=== PATIENT | male | born 1960 | race Caucasian/White ===

== ENCOUNTER 2022-10-17 07:10 | Outpatient (RCR) | payer OTHER, SELFPAY ==
--- NOTE | 2022-10-11 08:13 | CR1_ITS ---
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
--- NOTE | 2022-11-08 13:05 | CR1_ITS ---
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 Order Number: [id number] Reading MD: TAYLER FOSTER Interpretive Statements Session Date: Electronically Signed On 11-10-2022 10:17:25 EDT by TAYLER FOSTER
== END 2022-11-08 13:18 | disposition home or self-care (01) ==
LOC: CR 07:10
PROVIDERS: PCP Internal Medicine Interventional Cardiology; Visit Provider Internal Medicine Interventional Cardiology
DX: Z95.5 Presence of coronary angioplasty implant and graft (principal)

== ENCOUNTER 2022-12-19 10:58 | Outpatient (OUT) | payer MEDICARE, SELFPAY ==
[2022-12-19 11:21] LABS: Hematocrit 49.4 % (42.0-54.0); Hemoglobin 17.6 g/dL (14.0-18.0); Mean Corpuscular HGB Conc 35.6 g/dL (29.9-35.2); Mean Corpuscular Hemoglobin 31.8 pg (25.9-34.0); Mean Corpuscular Volume 89.2 fL (80.0-94.0); Mean Platelet Volume 9.7 fL (9.5-13.5); Platelet Count 414 10^3/uL (150-450); Red Blood Count 5.54 10^6/uL (4.70-6.10); Red Cell Distribution Width 12.9 % (11.0-15.0); White Blood Count 11.1 10^3/uL (4.0-11.0)
[2022-12-19 12:05] LABS: Segmented Neut Absolute Manual 4.55 10^3/uL (1.4-6.5)
[2022-12-19 12:06] LABS: Basophils Abs Manual 0.11 10^3/uL (0.00-0.10); Eosinophils Absolute Manual 0.33 10^3/uL (0.00-0.70); Lymphocytes Absolute Manual 4.99 10^3/uL (1.20-3.80); Monocytes Absolute Manual 1.11 10^3/uL (0.30-0.80)
[2022-12-19 12:42] LABS: Estimated Average Glucose 120 mg/dL; Glycohemoglobin A1C 5.8 % (4.5-6.2)
[2022-12-19 12:56] LABS: Prostate Specific Antigen Scrn 0.88 ng/mL (<=4.00)
[2022-12-19 13:04] LABS: Alanine Aminotransferase 37 U/L (16-63); Albumin Globulin Ratio 0.9; Albumin Level 3.7 g/dL (3.4-5.0); Alkaline Phosphatase 65 U/L (46-116); Anion Gap 14.1; Aspartate Amino Transferase 18 U/L (15-37); BUN Creatinine Ratio 16.7; Bilirubin Total 0.6 mg/dL (0.2-1.0); Calcium 9.1 mg/dL (8.5-10.1); Carbon Dioxide 27.5 mmol/L (21.0-32.0); Chloride 103 mmol/L (98-107); Cholesterol 131 mg/dL (<=200); Estimated GFR (African America >60 (>=60); Estimated GFR (Non-African Ame >60 (>=60); Free T3 3.02 pg/mL (2.18-3.98); Globulin 3.9 g/dL; Glucose 120 mg/dL (74-106); HDL Cholesterol 33 mg/dL (40-60); Potassium 3.6 mmol/L (3.5-5.1); Sodium 141 mmol/L (136-145); Total Protein 7.6 g/dL (6.4-8.2); Triglycerides 254 mg/dL (<=150); VLDL CHOLESTEROL 50.8 mg/dL
== END 2022-12-19 10:59 | disposition home or self-care (01) ==
LOC: LAB 12-26 10:58
PROVIDERS: PCP Internal Medicine Interventional Cardiology; Visit Provider Family Medicine
DX: G47.30 Sleep apnea, unspecified (principal); E11.9 Type 2 diabetes mellitus without complications; I10 Essential (primary) hypertension; Z12.5 Encounter for screening for malignant neoplasm of prostate
CPT/HCPCS: 36415; 80053; 80061; 83036; 84436; 84443; 84481; 85027; G0103

== ENCOUNTER 2023-07-12 14:21 | Outpatient (OUT) | payer MEDICARE, SELFPAY ==
--- NOTE | 2023-07-12 14:30 | CA_ITS ---
Patient Name: CECIL HAMMOND MR#: [id number] : 1960 Exam Date: 07/12/2023 Ordering Doctor: DR SHONNA MELTON M.D. ECHOCARDIOGRAM REPORT PROCEDURE: CA ECHO DOPPLER COMPLETE INDICATIONS: Abnormal ECG, cardiac stent, hypertension, h/o pulmonary emboli, former smoker COMPARISON: None. DESCRIPTION: COMPLETE ECHOCARDIOGRAM Real-time transthoracic echocardiography with 2D, M-mode, spectral and color flow Doppler performed. QUALITY: Technical quality was good. 69 , 285#, BSA 2.40 m2, BP 148/70 LEFT VENTRICLE: Mild dilatation. Normal left ventricular wall thickness. Normal systolic function. LV EF: Normal left ventricular ejection fraction, (>55%). DIASTOLIC: ATRIAL SEPTUM: LEFT ATRIUM: Normal chamber size. RIGHT ATRIUM: Normal chamber size. RIGHT VENTRICLE: Normal chamber size. Normal right ventricular systolic function. TRICUSPID VALVE: Normal mobility and thickness. No stenosis with mild regurgitation. Doppler studies reveal mildly (35-45) elevated right sided pressures. RVSP 38 mmHg MITRAL VALVE: Normal mobility and thickness. No evidence of mitral valve stenosis. There is no mitral annular calcification. Trivial mitral regurgitation. AORTIC VALVE: Normal trileaflet appearance. No visible sclerosis. Normal leaflet mobility. No evidence of aortic valve stenosis. AORTIC ROOT: Normal diameter and appearance. PULMONIC VALVE: Normal thickness and mobility. No stenosis. Trivial regurgitation. PERICARDIUM: No evidence of pericardial effusion. IVC: Collapses with inspirations. IVC is normal in size. PLEURA: CONCLUSION: 1. The left ventricle is mildly dilated and exhibits normal systolic function. LVEF is 55 to 60%. 2. Normal right ventricular size and systolic function. 3. Mild tricuspid regurgitation. 4. Mildly elevated right-sided pressures. Adult Echocardiography Procedure Report Left Ventricle LVEDD (3.7 - 5.6 cm): 6.22 cm LVESD (2.2 - 4.0 cm): 4.55 cm LVIVS thickness (0.6 - 1.2 cm): 0.90 cm LVPW thickness (0.5 - 1.0 cm): 0.83 cm LVOT Max Gradient: 3.85 mm[Hg] LVOT Area (cm2): 0.98 m/s Peak Velocity (LVOT): 0.98 m/s Mean Velocity (LVOT): 0.62 m/s LVOT Diameter 2.51 cm Left Atrium LA Volume Index (2D A2C): 30.83 ml/m2 Left Atrium Systolic Dimension: 4.40 cm Mitral Valve MV E to A Ratio: 0.89 Mitral Valve A-Wave Peak Velocity: 0.78 m/s Mitral Valve E-Wave Peak Velocity: 0.69 m/s Right Ventricle Aorta AO Root Diam: 3.69 cm Ascending Ao Diam: 3.42 cm Aortic Valve AoV Area (Peak Remigio): 3.00 cm2, 3.00 cm2 AoV Area (VTI): 2.80 cm2, 2.80 cm2 Peak Velocity(Antegrade Flow): 1.62 m/s Peak Gradient(Antegrade Flow): 10.46 mm[Hg] Mean Velocity(Antegrade Flow): 1.11 m/s Mean Gradient(Antegrade Flow): 5.57 mm[Hg] Velocity Time Integral: 36.45 cm Tricuspid Valve Peak Velocity (Regurgitant Flow): 2.94 m/s Pulmonic Valve Peak Velocity: 0.96 m/s Peak Gradient: 3.53 mm[Hg], 3.92 mm[Hg] Right Atrium Dictated by: Shonna Melton M.D. on 07/12/2023 at 18:18 Approved by: Shonna Melton M.D. on 07/12/2023 at 18:23
== END 2023-07-12 14:22 | disposition home or self-care (01) ==
LOC: CARD 14:22
PROVIDERS: PCP Family Medicine; Visit Provider Internal Medicine Interventional Cardiology
DX: R94.31 Abnormal electrocardiogram [ECG] [EKG] (principal)
CPT/HCPCS: 93306

== ENCOUNTER 2023-08-01 09:11 | Outpatient (OUT) | payer MEDICARE, SELFPAY ==
[2023-08-01 09:42] LABS: Basophils Absolute Auto 0.1 10^3/uL (0.0-0.1); Basophils Percent Auto 0.7 % (0.2-2.0); Eosinophils Absolute Auto 0.2 10^3/uL (0.0-0.7); Eosinophils Percent Auto 1.3 % (0.9-7.0); Hematocrit 50.2 % (42.0-54.0); Hemoglobin 17.7 g/dL (14.0-18.0); Immature Granulocytes Abs Auto 0.06 10^3/uL (0.00-0.03); Immature Granulocytes Pct Auto 0.5 % (0.0-0.5); Lymphocytes Absolute Auto 4.3 10^3/uL (1.2-3.8); Lymphocytes Percent Auto 38.7 % (20.5-60.0); Mean Corpuscular HGB Conc 35.3 g/dL (29.9-35.2); Mean Corpuscular Hemoglobin 32.2 pg (25.9-34.0); Mean Corpuscular Volume 91.3 fL (80.0-94.0); Mean Platelet Volume 9.6 fL (9.5-13.5); Monocytes Percent Auto 8.6 % (1.7-12.0); Neutrophils Absolute Auto 5.6 10^3/uL (1.4-6.5); Neutrophils Percent Auto 50.2 % (43.0-75.0); Platelet Count 392 10^3/uL (150-450); Red Cell Distribution Width 12.2 % (11.0-15.0); White Blood Count 11.2 10^3/uL (4.0-11.0)
[2023-08-01 10:29] LABS: Estimated Average Glucose 111 mg/dL; Glycohemoglobin A1C 5.5 % (4.5-6.2)
[2023-08-01 11:48] LABS: Prostate Specific Antigen Scrn 1.01 ng/mL (<=4.00)
[2023-08-01 11:53] LABS: Alanine Aminotransferase 33 U/L (16-63); Albumin Globulin Ratio 0.9; Albumin Level 3.6 g/dL (3.4-5.0); Alkaline Phosphatase 74 U/L (46-116); Aspartate Amino Transferase 28 U/L (15-37); BUN Creatinine Ratio 18.2; Bilirubin Total 0.7 mg/dL (0.2-1.0); Calcium 9.3 mg/dL (8.5-10.1); Carbon Dioxide 24.9 mmol/L (21.0-32.0); Chloride 106 mmol/L (98-107); Chol HDL Ratio 2.8; Cholesterol 131 mg/dL (<=200); Estimated GFR (African America >60 (>=60); Estimated GFR (Non-African Ame >60 (>=60); Globulin 3.8 g/dL; Glucose 127 mg/dL (74-106); HDL Cholesterol 47 mg/dL (40-60); LDL Cholesterol Calculated 57.8 mg/dL; Potassium 3.9 mmol/L (3.5-5.1); Sodium 142 mmol/L (136-145); Thyroid Stimulating Hormone 0.817 uIU/mL (0.358-3.740); Total Protein 7.4 g/dL (6.4-8.2); Triglycerides 131 mg/dL (<=150); VLDL CHOLESTEROL 26.2 mg/dL
== END 2023-08-01 09:12 | disposition home or self-care (01) ==
LOC: LAB 09:13
PROVIDERS: PCP Family Medicine; Visit Provider Family Medicine
DX: E78.5 Hyperlipidemia, unspecified (principal); R53.83 Other fatigue; R73.09 Other abnormal glucose; Z12.5 Encounter for screening for malignant neoplasm of prostate; Z12.12 Encounter for screening for malignant neoplasm of rectum
CPT/HCPCS: 36415; 80053; 80061; 83036; 84436; 84443; 84481; 85025; G0103

== ENCOUNTER 2023-09-04 11:46 | Outpatient (REF) | payer MEDICARE, SELFPAY ==
[2023-09-04 15:47] LABS: Occult Blood Negative
== END 2023-09-04 11:47 | disposition home or self-care (01) ==
LOC: LAB 11:46
PROVIDERS: PCP Family Medicine; Visit Provider Family Medicine
DX: E78.5 Hyperlipidemia, unspecified (principal); R53.83 Other fatigue; R73.09 Other abnormal glucose; Z12.5 Encounter for screening for malignant neoplasm of prostate; Z12.12 Encounter for screening for malignant neoplasm of rectum
CPT/HCPCS: G0328

== ENCOUNTER 2024-05-29 13:46 | Outpatient (OUT) | payer MEDICARE, SELFPAY ==
--- NOTE | 2024-05-29 13:51 | US_ITS ---
The [address] [address] Patient Name: CECIL HAMMOND MRN: [id number] date: 1960 Sex: M Assigned Patient Location: US Current Patient Location: US Accession/Order Number: [id number] Exam Date: 05/29/2024 13:59 Report Date: 05/29/2024 14:34 At the request of: LINDEN KING Procedure: US extremity nonvascular LT EXAMINATION: US extremity nonvascular LT HISTORY: Calf Pain Left COMPARISON: No relevant comparison available. FINDINGS: Ultrasound in the region of patient's pain, left calf demonstrates normal skin, subcutaneous fat and muscle. No focal ultrasound abnormality. The small saphenous vein is normal in caliber, echotexture and compressibility US/US extremity nonvascular LT IMPRESSION: No ultrasound abnormality observed. Electronically authenticated by: ALE JUNIOR Date: 05/29/2024 14:34
--- OUTSIDE RECORDS SUMMARY | 2024-05-29 14:09 | XMS_ITS | CCD ---
Author Organization [facility] Care Team Providers Care Youth Care Worker Name Role Phone Blade Wright Unavailable MD Linden Nair Primary Care Provider [phone] MD Blade Wright Attending Provider Blade Wright Attending Unavaila ble Blade Wright Admitting Unavaila ble Linden Nair Primary Care Unavailable HOY ., DR CHEATHAM Consulting Unavailable HOY ., DR CHEATHAM Primary Care Unavailable HOY ., DR CHEATHAM Attending Unavailable HOY ., DR CHEATHAM Admitting Unavailable HOY ., DR CHEATHAM Consulting Unavailable HOY ., DR CHEATHAM Primary Care Unavailable HOY ., DR CHEATHAM Attending Unavailable HOY ., DR CHEATHAM Admitting Unavailable HOY ., DR CHEATHAM Consulting Unavailable HOY ., DR CHEATHAM Primary Care Unavailable HOY ., DR CHEATHAM Attending Unavailable HOY ., DR CHEATHAM Admitting Unavailable HOY ., DR CHEATHAM Consulting Unavailable HOY ., DR CHEATHAM Primary Care Unavailable HOY ., DR CHEATHAM Attending Unavailable HOY ., DR CHEATHAM Admitting Unavailable HOY ., DR CHEATHAM Primary Care Unavailable HOY ., DR CHEATHAM Attending Unavailable HOY ., DR CHEATHAM Admitting Unavailable MISC, DR GUERRERO Consulting Unavailable HOY ., DR CHEATHAM Primary Care Unavailable MISC, DR GUERRERO Attending Unavailable MISC, DR GUERRERO Admitting Unavailable MOUKARBEL, DR KILPATRICK Consulting Unavailable HOY ., DR CHEATHAM Primary Care Unavailable MOUKARBEL, DR KILPATRICK Attending Unavailable MOUKARBEL, DR KILPATRICK Admitting Unavailable MISC, DR GUERRERO Consulting Unavailable HOY ., DR CHEATHAM Primary Care Unavailable MISC, DR GUERRERO Attending Unavailable MISC, DR GUERRERO Admitting Unavailable MOUKARBEL, DR KILPATRICK Consulting Unavailable DR LINDEN TEMPLETON Primary Care Unavailable TALISHA, DR KILPATRICK Attending Unavailable TALISHA, DR KILPATRICK Admitting Unavailable TALISHA, DR KILPATRICK Consulting Unavailable DR LINDEN TEMPLETON Primary Care Unavailable TALISHA, DR KILPATRICK Attending Unavailable TALISHA, DR KILPATRICK Admitting Unavailable RAMILA, DR FELICITY Simms Consulting Unavailable IRAIS Mack, KEYANNA Attending Unavailable KEYANNA ALLEN Admitting Unavailable DR LINDEN TEMPLETON Primary Care Unavailable ANSELMO JAY Consulting Unavailable IRAIS Mack, KEYANNA Consulting Unavailable BETTY HOLT Consulting Unavailable SHONNA WOODALL Attending Unavailable SHONNA WOODALL Attending Unavailable Allergies Allergy Classification Reported Allergen(s) Allergy Type Date of Onset Reaction(s) Facility (3 sources) Codeine; Translations: [CODEINE] Drug Allergy 08-17-2021 [facility] (2 sources) Codeine Drug Allergy [facility] Medications Current Medications Medication Drug Class(es) Dates Sig (Normalized) Sig (Original) apixaban 5 mg oral tablet (2 sources) Factor Xa Inhibitor take 1 tablet by mouth every twelve hours Eliquis 5 MG 1 tablet Orally Twice a day Active Ascorbic Acid (2 sources) Vitamin C Vitamin C Active clopidogrel 75 mg oral tablet (1 source) P2Y12 Platelet Inhibitor take 1 tablet by mouth every twenty-four hours Clopidogrel Bisulfate 75 MG 1 tablet Orally Once a day Active CPAP Machine (1 source) CPAP Machine Act matthew dapagliflozin 10 mg oral tablet (1 source) Sodium-Glucose Cotransporter 2 Inhibitor take 1 tablet by mouth in the morning Farxiga 10 MG TAKE 1 TABLET BY MOUTH IN THE MORNING Oral for 30 Days Active 1 ml evolocumab 140 mg/ml auto-injector (1 source) PCSK9 Inhibitor Repatha SureClic k 140 MG/ML INJECT 140 MG UNDER THE SKIN EVERY 14 DAYS Subcutaneous for 28 Days Active Fiber (2 sources) Fiber Active furosemide 40 mg oral tablet (1 source) Loop Diuretic take 1 tablet by mouth every twenty-four hours Furosemide 40 MG 1 tablet Orally Once a day Active gabapentin 600 mg oral tablet (2 sources) Anti-epileptic Agent Gabapentin 600 MG 1 tablet Orally 3 x a day Active levothyroxine sodium 0.2 mg oral tablet (2 sources) l-Thyroxine take 1 tablet by mouth once daily in the morning Levothyroxine Sodium 200 MCG 1 tablet in the morning on an empty stomach Orally Once a day Active lisinopril 40 mg oral tablet (2 sources) Angiotensin Converting Enzyme Inhibitor take 1 tablet by mouth every twenty-four hours Lisinopril 40 MG 1 tablet Orally Once a day Active Melatonin (2 sources) Melatonin Active metaxalone 800 mg oral tablet (2 sources) take 1 tablet by mouth every eight hours Metaxalone 800 MG 1 tablet Orally Three times a day Active metoprolol tartrate 50 mg oral tablet (1 source) beta-Adrenergic Katrin take 1 tablet by mouth every twelve hours Metoprolol Tartrate 50 MG 1 tablet with food Orally Twice a day Active mirtazapine 45 mg oral tablet (2 sources) take 2 tablets by mouth every twenty-four hours Mirtazapine 45 MG 2 tablet at bedtime Orally Once a day Active take 1 tablet by barak th every twenty-four hours Mirtazapine 45 MG 1 tablet at bedtime Orally Once a day Active omeprazole 40 mg delayed release oral capsule (2 sources) Proton Pump Inhibitor take 1 capsule by mouth once daily Omeprazole 40 MG 1 capsule 30 minutes before morning meal Orally Once a day Active potassium chloride 10 meq extended release oral tablet (1 source) take 1 tablet by mouth once daily in the morning Potassium Chloride ER 10 MEQ TAKE 1 TABLET BY MOUTH EVERY MORNING Oral for 90 Days Active Vitamin D3 (2 sources) Vitamin D3 Activ e Zinc (2 sources) Zinc Active Problems Active Problems Problem Classification Problem Date Documented Date Episodic/Chronic Cardiac dysrhythmias (4 sources) Ventricular tachycardia; Translations: [Unspecified atrial fibrillation] Onset: 12-20-2021 Chronic Coagulation and hemorrhagic disorders (2 sources) Activated protein C resistance; Translations: [Activated protein C resistance] Onset: 02-26-2022 Chronic Congestive heart failure; nonhypertensive (12 sources) Chronic diastolic (congestive) heart failure; Translations: [Unspecified diastolic (congestive) heart failure] Onset: 12-20-2021 Chronic Coronary atherosclerosis and other heart disease (2 sources) Atherosclerotic heart disease of [place] coronary artery without angina pectoris; Translations: [Atherosclerotic heart disease of [place] coronary artery without angina pectoris] Onset: 02-26-2022 Chronic Coronary atherosclerosis and other heart disease (4 sources) Coronary angioplasty status; Translations: [CORONARY ANGIOPLASTY STATUS] Onset: 04-25-2022 Episodic Diabetes mellitus without complication (4 sources) Type 2 diabetes mellitus without complications; Translations: [TYPE 2 DM WITHOUT COMPLICATIONS] Onset: 09-13-2021 Chronic Disorders of lipid metabolism (8 sources) Mixed hyperlipidemia; Translations: [Hyperlipidemia, unspecified] Onset: 12-19-2021 Chronic Essential hypertension (2 sources) Essential (primary) hypertension; Translations: [Essential (primary) hypertension] Onset: 02-26-2022 Chronic Hypertension with complications and secondary hypertension (1 source) Hypertensive heart disease with heart failure; Translations: [HTN HEART DISEASE W/HEART FAIL] Onset: 12-20-2021 Chronic Other and ill-defined heart disease (1 source) Heart disease, unspecified; Translations: [HEART DISEASE UNSPECIFIED] Onset: 08-21-2021 Chronic Other connective tissue disease (4 sources) Pain in right leg; Translations: [PAIN IN RIGHT LEG] Onset: 04-20-2022 Episodic Other connective tissue disease (1 source) Pain in left leg; Translations: [PAIN IN LEFT LEG] Onset: 04-26-2022 Episodic Other nutritional; endocrine; and metabolic disorders (1 source) Obesity, unspecified; Translations: [OBESITY UNSPECIFIED] Onset: 08-21-2021 Chronic Other nutritional; endocrine; and metabolic disorders (1 source) Body mass index (BMI) 40.0-44.9, adult; Translations: [BODY MASS INDEX BMI 40.0-44.9 ADULT] Onset: 08-21-2021 Chronic Residual codes; unclassified (2 sources) Obstructive sleep apnea syndrome; Translations: [Obstructive sleep apnea (adult) (pediatric)] Chronic Residual codes; unclassified (4 sources) Obstructive sleep apnea (adult) (pediatric); Translations: [Obstructive sleep apnea (adult) (pediatric)] Onset: 01-08-2022 Resolved: 01-08-2022 Chronic Residual codes; unclassified (1 source) Obstructive sleep apnea (adult)(pediatric); Translations: [Obstructive sleep apnea (adult) (pediatric)] Onset: 06-18-2022 Chronic Residual codes; unclassified (1 source) Periodic limb movement disorder; Translations: [Periodic limb movement disorder] Chronic Thyroid disorders (1 source) Hypothyroidism, unspecified; Translations: [HYPOTHYROIDISM UNSPECIFIED] Onset: 12-20-2021 Chronic Unclassified (4 sources) CONTACT W/AND (SUSP) EXPOS COVID-19; Translations: [CONTACT W/AND (SUSP) EXPOS COVID-19] Onset: 08-21-2021 Past or Other Problems Problem Classification Problem Date Documented Da te Episodic/Chronic Diabetes mellitus without complication (1 source) Other abnormal glucose; Translations: [OTHER ABNORMAL GLUCOSE] Onset: 12-20-2021 Episodic Other aftercare (1 source) Other fpc (current) drug therapy; Translations: [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] Onset: 08-21-2021 Episodic Other screening for suspected conditions (not mental disorders or infectious disease) (3 sources) Encounter for screening for malignant neoplasm of prostate; Translations: [Abnormal results of thyroid function studies] Onset: 08-21-2021 Episodic Pulmonary heart disease (6 sources) Other pulmonary embolism without acute cor pulmonale; Translations: [Personal history of pulmonary embolism] Onset: 08-21-2021 Resolved: 01-08-2022 Episodic Screening and history of mental health and substance abuse codes (1 source) Personal history of nicotine dependence; Translations: [PERSONAL HISTORY OF NICOTINE DEPEND] Onset: 08-21-2021 Episodic Syncope (4 sources) Syncope and collapse; Translations: [SYNCOPE AND COLLAPSE] Onset: 10-24-2021 Episodic Unclassified (1 source) CONTACT W/AND (SUSP) EXPOS COVID-19; Translations: [CONTACT W/AND (SUSP) EXPOS COVID-19] Onset: 01-12-2022 Results Test Name Value Interpretation Reference Range Facility Office Visiton 04-06-2024 Follow-up visit [id number] Giovanni Mcrae 1960 M Date Provider Department Center 04/06/2024 SHONNA BAUTISTA Family History Problem Relation Age of Onset Pulmonary embolism Father Deep vein thrombosis Father Deep vein thrombosis Sister Deep vein thrombosis Brother Heart failure Brother Family Status - Relation Status Age at Father Sister Brother Level of Service:74565 [place] OFFICE/OUTPATIENT ESTABLISHED LOW MDM 20 MIN Normal [facility] Office Visiton 07-26-2023 Follow-up visit [id number] Giovanni Mcrae 1960 M Date Provider Department Center 07/26/2023 SHONNA BAUTISTA Family History Problem Relation Age of Onset Pulmonary embolism Father Deep vein thrombosis Father Deep vein thrombosis Sister Deep vein thrombosis Brother Heart failure Brother Family Status - Relation Status Age at Father Sister Brother Level of Service:20252 [place] OFFICE/OUTPATIENT ESTABLISHED MOD MDM 30 MIN Reason for Visit and Comments: Follow-up [818407] - Yearly follow up Normal [facility] CBC AUTO DIFFon 04-20-2022 BASO # 0.1 103/ul Normal 0.0-0.1 [facility] Comment on above: Performed By: #### C MP, LIPID #### [facility] [address] [place] [address] Dr. Calixto West Basophils/100 WBC (Bld) 0.7 % Normal 0.2-2.0 [facility] Comment on above: Performed By: #### C MP, LIPID #### [facility] [address] [place] [address] Dr. Calixto West EO # 0.2 103/ul Normal 0.0-0.7 [facility] Comment on above: Performed By: #### C MP, LIPID #### [facility] [address] [place] [address] Dr. Calixto West Eosinophils/100 WBC (Bld) 2.2 % Normal 0.9-7.0 [facility] Comment on above: Performed By: #### C MP, LIPID #### [facility] [address] [place] [address] Dr. Calixto West Erythrocyte distribution width (RBC) [Ratio] 12.7 % Normal 11.0-15.0 [facility] Comment on above: Performed By: #### C MP, LIPID #### [facility] [address] [place] [address] Dr. Calixto West Hematocrit (Bld) [Volume fraction] 46.8 % Normal 42.0-54.0 [facility] Comment on above: Performed By: #### C MP, LIPID #### [facility] [address] [place] [address] Dr. Calixto West Hemoglobin (Bld) [Mass/Vol] 16.9 g/dL Normal 14.0-18.0 [facility] Comment on above: Performed By: #### C MP, LIPID #### [facility] [address] [address] [address] Calixto West IG # 0.04 10e3/ul Critically high 0.00-0.03 [facility] Comment on above: Performed By: #### C MP, LIPID #### [facility] [address] [address] [address] Calixto West IG % 0.4 % Normal 0.0-0.5 [facility] Comment on above: Performed By: #### C MP, LIPID #### [facility] [address] [address] [address] Calixto West LYMPH # 4.1 103/ul Critically high 1.2-3.8 [facility] Comment on above: Performed By: #### C MP, LIPID #### [facility] [address] [place] [address] Dr. Calixto West Lymphocytes/100 WBC (Bld) 41.8 % Normal 20.5-60.0 [facility] Comment on above: Performed By: #### C MP, LIPID #### [facility] [address] [address] [address] Calixto West MANUAL DIFF REQ NO Normal [facility] Comment on above: Performed By: #### C MP, LIPID #### [facility] [address] [address] [address] Calixto West MCH (RBC) [Entitic mass] 31.6 pg Normal 25.9-34.0 [facility] Comment on above: Performed By: #### C MP, LIPID #### [facility] [address] [address] [address] Calixto West MCHC (RBC) [Mass/Vol] 36.1 g/dL Critically high 29.9-35.2 [facility] Comment on above: Performed By: #### C MP, LIPID #### [facility] [address] [place] [address] Dr. Calixto West MCV (RBC) [Entitic vol] 87.6 fL Normal 80.0-94.0 [facility] Comment on above: Performed By: #### C MP, LIPID #### [facility] [address] [place] [address] Dr. Calixto West MONO # 0.8 103/ul Normal 0.3-0.8 [facility] Comment on above: Performed By: #### C MP, LIPID #### [facility] [address] [place] [address] Dr. Calixto West Monocytes/100 WBC (Bld) 8.4 % Normal 1.7-12.0 [facility] Comment on above: Performed By: #### C MP, LIPID #### [facility] [address] [place] [address] Dr. Calixto West NEUT # 4.5 103/ul Normal 1.4-6.5 [facility] Comment on above: Performed By: #### C MP, LIPID #### [facility] [address] [place] [address] Dr. Calixto West Neutrophils/100 WBC (Bld) 46.5 % Normal 43.0-75.0 [facility] Comment on above: Performed By: #### C MP, LIPID #### [facility] [address] [place] [address] Dr. Calixto West Platelet mean volume (Bld) [Entitic vol] 9.1 fL Critically low 9.5-13.5 [facility] Comment on above: Performed By: #### C MP, LIPID #### [facility] [address] [place] [address] Dr. Calixto West PLT 383 103/ul Normal 150-450 [facility] Comment on above: Performed By: #### C MP, LIPID #### [facility] [address] [place] [address] Dr. Calixto West RBC 5.34 106/ul Normal 4.70-6.10 [facility] Comment on above: Performed By: #### C MP, LIPID #### [facility] [address] [place] [address] Dr. Calixto West WBC 9.7 103/ul Normal 4.0-11.0 [facility] Comment on above: Performed By: #### C MP, LIPID #### [facility] [address] [place] [address] Dr. Calixto West D-DIMERon 04-20-2022 D-DIMER 0.35 mg/L FEU Normal <=0.59 [facility] Comment on above: Performed By: #### T SH, BNP, CMP, CMADM #### [facility] [address] [place] [address] Dr. Calixto West D-DIMER COMMENTS SEE BELOW Normal [facility] Comment on above: Result Comment: Incr eases in D-Dimer concentration observed with thromboembolic events can be variable due to localization, size, and age of the thrombus. Therefore, a thromboembolic event cannot be diagnosed with certainty on the basis of the reference range. D-Dimers may also be elevated for a variety of disorders including: advanced age, , coronary disease, cancer, liver disease, infection, inflammation, hematoma, DIC, trauma, post-surgery, diabetes, thrombolytic or anticoagulant therapy, stress, and generalized hospitalization. Performed By: #### T SH, BNP, CMP, CMADM #### [facility] [address] [place] [address] Dr. Calixto West PROF 14(COMP METB)on 022 Albumin [Mass/Vol] 3.8 g/dL Normal 3.4-5.0 [facility] Comment on above: Performed By: #### T SH, BNP, CMP, CMADM #### [facility] [address] [place] [address] Dr. Calixto West Albumin/Globulin [Mass ratio] 0.9 {ratio} Normal [facility] Comment on above: Performed By: #### T SH, BNP, CMP, CMADM #### [facility] [address] [place] [address] Dr. Calixto West ALP [Catalytic activity/Vol] 64 U/L Normal 46-116 [facility] Comment on above: Performed By: #### T SH, BNP, CMP, CMADM #### [facility] [address] [place] [address] Dr. Calixto West ALT [Catalytic activity/Vol] 33 U/L Normal 16-63 [facility] Comment on above: Performed By: #### T SH, BNP, CMP, CMADM #### [facility] [address] [address] [address] Calixto West Anion gap [Moles/Vol] 12.4 mmol/L Normal Th [facility] Comment on above: Performed By: #### T SH, BNP, CMP, CMADM #### [facility] [address] [place] [address] Dr. Calixto West AST [Catalytic activity/Vol] 26 U/L Normal 15-37 [facility] Comment on above: Performed By: #### T SH, BNP, CMP, CMADM #### [facility] [address] [address] [address] Calixto West Bilirubin [Mass/Vol] 0.4 mg/dL Normal 0.2-1.0 [facility] Comment on above: Performed By: #### T SH, BNP, CMP, CMADM #### [facility] [address] [place] [address] Dr. Calixto West Calcium [Mass/Vol] 8.9 mg/dL Normal 8.5-10.1 [facility] Comment on above: Performed By: #### T SH, BNP, CMP, CMADM #### [facility] [address] [place] [address] Dr. Calixto West Chloride [Moles/Vol] 100 mmol/L Normal 98-107 [facility] Comment on above: Performed By: #### T SH, BNP, CMP, CMADM #### [facility] [address] [address] [address] Calixto West CO2 [Moles/Vol] 28.8 mmol/L Normal 21.0-32.0 [facility] Comment on above: Performed By: #### T SH, BNP, CMP, CMADM #### [facility] [address] [place] [address] Dr. Calixto West Creatinine [Mass/Vol] 1.21 mg/dL Normal 0.70-1.30 [facility] Comment on above: Performed By: #### T SH, BNP, CMP, CMADM #### [facility] [address] [address] [address] Calixto West EGFR-AF BRUNEIAN >60 Normal >=60 [facility] Comment on above: Performed By: #### T SH, BNP, CMP, CMADM #### [facility] [address] [address] [address] Calixto West EGFR-NON AF BRUNEIAN >60 Normal >=60 [facility] Comment on above: Performed By: #### T SH, BNP, CMP, CMADM #### [facility] [address] [address] [address] Calixto West Globulin (S) [Mass/Vol] 4.0 g/dL Normal [facility] Comment on above: Performed By: #### T SH, BNP, CMP, CMADM #### [facility] [address] [address] [address] Calixto West Glucose [Mass/Vol] 118 mg/dL Critically high 74-106 [facility] Comment on above: Performed By: #### T SH, BNP, CMP, CMADM #### [facility] [address] [address] [address] Calixto West Potassium [Moles/Vol] 4.2 mmol/L Normal 3.5-5.1 [facility] Comment on above: Performed By: #### T SH, BNP, CMP, CMADM #### [facility] [address] [address] [address] Calixto West Protein [Mass/Vol] 7.8 g/dL Normal 6.4-8.2 [facility] Comment on above: Performed By: #### T SH, BNP, CMP, CMADM #### [facility] [address] [address] [address] Calixto West Sodium [Moles/Vol] 137 mmol/L Normal 136-145 [facility] Comment on above: Performed By: #### T SH, BNP, CMP, CMADM #### [facility] [address] [address] [address] Calixto West Urea nitrogen [Mass/Vol] 18.0 mg/dL Normal 7.0-18.0 [facility] Comment on above: Performed By: #### T SH, BNP, CMP, CMADM #### [facility] [address] [address] [address] Calixto West Urea nitrogen/Creatinine [Mass ratio] 14.9 mg/mg Normal [facility] Comment on above: Performed By: #### T SH, BNP, CMP, CMADM #### [facility] [address] [address] [address] Calixto West LIPID PROFILEon 03-30-2022 CHOL-HDL RATIO NORM SEE BELOW Normal [facility] Comment on above: Result Comment: 3.3 - 4.4 LOW RISK 4.4 - 7.1 AVERAGE RISK 7.1 - 11.0 MODERATE RISK >11.0 HIGH RISK Performed By: #### C MP, LIPID #### [facility] [address] [place] [address] Dr. Calixto West Cholesterol [Mass/Vol] 166 mg/dL Normal <=200 Th [facility] Comment on above: Performed By: #### C MP, LIPID #### [facility] [address] [place] [address] Dr. Calixto West Cholesterol in HDL [Mass/Vol] 40 mg/dL Normal 40-60 [facility] Comment on above: Performed By: #### C MP, LIPID #### [facility] [address] [address] [address] Calixto West Cholesterol in LDL [Mass/Vol] 65.8 mg/dL Normal [facility] Comment on above: Performed By: #### C MP, LIPID #### [facility] [address] [place] [address] Dr. Calixto West Cholesterol.total/Chol esterol in HDL [Mass ratio] 4.2 {ratio} Normal [facility] Comment on above: Performed By: #### C MP, LIPID #### [facility] [address] [place] [address] Dr. Calixto West HDL NORMAL > or = 60 mg/dl - LO W CARDIOVASCULAR RISK <40 mg/dl - HIGH CARDIOVASCULAR RISK Normal [facility] Comment on above: Performed By: #### C MP, LIPID #### [facility] [address] [place] [address] Dr. Calixto West LDL CALC NORMAL SEE BELOW Normal [facility] Comment on above: Result Comment: <100 mg/dl OPTIMAL 100 - 129 mg/dl NEAR OR ABOVE OPTIMAL 130 - 159 mg/dl BORDERLINE HIGH 160 - 189 mg/dl HIGH >190 mg/dl VERY HIGH Performed By: #### C MP, LIPID #### [facility] [address] [place] [address] Dr. Calixto West Triglyceride [Mass/Vol] 301 mg/dL Critically high <=150 [facility] Comment on above: Performed By: #### C MP, LIPID #### [facility] [address] [place] [address] Dr. Calixto West VLDL CALC 60.2 mg/dL Normal [facility] Comment on above: Performed By: #### C MP, LIPID #### [facility] [address] [place] [address] Dr. Calixto West PROF 14(COMP METB)on 022 Albumin [Mass/Vol] 3.6 g/dL Normal 3.4-5.0 [facility] Comment on above: Performed By: #### C MP, LIPID #### [facility] [address] [place] [address] Dr. Calixto West Albumin/Globulin [Mass ratio] 0.9 {ratio} Normal [facility] Comment on above: Performed By: #### C MP, LIPID #### [facility] [address] [place] [address] Dr. Calixto West ALP [Catalytic activity/Vol] 70 U/L Normal 46-116 [facility] Comment on above: Performed By: #### C MP, LIPID #### [facility] [address] [place] [address] Dr. Calixto West ALT [Catalytic activity/Vol] 28 U/L Normal 16-63 [facility] Comment on above: Performed By: #### C MP, LIPID #### [facility] [address] [place] [address] Dr. Calixto West Anion gap [Moles/Vol] 11.8 mmol/L Normal Th [facility] Comment on above: Performed By: #### C MP, LIPID #### [facility] [address] [place] [address] Dr. Calixto West AST [Catalytic activity/Vol] 26 U/L Normal 15-37 [facility] Comment on above: Performed By: #### C MP, LIPID #### [facility] [address] [place] [address] Dr. Calixto West Bilirubin [Mass/Vol] 0.3 mg/dL Normal 0.2-1.0 [facility] Comment on above: Performed By: #### C MP, LIPID #### [facility] [address] [place] [address] Dr. Calixto West Calcium [Mass/Vol] 9.4 mg/dL Normal 8.5-10.1 [facility] Comment on above: Performed By: #### C MP, LIPID #### [facility] [address] [place] [address] Dr. Calixto West Chloride [Moles/Vol] 101 mmol/L Normal 98-107 [facility] Comment on above: Performed By: #### C MP, LIPID #### [facility] [address] [place] [address] Dr. Calixto West CO2 [Moles/Vol] 27.8 mmol/L Normal 21.0-32.0 [facility] Comment on above: Performed By: #### C MP, LIPID #### [facility] [address] [place] [address] Dr. Calixto West Creatinine [Mass/Vol] 1.28 mg/dL Normal 0.70-1.30 [facility] Comment on above: Performed By: #### C MP, LIPID #### [facility] [address] [place] [address] Dr. Calixto West EGFR-AF BRUNEIAN >60 Normal >=60 [facility] Comment on above: Performed By: #### C MP, LIPID #### [facility] [address] [place] [address] Dr. Calixto West EGFR-NON AF BRUNEIAN 57 mL/min/1.73m2 Critically low >=60 [facility] Comment on above: Performed By: #### C MP, LIPID #### [facility] [address] [place] [address] Dr. Calixto West Globulin (S) [Mass/Vol] 4.1 g/dL Normal [facility] Comment on above: Performed By: #### C MP, LIPID #### [facility] [address] [place] [address] Dr. Calixto West Glucose [Mass/Vol] 133 mg/dL Critically high 74-106 [facility] Comment on above: Performed By: #### C MP, LIPID #### [facility] [address] [place] [address] Dr. Calixto West Potassium [Moles/Vol] 4.6 mmol/L Normal 3.5-5.1 [facility] Comment on above: Performed By: #### C MP, LIPID #### [facility] [address] [place] [address] Dr. Calixto West Protein [Mass/Vol] 7.7 g/dL Normal 6.4-8.2 [facility] Comment on above: Performed By: #### C MP, LIPID #### [facility] [address] [place] [address] Dr. Calixto West Sodium [Moles/Vol] 136 mmol/L Normal 136-145 [facility] Comment on above: Performed By: #### C MP, LIPID #### [facility] [address] [place] [address] Dr. Calixto West Urea nitrogen [Mass/Vol] 25.0 mg/dL Critically high 7.0-18.0 [facility] Comment on above: Performed By: #### C MP, LIPID #### [facility] [address] [place] [address] Dr. Calixto West Urea nitrogen/Creatinine [Mass ratio] 19.5 mg/mg Normal [facility] Comment on above: Performed By: #### C MP, LIPID #### [facility] [address] [place] [address] Dr. Calixto West PROF CHEM 8 (BAS METB)on Anion gap [Moles/Vol] 11.3 mmol/L Normal Th [facility] Comment on above: Performed By: #### C MP, LIPID #### [facility] [address] [place] [address] Dr. Calixto West Calcium [Mass/Vol] 9.1 mg/dL Normal 8.5-10.1 [facility] Comment on above: Performed By: #### C MP, LIPID #### [facility] [address] [place] [address] Dr. Calixto West Chloride [Moles/Vol] 101 mmol/L Normal 98-107 [facility] Comment on above: Performed By: #### C MP, LIPID #### [facility] [address] [place] [address] Dr. Calixto West CO2 [Moles/Vol] 32.2 mmol/L Critically high 21.0-32.0 [facility] Comment on above: Performed By: #### C MP, LIPID #### [facility] [address] [place] [address] Dr. Calixto West Creatinine [Mass/Vol] 1.33 mg/dL Critically high 0.70-1.30 [facility] Comment on above: Performed By: #### C MP, LIPID #### [facility] [address] [place] [address] Dr. Calixto West EGFR-AF BRUNEIAN >60 Normal >=60 [facility] Comment on above: Performed By: #### C MP, LIPID #### [facility] [address] [place] [address] Dr. Calixto West EGFR-NON AF BRUNEIAN 54 mL/min/1.73m2 Critically low >=60 [facility] Comment on above: Performed By: #### C MP, LIPID #### [facility] [address] [place] [address] Dr. Calixto West Glucose [Mass/Vol] 149 mg/dL Critically high 74-106 [facility] Comment on above: Performed By: #### C MP, LIPID #### [facility] [address] [address] [address] Calixto West Potassium [Moles/Vol] 4.5 mmol/L Normal 3.5-5.1 [facility] Comment on above: Performed By: #### C MP, LIPID #### [facility] [address] [place] [address] Dr. Calixto West Sodium [Moles/Vol] 140 mmol/L Normal 136-145 [facility] Comment on above: Performed By: #### C MP, LIPID #### [facility] [address] [place] [address] Dr. Calixto West Urea nitrogen [Mass/Vol] 21.0 mg/dL Critically high 7.0-18.0 [facility] Comment on above: Performed By: #### C MP, LIPID #### [facility] [address] [place] [address] Dr. Calixto West Urea nitrogen/Creatinine [Mass ratio] 15.8 mg/mg Normal [facility] Comment on above: Performed By: #### C MP, LIPID #### [facility] [address] [place] [address] Dr. Calixto West [facility] 12[facility]22 SARS-CoV-2 (COVID-19) RNA PATSY+probe Ql (Unsp spec) Not detected Normal NOT DETECTED [facility] Comment on above: Result Comment: This test is not yet approved or cleared by the [place] FDA. When there are no FDA-approved or cleared tests available, and other criteria are met, FDA can make tests available under an emergency access mechanism called an Emergency Use Authorization (EUA). The EUA for this test is supported by the [place] [employer] of Health and Human Service's (HHS's) declaration that circumstances exist to justify the emergency use of in vitro diagnostics for the detection and/or diagnosis of the virus that causes COVID-19. This EUA will remain in effect (meaning this test can be used) for the duration of the COVID-19 declaration justifying emergency of IVDs, unless it is terminated or revoked by FDA (after which the test may no longer be used). When diagnostic testing is negative, the possibility of a false negative should be considered in the context of a patient's recent exposures and the presence of clinical signs and symptoms consistent with SARS-CoV-2. Performed By: #### T SH, BNP, CMP, CMADM #### [facility] [address] [place] [address] Dr. Calixto West INSULINon 12-20-2021 Insulin 28.6 uIU/mL Critically high 2.6-24.9 [facility] Comment on above: Performed By: #### T SH, BNP, CMP, CMADM #### [facility] [address] [place] [address] Dr. Calixto West BNPon 12-19-2021 Natriuretic peptide B (Bld) [Mass/Vol] 89.0 pg/mL Normal <=900.0 [facility] Comment on above: Performed By: #### T SH, BNP, CMP, CMADM #### [facility] [address] [place] [address] Dr. Calixto West CBC AUTO DIFFon 12-19-2021 BASO # 0.1 103/ul Normal 0.0-0.1 [facility] Comment on above: Performed By: #### C MP, LIPID #### [facility] [address] [place] [address] Dr. Calixto West Basophils/100 WBC (Bld) 0.9 % Normal 0.2-2.0 [facility] Comment on above: Performed By: #### C MP, LIPID #### [facility] [address] [place] [address] Dr. Calixto West EO # 0.2 103/ul Normal 0.0-0.7 [facility] Comment on above: Performed By: #### C MP, LIPID #### [facility] [address] [place] [address] Dr. Calixto West Eosinophils/100 WBC (Bld) 1.7 % Normal 0.9-7.0 [facility] Comment on above: Performed By: #### C MP, LIPID #### [facility] [address] [place] [address] Dr. Calixto West Erythrocyte distribution width (RBC) [Ratio] 12.9 % Normal 11.0-15.0 [facility] Comment on above: Performed By: #### C MP, LIPID #### [facility] [address] [place] [address] Dr. Calixto West Hematocrit (Bld) [Volume fraction] 45.5 % Normal 42.0-54.0 [facility] Comment on above: Performed By: #### C MP, LIPID #### [facility] [address] [place] [address] Dr. Calixto West Hemoglobin (Bld) [Mass/Vol] 16.5 g/dL Normal 14.0-18.0 [facility] Comment on above: Performed By: #### C MP, LIPID #### [facility] [address] [place] [address] Dr. Calixto West IG # 0.05 10e3/ul Critically high 0.00-0.03 [facility] Comment on above: Performed By: #### C MP, LIPID #### [facility] [address] [place] [address] Dr. Calixto West IG % 0.5 % Normal 0.0-0.5 [facility] Comment on above: Performed By: #### C MP, LIPID #### [facility] [address] [place] [address] Dr. Calixto West LYMPH # 5.2 103/ul Critically high 1.2-3.8 [facility] Comment on above: Performed By: #### C MP, LIPID #### [facility] [address] [place] [address] Dr. Calixto West Lymphocytes/100 WBC (Bld) 49.6 % Normal 20.5-60.0 [facility] Comment on above: Performed By: #### C MP, LIPID #### [facility] [address] [place] [address] Dr. Calixto West MANUAL DIFF REQ NO Normal [facility] Comment on above: Performed By: #### C MP, LIPID #### [facility] [address] [place] [address] Dr. Calixto West MCH (RBC) [Entitic mass] 31.2 pg Normal 25.9-34.0 [facility] Comment on above: Performed By: #### C MP, LIPID #### [facility] [address] [place] [address] Dr. Calixto West MCHC (RBC) [Mass/Vol] 36.3 g/dL Critically high 29.9-35.2 [facility] Comment on above: Performed By: #### C MP, LIPID #### [facility] [address] [place] [address] Dr. Calixto West MCV (RBC) [Entitic vol] 86.0 fL Normal 80.0-94.0 [facility] Comment on above: Performed By: #### C MP, LIPID #### [facility] [address] [place] [address] Dr. Calixto West MONO # 0.8 103/ul Normal 0.3-0.8 [facility] Comment on above: Performed By: #### C MP, LIPID #### [facility] [address] [place] [address] Dr. Calixto West Monocytes/100 WBC (Bld) 7.8 % Normal 1.7-12.0 [facility] Comment on above: Performed By: #### C MP, LIPID #### [facility] [address] [place] [address] Dr. Calixto West NEUT # 4.1 103/ul Normal 1.4-6.5 [facility] Comment on above: Performed By: #### C MP, LIPID #### [facility] [address] [place] [address] Dr. Calixto West Neutrophils/100 WBC (Bld) 39.5 % Critically low 43.0-75.0 [facility] Comment on above: Performed By: #### C MP, LIPID #### [facility] [address] [place] [address] Dr. Calixto West Platelet mean volume (Bld) [Entitic vol] 9.3 fL Critically low 9.5-13.5 [facility] Comment on above: Performed By: #### C MP, LIPID #### [facility] [address] [address] [address] Calixto West PLT 449 103/ul Normal 150-450 [facility] Comment on above: Performed By: #### C MP, LIPID #### [facility] [address] [address] [address] Calixto West RBC 5.29 106/ul Normal 4.70-6.10 [facility] Comment on above: Performed By: #### C MP, LIPID #### [facility] [address] [address] [address] Calixto West WBC 10.4 103/ul Normal 4.0-11.0 [facility] Comment on above: Performed By: #### C MP, LIPID #### [facility] [address] [place] [address] Dr. Calixto West GLYCOHEMOGLOBIN A1Con 2021 ADA RECOMMENDATION SEE BELOW Normal [facility] Comment on above: Result Comment: ADA RECOMMENDED LIMIT 4.0 - 6.0 ADA THERAPEUTIC TARGET < 7.0 ACTION SUGGESTED > 7.0 Performed By: #### A 1C #### [facility] [address] [place] [address] Dr. Calixto West Glucose [Mass/Vol] 134 mg/dL Normal [facility] Comment on above: Performed By: #### A 1C #### [facility] [address] [place] [address] Dr. Calixto West HbA1c (Bld) [Mass fraction] 6.3 % Critically high 4.5-6.2 [facility] Comment on above: Performed By: #### A 1C #### [facility] [address] [place] [address] Dr. Calixto West LIPID PROFILEon 12-19-2021 CHOL-HDL RATIO NORM SEE BELOW Normal [facility] Comment on above: Result Comment: 3.3 - 4.4 LOW RISK 4.4 - 7.1 AVERAGE RISK 7.1 - 11.0 MODERATE RISK >11.0 HIGH RISK Performed By: #### T SH, BNP, CMP, CMADM #### [facility] [address] [place] [address] Dr. Calixto West Cholesterol [Mass/Vol] 302 mg/dL Critically high <=200 [facility] Comment on above: Performed By: #### T SH, BNP, CMP, CMADM #### [facility] [address] [address] [address] Calixto West Cholesterol in HDL [Mass/Vol] 36 mg/dL Critically low 40-60 [facility] Comment on above: Performed By: #### T SH, BNP, CMP, CMADM #### [facility] [address] [address] [address] Calixto West Cholesterol in LDL [Mass/Vol] 189.6 mg/dL Normal [facility] Comment on above: Performed By: #### T SH, BNP, CMP, CMADM #### [facility] [address] [address] [address] Calixto West Cholesterol.total/Chol esterol in HDL [Mass ratio] 8.4 {ratio} Normal [facility] Comment on above: Performed By: #### T SH, BNP, CMP, CMADM #### [facility] [address] [address] [address] Calixto West HDL NORMAL > or = 60 mg/dl - LO W CARDIOVASCULAR RISK <40 mg/dl - HIGH CARDIOVASCULAR RISK Normal [facility] Comment on above: Performed By: #### T SH, BNP, CMP, CMADM #### [facility] [address] [address] [address] Calixto West LDL CALC NORMAL SEE BELOW Normal [facility] Comment on above: Result Comment: <100 mg/dl OPTIMAL 100 - 129 mg/dl NEAR OR ABOVE OPTIMAL 130 - 159 mg/dl BORDERLINE HIGH 160 - 189 mg/dl HIGH >190 mg/dl VERY HIGH Performed By: #### T SH, BNP, CMP, CMADM #### [facility] [address] [address] [address] Calixto West Triglyceride [Mass/Vol] 382 mg/dL Critically high <=150 [facility] Comment on above: Performed By: #### T SH, BNP, CMP, CMADM #### [facility] [address] [address] [address] Calixto West VLDL CALC 76.4 mg/dL Normal [facility] Comment on above: Performed By: #### T SH, BNP, CMP, CMADM #### [facility] [address] [place] [address] Dr. Calixto West PROF 14(COMP METB)on 022 Albumin [Mass/Vol] 3.7 g/dL Normal 3.4-5.0 [facility] Comment on above: Performed By: #### T SH, BNP, CMP, CMADM #### [facility] [address] [place] [address] Dr. Calixto West Albumin/Globulin [Mass ratio] 0.9 {ratio} Normal [facility] Comment on above: Performed By: #### T SH, BNP, CMP, CMADM #### [facility] [address] [place] [address] Dr. Calixto West ALP [Catalytic activity/Vol] 72 U/L Normal 46-116 [facility] Comment on above: Performed By: #### T SH, BNP, CMP, CMADM #### [facility] [address] [place] [address] Dr. Calixto West ALT [Catalytic activity/Vol] 35 U/L Normal 16-63 [facility] Comment on above: Performed By: #### T SH, BNP, CMP, CMADM #### [facility] [address] [place] [address] Dr. Calixto West Anion gap [Moles/Vol] 13.3 mmol/L Normal [facility] Comment on above: Performed By: #### T SH, BNP, CMP, CMADM #### [facility] [address] [place] [address] Dr. Calixto West AST [Catalytic activity/Vol] 20 U/L Normal 15-37 [facility] Comment on above: Performed By: #### T SH, BNP, CMP, CMADM #### [facility] [address] [place] [address] Dr. Calixto West Bilirubin [Mass/Vol] 0.6 mg/dL Normal 0.2-1.0 [facility] Comment on above: Performed By: #### T SH, BNP, CMP, CMADM #### [facility] [address] [address] [address] Calixto West Calcium [Mass/Vol] 8.8 mg/dL Normal 8.5-10.1 [facility] Comment on above: Performed By: #### T SH, BNP, CMP, CMADM #### [facility] [address] [address] [address] Calixto West Chloride [Moles/Vol] 102 mmol/L Normal 98-107 [facility] Comment on above: Performed By: #### T SH, BNP, CMP, CMADM #### [facility] [address] [place] [address] Dr. Calixto West CO2 [Moles/Vol] 26.9 mmol/L Normal 21.0-32.0 [facility] Comment on above: Performed By: #### T SH, BNP, CMP, CMADM #### [facility] [address] [place] [address] Dr. Calixto West Creatinine [Mass/Vol] 1.22 mg/dL Normal 0.70-1.30 [facility] Comment on above: Performed By: #### T SH, BNP, CMP, CMADM #### [facility] [address] [place] [address] Dr. Calixto West EGFR-AF BRUNEIAN >60 Normal >=60 [facility] Comment on above: Performed By: #### T SH, BNP, CMP, CMADM #### [facility] [address] [place] [address] Dr. Calixto West EGFR-NON AF BRUNEIAN =60 Normal >=60 [facility] Comment on above: Performed By: #### T SH, BNP, CMP, CMADM #### [facility] [address] [place] [address] Dr. Calixto West Globulin (S) [Mass/Vol] 3.9 g/dL Normal [facility] Comment on above: Performed By: #### T SH, BNP, CMP, CMADM #### [facility] [address] [place] [address] Dr. Calixto West Glucose [Mass/Vol] 147 mg/dL Critically high 74-106 [facility] Comment on above: Performed By: #### T SH, BNP, CMP, CMADM #### [facility] [address] [address] [address] Calixto West Potassium [Moles/Vol] 4.2 mmol/L Normal 3.5-5.1 [facility] Comment on above: Performed By: #### T SH, BNP, CMP, CMADM #### [facility] [address] [place] [address] Dr. Calixto West Protein [Mass/Vol] 7.6 g/dL Normal 6.4-8.2 [facility] Comment on above: Performed By: #### T SH, BNP, CMP, CMADM #### [facility] [address] [place] [address] Dr. Calixto West Sodium [Moles/Vol] 138 mmol/L Normal 136-145 [facility] Comment on above: Performed By: #### T SH, BNP, CMP, CMADM #### [facility] [address] [address] [address] Calixto West Urea nitrogen [Mass/Vol] 16.0 mg/dL Normal 7.0-18.0 [facility] Comment on above: Performed By: #### T SH, BNP, CMP, CMADM #### [facility] [address] [place] [address] Dr. Calixto West Urea nitrogen/Creatinine [Mass ratio] 13.1 mg/mg Normal [facility] Comment on above: Performed By: #### T SH, BNP, CMP, CMADM #### [facility] [address] [address] [address] Calixto West URIC ACID SERUMon 12-19-2021 Urate [Mass/Vol] 7.2 mg/dL Normal 3.5-7.2 [facility] Comment on above: Performed By: #### T SH, BNP, CMP, CMADM #### [facility] [address] [place] [address] Dr. Calixto West Physician Referralon 022 Physician Referral [id number] Normal [facility] ECHOCARDIO M/2D COMPLETEon 0 10-24-2021 ECHOCARDIO M/2D COMPLETE Patient: CECIL MCRAE Exam Date: 10/24/2021 : 1960 Gender:M Ordering : DR LINDEN NAIR . Admission #: [id number] Family : Order #: [id number] CLICK HERE TO VIEW EXAM ECHOCARDIOGRAM REPORT PROCEDURE: CARDIO PULMONARY ECHOCARDIO M/2D COMP INDICATIONS: Near syncope COMPARISON: None. DESCRIPTION: COMPLETE ECHOCARDIOGRAM Real-time transthoracic echocardiography with 2D, M-mode, spectral and color flow Doppler performed. QUALITY: Technical quality was adequate. LEFT VENTRICLE: Normal chamber size. Mild concentric left ventricular hypertrophy. Global left ventricular systolic function is normal. LV EF: Visual estimation of left ventricular ejection fraction is 55% DIASTOLIC: Normal diastolic function. ATRIAL SEPTUM: LEFT ATRIUM: Normal chamber size. RIGHT ATRIUM: Mild dilatation. RIGHT VENTRICLE: Normal chamber size. Normal right ventricular systolic function. TRICUSPID VALVE: Normal mobility and thickness. No stenosis with trivial regurgitation. No evidence of pulmonary hypertension. RVSP 30mmHg MITRAL VALVE: Normal mobility and thickness. No mitral valve prolapse. No evidence of mitral valve stenosis. There is no mitral annular calcification. AORTIC VALVE: Normal trileaflet appearance. No visible sclerosis. Normal leaflet mobility. No evidence of aortic valve stenosis. No aortic regurgitation. AORTIC ROOT: Normal diameter and appearance. PULMONIC VALVE: Normal thickness and mobility. No stenosis. Trivial regurgitation. PERICARDIUM: No evidence of pericardial effusion. IVC: Not well visualized. PLEURA: CONCLUSION: 1. Mild concentric left ventricular hypertrophy. 2. Normal ventricular systolic function. LVEF is 55%. 3. Normal diastolic function. 4. No significant valvular dysfunction. 5. Normal right-sided pressures. 6. No pericardial effusion. Dictated by: Shonna Woodall M.D. on 10/25/2021 at 10:15 Approved by: Shonna Woodall M.D. on 10/25/2021 at 10:17 Normal [facility] T4 LABCORPon 09-15-2021 T4 [Mass/Vol] 7.7 ug/dL Normal 4.5-12.0 [facility] Comment on above: Performed By: #### T SH, BNP, CMP, CMADM #### [facility] [address] [place] [address] Dr. Calixto West BNPon 09-13-2021 Natriuretic peptide B (Bld) [Mass/Vol] 41.0 pg/mL Normal <=900.0 [facility] Comment on above: Performed By: #### T SH, BNP, CMP, CMADM #### [facility] [address] [place] [address] Dr. Calixto West CBC AUTO DIFFon 09-13-2021 BASO # 0.1 103/ul Normal 0.0-0.1 [facility] Comment on above: Performed By: #### C MP, LIPID #### [facility] [address] [place] [address] Dr. Calixto West Basophils/100 WBC (Bld) 0.8 % Normal 0.2-2.0 [facility] Comment on above: Performed By: #### C MP, LIPID #### [facility] [address] [place] [address] Dr. Calixto West EO # 0.3 103/ul Normal 0.0-0.7 [facility] Comment on above: Performed By: #### C MP, LIPID #### [facility] [address] [place] [address] Dr. Calixto West Eosinophils/100 WBC (Bld) 2.8 % Normal 0.9-7.0 [facility] Comment on above: Performed By: #### C MP, LIPID #### [facility] [address] [place] [address] Dr. Calixto West Erythrocyte distribution width (RBC) [Ratio] 13.0 % Normal 11.0-15.0 [facility] Comment on above: Performed By: #### C MP, LIPID #### [facility] [address] [place] [address] Dr. Calixto West Hematocrit (Bld) [Volume fraction] 44.6 % Normal 42.0-54.0 [facility] Comment on above: Performed By: #### C MP, LIPID #### [facility] [address] [place] [address] Dr. Calixto West Hemoglobin (Bld) [Mass/Vol] 15.5 g/dL Normal 14.0-18.0 [facility] Comment on above: Performed By: #### C MP, LIPID #### [facility] [address] [place] [address] Dr. Calixto West IG # 0.06 10e3/ul Critically high 0.00-0.03 [facility] Comment on above: Performed By: #### C MP, LIPID #### [facility] [address] [place] [address] Dr. Calixto West IG % 0.6 % Critically high 0.0-0.5 [facility] Comment on above: Performed By: #### C MP, LIPID #### [facility] [address] [place] [address] Dr. Calixto West LYMPH # 4.1 103/ul Critically high 1.2-3.8 [facility] Comment on above: Performed By: #### C MP, LIPID #### [facility] [address] [place] [address] Dr. Calixto West Lymphocytes/100 WBC (Bld) 40.5 % Normal 20.5-60.0 [facility] Comment on above: Performed By: #### C MP, LIPID #### [facility] [address] [place] [address] Dr. Calixto West MANUAL DIFF REQ NO Normal [facility] Comment on above: Performed By: #### C MP, LIPID #### [facility] [address] [place] [address] Dr. Calixto West MCH (RBC) [Entitic mass] 31.0 pg Normal 25.9-34.0 [facility] Comment on above: Performed By: #### C MP, LIPID #### [facility] [address] [place] [address] Dr. Calixto West MCHC (RBC) [Mass/Vol] 34.8 g/dL Normal 29.9-35.2 [facility] Comment on above: Performed By: #### C MP, LIPID #### [facility] [address] [address] [address] Calixto West MCV (RBC) [Entitic vol] 89.2 fL Normal 80.0-94.0 [facility] Comment on above: Performed By: #### C MP, LIPID #### [facility] [address] [place] [address] Dr. Calixto West MONO # 0.8 103/ul Normal 0.3-0.8 [facility] Comment on above: Performed By: #### C MP, LIPID #### [facility] [address] [place] [address] Dr. Calixto West Monocytes/100 WBC (Bld) 8.1 % Normal 1.7-12.0 [facility] Comment on above: Performed By: #### C MP, LIPID #### [facility] [address] [place] [address] Dr. Calixto West NEUT # 4.8 103/ul Normal 1.4-6.5 [facility] Comment on above: Performed By: #### C MP, LIPID #### [facility] [address] [place] [address] Dr. Calixto West Neutrophils/100 WBC (Bld) 47.2 % Normal 43.0-75.0 [facility] Comment on above: Performed By: #### C MP, LIPID #### [facility] [address] [place] [address] Dr. Calixto West Platelet mean volume (Bld) [Entitic vol] 9.3 fL Critically low 9.5-13.5 [facility] Comment on above: Performed By: #### C MP, LIPID #### [facility] [address] [place] [address] Dr. Calixto West PLT 398 103/ul Normal 150-450 [facility] Comment on above: Performed By: #### C MP, LIPID #### [facility] [address] [place] [address] Dr. Calixto West RBC 5.00 106/ul Normal 4.70-6.10 [facility] Comment on above: Performed By: #### C MP, LIPID #### [facility] [address] [address] [address] Calixto West WBC 10.1 103/ul Normal 4.0-11.0 [facility] Comment on above: Performed By: #### C MP, LIPID #### [facility] [address] [place] [address] Dr. Calixto West FREE T3on 09-13-2021 FREE T3 3.04 pg/mlL Normal 2.18-3.98 [facility] Comment on above: Performed By: #### C MP, LIPID #### [facility] [address] [place] [address] Dr. Calixto West FREE THYROXINE INDEX T7on FTI 2.62 Normal 1.30-4.50 [facility] Comment on above: Performed By: #### T SH, BNP, CMP, CMADM #### [facility] [address] [place] [address] Dr. Calixto West T3U 34.0 % Normal 33.0-40.0 [facility] Comment on above: Performed By: #### T SH, BNP, CMP, CMADM #### [facility] [address] [place] [address] Dr. Calixto West T4 [Mass/Vol] 7.70 ug/dL Normal 4.50-12.10 [facility] Comment on above: Performed By: #### T SH, BNP, CMP, CMADM #### [facility] [address] [address] [address] Calixto West PROF 14(COMP METB)on 022 Albumin [Mass/Vol] 3.5 g/dL Normal 3.4-5.0 [facility] Comment on above: Performed By: #### T SH, BNP, CMP, CMADM #### [facility] [address] [place] [address] Dr. Calixto West Albumin/Globulin [Mass ratio] 0.9 {ratio} Normal [facility] Comment on above: Performed By: #### T SH, BNP, CMP, CMADM #### [facility] [address] [address] [address] Calixto West ALP [Catalytic activity/Vol] 67 U/L Normal 46-116 [facility] Comment on above: Performed By: #### T SH, BNP, CMP, CMADM #### [facility] [address] [address] [address] Calixto West ALT [Catalytic activity/Vol] 49 U/L Normal 16-63 [facility] Comment on above: Performed By: #### T SH, BNP, CMP, CMADM #### [facility] [address] [address] [address] Calixto West Anion gap [Moles/Vol] 14.0 mmol/L Normal [facility] Comment on above: Performed By: #### T SH, BNP, CMP, CMADM #### [facility] [address] [place] [address] Dr. Calixto West AST [Catalytic activity/Vol] 24 U/L Normal 15-37 [facility] Comment on above: Performed By: #### T SH, BNP, CMP, CMADM #### [facility] [address] [address] [address] Calixto West Bilirubin [Mass/Vol] 0.4 mg/dL Normal 0.2-1.0 [facility] Comment on above: Performed By: #### T SH, BNP, CMP, CMADM #### [facility] [address] [address] [address] Calixto West Calcium [Mass/Vol] 9.0 mg/dL Normal 8.5-10.1 [facility] Comment on above: Performed By: #### T SH, BNP, CMP, CMADM #### [facility] [address] [address] [address] Calixto West Chloride [Moles/Vol] 102 mmol/L Normal 98-107 [facility] Comment on above: Performed By: #### T SH, BNP, CMP, CMADM #### [facility] [address] [address] [address] Calixto West CO2 [Moles/Vol] 27.1 mmol/L Normal 21.0-32.0 [facility] Comment on above: Performed By: #### T SH, BNP, CMP, CMADM #### [facility] [address] [place] [address] Dr. Calixto West Creatinine [Mass/Vol] 1.01 mg/dL Normal 0.70-1.30 [facility] Comment on above: Performed By: #### T SH, BNP, CMP, CMADM #### [facility] [address] [address] [address] Calixto West EGFR-AF BRUNEIAN >60 Normal >=60 [facility] Comment on above: Performed By: #### T SH, BNP, CMP, CMADM #### [facility] [address] [place] [address] Dr. Calixto West EGFR-NON AF BRUNEIAN >60 Normal >=60 [facility] Comment on above: Performed By: #### T SH, BNP, CMP, CMADM #### [facility] [address] [place] [address] Dr. Calixto West Globulin (S) [Mass/Vol] 4.1 g/dL Normal [facility] Comment on above: Performed By: #### T SH, BNP, CMP, CMADM #### [facility] [address] [place] [address] Dr. Calixto West Glucose [Mass/Vol] 156 mg/dL Critically high 74-106 [facility] Comment on above: Performed By: #### T SH, BNP, CMP, CMADM #### [facility] [address] [place] [address] Dr. Calixto West Potassium [Moles/Vol] 4.1 mmol/L Normal 3.5-5.1 [facility] Comment on above: Performed By: #### T SH, BNP, CMP, CMADM #### [facility] [address] [place] [address] Dr. Calixto West Protein [Mass/Vol] 7.6 g/dL Normal 6.4-8.2 [facility] Comment on above: Performed By: #### T SH, BNP, CMP, CMADM #### [facility] [address] [address] [address] Calixto West Sodium [Moles/Vol] 139 mmol/L Normal 136-145 [facility] Comment on above: Performed By: #### T SH, BNP, CMP, CMADM #### [facility] [address] [address] [address] Calixto West Urea nitrogen [Mass/Vol] 19.0 mg/dL Critically high 7.0-18.0 [facility] Comment on above: Performed By: #### T SH, BNP, CMP, CMADM #### [facility] [address] [address] [address] Calixto West Urea nitrogen/Creatinine [Mass ratio] 18.8 mg/mg Normal [facility] Comment on above: Performed By: #### T SH, BNP, CMP, CMADM #### [facility] [address] [place] [address] Dr. Calixto West TSHon 09-13-2021 TSH 5.060 uIU/mL Critically high 0.358-3.740 [facility] Comment on above: Performed By: #### T SH, BNP, CMP, CMADM #### [facility] [address] [place] [address] Dr. Calixto West TSH RANGE SEE BELOW Normal [facility] Comment on above: Result Comment: <0.3 4 UIU/ml HYPERTHYROID 0.34-5.60 UIU/ml EUTHYROID >5.60 UIU/ml HYPOTHYROID Performed By: #### T SH, BNP, CMP, CMADM #### [facility] [address] [place] [address] Dr. Calixto West BLOOD CULTURE ID/SENSon [id number] Aerobe ID + Suscept Final report Abnormal [facility] Comment on above: Performed By: #### C MP, LIPID #### [facility] [address] [place] [address] Dr. Calixto West Antimicrobial Susceptibility Comment Normal [facility] Comment on above: Result Comment: S = Susceptible; I = Intermediate; R = Resistant P = Positive; N = Negative MICS are expressed in micrograms per mL Antibiotic RSLT#1 RSLT#2 RSLT#3 RSLT#4 Ciprofloxacin S Clindamycin S Erythromycin S Gentamicin S Levofloxacin S Moxifloxacin S Oxacillin S Penicillin R Rifampin S Tetracycline S Trimethoprim/Sulfa S Vancomycin S Performed By: #### C MP, LIPID #### [facility] [address] [place] [address] Dr. Calixto West Result 1 Comment Abnormal [facility] Comment on above: Result Comment: Stap hylococcus hominis Based on susceptibility to oxacillin this isolate would be susceptible to: *Penicillinase-stable penicillins, such as: Cloxacillin, Dicloxacillin, Nafcillin *Beta-lactam combination agents, such as: Amoxicillin-clavulanic acid, Ampicillin-sulbactam, Piperacillin-tazobactam *Oral cephems, such as: Cefaclor, Cefdinir, Cefpodoxime, Cefprozil, Cefuroxime, Cephalexin, Loracarbef *Parenteral cephems, such as: Cefazolin, Cefepime, Cefotaxime, Cefotetan, Ceftaroline, Ceftizoxime, Ceftriaxone, Cefuroxime *Carbapenems, such as: Doripenem, Ertapenem, Imipenem, Meropenem Received aerobic bottle only. Performed By: #### C MP, LIPID #### [facility] [address] [place] [address] Dr. Calixto West BLOOD CULTURE ID PANELon A. baumannii Not detected Normal [facility] Comment on above: Performed By: #### T SH, BNP, CMP, CMADM #### [facility] [address] [place] [address] Dr. Calixto West BCID CONTROLS PASSED Normal [facility] Comment on above: Performed By: #### T SH, BNP, CMP, CMADM #### [facility] [address] [place] [address] Dr. Calixto West BCIDBTHD BLOOD CULTURE BOTTLE INFORMATION Normal [facility] Comment on above: Performed By: #### T SH, BNP, CMP, CMADM #### [facility] [address] [place] [address] Dr. Calixto West BCIDHD1 ANTIMICROBIAL RESISTANCE GENES [facility] Comment on above: Performed By: #### T SH, BNP, CMP, CMADM #### [facility] [address] [place] [address] Dr. Calixto West BCIDHD2 SEE BELOW [facility] Comment on above: Result Comment: KPC- carbapenem resistance gene, mecA- methecillin resistance gene, van A/B- vancomycin resistance gene Note: Antimicrobial resitance can occur via multiple mechanisms. A Not Detected result for the [employer] antomicrobial resistance gene assays does not indicate antimicrobial susceptibility. Subculturing is required for specis identificationand susceptibility testing of isolates. Performed By: #### T SH, BNP, CMP, CMADM #### [facility] [address] [place] [address] Dr. Calixto West BCIDHD3 Positive [facility] Comment on above: Performed By: #### T SH, BNP, CMP, CMADM #### [facility] [address] [place] [address] Dr. Calixto West BCIDHD4 Negative [facility] Comment on above: Performed By: #### T SH, BNP, CMP, CMADM #### [facility] [address] [place] [address] Dr. Calixto West BCIDHD5 YEAST [facility] Comment on above: Performed By: #### T SH, BNP, CMP, CMADM #### [facility] [address] [place] [address] Dr. Calixto West BCIDHD6 SEE BELOW [facility] Comment on above: Result Comment: Note : All genus and species BCID [employer] results will be verified post subculturing via Maldi-Tof MS testing methodology. Performed By: #### T SH, BNP, CMP, CMADM #### [facility] [address] [place] [address] Dr. Calixto West Bottle Set: Set 1 [facility] Comment on above: Performed By: #### T SH, BNP, CMP, CMADM #### [facility] [address] [place] [address] Dr. Calixto West Bottle: Anaerobic Normal [facility] Comment on above: Performed By: #### T SH, BNP, CMP, CMADM #### [facility] [address] [address] [address] Calixto West Asai albicans Not detected Normal [facility] Comment on above: Performed By: #### T SH, BNP, CMP, CMADM #### [facility] [address] [address] [address] Calixto West Asia glabrata Not detected Normal [facility] Comment on above: Performed By: #### T SH, BNP, CMP, CMADM #### [facility] [address] [address] [address] Calixto West Asia Krusei Not detected Normal [facility] Comment on above: Performed By: #### T SH, BNP, CMP, CMADM #### [facility] [address] [address] [address] Calixto West Asia Parapsilosis Not detected Normal [facility] Comment on above: Performed By: #### T SH, BNP, CMP, CMADM #### [facility] [address] [address] [address] Calixto West Asia Tropicalis Not detected Normal [facility] Comment on above: Performed By: #### T SH, BNP, CMP, CMADM #### [facility] [address] [place] [address] Dr. Calixto West E. Cloacae complex Not detected Normal [facility] Comment on above: Performed By: #### T SH, BNP, CMP, CMADM #### [facility] [address] [address] [address] Calixto West Enterobacteriaceae Not detected Normal [facility] Comment on above: Performed By: #### T SH, BNP, CMP, CMADM #### [facility] [address] [place] [address] Dr. Calixto West Enterococcus Not detected Normal [facility] Comment on above: Performed By: #### T SH, BNP, CMP, CMADM #### [facility] [address] [place] [address] Dr. Calixto West Escheria coli Not detected Normal [facility] Comment on above: Performed By: #### T SH, BNP, CMP, CMADM #### [facility] [address] [place] [address] Dr. Calixto West K. oxytoca Not detected Normal [facility] Comment on above: Performed By: #### T SH, BNP, CMP, CMADM #### [facility] [address] [place] [address] Dr. Calixto West K. pneumoniae Not detected Normal [facility] Comment on above: Performed By: #### T SH, BNP, CMP, CMADM #### [facility] [address] [place] [address] Dr. Calixto West KPC Resistant Gene Not Applicable Normal [facility] Comment on above: Performed By: #### T SH, BNP, CMP, CMADM #### [facility] [address] [place] [address] Dr. Calixto West List. monocytogenes Not detected Normal [facility] Comment on above: Performed By: #### T SH, BNP, CMP, CMADM #### [facility] [address] [place] [address] Dr. Calixto West mecA Resistant Gene Not detected Normal [facility] Comment on above: Performed By: #### T SH, BNP, CMP, CMADM #### [facility] [address] [place] [address] Dr. Calixto West Proteus Not detected Normal [facility] Comment on above: Performed By: #### T SH, BNP, CMP, CMADM #### [facility] [address] [place] [address] Dr. Calixto West Pseud. aeruginosa Not detected Normal [facility] Comment on above: Performed By: #### T SH, BNP, CMP, CMADM #### [facility] [address] [place] [address] Dr. Calixto West Seratia marcescens Not detected Normal [facility] Comment on above: Performed By: #### T SH, BNP, CMP, CMADM #### [facility] [address] [address] [address] Calixto West Site: ac Normal [facility] Comment on above: Performed By: #### T SH, BNP, CMP, CMADM #### [facility] [address] [address] [address] Calixto West Staph. aureus Detected Critically abnormal [facility] Comment on above: Performed By: #### T SH, BNP, CMP, CMADM #### [facility] [address] [address] [address] Calixto West Staphylococcus Not detected Normal [facility] Comment on above: Performed By: #### T SH, BNP, CMP, CMADM #### [facility] [address] [address] [address] Calixto West Strep. agalactiae Not detected Normal [facility] Comment on above: Performed By: #### T SH, BNP, CMP, CMADM #### [facility] [address] [address] [address] Calixto West Strep. pneumoniae Not detected Normal [facility] Comment on above: Performed By: #### T SH, BNP, CMP, CMADM #### [facility] [address] [address] [address] Calixto West Strep. pyogenes Not detected Normal [facility] Comment on above: Performed By: #### T SH, BNP, CMP, CMADM #### [facility] [address] [address] [address] Calixto West Streptococcus Not detected Normal [facility] Comment on above: Performed By: #### T SH, BNP, CMP, CMADM #### [facility] [address] [address] [address] Calixto West Dixie/B Resist. Gene Not Applicable Normal [facility] Comment on above: Performed By: #### T SH, BNP, CMP, CMADM #### [facility] [address] [address] [address] Calixto West [facility] MODE NASAL CANNULA Normal [facility] Comment on above: Performed By: #### T SH, BNP, CMP, CMADM #### [facility] [address] [address] [address] Calixto VALENTINE TEST Positive [facility] Comment on above: Performed By: #### T SH, BNP, CMP, CMADM #### [facility] [address] [address] [address] Calixto West Base excess Calc (Bld) [Moles/Vol] 2.2 mmol/L Critically high -2.0-2.0 [facility] Comment on above: Performed By: #### T SH, BNP, CMP, CMADM #### [facility] [address] [address] [address] Calixto West BIPAP PRESSURE [facility] Comment on above: Performed By: #### T SH, BNP, CMP, CMADM #### [facility] [address] [address] [address] Calixto West CO2 [Moles/Vol] 52.2 mmol/L Critically high 23.0-28.0 [facility] Comment on above: Performed By: #### T SH, BNP, CMP, CMADM #### [facility] [address] [address] [address] Calixto West CPAP [facility] Comment on above: Performed By: #### T SH, BNP, CMP, CMADM #### [facility] [address] [address] [address] Calixto West FIO2 [facility] Comment on above: Performed By: #### T SH, BNP, CMP, CMADM #### [facility] [address] [address] [address] Calixto West HCO3 (Bld) [Moles/Vol] 25.9 mmol/L Normal 22.0-26.0 [facility] Comment on above: Performed By: #### T SH, BNP, CMP, CMADM #### [facility] [address] [address] [address] Calixto West LPM 3 [facility] Comment on above: Performed By: #### T SH, BNP, CMP, CMADM #### [facility] [address] [address] [address] Calixto West MINUTE VOLUME Normal [facility] Comment on above: Performed By: #### T SH, BNP, CMP, CMADM #### [facility] [address] [address] [address] Calixto West Oxygen (Bld) [Partial pressure] 57.9 mm[Hg] Critically low 80.0-100.0 [facility] Comment on above: Performed By: #### T SH, BNP, CMP, CMADM #### [facility] [address] [address] [address] Calixto West Oxygen saturation in Blood 91.4 % Critically low 95.0-100.0 [facility] Comment on above: Performed By: #### T SH, BNP, CMP, CMADM #### [facility] [address] [address] [address] Calixto West PCO2 41.2 mmHg Normal 35.0-45.0 [facility] Comment on above: Performed By: #### T SH, BNP, CMP, CMADM #### [facility] [address] [address] [address] Calixto West [facility] Comment on above: Performed By: #### T SH, BNP, CMP, CMADM #### [facility] [address] [address] [address] Calixto West pH (Bld) 7.420 [pH] Normal 7.350-7.450 [facility] Comment on above: Performed By: #### T SH, BNP, CMP, CMADM #### [facility] [address] [address] [address] Calixto West [facility] Comment on above: Performed By: #### T SH, BNP, CMP, CMADM #### [facility] [address] [address] [address] Calixto West [facility] Comment on above: Performed By: #### T SH, BNP, CMP, CMADM #### [facility] [address] [address] [address] Calixto West PUNCTURE SITE LR Normal [facility] Comment on above: Performed By: #### T SH, BNP, CMP, CMADM #### [facility] [address] [place] [address] Dr. Calixto West [facility] Comment on above: Performed By: #### T SH, BNP, CMP, CMADM #### [facility] [address] [address] [address] Calixto West VENT MODE [facility] Comment on above: Performed By: #### T SH, BNP, CMP, CMADM #### [facility] [address] [place] [address] Dr. Calixto West [facility] Comment on above: Performed By: #### T SH, BNP, CMP, CMADM #### [facility] [address] [place] [address] Dr. Calixto West BNPon 08-17-2021 Natriuretic peptide B (Bld) [Mass/Vol] 1786.0 pg/mL Critically high <=900.0 [facility] Comment on above: Performed By: #### T SH, BNP, CMP, CMADM #### [facility] [address] [place] [address] Dr. Calixto West CARDIAC GARCÍA ADMITon 022 CK [Catalytic activity/Vol] 113 U/L Normal 39-308 [facility] Comment on above: Performed By: #### T SH, BNP, CMP, CMADM #### [facility] [address] [place] [address] Dr. Calixto West CK.MB [Mass/Vol] 1.62 ng/mL Normal <=3.60 [facility] Comment on above: Performed By: #### T SH, BNP, CMP, CMADM #### [facility] [address] [place] [address] Dr. Calixto West HSTROP 67.5 pg/mL Normal 4.0-76.1 [facility] Comment on above: Result Comment: CUT- OFF POINTS HAVE BEEN ESTABLISHED BASED ON THE FOURTH UNIVERSAL DEFINITIONS OF MYOCARDIAL INFARCTION. THE UPPER REFERENCE LIMIT (URL) OF TROPONIN, DEFINED THE 99TH PERCENTILE OF cTnI DISTRIBUTION IN A REFERENCE POPULATION, HAS BEEN CONFIRMED THE DECISION THRESHOLD FOR DC DIAGNOSIS. Performed By: #### T SH, BNP, CMP, CMADM #### [facility] [address] [place] [address] Dr. Calixto West PATRICIA 52 ng/mL Normal 16-96 [facility] Comment on above: Performed By: #### T SH, BNP, CMP, CMADM #### [facility] [address] [place] [address] Dr. Calixto West CBC AUTO DIFFon 08-17-2021 BASO # 0.0 103/ul Normal 0.0-0.1 [facility] Comment on above: Performed By: #### C MP, LIPID #### [facility] [address] [place] [address] Dr. Calixto West Basophils/100 WBC (Bld) 0.3 % Normal 0.2-2.0 [facility] Comment on above: Performed By: #### C MP, LIPID #### [facility] [address] [place] [address] Dr. Calixto West EO # 0.1 103/ul Normal 0.0-0.7 [facility] Comment on above: Performed By: #### C MP, LIPID #### [facility] [address] [place] [address] Dr. Calixto West Eosinophils/100 WBC (Bld) 0.8 % Critically low 0.9-7.0 [facility] Comment on above: Performed By: #### C MP, LIPID #### [facility] [address] [place] [address] Dr. Calixto West Erythrocyte distribution width (RBC) [Ratio] 13.3 % Normal 11.0-15.0 [facility] Comment on above: Performed By: #### C MP, LIPID #### [facility] [address] [place] [address] Dr. Calixto West Hematocrit (Bld) [Volume fraction] 43.7 % Normal 42.0-54.0 [facility] Comment on above: Performed By: #### C MP, LIPID #### [facility] [address] [address] [address] Calixto West Hemoglobin (Bld) [Mass/Vol] 15.0 g/dL Normal 14.0-18.0 [facility] Comment on above: Performed By: #### C MP, LIPID #### [facility] [address] [address] [address] Calixto West IG # 0.05 10e3/ul Critically high 0.00-0.03 [facility] Comment on above: Performed By: #### C MP, LIPID #### [facility] [address] [place] [address] Dr. Calixto West IG % 0.4 % Normal 0.0-0.5 [facility] Comment on above: Performed By: #### C MP, LIPID #### [facility] [address] [place] [address] Dr. Calixto West LYMPH # 2.8 103/ul Normal 1.2-3.8 [facility] Comment on above: Performed By: #### C MP, LIPID #### [facility] [address] [place] [address] Dr. Calixto West Lymphocytes/100 WBC (Bld) 23.4 % Normal 20.5-60.0 [facility] Comment on above: Performed By: #### C MP, LIPID #### [facility] [address] [place] [address] Dr. Calixto West MANUAL DIFF REQ NO Normal [facility] Comment on above: Performed By: #### C MP, LIPID #### [facility] [address] [place] [address] Dr. Calixto West MCH (RBC) [Entitic mass] 31.3 pg Normal 25.9-34.0 [facility] Comment on above: Performed By: #### C MP, LIPID #### [facility] [address] [place] [address] Dr. Calixto West MCHC (RBC) [Mass/Vol] 34.3 g/dL Normal 29.9-35.2 [facility] Comment on above: Performed By: #### C MP, LIPID #### [facility] [address] [address] [address] Calixto West MCV (RBC) [Entitic vol] 91.2 fL Normal 80.0-94.0 [facility] Comment on above: Performed By: #### C MP, LIPID #### [facility] [address] [place] [address] Dr. Calixto West MONO # 0.5 103/ul Normal 0.3-0.8 [facility] Comment on above: Performed By: #### C MP, LIPID #### [facility] [address] [place] [address] Dr. Calixto West Monocytes/100 WBC (Bld) 4.5 % Normal 1.7-12.0 [facility] Comment on above: Performed By: #### C MP, LIPID #### [facility] [address] [place] [address] Dr. Calixto West NEUT # 8.4 103/ul Critically high 1.4-6.5 [facility] Comment on above: Performed By: #### C MP, LIPID #### [facility] [address] [place] [address] Dr. Calixto West Neutrophils/100 WBC (Bld) 70.6 % Normal 43.0-75.0 [facility] Comment on above: Performed By: #### C MP, LIPID #### [facility] [address] [place] [address] Dr. Calixto West Platelet mean volume (Bld) [Entitic vol] 9.2 fL Critically low 9.5-13.5 [facility] Comment on above: Performed By: #### C MP, LIPID #### [facility] [address] [place] [address] Dr. Calixto West PLT 351 103/ul Normal 150-450 [facility] Comment on above: Performed By: #### C MP, LIPID #### [facility] [address] [place] [address] Dr. Calixto West RBC 4.79 106/ul Normal 4.70-6.10 [facility] Comment on above: Performed By: #### C MP, LIPID #### [facility] [address] [place], [place] [address] Dr. Calixto West WBC 11.9 103/ul Critically high 4.0-11.0 [facility] Comment on above: Performed By: #### C MP, LIPID #### [facility] [address] [place], [place] [address] HEAD WO CONon 08-17-2021 CT HEAD WO CON EXAMINATION: CT HEAD WO CON HISTORY: Syncope COMPARISON: None. TECHNIQUE: CT examination of the head without IV contrast. Dose reduction techniques were achieved by using automated exposure control and/or adjustment of mA and/or kV according to patient size and/or use of iterative reconstruction technique. FINDINGS: The ventricles, sulci, and remaining CSF containing spaces maintain age-appropriate volume and symmetry. No herniation or hydrocephalus. The cardenas matter/white matter differentiation is maintained throughout. No CT evidence of contemporary infarction. No acute intracranial hemorrhage or parenchymal mass. The calvarium and skull base are intact. The pneumatized portions of the skull are clear. IMPRESSION: 1. No acute intracranial abnormality. Electronically authenticated by: KIERSTEN WASHINGTON Date: 2021-08-17 12:29 Normal [facility] CTA CHEST WO W CONon 2 022 CTA CHEST WO W CON EXAMINATION: CTA CHEST WO W CON HISTORY: Syncope , elevated d-dimer COMPARISON: No relevant comparison available. TECHNIQUE: Multi-planar CT images were created with IV contrast. Axial, Coronal, and Sagittal images. Dose reduction techniques were achieved by using automated exposure control and/or adjustment of mA and/or kV according to patient size and/or use of iterative reconstruction technique. 3-D reconstruction was performed on a separate workstation. FINDINGS: VASCULATURE: Extensive thrombus within the pulmonary arteries involving the upper, lower, middle, and lingular lobes bilaterally. Near complete occlusion of the right lower lobe artery and multifocal areas of occluded segmental arteries. LUNGS: Trace amount of atelectasis or possibly infiltrates in the left perihilar region. PLEURA: No mass, effusion, or pneumothorax. MIRTHA: No mass or adenopathy. MEDIASTINUM: No mass or adenopathy. CARDIAC: Leftward shift of the interventricular septum with significant decrease in size of left ventricle compared to right. AORTA: No aneurysm or dissection. CHEST WALL: No mass or axillary adenopathy. BONES: No bone lesion or fracture. LIMITED ABDOMEN: No suspicious findings. Limited images of the upper abdomen. OTHER: Negative. IMPRESSION: 1. Marked pulmonary embolism burden, right greater than left. 2. Moderate-severe heart strain. Findings discussed with Dr. Busby via telephone prior to dictation. Electronically authenticated by: FELICITY MCGRATH Date: 2021-08-17 13:26 Normal [facility] CULTURE BLOODon 08-17-2021 Microscopic examination of blood, culture Culture Observations: NO GROWTH AT 5 DAYS. Normal [facility] Comment on above: Performed By: #### C MP, LIPID #### [facility] [address] [place] [address] Dr. Calixto West Microscopic examination of blood, culture Culture Observations: NO GROWTH AT 5 DAYS IN ANAEROBIC BOTTLE. Culture Observations: POS AEROBIC BOTTLE SENT TO [facility]. Normal [facility] Comment on above: Performed By: #### C MP, LIPID #### [facility] [address] [place] [address] Dr. Calixto West Covid-19 PCR (CVDTB)on 07-22 SARS-CoV-2 (COVID-19) RNA PATSY+probe Ql (Unsp spec) Not detected Normal NOT DETECTED [facility] Comment on above: Result Comment: When diagnostic testing is negative, the possibility of a false negative should be considered in the context of a patient's recent exposures and the presence of clinical signs and symptoms consistent with SARS-CoV-2. This test is not yet approved or cleared by the [place] Food and Drug Administration (FDA). This test was developed by [employer], [place], [place]. The performance characteristics of this test were validated by [facility]. The results are not intended to be used as the sole means for clinical diagnosis or patient management decisions. [facility] is authorized under Clinical Laboratory Improvement Amendments (CLIA) to perform high- complexity testing. This test is not yet approved or cleared by the [place] FDA. When there are no FDA-approved or cleared tests available, and other criteria are met, FDA can make tests available under an emergency access mechanism called an Emergency Use Authorization (EUA). The EUA for this test is supported by the [place] of Health and Human Service's declaration that circumstances exist to justify the emergency use of in vitro diagnostics for the detection and/or diagnosis of the virus that causes COVID-19. This EUA will remain in effect for the duration of the COVID-19 declaration justifying emergency of IVDs, unless it is terminated or revoked by the FDA (after which the test may no longer be used). Performed By: #### T SH, BNP, CMP, CMADM #### [facility] [address] [place] [address] Dr. Calixto West D-DIMERon 08-17-2021 D-DIMER 2.62 mg/L FEU Critically high 0.19-0.50 [facility] Comment on above: Performed By: #### P TT, PT, DDIM #### [facility] [address] [place] [address] Dr. Calixto West D-DIMER COMMENTS SEE BELOW Normal [facility] Comment on above: Result Comment: Incr eases in D-Dimer concentration observed with thromboembolic events can be variable due to localization, size, and age of the thrombus. Therefore, a thromboembolic event cannot be diagnosed with certainty on the basis of the reference range. D-Dimers may also be elevated for a variety of disorders including: advanced age, , coronary disease, cancer, liver disease, infection, inflammation, hematoma, DIC, trauma, post-surgery, diabetes, thrombolytic or anticoagulant therapy, stress, and generalized hospitalization. Performed By: #### P TT, PT, DDIM #### [facility] [address] [place] [address] Dr. Calixto West LACTATE/LACTIC ACIDon 2021 Lactate [Moles/Vol] 2.7 mmol/L Critically high 0.4-2.0 [facility] Comment on above: Performed By: #### T SH, BNP, CMP, CMADM #### [facility] [address] [place] [address] Dr. Calixto West PROF 14(COMP METB)on Albumin [Mass/Vol] 3.4 g/dL Normal 3.4-5.[address] [facility] Comment on above: Performed By: #### T SH, BNP, CMP, CMADM #### [facility] [address] [address] [address] Calixto West Albumin/Globulin [Mass ratio] 0.9 {ratio} Normal [facility] Comment on above: Performed By: #### T SH, BNP, CMP, CMADM #### [facility] [address] [place] [address] Dr. Calixto West ALP [Catalytic activity/Vol] 72 U/L Normal 46-116 [facility] Comment on above: Performed By: #### T SH, BNP, CMP, CMADM #### [facility] [address] [place] [address] Dr. Calixto West ALT [Catalytic activity/Vol] 74 U/L Critically high 16-63 [facility] Comment on above: Performed By: #### T SH, BNP, CMP, CMADM #### [facility] [address] [place] [address] Dr. Calixto West Anion gap [Moles/Vol] 13.8 mmol/L Normal [facility] Comment on above: Performed By: #### T SH, BNP, CMP, CMADM #### [facility] [address] [place] [address] Dr. Calixto West AST [Catalytic activity/Vol] 53 U/L Critically high 15-37 [facility] Comment on above: Performed By: #### T SH, BNP, CMP, CMADM #### [facility] [address] [address] [address] Calixto West Bilirubin [Mass/Vol] 0.4 mg/dL Normal 0.2-1.0 [facility] Comment on above: Performed By: #### T SH, BNP, CMP, CMADM #### [facility] [address] [place] [address] Dr. Calixto West Calcium [Mass/Vol] 8.2 mg/dL Critically low 8.5-10.1 [facility] Comment on above: Performed By: #### T SH, BNP, CMP, CMADM #### [facility] [address] [address] [address] Calixto West Chloride [Moles/Vol] 101 mmol/L Normal 98-107 [facility] Comment on above: Performed By: #### T SH, BNP, CMP, CMADM #### [facility] [address] [address] [address] Calixto West CO2 [Moles/Vol] 25.6 mmol/L Normal 21.0-32.0 [facility] Comment on above: Performed By: #### T SH, BNP, CMP, CMADM #### [facility] [address] [address] [address] Calixto West Creatinine [Mass/Vol] 1.13 mg/dL Normal 0.70-1.30 [facility] Comment on above: Performed By: #### T SH, BNP, CMP, CMADM #### [facility] [address] [address] [address] Calixto West EGFR-AF BRUNEIAN >60 Normal >=60 [facility] Comment on above: Performed By: #### T SH, BNP, CMP, CMADM #### [facility] [address] [address] [address] Calixto West EGFR-NON AF BRUNEIAN >60 Normal >=60 [facility] Comment on above: Performed By: #### T SH, BNP, CMP, CMADM #### [facility] [address] [address] [address] Calixto West Globulin (S) [Mass/Vol] 3.8 g/dL Normal [facility] Comment on above: Performed By: #### T SH, BNP, CMP, CMADM #### [facility] [address] [address] [address] Calixto West Glucose [Mass/Vol] 198 mg/dL Critically high 74-106 [facility] Comment on above: Performed By: #### T SH, BNP, CMP, CMADM #### [facility] [address] [address] [address] Calixto West Potassium [Moles/Vol] 4.4 mmol/L Normal 3.5-5.1 [facility] Comment on above: Performed By: #### T SH, BNP, CMP, CMADM #### [facility] [address] [place] [address] Dr. Calixto West Protein [Mass/Vol] 7.2 g/dL Normal 6.1-8.2 [facility] Comment on above: Performed By: #### T SH, BNP, CMP, CMADM #### [facility] [address] [place] [address] Dr. Calixto West Sodium [Moles/Vol] 136 mmol/L Normal 136-145 [facility] Comment on above: Performed By: #### T SH, BNP, CMP, CMADM #### [facility] [address] [place] [address] Dr. Calixto West Urea nitrogen [Mass/Vol] 14.0 mg/dL Normal 7.0-18.0 [facility] Comment on above: Performed By: #### T SH, BNP, CMP, CMADM #### [facility] [address] [place] [address] Dr. Calixto West Urea nitrogen/Creatinine [Mass ratio] 12.4 mg/mg Normal [facility] Comment on above: Performed By: #### T SH, BNP, CMP, CMADM #### [facility] [address] [place] [address] Dr. Calixto West PROTIMEon 08-17-2021 INR Coag (PPP) [Relative time] 0.98 {INR} Normal [facility] Comment on above: Performed By: #### P TT, PT, DDIM #### [facility] [address] [place] [address] Dr. Calixto West INR GUIDELINES SEE BELOW Normal [facility] Comment on above: Result Comment: ANTELMO RED INR: 2.0 - 3.0 CONDITIONS NOT LISTED BELOW 2.5 - 3.5 FOR PROSTHETIC HEART VALVE REPLACEMENT 2.5 - 3.5 RECURRENT THROMBOSIS Performed By: #### P TT, PT, DDIM #### [facility] [address] [place] [address] Dr. Calixto West PT Coag (PPP) [Time] 10.6 s Normal 9.0-11.6 [facility] Comment on above: Performed By: #### P TT, PT, DDIM #### [facility] [address] [place] [address] Dr. Calixto West PTTon 08-17-2021 aPTT Coag (Bld) [Time] 24.9 s Normal 22.3-36.2 Th [facility] Comment on above: Performed By: #### P TT, PT, DDIM #### [facility] [address] [place] [address] Dr. Calixto West TSHon 08-17-2021 TSH 5.288 uIU/mL Critically high 0.470-4.680 [facility] Comment on above: Performed By: #### T SH, BNP, CMP, CMADM #### [facility] [address] [place] [address] Dr. Calixto West TSH RANGE SEE BELOW Normal [facility] Comment on above: Result Comment: <0.3 4 UIU/ml HYPERTHYROID 0.34-5.60 UIU/ml EUTHYROID >5.60 UIU/ml HYPOTHYROID Performed By: #### T SH, BNP, CMP, CMADM #### [facility] [address] [place] [address] Dr. Calixto West XR CHEST 1 Von 08-17-2021 XR CHEST 1 V EXAM: XR CHEST 1 V EXAM: XR CHEST 1 V INDICATION: 60 years old Male Syncope COMPARISON: None. FINDINGS: The cardiac silhouette is normal. There is no pulmonary edema. The lungs are clear. There is no pneumonia. There is no pneumothorax. There is no abnormal foreign body. IMPRESSION: There is no acute abnormality. Electronically authenticated by: BETTY HOLT Date: 2021-08-17 12:18 Normal [facility] Vital Signs Date Time Vital Sign Value Performing Clinician Delma nichols 08-07-2022 17:00-0400 Body height 175.26 cm Blade Wright Other [facility] Other 08-07-2022 17:00-0400 Body mass index (BMI) [Ratio] 43.41 kg/m2 Christwilberer Adriana Other [facility] Other 08-07-2022 17:00-0400 Body temperature 97.8 [degF] Christopher Adriana Other [facility] Other 08-07-2022 17:00-0400 Body weight 133.36 kg Christopher Adriana Other [facility] Other 08-07-2022 17:00-0400 Diastolic blood pressure 64 mm[Hg] Christwilberer Adriana Other [facility] Other 08-07-2022 17:00-0400 Respiratory rate 20 /min Dinesher Adriana Other [facility] Other 08-07-2022 17:00-0400 SaO2% (BldA) [Mass fraction] 96 % Christwilberer Adriana Other [facility] Other 08-07-2022 17:00-0400 Systolic blood pressure 138 mm[Hg] Dinesher Adriana Other [facility] Other 01-08-2022 11:30-0400 Body height 175.26 cm Christwilberer Adriana Other [facility] Other 01-08-2022 11:30-0400 Body mass index (BMI) [Ratio] 46.51 kg/m2 Christopher Adriana Other [facility] Other 01-08-2022 11:30-0400 Body temperature 98.2 [degF] Dinesher Adriana Other [facility] Other 01-08-2022 11:30-0400 Body weight 142.88 kg Blade Shortno Other [facility] Other 01-08-2022 11:30-0400 Diastolic blood pressure 86 mm[Hg] Blade Hewittdano Other [facility] Other 01-08-2022 11:30-0400 Respiratory rate 20 /min Blade Hewittdano Other [facility] Other 01-08-2022 11:30-0400 SaO2% (BldA) [Mass fraction] 94 % Blade Hewittdano Other [facility] Other 01-08-2022 11:30-0400 Systolic blood pressure 148 mm[Hg] Blade Hewittdano Other [facility] Other Encounters Encounter Date Encounter Type Care Provider Facility Start: 04-06-2024 End: 04-07-[address] [facility] Start: 07-26-2023 End: 07-26-[address] [facility] Start: 08-07-2022 End: 08-07-2022 ambulatory Blade Wright Other [facility] Other Start: 08-07-2022 Office outpatient visit 15 minutes Blade Wright [facility] Start: 06-18-2022 End: 06-18-2022 ambulatory Blade Wright Facility:[facility] Start: 06-18-2022 End: 06-18-2022 ambulatory MD Linden Nair Work Phone: [facility] Work Phone: Start: 06-18-2022 End: 06-18-2022 Patient encounter procedure MD Linden Nair Work Phone: [facility] Work Phone: Start: 04-25-[address] SHONNA WOODALL Fac ility:[facility] Start: 04-20-2022 End: 04-21-[address] DOCTOR SELLERS Facility:[facility] Start: 03-30-2022 End: 03-31-[address] SHONNA WOODALL Facility:[facility] Start: 01-23-2022 End: 01-24-[address] DOCTOR SELLERS Facility:[facility] Start: 01-12-2022 End: 01-13-[address] SHONNA WOODALL Facility:[facility] Start: 01-08-2022 End: 01-08-2022 ambulatory Blade Wright Other [facility] Other Start: 01-08-2022 Office outpatient ne w 45 minutes Blade Wright [facility] Start: 12-20-[address] LINDEN NAIR . Facili ty:[facility] Start: 12-19-2021 End: 12-20-[address] LINDEN NAIR . Facility:[facility] Start: 10-24-2021 End: 10-25-[address] LINDEN NAIR . Facility:[facility] Start: 10-16-2021 End: 10-17-[address] LINDEN NAIR . Facility:[facility] Start: 09-13-2021 End: 09-14-[address] LINDEN NAIR . Facility:[facility] Start: 08-17-2021 End: 08-17-[address] FELICITY MCGRATH Facility:[facility] Procedures Date Procedure Procedure Detail Performing Clinician Start: 12-19-[address] ABRAM NAIR . Comment on above: Performed By: #### T SH, BNP, CMP, CMADM #### [facility] [address] [place] [address] Dr. Calixto West Payers Date Payer Category Payer Medicare [id number] 2022 Self-pay 1960 Unknown [id number] [id number]. 593 1959 Unknown [id number] 2.16.840.1.614161.3.579.2. 593 1959 Unknown [id number] 2.16.840.1.770009.3.579.2. 593 1959 Unknown [id number] 2.16.840.1.685516.3.579.2. 593 1959 Unknown [id number] 2.16.840.1.789984.3.579.2. 593 1959 Unknown [id number] 2.16.840.1.584303.3.579.2. 593 1959 Unknown [id number] 2.16.840.1.087959.3.579.2. 593 1959 Unknown [id number] 2.16.840.1.049367.3.579.2. 593 1959 Unknown [id number] 2.16.840.1.862712.3.579.2. 593 1959 Unknown [id number] 2.16.840.1.954394.3.579.2. 593 1959 Unknown [id number] 2.16.840.1.073795.3.579.2. 593 1960 Medicare [id number] [id number] 1960 Private Health Insurance [id number] Medicare MMO MCR Adv PFFS [id number] Medicare [id number] Private Health Insurance [facility] MCR PFFS [id number] Unknown MMO [employer] [id number] Unknown Regular Insurance [id number] Unknown [id number] 2.16.840.1.498867.3.579.2. 531 Social History Date Type Detail Facility Sex Assigned At [facility] Other Start: 1960 Sex Assigned At Male F [facility] Progress note 04-06-2024 Note Date & Type Note Facility 04-06-2024 Note [place] [facility] Subjective Cecil Mcrae is a 63 y.o. year old male patient being seen for CAD, chronic diastolic heart failure, hypertension, and hyperlipidemia. Denies chest pain, SOB, lightheadedness/syncope, and bleeding on Eliquis. Patient Active Problem List Diagnosis History of pulmonary embolism Factor 5 Leiden mutation, heterozygous (CMS/HCC) Chronic diastolic congestive heart failure (CMS/HCC) Coronary artery disease involving wilton coronary artery of wilton heart without angina pectoris Primary hypertension Abnormal EKG Chest pain on breathing Elevated troponin I measurement Family history of pulmonary embolism Hereditary spherocytosis (CMS/HCC) Hyperlipidemia Primary osteoarthritis of right shoulder Pulmonary embolism (CMS/HCC) PVC (premature ventricular contraction) Syncope and collapse Family History Problem Relation Name Age of Onset Pulmonary embolism Father Deep vein thrombosis Father Deep vein thrombosis Sister Deep vein thrombosis Brother Heart failure Brother Social History Tobacco Use Smoking status: Former Current packs/day: 0.00 Types: Cigarettes Quit date: 1986 Years since quittin.9 Smokeless tobacco: Never Substance Use Topics Alcohol use: Not Currently Drug use: Never HPI Visit of 12/22/2021: Cecil is seen as a new patient due to abnormal Holter monitor and pulmonary embolism. In July 2021 he was having worsening dyspnea with mild exertion. He was admitted to [facility] with pulmonary embolism and then transferred to [facility] and underwent catheter directed lysis of pulmonary embolism. He has personal and family history of factor V Leiden. He has morbid obesity with BMI 45. He has hyperlipidemia. He has tried simvastatin, pravastatin, rosuvastatin, pitavastatin. He reports that he has no chest pain. He has shortness of breath on exertion NYHA class II-III. He has no lower extremity edema. He does feel palpitations that seem to be frequent. Visit of 02/26/2022: He is seen in follow-up. After last visit I proceeded with cardiac catheterization given his symptoms of shortness of breath as well as nonsustained ventricular tachycardia on Holter monitor. Cardiac authorization showed evidence of 95% stenosis in the diagonal branch to which she underwent a drug-eluting Synergy stent. 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 He was given dual antiplatelet therapy with aspirin and Plavix and to resume Eliquis for history of pulmonary embolism. 1 month after the procedure aspirin was stopped. He is currently on Plavix and Eliquis. Due to his intolerance to statin he was started on Repatha. He was also started on Lasix 40 mg daily. Today he reports that he has been doing reasonably well. No angina. No significant palpitations. He still has shortness of breath on exertion, NYHA class II. No significant lower extremity swelling. Visit of 07/26/2023: He is seen in follow-up. He reports that he mostly has been doing reasonably well. He denies chest pain or shortness of breath. He does feel palpitations on and off. His blood pressure has been well-controlled. He is tolerating Repatha very well. His recent blood testing in November 2022 showed adequate LDL level. He had PVCs in the past and his Holter monitor July 2022 showed a large burden of PVCs at 41%. He recently had an echocardiogram that showed normal ventricular function. Visit of 04/06/2024: He is seen in follow-up. At last visit I changed metoprolol to tartrate from 50 mg daily to 25 mg twice daily. I checked a follow-up Holter monitor to follow-up on his PVC burden. This showed a PVC burden of less than 1% on the current beta-katrin dosage. Since then he reports that he has been doing very well. He has had no chest pain, no shortness of breath, he has good exercise tolerance. If he concentrates he can feel occasional palpitations. He has no leg swelling. No dizziness or lightheadedness and no syncope. Review of Systems Cardiovascular: Positive for palpitations. All other systems reviewed and are negative. Objective Visit Vitals BP 126/66 (BP Location: Left arm, Patient Position: Sitting) Pulse 69 Ht 1.753 m (5' 9 ) Wt 136 kg (299 lb) SpO2 99% BMI 44.15 kg/m??? Smoking Status Former BSA 2.57 m??? Physical Exam Constitutional: Appearance: He is well-developed. He is obese. He is not ill-appearing. HENT: Head: Normocephalic and atraumatic. Nose: Nose normal. Eyes: General: No scleral icterus. Pupils: Pupils are equal, round, and reactive to light. Neck: Thyroid: No thyromegaly. Vascular: No JVD. Cardiovascular: Rate and Rhythm: Normal rate. Rhythm regularly irregular. Heart sounds: Normal heart sounds. No murmur h (more content not included)... [facility] Progress note 07-26-2023 Note Date & Type Note Facility 07-26-2023 Note [place] [facility] Subjective Cecil Mcrae is a 62 y.o. year old male patient being seen for Follow-up (Yearly follow up) Patient Active Problem List Diagnosis History of pulmonary embolism Factor 5 Leiden mutation, heterozygous (CMS/HCC) Chronic diastolic congestive heart failure (CMS/HCC) Coronary artery disease involving wilton coronary artery of wilton heart without angina pectoris Primary hypertension Abnormal EKG Chest pain on breathing Elevated troponin I measurement Family history of pulmonary embolism Hereditary spherocytosis (CMS/HCC) Hyperlipidemia Primary osteoarthritis of right shoulder Pulmonary embolism (CMS/HCC) PVC (premature ventricular contraction) Syncope and collapse Family History Problem Relation Name Age of Onset Pulmonary embolism Father Deep vein thrombosis Father Deep vein thrombosis Sister Deep vein thrombosis Brother Heart failure Brother Social History Tobacco Use Smoking status: Former Types: Cigarettes Quit date: 1986 Years since quittin.2 Smokeless tobacco: Never Substance Use Topics Alcohol use: Not Currently Drug use: Never HPI Visit of 12/22/2021: Cecil is seen as a new patient due to abnormal Holter monitor and pulmonary embolism. In July 2021 he was having worsening dyspnea with mild exertion. He was admitted to [facility] with pulmonary embolism and then transferred to [facility] and underwent catheter directed lysis of pulmonary embolism. He has personal and family history of factor V Leiden. He has morbid obesity with BMI 45. He has hyperlipidemia. He has tried simvastatin, pravastatin, rosuvastatin, pitavastatin. He reports that he has no chest pain. He has shortness of breath on exertion NYHA class II-III. He has no lower extremity edema. He does feel palpitations that seem to be frequent. Visit of 02/26/2022: He is seen in follow-up. After last visit I proceeded with cardiac catheterization given his symptoms of shortness of breath as well as nonsustained ventricular tachycardia on Holter monitor. Cardiac authorization showed evidence of 95% stenosis in the diagonal branch to which she underwent a drug-eluting Synergy stent. 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 He was given dual antiplatelet therapy with aspirin and Plavix and to resume Eliquis for history of pulmonary embolism. 1 month after the procedure aspirin was stopped. He is currently on Plavix and Eliquis. Due to his intolerance to statin he was started on Repatha. He was also started on Lasix 40 mg daily. Today he reports that he has been doing reasonably well. No angina. No significant palpitations. He still has shortness of breath on exertion, NYHA class II. No significant lower extremity swelling. Visit of 07/26/2023: He is seen in follow-up. He reports that he mostly has been doing reasonably well. He denies chest pain or shortness of breath. He does feel palpitations on and off. His blood pressure has been well-controlled. He is tolerating Repatha very well. His recent blood testing in November 2022 showed adequate LDL level. He had PVCs in the past and his Holter monitor July 2022 showed a large burden of PVCs at 41%. He recently had an echocardiogram that showed normal ventricular function. Review of Systems Cardiovascular: Positive for palpitations. All other systems reviewed and are negative. Objective Visit Vitals BP 130/64 (BP Location: Left arm, Patient Position: Sitting, BP Cuff Size: Adult) Pulse 65 Resp 13 Ht 1.753 m (5' 9 ) Wt 135 kg (298 lb 4.8 oz) SpO2 95% BMI 44.05 kg/m??? Smoking Status Former BSA 2.56 m??? Physical Exam Constitutional: Appearance: He is well-developed. He is obese. He is not ill-appearing. HENT: Head: Normocephalic and atraumatic. Nose: Nose normal. Eyes: General: No scleral icterus. Pupils: Pupils are equal, round, and reactive to light. Neck: Thyroid: No thyromegaly. Vascular: No JVD. Cardiovascular: Rate and Rhythm: Normal rate. Rhythm regularly irregular. Heart sounds: Normal heart sounds. No murmur heard. No friction rub. No gallop. Pulmonary: Effort: Pulmonary effort is normal. No respiratory distress. Breath sounds: Normal breath sounds. No wheezing or rales. Chest: Chest wall: No tenderness. Abdominal: General: Bowel sounds are normal. There is no distension. Palpations: Abdomen is soft. Tenderness: There is no abdominal tenderness. Musculoskeletal: General: No swelling. Cervical back: Neck supple. Skin: General: Skin is warm and dry. Neurological: General: No focal deficit present. Mental Status: He is alert and oriented to person, place, and time. Psychiatric: Mood and Affect: Mood normal. Behavior: Behavior (more content not included)... [facility] Evaluation note 08-07-2022 Note Date & Type Note Facility 08-07-2022 Evaluation note Encounter Date Diagnosis Assessment Notes Jul, Obstructive sleep apnea (ICD-10 - G47.33) Jul, Pulmonary embolism (ICD-10 - I26.99) [facility] Other Evaluation note 01-08-2022 Note Date & Type Note Facility 01-08-2022 Evaluation note Encounter Date Diagnosis Assessment Notes Dec, Obstructive sleep apnea (ICD-10 - G47.33) Dec, Pulmonary embolism (ICD-10 - I26.99) [facility] Other Evaluation note Note Date & Type Note Facility Evaluation note No assessment information availa [facility] Work Phone: History general Narrative - Reported Note Date & Type Note Facility History general Narrative - Reported Type Medical History sleep apnea Medical History Atrial fibrillation Medical History hypertension Surgical History splenectomy 1962 Surgical History spinal fusion Hospitalization History pulmonary embolism [facility] Other History general Narrative - Reported Note Date & Type Note Facility History general Narrative - Reported Type Medical History sleep apnea Medical History Atrial fibrillation Medical History hypertension Medical History [facility] Surgical History splenectomy 1962 Surgical History spinal fusion Surgical History Heart catherization with stent put in 01/2022 Hospitalization History pulmonary embolism [facility] Other Summary Purpose Family History No Family History Records FoundNo Family History Records FoundNo Family History Records FoundNo Family History Records Found Advance Directives No Advanced Directives Records Found Advance Directive Response Recorded Date/ Time Advance Directives No May 10:45am Chief Complaint and Reason for Visit Chief Complaint g47.33 Additional Source Comments (unrecognized sect ion and content) No Status Records FoundNo Status Records FoundNo Status Records FoundNo Status Records Found INFORMATION SOURCE (unrecogn ized section and content) DATE CREATED AUTHOR 12/18/2021 [facility] DATE CREATED AUTHOR AUTHOR'S ORGANIZ ATION 06/22/2022 [facility] DATE CREATED AUTHOR AUTHOR'S ORGANIZ ATION 07/24/2022 [facility] DATE CREATED AUTHOR AUTHOR'S ORGANIZ ATION 04/08/2024 [facility] REASON FOR VISIT (unrecogniz ed section and content) Ref by Dr. Nair for Pulmonary Embolism2 mo f/u [facility] Care Teams (unrecognized sec tion and content) Team Status: Inactive Member Role Status Dates Linden Nair MD Primary Care Provider Active Blade Wright MD Attending Provider Active Team Status: Active Member Role Status Dates Linden Nair MD Primary Care Provider Active Goals (unrecognized section and content) Goals may be documented in a n alternate section FOR RECORDS PERTAINING TO PATIENTS WHO ARE OR HAVE BEEN ENROLLED IN A CHEMICAL DEPENDENCY/SUBSTANCEABUSE PROGRAM, SOME INFORMATION MAY BE OMITTED. This clinical summary was aggregated from multiple sources. Caution should be exercised in using it in the provision of clinical care. This summary normalizes information from multiple sources, and as a consequence, information in this document may materially change the coding, format and clinical context of patient data. In addition, data may be omitted in some cases. CLINICAL DECISIONS SHOULD BE BASED ON THE PRIMARY CLINICAL RECORDS. [facility]. provides no warranty or guarantee of the accuracy or completeness of information in this document.
== END 2024-05-29 13:47 | disposition home or self-care (01) ==
LOC: US 13:46
PROVIDERS: PCP Family Medicine; Visit Provider Family Medicine
DX: M79.662 Pain in left lower leg (principal)
CPT/HCPCS: 76882

== ENCOUNTER 2024-06-03 12:34 | Outpatient (OUT) | payer MEDICARE, SELFPAY ==
--- NOTE | 2024-06-03 12:37 | XR_ITS ---
The [address] [address] Patient Name: CECIL HAMMOND MRN: [id number] date: 1960 Sex: M Assigned Patient Location: [facility] Current Patient Location: Accession/Order Number: [id number] Exam Date: 06/03/2024 12:41 Report Date: 06/04/2024 09:56 At the request of: GAL LIU Procedure: XR foot LT min 3V PROCEDURE: XR foot LT min 3V HISTORY: Left Foot Pain COMPARISON: None. FINDINGS: BONES:Degenerative changes the first metatarsophalangeal joint with prominent dorsal projecting osteophytes. No acute fracture or dislocation. Small separate corticated ossification at anterior margin of the tibiotalar joint; likely sequela of remote injury. SOFT TISSUES:No visible soft tissue swelling. EFFUSION:None visible. OTHER: Negative. XR/XR foot LT min 3V IMPRESSION: 1. No acute bone abnormality. 2. Moderate degenerative changes the first metatarsophalangeal joint. Electronically authenticated by: FELICITY MCGRATH Date: 06/04/2024 09:56
--- OUTSIDE RECORDS SUMMARY | 2024-06-03 12:48 | XMS_ITS | CCD ---
Author Organization [facility] Care Team Providers Care Pattern Carrier Name Role Phone Blade Wright Unavailable [phone] MD Linden Nair Primary Care Provider [phone] MD Blade Wright Attending Provider Blade Wright [...] DR CHEATHAM Attending Unavailable HOY ., DR CHETAHAM Admitting Unavailable MISC, DR GUERRERO Consulting Unavailable [...] Codeine; Translations: [CODEINE] Drug Allergy 08-17-2021 Unknown [facility] Repository (2 sources) Codeine Drug Allergy [facility] Rep[facility] Medications Current Medications Medication Drug [...] disease (2 sources) Atherosclerotic heart disease of [place] coronary artery without angina pectoris; Translations: [Atherosclerotic heart disease of [place] coronary artery without angina pectoris] Onset: 02-26-2022 [...] 12-20-2021 Episodic Other aftercare (1 source) Other longterm (current) drug therapy; Translations: [[employer] CURRENT DRUG THERAPY] Onset: 08-21-2021 Episodic Other [...] [facility] Facility Office Visiton 04-06-2024 Follow-up visit [id number] Giovanni Mcrae 1960 M Date Provider Department Center 04/06/2024 SHONNA BAUTISTA Family History Problem Relation Age of Onset Pulmonary embolism Father Deep vein thrombosis Father Deep vein thrombosis Sister Deep vein thrombosis Brother Heart failure Brother Family Status - Relation Status Age at Father Sister Brother Level of Service:99660 ID OFFICE/OUTPATIENT ESTABLISHED LOW MDM 20 MIN Normal [facility] Office Visiton 07-26-2023 Follow-up visit [id number] Giovanni Mcrae 1960 M Date Provider Department Center 07/26/2023 SHONNA BAUTISTA Family History Problem Relation Age of Onset Pulmonary embolism Father Deep vein thrombosis Father Deep vein thrombosis Sister Deep vein thrombosis Brother Heart failure Brother Family Status - Relation Status Age at Father Sister Brother Level of Service:01104 ID OFFICE/OUTPATIENT ESTABLISHED MOD MDM 30 MIN Reason for Visit and Comments: Follow-up [[id number]] - Yearly follow up Normal [facility] CBC AUTO DIFFon 04-20-2022 BASO # 0.1 103/ul Normal 0.0-0.1 [facility] Comment on above: Performed By: #### C MP, LIPID #### [facility] [address] [place] [address] Dr. Calixto West Basophils/100 WBC (Bld) 0.7 % Normal 0.2-2.0 [facility] Comment on above: Performed By: #### C MP, LIPID #### [facility] [address] [place] [address] Dr. Calixto West EO # 0.2 103/ul Normal 0.0-0.7 [facility] Comment on above: Performed By: #### C MP, LIPID #### [facility] [address] [place] [address] Dr. Calixto West Eosinophils/100 WBC (Bld) 2.2 % Normal 0.9-7.0 [facility] Comment on above: Performed By: #### C MP, LIPID #### [facility] [address] [place] [address] Dr. Calixto West Erythrocyte distribution width (RBC) [Ratio] 12.7 % Normal 11.0-15.0 [facility] Comment on above: Performed By: #### C MP, LIPID #### [facility] [address] [place] [address] Dr. Calixto West Hematocrit (Bld) [Volume fraction] 46.8 % Normal 42.0-54.0 [facility] Comment on above: Performed By: #### C MP, LIPID #### [facility] [address] [place] [address] Dr. Calixto West Hemoglobin (Bld) [Mass/Vol] 16.9 g/dL Normal 14.0-18.0 [facility] Comment on above: Performed By: #### C MP, LIPID #### [facility] [address] [address] [address] Calixto West IG # 0.04 10e3/ul Critically high 0.00-0.03 [facility] Comment on above: Performed By: #### C MP, LIPID #### [facility] [address] [address] [address] Calixto West IG % 0.4 % Normal 0.0-0.5 [facility] Comment on above: Performed By: #### C MP, LIPID #### [facility] [address] [address] [address] Calixto West LYMPH # 4.1 103/ul Critically high 1.2-3.8 [facility] Comment on above: Performed By: #### C MP, LIPID #### [facility] [address] [place] [address] Dr. Calixto West Lymphocytes/100 WBC (Bld) 41.8 % Normal 20.5-60.0 [facility] Comment on above: Performed By: #### C MP, LIPID #### [facility] [address] [address] [address] Calixto West MANUAL DIFF REQ NO Normal [facility] Comment on above: Performed By: #### C MP, LIPID #### [facility] [address] [address] [address] Calixto West MCH (RBC) [Entitic mass] 31.6 pg Normal 25.9-34.0 [facility] Comment on above: Performed By: #### C MP, LIPID #### [facility] [address] [address] [address] Calixto West MCHC (RBC) [Mass/Vol] 36.1 g/dL Critically high 29.9-35.2 [facility] Comment on above: Performed By: #### C MP, LIPID #### [facility] [address] [place] [address] Dr. Calixto West MCV (RBC) [Entitic vol] 87.6 fL Normal 80.0-94.0 [facility] Comment on above: Performed By: #### C MP, LIPID #### [facility] [address] [place] [address] Dr. Calixto West MONO # 0.8 103/ul Normal 0.3-0.8 [facility] Comment on above: Performed By: #### C MP, LIPID #### [facility] [address] [place] [address] Dr. Calixto West Monocytes/100 WBC (Bld) 8.4 % Normal 1.7-12.0 [facility] Comment on above: Performed By: #### C MP, LIPID #### [facility] [address] [place] [address] Dr. Calixto West NEUT # 4.5 103/ul Normal 1.4-6.5 [facility] Comment on above: Performed By: #### C MP, LIPID #### [facility] [address] [place] [address] Dr. Calixto West Neutrophils/100 WBC (Bld) 46.5 % Normal 43.0-75.0 [facility] Comment on above: Performed By: #### C MP, LIPID #### [facility] [address] [place] [address] Dr. Calixto West Platelet mean volume (Bld) [Entitic vol] 9.1 fL Critically low 9.5-13.5 [facility] Comment on above: Performed By: #### C MP, LIPID #### [facility] [address] [place] [address] Dr. Calixto West PLT 383 103/ul Normal 150-450 [facility] Comment on above: Performed By: #### C MP, LIPID #### [facility] [address] [place] [address] Dr. Calixto West RBC 5.34 106/ul Normal 4.70-6.10 [facility] Comment on above: Performed By: #### C MP, LIPID #### [facility] [address] [place] [address] Dr. Calixto West WBC 9.7 103/ul Normal 4.0-11.0 [facility] Comment on above: Performed By: #### C MP, LIPID #### [facility] [address] [place] [address] Dr. Calixto West D-DIMERon 04-20-2022 D-DIMER 0.35 mg/L FEU Normal <=0.59 [facility] Comment on above: Performed By: #### T SH, BNP, CMP, CMADM #### [facility] [address] [place] [address] Dr. Calixto West D-DIMER COMMENTS SEE BELOW Normal [facility] Comment on above: Result Comment: Incr [...] SH, BNP, CMP, CMADM #### [facility] [address] [place] [address] Dr. Calixto West PROF 14(COMP METB)on 022 Albumin [Mass/Vol] 3.8 g/dL Normal 3.4-5.0 [facility] Comment on above: Performed By: #### T SH, BNP, CMP, CMADM #### [facility] [address] [place] [address] Dr. Calixto West Albumin/Globulin [Mass ratio] 0.9 {ratio} Normal [facility] Comment on above: Performed By: #### T SH, BNP, CMP, CMADM #### [facility] [address] [place] [address] Dr. Calixto West ALP [Catalytic activity/Vol] 64 U/L Normal 46-116 [facility] Comment on above: Performed By: #### T SH, BNP, CMP, CMADM #### [facility] [address] [place] [address] Dr. Calixto West ALT [Catalytic activity/Vol] 33 U/L Normal 16-63 [facility] Comment on above: Performed By: #### T SH, BNP, CMP, CMADM #### [facility] [address] [address] [address] Calixto West Anion gap [Moles/Vol] 12.4 mmol/L Normal [facility] Comment on above: Performed By: #### T SH, BNP, CMP, CMADM #### [facility] [address] [place] [address] Dr. Calixto West AST [Catalytic activity/Vol] 26 U/L Normal 15-37 [facility] Comment on above: Performed By: #### T SH, BNP, CMP, CMADM #### [facility] [address] [address] [address] Calixto West Bilirubin [Mass/Vol] 0.4 mg/dL Normal 0.2-1.0 [facility] Comment on above: Performed By: #### T SH, BNP, CMP, CMADM #### [facility] [address] [place] [address] Dr. Calixto West Calcium [Mass/Vol] 8.9 mg/dL Normal 8.5-10.1 [facility] Comment on above: Performed By: #### T SH, BNP, CMP, CMADM #### [facility] [address] [place] [address] Dr. Calixto West Chloride [Moles/Vol] 100 mmol/L Normal 98-107 [facility] Comment on above: Performed By: #### T SH, BNP, CMP, CMADM #### [facility] [address] [address] [address] aClixto West CO2 [Moles/Vol] 28.8 mmol/L Normal 21.0-32.0 [facility] Comment on above: Performed By: #### T SH, BNP, CMP, CMADM #### [facility] [address] [place] [address] Dr. Calixto West Creatinine [Mass/Vol] 1.21 mg/dL Normal 0.70-1.30 [facility] Comment on above: Performed By: #### T SH, BNP, CMP, CMADM #### [facility] [address] [address] [address] Calixto West EGFR-AF [facility] LUCIAN >60 Normal >=60 [facility] Comment on above: Performed By: #### T SH, BNP, CMP, CMADM #### [facility] [address] [address] [address] Calixto West EGFR-NON AF [facility] LUCIAN >60 Normal >=60 [facility] Comment on above: Performed By: #### T SH, BNP, CMP, CMADM #### [facility] [address] [address] [address] Calixto West Globulin (S) [Mass/Vol] 4.0 g/dL Normal [facility] Comment on above: Performed By: #### T SH, BNP, CMP, CMADM #### [facility] [address] [address] [address] Calixto West Glucose [Mass/Vol] 118 mg/dL Critically high 74-106 [facility] Comment on above: Performed By: #### T SH, BNP, CMP, CMADM #### [facility] [address] [address] [address] Calixto West Potassium [Moles/Vol] 4.2 mmol/L Normal 3.5-5.1 [facility] Comment on above: Performed By: #### T SH, BNP, CMP, CMADM #### [facility] [address] [address] [address] Calixto West Protein [Mass/Vol] 7.8 g/dL Normal 6.4-8.2 [facility] Comment on above: Performed By: #### T SH, BNP, CMP, CMADM #### [facility] [address] [address] [address] Calixto West Sodium [Moles/Vol] 137 mmol/L Normal 136-145 [facility] Comment on above: Performed By: #### T SH, BNP, CMP, CMADM #### [facility] [address] [address] [address] Calixto West Urea nitrogen [Mass/Vol] 18.0 mg/dL Normal 7.0-18.0 [facility] Comment on above: Performed By: #### T SH, BNP, CMP, CMADM #### [facility] [address] [address] [address] Calixto West Urea nitrogen/Creatinine [Mass ratio] 14.9 mg/mg Normal [facility] Comment on above: Performed By: #### T SH, BNP, CMP, CMADM #### [facility] [address] [address] [address] Calixto West LIPID PROFILEon 03-30-2022 CHOL-HDL RATIO NORM SEE BELOW Normal [facility] Comment on above: Result Comment: 3.3 - 4.4 LOW RISK 4.4 - 7.1 AVERAGE RISK 7.1 - 11.0 MODERATE RISK >11.0 HIGH RISK Performed By: #### C MP, LIPID #### [facility] [address] [place] [address] Dr. Calixto West Cholesterol [Mass/Vol] 166 mg/dL Normal <=200 [facility] Comment on above: Performed By: #### C MP, LIPID #### [facility] [address] [place] [address] Dr. Calixto West Cholesterol in HDL [Mass/Vol] 40 mg/dL Normal 40-60 [facility] Comment on above: Performed By: #### C MP, LIPID #### [facility] [address] [address] [address] Calixto West Cholesterol in LDL [Mass/Vol] 65.8 mg/dL Normal [facility] Comment on above: Performed By: #### C MP, LIPID #### [facility] [address] [place] [address] Dr. Calixto West Cholesterol.total/Chol esterol in HDL [Mass ratio] 4.2 {ratio} Normal [facility] Comment on above: Performed By: #### C MP, LIPID #### [facility] [address] [place] [address] Dr. Calixto West HDL NORMAL > or = 60 mg/dl - LO W CARDIOVASCULAR RISK <40 mg/dl - HIGH CARDIOVASCULAR RISK Normal [facility] Comment on above: Performed By: #### C MP, LIPID #### [facility] [address] [place] [address] Dr. Calixto West LDL CALC NORMAL SEE BELOW Normal [facility] Comment on above: Result Comment: <100 mg/dl OPTIMAL 100 - 129 mg/dl NEAR OR ABOVE OPTIMAL 130 - 159 mg/dl BORDERLINE HIGH 160 - 189 mg/dl HIGH >190 mg/dl VERY HIGH Performed By: #### C MP, LIPID #### [facility] [address] [place] [address] Dr. Calixto West Triglyceride [Mass/Vol] 301 mg/dL Critically high <=150 [facility] Comment on above: Performed By: #### C MP, LIPID #### [facility] [address] [place] [address] Dr. Calixto West VLDL CALC 60.2 mg/dL Normal [facility] Comment on above: Performed By: #### C MP, LIPID #### [facility] [address] [place] [address] Dr. Calixto West PROF 14(COMP METB)on 022 Albumin [Mass/Vol] 3.6 g/dL Normal 3.4-5.0 [facility] Comment on above: Performed By: #### C MP, LIPID #### [facility] [address] [place] [address] Dr. Calixto West Albumin/Globulin [Mass ratio] 0.9 {ratio} Normal [facility] Comment on above: Performed By: #### C MP, LIPID #### [facility] [address] [place] [address] Dr. Calixto West ALP [Catalytic activity/Vol] 70 U/L Normal 46-116 [facility] Comment on above: Performed By: #### C MP, LIPID #### [facility] [address] [place] [address] Dr. Calixto West ALT [Catalytic activity/Vol] 28 U/L Normal 16-63 [facility] Comment on above: Performed By: #### C MP, LIPID #### [facility] [address] [place] [address] Dr. Calixto West Anion gap [Moles/Vol] 11.8 mmol/L Normal [facility] Comment on above: Performed By: #### C MP, LIPID #### [facility] [address] [place] [address] Dr. Calixto West AST [Catalytic activity/Vol] 26 U/L Normal 15-37 [facility] Comment on above: Performed By: #### C MP, LIPID #### [facility] [address] [place] [address] Dr. Calixto West Bilirubin [Mass/Vol] 0.3 mg/dL Normal 0.2-1.0 [facility] Comment on above: Performed By: #### C MP, LIPID #### [facility] [address] [place] [address] Dr. Calixto West Calcium [Mass/Vol] 9.4 mg/dL Normal 8.5-10.1 [facility] Comment on above: Performed By: #### C MP, LIPID #### [facility] [address] [place] [address] Dr. Calixto West Chloride [Moles/Vol] 101 mmol/L Normal 98-107 [facility] Comment on above: Performed By: #### C MP, LIPID #### [facility] [address] [place] [address] Dr. Calixto West CO2 [Moles/Vol] 27.8 mmol/L Normal 21.0-32.0 [facility] Comment on above: Performed By: #### C MP, LIPID #### [facility] [address] [place] [address] Dr. Calixto West Creatinine [Mass/Vol] 1.28 mg/dL Normal 0.70-1.30 [facility] Comment on above: Performed By: #### C MP, LIPID #### [facility] [address] [place] [address] Dr. Calixto West EGFR-AF [facility]CI[facility] >60 Normal >=60 [facility] Comment on above: Performed By: #### C MP, LIPID #### [facility] [address] [place] [address] Dr. Calixto West EGFR-NON AF [facility] 57 mL/min/1.73m2 Critically low >=60 [facility] Comment on above: Performed By: #### C MP, LIPID #### [facility] [address] [place] [address] Dr. Calixto West Globulin (S) [Mass/Vol] 4.1 g/dL Normal [facility] Comment on above: Performed By: #### C MP, LIPID #### [facility] [address] [place] [address] Dr. Calixto West Glucose [Mass/Vol] 133 mg/dL Critically high 74-106 [facility] Comment on above: Performed By: #### C MP, LIPID #### [facility] [address] [place] [address] Dr. Calixto West Potassium [Moles/Vol] 4.6 mmol/L Normal 3.5-5.1 [facility] Comment on above: Performed By: #### C MP, LIPID #### [facility] [address] [place] [address] Dr. Calixto West Protein [Mass/Vol] 7.7 g/dL Normal 6.4-8.2 [facility] Comment on above: Performed By: #### C MP, LIPID #### [facility] [address] [place] [address] Dr. Calixto West Sodium [Moles/Vol] 136 mmol/L Normal 136-145 [facility] Comment on above: Performed By: #### C MP, LIPID #### [facility] [address] [place] [address] Dr. Calixto West Urea nitrogen [Mass/Vol] 25.0 mg/dL Critically high 7.0-18.0 [facility] Comment on above: Performed By: #### C MP, LIPID #### [facility] [address] [place] [address] Dr. Calixto West Urea nitrogen/Creatinine [Mass ratio] 19.5 mg/mg Normal [facility] Comment on above: Performed By: #### C MP, LIPID #### [facility] [address] [place] [address] Dr. Calixto West PROF CHEM 8 (BAS METB)on Anion gap [Moles/Vol] 11.3 mmol/L Normal [facility] Comment on above: Performed By: #### C MP, LIPID #### [facility] [address] [place] [address] Dr. Calixto West Calcium [Mass/Vol] 9.1 mg/dL Normal 8.5-10.1 [facility] Comment on above: Performed By: #### C MP, LIPID #### [facility] [address] [place] [address] Dr. Calixto West Chloride [Moles/Vol] 101 mmol/L Normal 98-107 [facility] Comment on above: Performed By: #### C MP, LIPID #### [facility] [address] [place] [address] Dr. Calixto West CO2 [Moles/Vol] 32.2 mmol/L Critically high 21.0-32.0 [facility] Comment on above: Performed By: #### C MP, LIPID #### [facility] [address] [place] [address] Dr. Calixto West Creatinine [Mass/Vol] 1.33 mg/dL Critically high 0.70-1.30 [facility] Comment on above: Performed By: #### C MP, LIPID #### [facility] [address] [place] [address] Dr. Calixto West EGFR-AF [facility] >60 Normal >=60 [facility] Comment on above: Performed By: #### C MP, LIPID #### [facility] [address] [place] [address] Dr. Calixto West EGFR-NON AF [facility] 54 mL/min/1.73m2 Critically low >=60 [facility] Comment on above: Performed By: #### C MP, LIPID #### [facility] [address] [place] [address] Dr. Calixto West Glucose [Mass/Vol] 149 mg/dL Critically high 74-106 [facility] Comment on above: Performed By: #### C MP, LIPID #### [facility] [address] [address] [address] Calixto West Potassium [Moles/Vol] 4.5 mmol/L Normal 3.5-5.1 [facility] Comment on above: Performed By: #### C MP, LIPID #### [facility] [address] [place] [address] Dr. Calixto West Sodium [Moles/Vol] 140 mmol/L Normal 136-145 [facility] Comment on above: Performed By: #### C MP, LIPID #### [facility] [address] [place] [address] Dr. Calixto West Urea nitrogen [Mass/Vol] 21.0 mg/dL Critically high 7.0-18.0 [facility] Comment on above: Performed By: #### C MP, LIPID #### [facility] [address] [place] [address] Dr. Calixto West Urea nitrogen/Creatinine [Mass ratio] 15.8 mg/mg Normal [facility] Comment on above: Performed By: #### C MP, LIPID #### [facility] [address] [place] [address] Dr. Calixto West [facility]22 SARS-CoV-2 (COVID-19) RNA PATSY+probe Ql (Unsp spec) Not detected Normal NOT DETECTED [facility] Comment on above: Result Comment: This test is not yet approved or cleared by the [place] FDA. When there are no FDA-approved or cleared tests available, and other criteria are met, FDA can make tests available under an emergency access mechanism called an Emergency Use Authorization (EUA). The EUA for this test is supported by the Software Controls Engineer of Health and Human Service's (HHS's) declaration [...] SH, BNP, CMP, CMADM #### [facility] [address] [place] [address] Dr. Calixto West INSULINon 12-20-2021 Insulin 28.6 uIU/mL Critically high 2.6-24.9 [facility] Comment on above: Performed By: #### T SH, BNP, CMP, CMADM #### [facility] [address] [place] [address] Dr. Calixto West BNPon 12-19-2021 Natriuretic peptide B (Bld) [Mass/Vol] 89.0 pg/mL Normal <=900.0 [facility] Comment on above: Performed By: #### T SH, BNP, CMP, CMADM #### [facility] [address] [place] [address] Dr. Calixto West CBC AUTO DIFFon 12-19-2021 BASO # 0.1 103/ul Normal 0.0-0.1 [facility] Comment on above: Performed By: #### C MP, LIPID #### [facility] [address] [place] [address] Dr. Calixto West Basophils/100 WBC (Bld) 0.9 % Normal 0.2-2.0 [facility] Comment on above: Performed By: #### C MP, LIPID #### [facility] [address] [place] [address] Dr. Calixto West EO # 0.2 103/ul Normal 0.0-0.7 [facility] Comment on above: Performed By: #### C MP, LIPID #### [facility] [address] [place] [address] Dr. Calixto West Eosinophils/100 WBC (Bld) 1.7 % Normal 0.9-7.0 [facility] Comment on above: Performed By: #### C MP, LIPID #### [facility] [address] [place] [address] Dr. Calixto West Erythrocyte distribution width (RBC) [Ratio] 12.9 % Normal 11.0-15.0 [facility] Comment on above: Performed By: #### C MP, LIPID #### [facility] [address] [place] [address] Dr. Calixto West Hematocrit (Bld) [Volume fraction] 45.5 % Normal 42.0-54.0 [facility] Comment on above: Performed By: #### C MP, LIPID #### [facility] [address] [place] [address] Dr. Calixto West Hemoglobin (Bld) [Mass/Vol] 16.5 g/dL Normal 14.0-18.0 [facility] Comment on above: Performed By: #### C MP, LIPID #### [facility] [address] [place] [address] Dr. Calixto eWst IG # 0.05 10e3/ul Critically high 0.00-0.03 [facility] Comment on above: Performed By: #### C MP, LIPID #### [facility] [address] [place] [address] Dr. Calixto West IG % 0.5 % Normal 0.0-0.5 [facility] Comment on above: Performed By: #### C MP, LIPID #### [facility] [address] [place] [address] Dr. Calixto West LYMPH # 5.2 103/ul Critically high 1.2-3.8 [facility] Comment on above: Performed By: #### C MP, LIPID #### [facility] [address] [place] [address] Dr. Calixto West Lymphocytes/100 WBC (Bld) 49.6 % Normal 20.5-60.0 [facility] Comment on above: Performed By: #### C MP, LIPID #### [facility] [address] [place] [address] Dr. Calixto West MANUAL DIFF REQ NO Normal [facility] Comment on above: Performed By: #### C MP, LIPID #### [facility] [address] [place] [address] Dr. Calixto West MCH (RBC) [Entitic mass] 31.2 pg Normal 25.9-34.0 [facility] Comment on above: Performed By: #### C MP, LIPID #### [facility] [address] [place] [address] Dr. Calixto West MCHC (RBC) [Mass/Vol] 36.3 g/dL Critically high 29.9-35.2 [facility] Comment on above: Performed By: #### C MP, LIPID #### [facility] [address] [place] [address] Dr. Calixto West MCV (RBC) [Entitic vol] 86.0 fL Normal 80.0-94.0 [facility] Comment on above: Performed By: #### C MP, LIPID #### [facility] [address] [place] [address] Dr. Calixto West MONO # 0.8 103/ul Normal 0.3-0.8 [facility] Comment on above: Performed By: #### C MP, LIPID #### [facility] [address] [place] [address] Dr. Calixto West Monocytes/100 WBC (Bld) 7.8 % Normal 1.7-12.0 [facility] Comment on above: Performed By: #### C MP, LIPID #### [facility] [address] [place] [address] Dr. Calixto West NEUT # 4.1 103/ul Normal 1.4-6.5 [facility] Comment on above: Performed By: #### C MP, LIPID #### [facility] [address] [place] [address] Dr. Calixto West Neutrophils/100 WBC (Bld) 39.5 % Critically low 43.0-75.0 [facility] Comment on above: Performed By: #### C MP, LIPID #### [facility] [address] [place] [address] Dr. Calixto West Platelet mean volume (Bld) [Entitic vol] 9.3 fL Critically low 9.5-13.5 [facility] Comment on above: Performed By: #### C MP, LIPID #### [facility] [address] [address] [address] Calixto West PLT 449 103/ul Normal 150-450 [facility] Comment on above: Performed By: #### C MP, LIPID #### [facility] [address] [address] [address] Calixto West RBC 5.29 106/ul Normal 4.70-6.10 [facility] Comment on above: Performed By: #### C MP, LIPID #### [facility] [address] [address] [address] Calixto West WBC 10.4 103/ul Normal 4.0-11.0 [facility] Comment on above: Performed By: #### C MP, LIPID #### [facility] [address] [place] [address] Dr. Calixto West GLYCOHEMOGLOBIN A1Con 2021 ADA RECOMMENDATION SEE BELOW Normal [facility] Comment on above: Result Comment: ADA RECOMMENDED LIMIT 4.0 - 6.0 ADA THERAPEUTIC TARGET < 7.0 ACTION SUGGESTED > 7.0 Performed By: #### A 1C #### [facility] [address] [place] [address] Dr. Calixto West Glucose [Mass/Vol] 134 mg/dL Normal [facility] Comment on above: Performed By: #### A 1C #### [facility] [address] [place] [address] Dr. Calixto West HbA1c (Bld) [Mass fraction] 6.3 % Critically high 4.5-6.2 [facility] Comment on above: Performed By: #### A 1C #### [facility] [address] [place] [address] Dr. Calixto West LIPID PROFILEon 12-19-2021 CHOL-HDL RATIO NORM SEE BELOW Normal [facility] Comment on above: Result Comment: 3.3 - 4.4 LOW RISK 4.4 - 7.1 AVERAGE RISK 7.1 - 11.0 MODERATE RISK >11.0 HIGH RISK Performed By: #### T SH, BNP, CMP, CMADM #### [facility] [address] [place] [address] Dr. Calixto West Cholesterol [Mass/Vol] 302 mg/dL Critically high <=200 [facility] Comment on above: Performed By: #### T SH, BNP, CMP, CMADM #### [facility] [address] [address] [address] Calixto West Cholesterol in HDL [Mass/Vol] 36 mg/dL Critically low 40-60 [facility] Comment on above: Performed By: #### T SH, BNP, CMP, CMADM #### [facility] [address] [address] [address] Calixto West Cholesterol in LDL [Mass/Vol] 189.6 mg/dL Normal [facility] Comment on above: Performed By: #### T SH, BNP, CMP, CMADM #### [facility] [address] [address] [address] Calixto West Cholesterol.total/Chol esterol in HDL [Mass ratio] 8.4 {ratio} Normal [facility] Comment on above: Performed By: #### T SH, BNP, CMP, CMADM #### [facility] [address] [address] [address] Calixto West HDL NORMAL > or = 60 mg/dl - LO W CARDIOVASCULAR RISK <40 mg/dl - HIGH CARDIOVASCULAR RISK Normal [facility] Comment on above: Performed By: #### T SH, BNP, CMP, CMADM #### [facility] [address] [address] [address] Calixto West LDL CALC NORMAL SEE BELOW Normal [facility] Comment on above: Result Comment: <100 mg/dl OPTIMAL 100 - 129 mg/dl NEAR OR ABOVE OPTIMAL 130 - 159 mg/dl BORDERLINE HIGH 160 - 189 mg/dl HIGH >190 mg/dl VERY HIGH Performed By: #### T SH, BNP, CMP, CMADM #### [facility] [address] [address] [address] Calixto West Triglyceride [Mass/Vol] 382 mg/dL Critically high <=150 [facility] Comment on above: Performed By: #### T SH, BNP, CMP, CMADM #### [facility] [address] [address] [address] Calixto West VLDL CALC 76.4 mg/dL Normal [facility] Comment on above: Performed By: #### T SH, BNP, CMP, CMADM #### [facility] [address] [place] [address] Dr. Calixto West PROF 14(COMP METB)on 022 Albumin [Mass/Vol] 3.7 g/dL Normal 3.4-5.0 [facility] Comment on above: Performed By: #### T SH, BNP, CMP, CMADM #### [facility] [address] [place] [address] Dr. Calixto West Albumin/Globulin [Mass ratio] 0.9 {ratio} Normal [facility] Comment on above: Performed By: #### T SH, BNP, CMP, CMADM #### [facility] [address] [place] [address] Dr. Calixto West ALP [Catalytic activity/Vol] 72 U/L Normal 46-116 [facility] Comment on above: Performed By: #### T SH, BNP, CMP, CMADM #### [facility] [address] [place] [address] Dr. Calixto West ALT [Catalytic activity/Vol] 35 U/L Normal 16-63 [facility] Comment on above: Performed By: #### T SH, BNP, CMP, CMADM #### [facility] [address] [place] [address] Dr. Calixto West Anion gap [Moles/Vol] 13.3 mmol/L Normal [facility] Comment on above: Performed By: #### T SH, BNP, CMP, CMADM #### [facility] [address] [place] [address] Dr. Calixto West AST [Catalytic activity/Vol] 20 U/L Normal 15-37 [facility] Comment on above: Performed By: #### T SH, BNP, CMP, CMADM #### [facility] [address] [place] [address] Dr. Calixto West Bilirubin [Mass/Vol] 0.6 mg/dL Normal 0.2-1.0 [facility] Comment on above: Performed By: #### T SH, BNP, CMP, CMADM #### [facility] [address] [address] [address] Calixto West Calcium [Mass/Vol] 8.8 mg/dL Normal 8.5-10.1 [facility] Comment on above: Performed By: #### T SH, BNP, CMP, CMADM #### [facility] [address] [address] [address] Calixto West Chloride [Moles/Vol] 102 mmol/L Normal 98-107 [facility] Comment on above: Performed By: #### T SH, BNP, CMP, CMADM #### [facility] [address] [place] [address] Dr. Calixto West CO2 [Moles/Vol] 26.9 mmol/L Normal 21.0-32.0 [facility] Comment on above: Performed By: #### T SH, BNP, CMP, CMADM #### [facility] [address] [place] [address] Dr. Calixto West Creatinine [Mass/Vol] 1.22 mg/dL Normal 0.70-1.30 [facility] Comment on above: Performed By: #### T SH, BNP, CMP, CMADM #### [facility] [address] [place] [address] Dr. Calixto West EGFR-AF [facility] LUCIAN >60 Normal >=60 [facility] Comment on above: Performed By: #### T SH, BNP, CMP, CMADM #### [facility] [address] [place] [address] Dr. Calixto West EGFR-NON AF [facility] LUCIAN =60 Normal >=60 [facility] Comment on above: Performed By: #### T SH, BNP, CMP, CMADM #### [facility] [address] [place] [address] Dr. Calixto West Globulin (S) [Mass/Vol] 3.9 g/dL Normal [facility] Comment on above: Performed By: #### T SH, BNP, CMP, CMADM #### [facility] [address] [place] [address] Dr. Calixto West Glucose [Mass/Vol] 147 mg/dL Critically high 74-106 [facility] Comment on above: Performed By: #### T SH, BNP, CMP, CMADM #### [facility] [address] [address] [address] Calixto West Potassium [Moles/Vol] 4.2 mmol/L Normal 3.5-5.1 [facility] Comment on above: Performed By: #### T SH, BNP, CMP, CMADM #### [facility] [address] [place] [address] Dr. Calixto West Protein [Mass/Vol] 7.6 g/dL Normal 6.4-8.2 [facility] Comment on above: Performed By: #### T SH, BNP, CMP, CMADM #### [facility] [address] [place] [address] Dr. Calixto West Sodium [Moles/Vol] 138 mmol/L Normal 136-145 [facility] Comment on above: Performed By: #### T SH, BNP, CMP, CMADM #### [facility] [address] [address] [address] Calixto West Urea nitrogen [Mass/Vol] 16.0 mg/dL Normal 7.0-18.0 [facility] Comment on above: Performed By: #### T SH, BNP, CMP, CMADM #### [facility] [address] [place] [address] Dr. Calixto West Urea nitrogen/Creatinine [Mass ratio] 13.1 mg/mg Normal [facility] Comment on above: Performed By: #### T SH, BNP, CMP, CMADM #### [facility] [address] [address] [address] Calixto West URIC ACID SERUMon 12-19-2021 Urate [Mass/Vol] 7.2 mg/dL Normal 3.5-7.2 [facility] Comment on above: Performed By: #### T SH, BNP, CMP, CMADM #### [facility] [address] [place] [address] Dr. Calixto West Physician Referralon 022 Physician Referral [id number] Normal [facility] ECHOCARDIO M/2D COMPLETEon 0 10-24-2021 ECHOCARDIO M/2D COMPLETE Patient: CECIL MCRAE Exam Date: 10/24/2021 : 1960 Gender:M Ordering : DR LINDEN NAIR . Admission #: [id number] Family : Order #: [id number] CLICK HERE TO VIEW EXAM ECHOCARDIOGRAM REPORT [...] Woodall M.D. on 10/25/2021 at 10:17 Normal [facility] T4 LABCORPon 09-15-2021 T4 [Mass/Vol] 7.7 ug/dL Normal 4.5-12.0 [facility] Comment on above: Performed By: #### T SH, BNP, CMP, CMADM #### [facility] [address] [place] [address] Dr. Calixto eWst BNPon 09-13-2021 Natriuretic peptide B (Bld) [Mass/Vol] 41.0 pg/mL Normal <=900.0 [facility] Comment on above: Performed By: #### T SH, BNP, CMP, CMADM #### [facility] [address] [place] [address] Dr. Calixto West CBC AUTO DIFFon 09-13-2021 BASO # 0.1 103/ul Normal 0.0-0.1 [facility] Comment on above: Performed By: #### C MP, LIPID #### [facility] [address] [place] [address] Dr. Calixto West Basophils/100 WBC (Bld) 0.8 % Normal 0.2-2.0 [facility] Comment on above: Performed By: #### C MP, LIPID #### [facility] [address] [place] [address] Dr. Calixto West EO # 0.3 103/ul Normal 0.0-0.7 [facility] Comment on above: Performed By: #### C MP, LIPID #### [facility] [address] [place] [address] Dr. Calixto West Eosinophils/100 WBC (Bld) 2.8 % Normal 0.9-7.0 [facility] Comment on above: Performed By: #### C MP, LIPID #### [facility] [address] [place] [address] Dr. Calixto West Erythrocyte distribution width (RBC) [Ratio] 13.0 % Normal 11.0-15.0 [facility] Comment on above: Performed By: #### C MP, LIPID #### [facility] [address] [place] [address] Dr. Calixto West Hematocrit (Bld) [Volume fraction] 44.6 % Normal 42.0-54.0 [facility] Comment on above: Performed By: #### C MP, LIPID #### [facility] [address] [place] [address] Dr. Calixto West Hemoglobin (Bld) [Mass/Vol] 15.5 g/dL Normal 14.0-18.0 [facility] Comment on above: Performed By: #### C MP, LIPID #### [facility] [address] [place] [address] Dr. Calixto West IG # 0.06 10e3/ul Critically high 0.00-0.03 [facility] Comment on above: Performed By: #### C MP, LIPID #### [facility] [address] [place] [address] Dr. Calixto West IG % 0.6 % Critically high 0.0-0.5 [facility] Comment on above: Performed By: #### C MP, LIPID #### [facility] [address] [place] [address] Dr. Calixto West LYMPH # 4.1 103/ul Critically high 1.2-3.8 [facility] Comment on above: Performed By: #### C MP, LIPID #### [facility] [address] [place] [address] Dr. Calixto West Lymphocytes/100 WBC (Bld) 40.5 % Normal 20.5-60.0 [facility] Comment on above: Performed By: #### C MP, LIPID #### [facility] [address] [place] [address] Dr. Calixto West MANUAL DIFF REQ NO Normal [facility] Comment on above: Performed By: #### C MP, LIPID #### [facility] [address] [place] [address] Dr. Calixto West MCH (RBC) [Entitic mass] 31.0 pg Normal 25.9-34.0 [facility] Comment on above: Performed By: #### C MP, LIPID #### [facility] [address] [place] [address] Dr. Calixto West MCHC (RBC) [Mass/Vol] 34.8 g/dL Normal 29.9-35.2 [facility] Comment on above: Performed By: #### C MP, LIPID #### [facility] [address] [address] [address] Calixto West MCV (RBC) [Entitic vol] 89.2 fL Normal 80.0-94.0 [facility] Comment on above: Performed By: #### C MP, LIPID #### [facility] [address] [place] [address] Dr. Calixto West MONO # 0.8 103/ul Normal 0.3-0.8 [facility] Comment on above: Performed By: #### C MP, LIPID #### [facility] [address] [place] [address] Dr. Calixto West Monocytes/100 WBC (Bld) 8.1 % Normal 1.7-12.0 [facility] Comment on above: Performed By: #### C MP, LIPID #### [facility] [address] [place] [address] Dr. Calixto West NEUT # 4.8 103/ul Normal 1.4-6.5 [facility] Comment on above: Performed By: #### C MP, LIPID #### [facility] [address] [place] [address] Dr. Calixto West Neutrophils/100 WBC (Bld) 47.2 % Normal 43.0-75.0 [facility] Comment on above: Performed By: #### C MP, LIPID #### [facility] [address] [place] [address] Dr. Calixto West Platelet mean volume (Bld) [Entitic vol] 9.3 fL Critically low 9.5-13.5 [facility] Comment on above: Performed By: #### C MP, LIPID #### [facility] [address] [place] [address] Dr. Calixto West PLT 398 103/ul Normal 150-450 [facility] Comment on above: Performed By: #### C MP, LIPID #### [facility] [address] [place] [address] Dr. Calixto West RBC 5.00 106/ul Normal 4.70-6.10 [facility] Comment on above: Performed By: #### C MP, LIPID #### [facility] [address] [address] [address] Calixto West WBC 10.1 103/ul Normal 4.0-11.0 [facility] Comment on above: Performed By: #### C MP, LIPID #### [facility] [address] [place] [address] Dr. Calixto West FREE T3on 09-13-2021 FREE T3 3.04 pg/mlL Normal 2.18-3.98 [facility] Comment on above: Performed By: #### C MP, LIPID #### [facility] [address] [place] [address] Dr. Calixto West FREE THYROXINE INDEX T7on FTI 2.62 Normal 1.30-4.50 [facility] Comment on above: Performed By: #### T SH, BNP, CMP, CMADM #### [facility] [address] [place] [address] Dr. Calixto West T3U 34.0 % Normal 33.0-40.0 [facility] Comment on above: Performed By: #### T SH, BNP, CMP, CMADM #### [facility] [address] [place] [address] Dr. Calixto West T4 [Mass/Vol] 7.70 ug/dL Normal 4.50-12.10 [facility] Comment on above: Performed By: #### T SH, BNP, CMP, CMADM #### [facility] [address] [address] [address] Calixto West PROF 14(COMP METB)on 022 Albumin [Mass/Vol] 3.5 g/dL Normal 3.4-5.0 [facility] Comment on above: Performed By: #### T SH, BNP, CMP, CMADM #### [facility] [address] [place] [address] Dr. Calixto West Albumin/Globulin [Mass ratio] 0.9 {ratio} Normal [facility] Comment on above: Performed By: #### T SH, BNP, CMP, CMADM #### [facility] [address] [address] [address] Calixto West ALP [Catalytic activity/Vol] 67 U/L Normal 46-116 [facility] Comment on above: Performed By: #### T SH, BNP, CMP, CMADM #### [facility] [address] [address] [address] Calixto West ALT [Catalytic activity/Vol] 49 U/L Normal 16-63 [facility] Comment on above: Performed By: #### T SH, BNP, CMP, CMADM #### [facility] [address] [address] [address] Calixto West Anion gap [Moles/Vol] 14.0 mmol/L Normal [facility] Comment on above: Performed By: #### T SH, BNP, CMP, CMADM #### [facility] [address] [place] [address] Dr. Calixto West AST [Catalytic activity/Vol] 24 U/L Normal 15-37 [facility] Comment on above: Performed By: #### T SH, BNP, CMP, CMADM #### [facility] [address] [address] [address] Calixto West Bilirubin [Mass/Vol] 0.4 mg/dL Normal 0.2-1.0 [facility] Comment on above: Performed By: #### T SH, BNP, CMP, CMADM #### [facility] [address] [address] [address] Calixto West Calcium [Mass/Vol] 9.0 mg/dL Normal 8.5-10.1 [facility] Comment on above: Performed By: #### T SH, BNP, CMP, CMADM #### [facility] [address] [address] [address] Calixto West Chloride [Moles/Vol] 102 mmol/L Normal 98-107 [facility] Comment on above: Performed By: #### T SH, BNP, CMP, CMADM #### [facility] [address] [address] [address] Calixto West CO2 [Moles/Vol] 27.1 mmol/L Normal 21.0-32.0 [facility] Comment on above: Performed By: #### T SH, BNP, CMP, CMADM #### [facility] [address] [place] [address] Dr. Calixto West Creatinine [Mass/Vol] 1.01 mg/dL Normal 0.70-1.30 [facility] Comment on above: Performed By: #### T SH, BNP, CMP, CMADM #### [facility] [address] [address] [address] Calixto West EGFR-AF [facility] LUCIAN >60 Normal >=60 [facility] Comment on above: Performed By: #### T SH, BNP, CMP, CMADM #### [facility] [address] [place] [address] Dr. Calixto West EGFR-NON AF [facility] >60 Normal >=60 [facility] Comment on above: Performed By: #### T SH, BNP, CMP, CMADM #### [facility] [address] [place] [address] Dr. Calixto West Globulin (S) [Mass/Vol] 4.1 g/dL Normal [facility] Comment on above: Performed By: #### T SH, BNP, CMP, CMADM #### [facility] [address] [place] [address] Dr. Calixto West Glucose [Mass/Vol] 156 mg/dL Critically high 74-106 [facility] Comment on above: Performed By: #### T SH, BNP, CMP, CMADM #### [facility] [address] [place] [address] Dr. Calixto West Potassium [Moles/Vol] 4.1 mmol/L Normal 3.5-5.1 [facility] Comment on above: Performed By: #### T SH, BNP, CMP, CMADM #### [facility] [address] [place] [address] Dr. Calixto West Protein [Mass/Vol] 7.6 g/dL Normal 6.4-8.2 [facility] Comment on above: Performed By: #### T SH, BNP, CMP, CMADM #### [facility] [address] [address] [address] Calixto West Sodium [Moles/Vol] 139 mmol/L Normal 136-145 [facility] Comment on above: Performed By: #### T SH, BNP, CMP, CMADM #### [facility] [address] [address] [address] Calixto West Urea nitrogen [Mass/Vol] 19.0 mg/dL Critically high 7.0-18.0 [facility] Comment on above: Performed By: #### T SH, BNP, CMP, CMADM #### [facility] [address] [address] [address] Calixto West Urea nitrogen/Creatinine [Mass ratio] 18.8 mg/mg Normal [facility] Comment on above: Performed By: #### T SH, BNP, CMP, CMADM #### [facility] [address] [place] [address] Dr. Calixto West TSHon 09-13-2021 TSH 5.060 uIU/mL Critically high 0.358-3.740 [facility] Comment on above: Performed By: #### T SH, BNP, CMP, CMADM #### [facility] [address] [place] [address] Dr. Calixto West TSH RANGE SEE BELOW Normal [facility] Comment on above: Result Comment: <0.3 4 UIU/ml HYPERTHYROID 0.34-5.60 UIU/ml EUTHYROID >5.60 UIU/ml HYPOTHYROID Performed By: #### T SH, BNP, CMP, CMADM #### [facility] [address] [place] [address] Dr. Calixto West BLOOD CULTURE ID/SENSon 05-0 Aerobe ID + Suscept Final report Abnormal [facility] Comment on above: Performed By: #### C MP, LIPID #### [facility] [address] [place] [address] Dr. Calixto West Antimicrobial Susceptibility Comment Normal [facility] Comment on above: Result Comment: S [...] #### C MP, LIPID #### [facility] [address] [place] [address] Dr. Calixto West Result 1 Comment Abnormal [facility] Comment on above: Result Comment: Stap [...] #### C MP, LIPID #### [facility] [address] [place] [address] Dr. Calixto West BLOOD CULTURE ID PANELon A. baumannii Not detected Normal [facility] Comment on above: Performed By: #### T SH, BNP, CMP, CMADM #### [facility] [address] [place] [address] Dr. Calixto West BCID CONTROLS PASSED Normal [facility] Comment on above: Performed By: #### T SH, BNP, CMP, CMADM #### [facility] [address] [place] [address] Dr. Calixto West BCIDBTHD BLOOD CULTURE BOTTLE INFORMATION Normal [facility] Comment on above: Performed By: #### T SH, BNP, CMP, CMADM #### [facility] [address] [place] [address] Dr. Calixto West BCIDHD1 ANTIMICROBIAL RESISTANCE GENES [facility] Comment on above: Performed By: #### T SH, BNP, CMP, CMADM #### [facility] [address] [place] [address] Dr. Calixto West BCIDHD2 SEE BELOW [facility] Comment on above: Result Comment: KPC- carbapenem resistance gene, mecA- methecillin resistance gene, van A/B- vancomycin resistance gene Note: Antimicrobial resitance can occur via multiple mechanisms. A Not Detected result for the [employer] antomicrobial resistance gene assays does not indicate antimicrobial susceptibility. Subculturing is required for specis identificationand susceptibility testing of isolates. Performed By: #### T SH, BNP, CMP, CMADM #### [facility] [address] [place] [address] Dr. Calixto West BCIDHD3 Positive [facility] Comment on above: Performed By: #### T SH, BNP, CMP, CMADM #### [facility] [address] [place] [address] Dr. Calixto West BCIDHD4 Negative [facility] Comment on above: Performed By: #### T SH, BNP, CMP, CMADM #### [facility] [address] [place] [address] Dr. Calixto West BCIDHD5 YEAST [facility] Comment on above: Performed By: #### T SH, BNP, CMP, CMADM #### [facility] [address] [place] [address] Dr. Calixto West BCIDHD6 SEE BELOW [facility] Comment on above: Result Comment: Note : All genus and species BCID [employer] results will be verified post subculturing via Maldi-Tof MS testing methodology. Performed By: #### T SH, BNP, CMP, CMADM #### [facility] [address] [place] [address] Dr. Calixto West Bottle Set: Set 1 [facility] Comment on above: Performed By: #### T SH, BNP, CMP, CMADM #### [facility] [address] [place] [address] Dr. Calixto West Bottle: Anaerobic Normal [facility] Comment on above: Performed By: #### T SH, BNP, CMP, CMADM #### [facility] [address] [address] [address] Calixto West Asia albicans Not detected Normal [facility] Comment on above: Performed By: #### T SH, BNP, CMP, CMADM #### [facility] [address] [address] [address] Calixto West Asia glabrata Not detected Normal [facility] Comment on above: Performed By: #### T SH, BNP, CMP, CMADM #### [facility] [address] [address] [address] Calixto West Asia Krusei Not detected Normal [facility] Comment on above: Performed By: #### T SH, BNP, CMP, CMADM #### [facility] [address] [address] [address] Calixto West [place] Parapsilosis Not detected Normal [facility] Comment on above: Performed By: #### T SH, BNP, CMP, CMADM #### [facility] [address] [address] [address] Calixto West Asia Tropicalis Not detected Normal [facility] Comment on above: Performed By: #### T SH, BNP, CMP, CMADM #### [facility] [address] [place] [address] Dr. Calixto West E. Cloacae complex Not detected Normal [facility] Comment on above: Performed By: #### T SH, BNP, CMP, CMADM #### [facility] [address] [address] [address] Calixto West Enterobacteriaceae Not detected Normal [facility] Comment on above: Performed By: #### T SH, BNP, CMP, CMADM #### [facility] [address] [place] [address] Dr. Calixto West Enterococcus Not detected Normal [facility] Comment on above: Performed By: #### T SH, BNP, CMP, CMADM #### [facility] [address] [place] [address] Dr. Calixto West Escheria coli Not detected Normal [facility] Comment on above: Performed By: #### T SH, BNP, CMP, CMADM #### [facility] [address] [place] [address] Dr. Calixto West K. oxytoca Not detected Normal [facility] Comment on above: Performed By: #### T SH, BNP, CMP, CMADM #### [facility] [address] [place] [address] Dr. Calixto West K. pneumoniae Not detected Normal [facility] Comment on above: Performed By: #### T SH, BNP, CMP, CMADM #### [facility] [address] [place] [address] Dr. Calixto West KPC Resistant Gene Not Applicable Normal [facility] Comment on above: Performed By: #### T SH, BNP, CMP, CMADM #### [facility] [address] [place] [address] Dr. Calixto West List. monocytogenes Not detected Normal [facility] Comment on above: Performed By: #### T SH, BNP, CMP, CMADM #### [facility] [address] [place] [address] Dr. Calixto West mecA Resistant Gene Not detected Normal [facility] Comment on above: Performed By: #### T SH, BNP, CMP, CMADM #### [facility] [address] [place] [address] Dr. Calixto West Proteus Not detected Normal [facility] Comment on above: Performed By: #### T SH, BNP, CMP, CMADM #### [facility] [address] [place] [address] Dr. Calixto West Pseud. aeruginosa Not detected Normal [facility] Comment on above: Performed By: #### T SH, BNP, CMP, CMADM #### [facility] [address] [place] [address] Dr. Calixto West Seratia marcescens Not detected Normal [facility] Comment on above: Performed By: #### T SH, BNP, CMP, CMADM #### [facility] [address] [address] [address] Calixto West Site: ac Normal [facility] Comment on above: Performed By: #### T SH, BNP, CMP, CMADM #### [facility] [address] [address] [address] Calixto West Staph. aureus Detected Critically abnormal [facility] Comment on above: Performed By: #### T SH, BNP, CMP, CMADM #### [facility] [address] [address] [address] Calixto West Staphylococcus Not detected Normal [facility] Comment on above: Performed By: #### T SH, BNP, CMP, CMADM #### [facility] [address] [address] [address] Calixto West Strep. agalactiae Not detected Normal [facility] Comment on above: Performed By: #### T SH, BNP, CMP, CMADM #### [facility] [address] [address] [address] Calixto West Strep. pneumoniae Not detected Normal [facility] Comment on above: Performed By: #### T SH, BNP, CMP, CMADM #### [facility] [address] [address] [address] Calixto West Strep. pyogenes Not detected Normal [facility] Comment on above: Performed By: #### T SH, BNP, CMP, CMADM #### [facility] [address] [address] [address] Calixto West Streptococcus Not detected Normal [facility] Comment on above: Performed By: #### T SH, BNP, CMP, CMADM #### [facility] [address] [address] [address] Calixto West Dixie/B Resist. Gene Not Applicable Normal [facility] Comment on above: Performed By: #### T SH, BNP, CMP, CMADM #### [facility] [address] [address] [address] Calixto West [facility] 02 MODE NASAL CANNULA Normal [facility] Comment on above: Performed By: #### T SH, BNP, CMP, CMADM #### [facility] [address] [address] [address] Calixto VALENTINE TEST Positive [facility] Comment on above: Performed By: #### T SH, BNP, CMP, CMADM #### [facility] [address] [address] [address] Calixto West Base excess Calc (Bld) [Moles/Vol] 2.2 mmol/L Critically high -2.0-2.0 [facility] Comment on above: Performed By: #### T SH, BNP, CMP, CMADM #### [facility] [address] [address] [address] Calixto West BIPAP PRESSURE [facility] Comment on above: Performed By: #### T SH, BNP, CMP, CMADM #### [facility] [address] [address] [address] Calixto West CO2 [Moles/Vol] 52.2 mmol/L Critically high 23.0-28.0 [facility] Comment on above: Performed By: #### T SH, BNP, CMP, CMADM #### [facility] [address] [address] [address] Calixto West CPAP [facility] Comment on above: Performed By: #### T SH, BNP, CMP, CMADM #### [facility] [address] [address] [address] Calixto West FIO2 [facility] Comment on above: Performed By: #### T SH, BNP, CMP, CMADM #### [facility] [address] [address] [address] Calixto West HCO3 (Bld) [Moles/Vol] 25.9 mmol/L Normal 22.0-26.0 [facility] Comment on above: Performed By: #### T SH, BNP, CMP, CMADM #### [facility] [address] [address] [address] Calixto West LPM 3 [facility] Comment on above: Performed By: #### T SH, BNP, CMP, CMADM #### [facility] [address] [address] [address] Calixto West MINUTE VOLUME Normal [facility] Comment on above: Performed By: #### T SH, BNP, CMP, CMADM #### [facility] [address] [address] [address] Calixto West Oxygen (Bld) [Partial pressure] 57.9 mm[Hg] Critically low 80.0-100.0 [facility] Comment on above: Performed By: #### T SH, BNP, CMP, CMADM #### [facility] [address] [address] [address] Calixto West Oxygen saturation in Blood 91.4 % Critically low 95.0-100.0 [facility] Comment on above: Performed By: #### T SH, BNP, CMP, CMADM #### [facility] [address] [address] [address] Calixto West PCO2 41.2 mmHg Normal 35.0-45.0 [facility] Comment on above: Performed By: #### T SH, BNP, CMP, CMADM #### [facility] [address] [address] [address] Calixto West [facility] Comment on above: Performed By: #### T SH, BNP, CMP, CMADM #### [facility] [address] [address] [address] Calixto West pH (Bld) 7.420 [pH] Normal 7.350-7.450 [facility] Comment on above: Performed By: #### T SH, BNP, CMP, CMADM #### [facility] [address] [address] [address] Calixto West [facility] Comment on above: Performed By: #### T SH, BNP, CMP, CMADM #### [facility] [address] [address] [address] Calixto West [facility] Comment on above: Performed By: #### T SH, BNP, CMP, CMADM #### [facility] [address] [address] [address] Calixto West PUNCTURE SITE LR Normal [facility] Comment on above: Performed By: #### T SH, BNP, CMP, CMADM #### [facility] [address] [place] [address] Dr. Calixto West [facility] Comment on above: Performed By: #### T SH, BNP, CMP, CMADM #### [facility] [address] [address] [address] Calixto West VENT MODE [facility] Comment on above: Performed By: #### T SH, BNP, CMP, CMADM #### [facility] [address] [place] [address] Dr. Calixto West [facility] Comment on above: Performed By: #### T SH, BNP, CMP, CMADM #### [facility] [address] [place] [address] Dr. Calixto West BNPon 08-17-2021 Natriuretic peptide B (Bld) [Mass/Vol] 1786.0 pg/mL Critically high <=900.0 [facility] Comment on above: Performed By: #### T SH, BNP, CMP, CMADM #### [facility] [address] [place] [address] Dr. Calixto West CARDIAC GARCÍA ADMITon 022 CK [Catalytic activity/Vol] 113 U/L Normal 39-308 [facility] Comment on above: Performed By: #### T SH, BNP, CMP, CMADM #### [facility] [address] [place] [address] Dr. Calixto West CK.MB [Mass/Vol] 1.62 ng/mL Normal <=3.60 [facility] Comment on above: Performed By: #### T SH, BNP, CMP, CMADM #### [facility] [address] [place] [address] Dr. Calixto West HSTROP 67.5 pg/mL Normal 4.0-76.1 [facility] Comment on above: Result Comment: CUT- OFF POINTS HAVE BEEN ESTABLISHED BASED ON THE FOURTH UNIVERSAL DEFINITIONS OF MYOCARDIAL INFARCTION. THE UPPER REFERENCE LIMIT (URL) OF TROPONIN, DEFINED THE 99TH PERCENTILE OF cTnI DISTRIBUTION IN A REFERENCE POPULATION, HAS BEEN CONFIRMED THE DECISION THRESHOLD FOR OK DIAGNOSIS. Performed By: #### T SH, BNP, CMP, CMADM #### [facility] [address] [place] [address] Dr. Calixto West PATRICIA 52 ng/mL Normal 16-96 [facility] Comment on above: Performed By: #### T SH, BNP, CMP, CMADM #### [facility] [address] [place] [address] Dr. Calixto West CBC AUTO DIFFon 08-17-2021 BASO # 0.0 103/ul Normal 0.0-0.1 [facility] Comment on above: Performed By: #### C MP, LIPID #### [facility] [address] [place] [address] Dr. Calixto West Basophils/100 WBC (Bld) 0.3 % Normal 0.2-2.0 [facility] Comment on above: Performed By: #### C MP, LIPID #### [facility] [address] [place] [address] Dr. Calixto West EO # 0.1 103/ul Normal 0.0-0.7 [facility] Comment on above: Performed By: #### C MP, LIPID #### [facility] [address] [place] [address] Dr. Calixto West Eosinophils/100 WBC (Bld) 0.8 % Critically low 0.9-7.0 [facility] Comment on above: Performed By: #### C MP, LIPID #### [facility] [address] [place] [address] Dr. Calixto West Erythrocyte distribution width (RBC) [Ratio] 13.3 % Normal 11.0-15.0 [facility] Comment on above: Performed By: #### C MP, LIPID #### [facility] [address] [place] [address] Dr. Calixto West Hematocrit (Bld) [Volume fraction] 43.7 % Normal 42.0-54.0 [facility] Comment on above: Performed By: #### C MP, LIPID #### [facility] [address] [address] [address] Calixto West Hemoglobin (Bld) [Mass/Vol] 15.0 g/dL Normal 14.0-18.0 [facility] Comment on above: Performed By: #### C MP, LIPID #### [facility] [address] [address] [address] Calixto West IG # 0.05 10e3/ul Critically high 0.00-0.03 [facility] Comment on above: Performed By: #### C MP, LIPID #### [facility] [address] [place] [address] Dr. Calixto West IG % 0.4 % Normal 0.0-0.5 [facility] Comment on above: Performed By: #### C MP, LIPID #### [facility] [address] [place] [address] Dr. Calixto West LYMPH # 2.8 103/ul Normal 1.2-3.8 [facility] Comment on above: Performed By: #### C MP, LIPID #### [facility] [address] [place] [address] Dr. Calixto West Lymphocytes/100 WBC (Bld) 23.4 % Normal 20.5-60.0 [facility] Comment on above: Performed By: #### C MP, LIPID #### [facility] [address] [place] [address] Dr. Calixto West MANUAL DIFF REQ NO Normal [facility] Comment on above: Performed By: #### C MP, LIPID #### [facility] [address] [place] [address] Dr. Calixto West MCH (RBC) [Entitic mass] 31.3 pg Normal 25.9-34.0 [facility] Comment on above: Performed By: #### C MP, LIPID #### [facility] [address] [place] [address] Dr. Calixto West MCHC (RBC) [Mass/Vol] 34.3 g/dL Normal 29.9-35.2 [facility] Comment on above: Performed By: #### C MP, LIPID #### [facility] [address] [address] [address] Calixto West MCV (RBC) [Entitic vol] 91.2 fL Normal 80.0-94.0 [facility] Comment on above: Performed By: #### C MP, LIPID #### [facility] [address] [place] [address] Dr. Calixto West MONO # 0.5 103/ul Normal 0.3-0.8 [facility] Comment on above: Performed By: #### C MP, LIPID #### [facility] [address] [place] [address] Dr. Calixto West Monocytes/100 WBC (Bld) 4.5 % Normal 1.7-12.0 [facility] Comment on above: Performed By: #### C MP, LIPID #### [facility] [address] [place] [address] Dr. Calixto West NEUT # 8.4 103/ul Critically high 1.4-6.5 [facility] Comment on above: Performed By: #### C MP, LIPID #### [facility] [address] [place] [address] Dr. Calixto West Neutrophils/100 WBC (Bld) 70.6 % Normal 43.0-75.0 [facility] Comment on above: Performed By: #### C MP, LIPID #### [facility] [address] [place] [address] Dr. Calixto West Platelet mean volume (Bld) [Entitic vol] 9.2 fL Critically low 9.5-13.5 [facility] Comment on above: Performed By: #### C MP, LIPID #### [facility] [address] [place] [address] Dr. Calixto West PLT 351 103/ul Normal 150-450 [facility] Comment on above: Performed By: #### C MP, LIPID #### [facility] [address] [place] [address] Dr. Calixto West RBC 4.79 106/ul Normal 4.70-6.10 [facility] Comment on above: Performed By: #### C MP, LIPID #### [facility] [address] [place], [place] [address] Dr. Calixto West WBC 11.9 103/ul Critically high 4.0-11.0 [facility] Comment on above: Performed By: #### C MP, LIPID #### [facility] [address] [place], [place] [address] HEAD WO CONon [...] Date: 2021-08-17 12:29 Normal [facility] CTA CHEST WO W CONon 2 [...] by: FELICITY MCGRATH Date: 2021-08-17 13:26 Normal [facility] CULTURE BLOODon 08-17-2021 Microscopic examination of blood, culture Culture Observations: NO GROWTH AT 5 DAYS. Normal [facility] Comment on above: Performed By: #### C MP, LIPID #### [facility] [address] [place] [address] Dr. Calixto West Microscopic examination of blood, culture Culture Observations: NO GROWTH AT 5 DAYS IN ANAEROBIC BOTTLE. Culture Observations: POS AEROBIC BOTTLE SENT TO [facility]. Normal [facility] Comment on above: Performed By: #### C MP, LIPID #### [facility] [address] [place] [address] Dr. Calixto West Covid-19 PCR (CVDTB)on 07-22 SARS-CoV-2 (COVID-19) RNA PATSY+probe Ql (Unsp spec) Not detected Normal NOT DETECTED [facility] Comment on above: Result Comment: When diagnostic testing is negative, the possibility of a false negative should be considered in the context of a patient's recent exposures and the presence of clinical signs and symptoms consistent with SARS-CoV-2. This test is not yet approved or cleared by the [place] Food and Drug Administration (FDA). This test was developed by [employer], [place], [place]. The performance characteristics of this test were validated by [facility]. The results are not intended to be used as the sole means for clinical diagnosis or patient management decisions. [facility] is authorized under Clinical Laboratory Improvement [...] for this test is supported by the Software Controls Engineer of Health and Human Service's declaration that [...] SH, BNP, CMP, CMADM #### [facility] [address] [place] [address] Dr. Calixto West D-DIMERon 08-17-2021 D-DIMER 2.62 mg/L FEU Critically high 0.19-0.50 [facility] Comment on above: Performed By: #### P TT, PT, DDIM #### [facility] [address] [place] [address] Dr. Calixto West D-DIMER COMMENTS SEE BELOW Normal [facility] Comment on above: Result Comment: Incr [...] P TT, PT, DDIM #### [facility] [address] [place] [address] Dr. Calixto West LACTATE/LACTIC ACIDon 2021 Lactate [Moles/Vol] 2.7 mmol/L Critically high 0.4-2.0 [facility] Comment on above: Performed By: #### T SH, BNP, CMP, CMADM #### [facility] [address] [place] [address] Dr. Claixto West PROF 14(COMP METB)on Albumin [Mass/Vol] 3.4 g/dL Normal 3.4-5.0 [facility] Comment on above: Performed By: #### T SH, BNP, CMP, CMADM #### [facility] [address] [address] [address] Calixto West Albumin/Globulin [Mass ratio] 0.9 {ratio} Normal [facility] Comment on above: Performed By: #### T SH, BNP, CMP, CMADM #### [facility] [address] [place] [address] Dr. Calixto West ALP [Catalytic activity/Vol] 72 U/L Normal 46-116 [facility] Comment on above: Performed By: #### T SH, BNP, CMP, CMADM #### [facility] [address] [place] [address] Dr. Calixto West ALT [Catalytic activity/Vol] 74 U/L Critically high 16-63 [facility] Comment on above: Performed By: #### T SH, BNP, CMP, CMADM #### [facility] [address] [place] [address] Dr. Calixto West Anion gap [Moles/Vol] 13.8 mmol/L Normal [facility] Comment on above: Performed By: #### T SH, BNP, CMP, CMADM #### [facility] [address] [place] [address] Dr. Calixto West AST [Catalytic activity/Vol] 53 U/L Critically high 15-37 [facility] Comment on above: Performed By: #### T SH, BNP, CMP, CMADM #### [facility] [address] [address] [address] Calixto West Bilirubin [Mass/Vol] 0.4 mg/dL Normal 0.2-1.0 [facility] Comment on above: Performed By: #### T SH, BNP, CMP, CMADM #### [facility] [address] [place] [address] Dr. Calixto West Calcium [Mass/Vol] 8.2 mg/dL Critically low 8.5-10.1 [facility] Comment on above: Performed By: #### T SH, BNP, CMP, CMADM #### [facility] [address] [address] [address] Calixto West Chloride [Moles/Vol] 101 mmol/L Normal 98-107 [facility] Comment on above: Performed By: #### T SH, BNP, CMP, CMADM #### [facility] [address] [address] [address] Calixto West CO2 [Moles/Vol] 25.6 mmol/L Normal 21.0-32.0 [facility] Comment on above: Performed By: #### T SH, BNP, CMP, CMADM #### [facility] [address] [address] [address] Calixto West Creatinine [Mass/Vol] 1.13 mg/dL Normal 0.70-1.30 [facility] Comment on above: Performed By: #### T SH, BNP, CMP, CMADM #### [facility] [address] [address] [address] Calixto West EGFR-AF ST LUCIAN >60 Normal >=60 [facility] Comment on above: Performed By: #### T SH, BNP, CMP, CMADM #### [facility] [address] [address] [address] Calixto West EGFR-NON AF [facility] LUCIAN >60 Normal >=60 [facility] Comment on above: Performed By: #### T SH, BNP, CMP, CMADM #### [facility] [address] [address] [address] Calixto West Globulin (S) [Mass/Vol] 3.8 g/dL Normal [facility] Comment on above: Performed By: #### T SH, BNP, CMP, CMADM #### [facility] [address] [address] [address] Calixto West Glucose [Mass/Vol] 198 mg/dL Critically high 74-106 [facility] Comment on above: Performed By: #### T SH, BNP, CMP, CMADM #### [facility] [address] [address] [address] Calixto West Potassium [Moles/Vol] 4.4 mmol/L Normal 3.5-5.1 [facility] Comment on above: Performed By: #### T SH, BNP, CMP, CMADM #### [facility] [address] [place] [address] Dr. Calixto West Protein [Mass/Vol] 7.2 g/dL Normal 6.1-8.2 [facility] Comment on above: Performed By: #### T SH, BNP, CMP, CMADM #### [facility] [address] [place] [address] Dr. Calixto West Sodium [Moles/Vol] 136 mmol/L Normal 136-145 [facility] Comment on above: Performed By: #### T SH, BNP, CMP, CMADM #### [facility] [address] [place] [address] Dr. Calixto West Urea nitrogen [Mass/Vol] 14.0 mg/dL Normal 7.0-18.0 [facility] Comment on above: Performed By: #### T SH, BNP, CMP, CMADM #### [facility] [address] [place] [address] Dr. Calixto West Urea nitrogen/Creatinine [Mass ratio] 12.4 mg/mg Normal [facility] Comment on above: Performed By: #### T SH, BNP, CMP, CMADM #### [facility] [address] [place] [address] Dr. Calixto West PROTIMEon 08-17-2021 INR Coag (PPP) [Relative time] 0.98 {INR} Normal [facility] Comment on above: Performed By: #### P TT, PT, DDIM #### [facility] [address] [place] [address] Dr. Calixto West INR GUIDELINES SEE BELOW Normal [facility] Comment on above: Result Comment: ANTELMO RED INR: 2.0 - 3.0 CONDITIONS NOT LISTED BELOW 2.5 - 3.5 FOR PROSTHETIC HEART VALVE REPLACEMENT 2.5 - 3.5 RECURRENT THROMBOSIS Performed By: #### P TT, PT, DDIM #### [facility] [address] [place] [address] Dr. Calixto West PT Coag (PPP) [Time] 10.6 s Normal 9.0-11.6 [facility] Comment on above: Performed By: #### P TT, PT, DDIM #### [facility] [address] [place] [address] Dr. Calixto West PTTon 08-17-2021 aPTT Coag (Bld) [Time] 24.9 s Normal 22.3-36.2 [facility] Comment on above: Performed By: #### P TT, PT, DDIM #### [facility] [address] [place] [address] Dr. Calixto West TSHon 08-17-2021 TSH 5.288 uIU/mL Critically high 0.470-4.680 [facility] Comment on above: Performed By: #### T SH, BNP, CMP, CMADM #### [facility] [address] [place] [address] Dr. Calixto West TSH RANGE SEE BELOW Normal [facility] Comment on above: Result Comment: <0.3 4 UIU/ml HYPERTHYROID 0.34-5.60 UIU/ml EUTHYROID >5.60 UIU/ml HYPOTHYROID Performed By: #### T SH, BNP, CMP, CMADM #### [facility] [address] [place] [address] Dr. Calixto West XR CHEST 1 Von [...] by: BETTY HOLT Date: 2021-08-17 12:18 Normal [facility] Vital Signs Date Time Vital Sign Value Performing Clinician Delma nichols 08-07-2022 17:00-0400 Body height 175.26 cm Blade Wright Other [employer] Other 08-07-2022 17:00-0400 Body mass index (BMI) [Ratio] 43.41 kg/m2 Christwilberer Adriana Other [employer] Other 08-07-2022 17:00-0400 Body temperature 97.8 [degF] Christopher Adriana Other [employer] Other 08-07-2022 17:00-0400 Body weight 133.36 kg Christopher Adriana Other [employer] Other 08-07-2022 17:00-0400 Diastolic blood pressure 64 mm[Hg] Christwilberer Adriana Other [employer] Other 08-07-2022 17:00-0400 Respiratory rate 20 /min Dinesher Adriana Other [employer] Other 08-07-2022 17:00-0400 SaO2% (BldA) [Mass fraction] 96 % Christwilberer Adriana Other [employer] Other 08-07-2022 17:00-0400 Systolic blood pressure 138 mm[Hg] Dinesher Adriana Other [employer] Other 01-08-2022 11:30-0400 Body height 175.26 cm Christwilberer Adriana Other [employer] Other 01-08-2022 11:30-0400 Body mass index (BMI) [Ratio] 46.51 kg/m2 Christopher Adriana Other [employer] Other 01-08-2022 11:30-0400 Body temperature 98.2 [degF] Dinesher Adriana Other [employer] Other 01-08-2022 11:30-0400 Body weight 142.88 kg Blade Shortno Other [employer] Other 01-08-2022 11:30-0400 Diastolic blood pressure 86 mm[Hg] Blade Hewittdano Other [employer] Other 01-08-2022 11:30-0400 Respiratory rate 20 /min Blade Hewittdano Other [employer] Other 01-08-2022 11:30-0400 SaO2% (BldA) [Mass fraction] 94 % Blade Hewittdano Other [employer] Other 01-08-2022 11:30-0400 Systolic blood pressure 148 mm[Hg] Blade Hewittdano Other [employer] Other Encounters Encounter Date Encounter Type Care Provider Facility Start: 04-06-2024 End: 04-07-2024 ambulatory [facility] Start: 07-26-2023 End: 07-26-2023 ambulatory [facility] Start: 08-07-2022 End: 08-07-2022 ambulatory Blade Wright Other [place] [employer] Other Start: 08-07-2022 Office outpatient visit 15 minutes Blade Wright [facility] Start: 06-18-2022 End: 06-18-2022 ambulatory Blade Wright Facility:[facility] Start: 06-18-2022 End: 06-18-2022 ambulatory MD Linden Nair Work Phone: [facility] Work Phone: Start: 06-18-2022 End: 06-18-2022 Patient encounter procedure MD Linden Nair Work Phone: [facility] Work Phone: Start: 04-25-[address] SHONNA WOODALL Fac ility:[facility] Start: 04-20-2022 End: 04-21-[address] DOCTOR SELLERS Facility:[facility] Start: 03-30-2022 End: 03-31-[address] SHONNA WOODALL Facility:[facility] Start: 01-23-2022 End: 01-24-[address] DOCTOR SELLERS Facility:[facility] Start: 01-12-2022 End: 01-13-[address] SHONNA WOODALL Facility:[facility] Start: 01-08-2022 End: 01-08-2022 ambulatory Blade Wright Other [employer] Other Start: 01-08-2022 Office outpatient ne w 45 minutes Blade Wright [facility] Start: 12-20-[address] LINDEN NAIR . Facili ty:[facility] Start: 12-19-2021 End: 12-20-[address] LINDEN NAIR . Facility:[facility] Start: 10-24-2021 End: 10-25-[address] LINDEN NAIR . Facility:[facility] Start: 10-16-2021 End: 10-17-[address] LINDEN NAIR . Facility:[facility] Start: 09-13-2021 End: 09-14-[address] LINDEN NIAR . Facility:[facility] Start: 08-17-2021 End: 08-17-[address] FELICITY MCGRATH Facility:[facility] Procedures Date Procedure Procedure Detail Performing Clinician Start: 12-19-[address] ABRAM NAIR . Comment on above: Performed By: #### T SH, BNP, CMP, CMADM #### [facility] [address] [place] [address] Dr. Calixto West Payers Date Payer Category Payer Medicare [id number] 2022 Self-pay 1960 Unknown [id number] [id number]. 593 1959 Unknown [id number] 2.16.840.1.133869.3.579.2. 593 1959 Unknown [id number] 2.16.840.1.578966.3.579.2. 593 1959 Unknown [id number] 2.16.840.1.944268.3.579.2. 593 1959 Unknown [id number] 2.16.840.1.156032.3.579.2. 593 1959 Unknown [id number] 2.16.840.1.615315.3.579.2. 593 1959 Unknown [id number] 2.16.840.1.644815.3.579.2. 593 1959 Unknown [id number] 2.16.840.1.085803.3.579.2. 593 1959 Unknown [id number] 2.16.840.1.142205.3.579.2. 593 1959 Unknown [id number] 2.16.840.1.602518.3.579.2. 593 1959 Unknown [id number] 2.16.840.1.557334.3.579.2. 593 1960 Medicare [id number] 2.16840.1.939619.19 1960 Private Health Insurance [id number] Medicare MMO MCR Adv PFFS [id number] Medicare [id number] [id number] Private Health Insurance [facility] MCR PFFS [id number] Unknown MMO [employer] [id number] Unknown Regular Insurance [id number] Unknown [id number] 2.16.840.1.060691.3.579.2. 531 Social History Date Type Detail Facility Sex Assigned At [employer] [employer] Other Start: 1960 Sex Assigned At Male F [facility] Progress note 04-06-2024 Note Date & Type Note Facility 04-06-2024 Note [facility] Subjective Cecil Mcrae is a 63 y.o. year old male patient being seen for CAD, chronic diastolic heart failure, hypertension, and hyperlipidemia. Denies chest pain, SOB, lightheadedness/syncope, and bleeding on Eliquis. Patient Active Problem List Diagnosis History of pulmonary embolism Factor 5 Leiden mutation, heterozygous (CMS/HCC) Chronic diastolic congestive heart failure (CMS/HCC) Coronary artery disease involving [place] coronary artery of [place] heart without angina pectoris Primary hypertension Abnormal [...] with mild exertion. He was admitted to [facility] with pulmonary embolism and then transferred to [facility] and underwent catheter directed lysis of pulmonary [...] No murmur h (more content not included)... [facility] 07-26-2023 Note Date & Type Note Facility 07-26-2023 Note [facility] Subjective Cecil Mcrae is a 62 y.o. year old male patient being seen for Follow-up (Yearly follow up) Patient Active Problem List Diagnosis History of pulmonary embolism Factor 5 Leiden mutation, heterozygous (CMS/HCC) Chronic diastolic congestive heart failure (CMS/HCC) Coronary artery disease involving [place] coronary artery of [place] heart without angina pectoris Primary hypertension Abnormal [...] with mild exertion. He was admitted to [facility] with pulmonary embolism and then transferred to [facility] and underwent catheter directed lysis of pulmonary [...] normal. Behavior: Behavior (more content not included)... [facility] Evaluation note 08-07-2022 Note Date & Type Note Facility 08-07-2022 Evaluation note Encounter Date Diagnosis Assessment Notes Jul, Obstructive sleep apnea (ICD-10 - G47.33) Jul, Pulmonary embolism (ICD-10 - I26.99) [facility] [employer] Other Evaluation note 01-08-2022 Note Date & Type Note Facility 01-08-2022 Evaluation note Encounter Date Diagnosis Assessment Notes Dec, Obstructive sleep apnea (ICD-10 - G47.33) Dec, Pulmonary embolism (ICD-10 - I26.99) [facility] [employer] Other Evaluation note Note Date & Type Note Facility Evaluation note No assessment information availa [facility] Work Phone: History general Narrative - Reported Note Date & Type Note Facility History general Narrative - Reported Type Medical History sleep apnea Medical History Atrial fibrillation Medical History hypertension Surgical History splenectomy 1962 Surgical History spinal fusion Hospitalization History pulmonary embolism [facility] [employer] Other History general Narrative - Reported Note Date & Type Note Facility History general Narrative - Reported Type Medical History sleep apnea Medical History Atrial fibrillation Medical History hypertension Medical History YOBANI Surgical History splenectomy 1962 Surgical History spinal fusion Surgical History Heart catherization with stent put in 01/2022 Hospitalization History pulmonary embolism [employer] Other Summary Purpose Family History No Family [...] section and content) DATE CREATED AUTHOR 12/18/2021 [facility] DATE CREATED AUTHOR AUTHOR'S ORGANIZ ATION 06/22/2022 [facility] DATE CREATED AUTHOR AUTHOR'S ORGANIZ ATION 07/24/2022 [facility] DATE CREATED AUTHOR AUTHOR'S ORGANIZ ATION 04/08/2024 [facility] REASON FOR VISIT (unrecogniz ed section [...] BE BASED ON THE PRIMARY CLINICAL RECORDS. [employer] [facility]. provides no warranty or guarantee of the accuracy or completeness of information in this document.
== END 2024-06-03 12:35 | disposition home or self-care (01) ==
LOC: RAD 12:34
PROVIDERS: PCP Family Medicine; Visit Provider Podiatrist Foot & Ankle Surgery
DX: M79.672 Pain in left foot (principal)
CPT/HCPCS: 73630

== ENCOUNTER 2024-06-12 10:13 | Outpatient (OUT) | payer MEDICARE, SELFPAY ==
--- NOTE | 2024-06-12 | XR_ITS ---
The [address] [address] Patient Name: CECIL HAMMOND MRN: [id number] date: 1960 Sex: M Assigned Patient Location: Current Patient Location: Accession/Order Number: [id number] Exam Date: 06/12/2024 12:41 Report Date: 06/12/2024 12:47 At the request of: YARIEL CABAN MD Procedure: XR lumbar spine min 4V LUMBAR SPINE WITH FLEXION-EXTENSION VIEWS - 4 views: CLINICAL HISTORY: Chronic low back pain with radiation to the legs and difficulty bending forward COMPARISON: None Standing AP as well as lateral views in neutral, flexion and extension were obtained. No acute compression fractures are identified. There is slight retrolisthesis of L1 on L2 and L2 on L3, without significant change with flexion or extension. A CHRISTIN cage is present at the lumbosacral junction. There is slight multilevel disc space narrowing with relative sparing at L3-4. Endplate spurring is seen throughout. There is mild mid and lower lumbar facet hypertrophy. The SI joints, as visualized, are intact. No paraspinal soft tissue abnormalities are seen. XR/XR lumbar spine min 4V IMPRESSION: LUMBOSACRAL FUSION. MULTILEVEL DEGENERATIVE CHANGES, DESCRIBED. Impression dictated by: Dayana Godwin M.D.06/12/2024 12:47 PM Dictation Location: [employer] Electronically authenticated by: [id number] Y Date: 06/12/2024 12:47
--- OUTSIDE RECORDS SUMMARY | 2024-06-12 10:21 | XMS_ITS | CCD ---
Author Organization [facility] Care Team Providers Care Coffee Grinder Name Role Phone Blade Wright Unavailable MD Linden Nair Primary Care Provider [phone] MD Blade Wright Attending Provider Blade Wright [...] Codeine; Translations: [CODEINE] Drug Allergy 08-17-2021 Unknown [facility] Repository (2 sources) Codeine Drug Allergy [facility] Repository Medications Current Medications Medication Drug [...] disease (2 sources) Atherosclerotic heart disease of [place] coronary artery without angina pectoris; Translations: [Atherosclerotic heart disease of [place] coronary artery without angina pectoris] Onset: 02-26-2022 [...] 12-20-2021 Episodic Other aftercare (1 source) Other senior care (current) drug therapy; Translations: [OTH [employer]Y [employer] TESTER CURRENT DRUG THERAPY] Onset: 08-21-2021 Episodic Other [...] Range Facility Office Visiton 04-06-2024 Follow-up visit [id number] Giovanni Mcrae 1960 M Date Provider Department Center 04/06/2024 SHONNA BAUTISTA Family History Problem Relation Age of Onset Pulmonary embolism Father Deep vein thrombosis Father Deep vein thrombosis Sister Deep vein thrombosis Brother Heart failure Brother Family Status - Relation Status Age at Father Sister Brother Level of Service:24566 [place] OFFICE/OUTPATIENT ESTABLISHED LOW MDM 20 MIN Normal [facility] Office Visiton 07-26-2023 Follow-up visit [id number] Giovanni Mcrae 1960 M Date Provider Department Center 07/26/2023 SHONNA BAUTISTA Family History Problem Relation Age of Onset Pulmonary embolism Father Deep vein thrombosis Father Deep vein thrombosis Sister Deep vein thrombosis Brother Heart failure Brother Family Status - Relation Status Age at Father Sister Brother Level of Service:13409 [place] OFFICE/OUTPATIENT ESTABLISHED MOD MDM 30 MIN Reason for Visit and Comments: Follow-up [842882] - Yearly follow up Normal [facility] CBC AUTO DIFFon 04-20-2022 BASO # 0.1 103/ul Normal 0.0-0.1 [facility] Comment on above: Performed By: #### C MP, LIPID #### [facility] [address] [place] [address] Dr. Calixto [place] Basophils/100 WBC (Bld) 0.7 % Normal 0.2-2.0 [facility] Comment on above: Performed By: #### C MP, LIPID #### [facility] [address] [place] [address] Dr. Calixto [place] EO # 0.2 103/ul Normal 0.0-0.7 [facility] Comment on above: Performed By: #### C MP, LIPID #### [facility] [address] [place] [address] Dr. Calixto [place] Eosinophils/100 WBC (Bld) 2.2 % Normal 0.9-7.0 [facility] Comment on above: Performed By: #### C MP, LIPID #### [facility] [address] [place] [address] Dr. Calixto [place] Erythrocyte distribution width (RBC) [Ratio] 12.7 % Normal 11.0-15.0 [facility] Comment on above: Performed By: #### C MP, LIPID #### [facility] [address] [place] [address] Dr. Calixto [place] Hematocrit (Bld) [Volume fraction] 46.8 % Normal 42.0-54.0 [facility] Comment on above: Performed By: #### C MP, LIPID #### [facility] [address] [place] [address] Dr. Calixto [place] Hemoglobin (Bld) [Mass/Vol] 16.9 g/dL Normal 14.0-18.0 [facility] Comment on above: Performed By: #### C MP, LIPID #### [facility] [address] [address] [address] Calixto [place] IG # 0.04 10e3/ul Critically high 0.00-0.03 [facility] Comment on above: Performed By: #### C MP, LIPID #### [facility] [address] [address] [address] Calixto [place] IG % 0.4 % Normal 0.0-0.5 [facility] Comment on above: Performed By: #### C MP, LIPID #### [facility] [address] [address] [address] Calixto [place] LYMPH # 4.1 103/ul Critically high 1.2-3.8 [facility] Comment on above: Performed By: #### C MP, LIPID #### [facility] [address] [place] [address] Dr. Calixto [place] Lymphocytes/100 WBC (Bld) 41.8 % Normal 20.5-60.0 [facility] Comment on above: Performed By: #### C MP, LIPID #### [facility] [address] [address] [address] Calixto [place] MANUAL DIFF REQ NO Normal [facility] Comment on above: Performed By: #### C MP, LIPID #### [facility] [address] [address] [address] Calixto [place] MCH (RBC) [Entitic mass] 31.6 pg Normal 25.9-34.0 [facility] Comment on above: Performed By: #### C MP, LIPID #### [facility] [address] [address] [address] Calixto [place] MCHC (RBC) [Mass/Vol] 36.1 g/dL Critically high 29.9-35.2 [facility] Comment on above: Performed By: #### C MP, LIPID #### [facility] [address] [place] [address] Dr. Calixto [place] MCV (RBC) [Entitic vol] 87.6 fL Normal 80.0-94.0 [facility] Comment on above: Performed By: #### C MP, LIPID #### [facility] [address] [place] [address] Dr. Calixt[place] MONO # 0.8 103/ul Normal 0.3-0.8 [facility] Comment on above: Performed By: #### C MP, LIPID #### [facility] [address] [place] [address] Dr. Calixto [place] Monocytes/100 WBC (Bld) 8.4 % Normal 1.7-12.0 [facility] Comment on above: Performed By: #### C MP, LIPID #### [facility] [address] [place] [address] Dr. Calixto [place] NEUT # 4.5 103/ul Normal 1.4-6.5 [facility] Comment on above: Performed By: #### C MP, LIPID #### [facility] [address] [place] [address] Dr. Calixto [place] Neutrophils/100 WBC (Bld) 46.5 % Normal 43.0-75.0 [facility] Comment on above: Performed By: #### C MP, LIPID #### [facility] [address] [place] [address] Dr. Calixto [place] Platelet mean volume (Bld) [Entitic vol] 9.1 fL Critically low 9.5-13.5 [facility] Comment on above: Performed By: #### C MP, LIPID #### [facility] [address] [place] [address] Dr. Calixto [place] PLT 383 103/ul Normal 150-450 [facility] Comment on above: Performed By: #### C MP, LIPID #### [facility] [address] [place] [address] Dr. [place]ixt[place] RBC 5.34 106/ul Normal 4.70-6.10 [facility] Comment on above: Performed By: #### C MP, LIPID #### [facility] [address] [place] [address] Dr. Cali[place] WBC 9.7 103/ul Normal 4.0-11.0 [facility] Comment on above: Performed By: #### C MP, LIPID #### [facility] [address] [place] [address] Dr. Calixto [place] D-DIMERon 04-20-2022 D-DIMER 0.35 mg/L FEU Normal <=0.59 [facility] Comment on above: Performed By: #### T SH, BNP, CMP, CMADM #### [facility] [address] [place] [address] Dr. Calixto [place] D-DIMER COMMENTS SEE BELOW Normal [facility] Comment on above: Result Comment: Incr eases [...] #### T SH, BNP, CMP, CMADM #### [facility] [address] [place] [address] Dr. Calixto [place] PROF 14(COMP METB)on 022 Albumin [Mass/Vol] 3.8 g/dL Normal 3.4-5.0 [facility] Comment on above: Performed By: #### T SH, BNP, CMP, CMADM #### [facility] [address] [place] [address] Dr. Calixto [place] Albumin/Globulin [Mass ratio] 0.9 {ratio} Normal [facility] Comment on above: Performed By: #### T SH, BNP, CMP, CMADM #### [facility] [address] [place] [address] Dr. [place] ALP [Catalytic activity/Vol] 64 U/L Normal 46-116 [facility] Comment on above: Performed By: #### T SH, BNP, CMP, CMADM #### [facility] [address] [place] [address] Dr. Calixt[place] ALT [Catalytic activity/Vol] 33 U/L Normal 16-63 [facility] Comment on above: Performed By: #### T SH, BNP, CMP, CMADM #### [facility] [address] [address] [address] Calixto [place] Anion gap [Moles/Vol] 12.4 mmol/L Normal [facility] Comment on above: Performed By: #### T SH, BNP, CMP, CMADM #### [facility] [address] [place] [address] Dr. Cali[place] AST [Catalytic activity/Vol] 26 U/L Normal 15-37 [facility] Comment on above: Performed By: #### T SH, BNP, CMP, CMADM #### [facility] [address] [address] [address] [place] Bilirubin [Mass/Vol] 0.4 mg/dL Normal 0.2-1.0 [facility] Comment on above: Performed By: #### T SH, BNP, CMP, CMADM #### [facility] [address] [place] [address] Dr. [place] Calcium [Mass/Vol] 8.9 mg/dL Normal 8.5-10.1 [facility] Comment on above: Performed By: #### T SH, BNP, CMP, CMADM #### [facility] [address] [place] [address] Dr. [place] Chloride [Moles/Vol] 100 mmol/L Normal 98-107 [facility] Comment on above: Performed By: #### T SH, BNP, CMP, CMADM #### [facility] [address] [address] [address] [place] CO2 [Moles/Vol] 28.8 mmol/L Normal 21.0-32.0 [facility] Comment on above: Performed By: #### T SH, BNP, CMP, CMADM #### [facility] [address] [place] [address] Dr. [place] Creatinine [Mass/Vol] 1.21 mg/dL Normal 0.70-1.30 [facility] Comment on above: Performed By: #### T SH, BNP, CMP, CMADM #### [facility] [address] [address] [address] Calixto [place] EGFR-AF MAURITIAN >60 Normal >=60 [facility] Comment on above: Performed By: #### T SH, BNP, CMP, CMADM #### [facility] [address] [address] [address] Calixto [place] EGFR-NON AF MAURITIAN >60 Normal >=60 [facility] Comment on above: Performed By: #### T SH, BNP, CMP, CMADM #### [facility] [address] [address] [address] Calixto [place] Globulin (S) [Mass/Vol] 4.0 g/dL Normal [facility] Comment on above: Performed By: #### T SH, BNP, CMP, CMADM #### [facility] [address] [address] [address] Calixto [place] Glucose [Mass/Vol] 118 mg/dL Critically high 74-106 [facility] Comment on above: Performed By: #### T SH, BNP, CMP, CMADM #### [facility] [address] [address] [address] Calixto [place] Potassium [Moles/Vol] 4.2 mmol/L Normal 3.5-5.1 [facility] Comment on above: Performed By: #### T SH, BNP, CMP, CMADM #### [facility] [address] [address] [address] [place] Protein [Mass/Vol] 7.8 g/dL Normal 6.4-8.2 [facility] Comment on above: Performed By: #### T SH, BNP, CMP, CMADM #### [facility] [address] [address] [address] Cali[place] Sodium [Moles/Vol] 137 mmol/L Normal 136-145 [facility] Comment on above: Performed By: #### T SH, BNP, CMP, CMADM #### [facility] [address] [address] [address] Calixto [place] Urea nitrogen [Mass/Vol] 18.0 mg/dL Normal 7.0-18.0 [facility] Comment on above: Performed By: #### T SH, BNP, CMP, CMADM #### [facility] [address] [address] [address] Calixto [place] Urea nitrogen/Creatinine [Mass ratio] 14.9 mg/mg Normal [facility] Comment on above: Performed By: #### T SH, BNP, CMP, CMADM #### [facility] [address] [address] [address] [place] LIPID PROFILEon 03-30-2022 CHOL-HDL RATIO NORM SEE BELOW Normal [facility] Comment on above: Result Comment: 3.3 - 4.4 LOW RISK 4.4 - 7.1 AVERAGE RISK 7.1 - 11.0 MODERATE RISK >11.0 HIGH RISK Performed By: #### C MP, LIPID #### [facility] [address] [place] [address] Dr. Cali[place] Cholesterol [Mass/Vol] 166 mg/dL Normal <=200 [facility] Comment on above: Performed By: #### C MP, LIPID #### [facility] [address] [place] [address] Dr. [place] Cholesterol in HDL [Mass/Vol] 40 mg/dL Normal 40-60 [facility] Comment on above: Performed By: #### C MP, LIPID #### [facility] [address] [address] [address] [place] Cholesterol in LDL [Mass/Vol] 65.8 mg/dL Normal [facility] Comment on above: Performed By: #### C MP, LIPID #### [facility] [address] [place] [address] Dr. [place] Cholesterol.total/Chol esterol in HDL [Mass ratio] 4.2 {ratio} Normal [facility] Comment on above: Performed By: #### C MP, LIPID #### [facility] [address] [place] [address] Dr. [place] HDL NORMAL > or = 60 mg/dl - LO W CARDIOVASCULAR RISK <40 mg/dl - HIGH CARDIOVASCULAR RISK Normal [facility] Comment on above: Performed By: #### C MP, LIPID #### [facility] [address] [place] [address] Dr. [place]ixto [place] LDL CALC NORMAL SEE BELOW Normal [facility] Comment on above: Result Comment: <100 mg/dl OPTIMAL 100 - 129 mg/dl NEAR OR ABOVE OPTIMAL 130 - 159 mg/dl BORDERLINE HIGH 160 - 189 mg/dl HIGH >190 mg/dl VERY HIGH Performed By: #### C MP, LIPID #### [facility] [address] [place] [address] Dr. [place] Triglyceride [Mass/Vol] 301 mg/dL Critically high <=150 [facility] Comment on above: Performed By: #### C MP, LIPID #### [facility] [address] [place] [address] Dr. [place] VLDL CALC 60.2 mg/dL Normal [facility] Comment on above: Performed By: #### C MP, LIPID #### [facility] [address] [place] [address] Dr. [place] PROF 14(COMP METB)on 022 Albumin [Mass/Vol] 3.6 g/dL Normal 3.4-5.0 [facility] Comment on above: Performed By: #### C MP, LIPID #### [facility] [address] [place] [address] Dr. [place] Albumin/Globulin [Mass ratio] 0.9 {ratio} Normal [facility] Comment on above: Performed By: #### C MP, LIPID #### [facility] [address] [place] [address] Dr. [place] ALP [Catalytic activity/Vol] 70 U/L Normal 46-116 [facility] Comment on above: Performed By: #### C MP, LIPID #### [facility] [address] [place] [address] Dr. [place] ALT [Catalytic activity/Vol] 28 U/L Normal 16-63 [facility] Comment on above: Performed By: #### C MP, LIPID #### [facility] [address] [place] [address] Dr. [place]ixto [place] Anion gap [Moles/Vol] 11.8 mmol/L Normal Th [facility] Comment on above: Performed By: #### C MP, LIPID #### [facility] [address] [place] [address] Dr. [place] AST [Catalytic activity/Vol] 26 U/L Normal 15-37 [facility] Comment on above: Performed By: #### C MP, LIPID #### [facility] [address] [place] [address] Dr. [place] Bilirubin [Mass/Vol] 0.3 mg/dL Normal 0.2-1.0 [facility] Comment on above: Performed By: #### C MP, LIPID #### [facility] [address] [place] [address] Dr. [place] Calcium [Mass/Vol] 9.4 mg/dL Normal 8.5-10.1 [facility] Comment on above: Performed By: #### C MP, LIPID #### [facility] [address] [place] [address] Dr. [place] Chloride [Moles/Vol] 101 mmol/L Normal 98-107 [facility] Comment on above: Performed By: #### C MP, LIPID #### [facility] [address] [place] [address] Dr. [place] CO2 [Moles/Vol] 27.8 mmol/L Normal 21.0-32.0 [facility] Comment on above: Performed By: #### C MP, LIPID #### [facility] [address] [place] [address] Dr. [place] Creatinine [Mass/Vol] 1.28 mg/dL Normal 0.70-1.30 [facility] Comment on above: Performed By: #### C MP, LIPID #### [facility] [address] [place] [address] Dr. [place]ixto [place] EGFR-AF MAURITIAN >60 Normal >=60 [facility] Comment on above: Performed By: #### C MP, LIPID #### [facility] [address] [place] [address] Dr. Calixto [place] EGFR-NON AF MAURITIAN 57 mL/min/1.73m2 Critically low >=60 [facility] Comment on above: Performed By: #### C MP, LIPID #### [facility] [address] [place] [address] Dr. [place]ixt[place] Globulin (S) [Mass/Vol] 4.1 g/dL Normal [facility] Comment on above: Performed By: #### C MP, LIPID #### [facility] [address] [place] [address] Dr. Calixt[place] Glucose [Mass/Vol] 133 mg/dL Critically high 74-106 [facility] Comment on above: Performed By: #### C MP, LIPID #### [facility] [address] [place] [address] Dr. [place] Potassium [Moles/Vol] 4.6 mmol/L Normal 3.5-5.1 [facility] Comment on above: Performed By: #### C MP, LIPID #### [facility] [address] [place] [address] Dr. [place] Protein [Mass/Vol] 7.7 g/dL Normal 6.4-8.2 [facility] Comment on above: Performed By: #### C MP, LIPID #### [facility] [address] [place] [address] Dr. [place] Sodium [Moles/Vol] 136 mmol/L Normal 136-145 [facility] Comment on above: Performed By: #### C MP, LIPID #### [facility] [address] [place] [address] Dr. [place] Urea nitrogen [Mass/Vol] 25.0 mg/dL Critically high 7.0-18.0 [facility] Comment on above: Performed By: #### C MP, LIPID #### [facility] [address] [place] [address] Dr. [place]xto [place] Urea nitrogen/Creatinine [Mass ratio] 19.5 mg/mg Normal [facility] Comment on above: Performed By: #### C MP, LIPID #### [facility] [address] [place] [address] Dr. Calixto [place] PROF CHEM 8 (BAS METB)on Anion gap [Moles/Vol] 11.3 mmol/L Normal Th [facility] Comment on above: Performed By: #### C MP, LIPID #### [facility] [address] [place] [address] Dr. Calixt[place] Calcium [Mass/Vol] 9.1 mg/dL Normal 8.5-10.1 [facility] Comment on above: Performed By: #### C MP, LIPID #### [facility] [address] [place] [address] Dr. [place]ixt[place] Chloride [Moles/Vol] 101 mmol/L Normal 98-107 [facility] Comment on above: Performed By: #### C MP, LIPID #### [facility] [address] [place] [address] Dr. [place] CO2 [Moles/Vol] 32.2 mmol/L Critically high 21.0-32.0 [facility] Comment on above: Performed By: #### C MP, LIPID #### [facility] [address] [place] [address] Dr. [place] Creatinine [Mass/Vol] 1.33 mg/dL Critically high 0.70-1.30 [facility] Comment on above: Performed By: #### C MP, LIPID #### [facility] [address] [place] [address] Dr. Calixto [place] EGFR-AF MAURITIAN >60 Normal >=60 [facility] Comment on above: Performed By: #### C MP, LIPID #### [facility] [address] [place] [address] Dr. Calixto [place] EGFR-NON AF MAURITIAN 54 mL/min/1.73m2 Critically low >=60 [facility] Comment on above: Performed By: #### C MP, LIPID #### [facility] [address] [place] [address] Dr. [place] Glucose [Mass/Vol] 149 mg/dL Critically high 74-106 [facility] Comment on above: Performed By: #### C MP, LIPID #### [facility] [address] [address] [address] [place] Potassium [Moles/Vol] 4.5 mmol/L Normal 3.5-5.1 [facility] Comment on above: Performed By: #### C MP, LIPID #### [facility] [address] [place] [address] Dr. [place] Sodium [Moles/Vol] 140 mmol/L Normal 136-145 [facility] Comment on above: Performed By: #### C MP, LIPID #### [facility] [address] [place] [address] Dr. [place] Urea nitrogen [Mass/Vol] 21.0 mg/dL Critically high 7.0-18.0 [facility] Comment on above: Performed By: #### C MP, LIPID #### [facility] [address] [place] [address] Dr. Calixto [place] Urea nitrogen/Creatinine [Mass ratio] 15.8 mg/mg Normal [facility] Comment on above: Performed By: #### C MP, LIPID #### [facility] [address] [place] [address] Dr. Calixto [place] [facility]22 SARS-CoV-2 (COVID-19) RNA PATSY+probe Ql (Unsp spec) Not detected Normal NOT DETECTED [facility] Comment on above: Result Comment: This test is not yet approved or cleared by the [place] FDA. When there are no FDA-approved or cleared tests available, and other criteria are met, FDA can make tests available under an emergency access mechanism called an Emergency Use Authorization (EUA). The EUA for this test is supported by the [place] [employer] of Health and Human Service's (HHS's) declaration [...] #### T SH, BNP, CMP, CMADM #### [facility] [address] [place] [address] Dr. [place]o [place] INSULINon 12-20-2021 Insulin 28.6 uIU/mL Critically high 2.6-24.9 [facility] Comment on above: Performed By: #### T SH, BNP, CMP, CMADM #### [facility] [address] [place] [address] Dr. Calixto [place] BNPon 12-19-2021 Natriuretic peptide B (Bld) [Mass/Vol] 89.0 pg/mL Normal <=900.0 [facility] Comment on above: Performed By: #### T SH, BNP, CMP, CMADM #### [facility] [address] [place] [address] Dr. Calixto [place] CBC AUTO DIFFon 12-19-2021 BASO # 0.1 103/ul Normal 0.0-0.1 [facility] Comment on above: Performed By: #### C MP, LIPID #### [facility] [address] [place] [address] Dr. Calixto [place] Basophils/100 WBC (Bld) 0.9 % Normal 0.2-2.0 [facility] Comment on above: Performed By: #### C MP, LIPID #### [facility] [address] [place] [address] Dr. Calixto [place] EO # 0.2 103/ul Normal 0.0-0.7 [facility] Comment on above: Performed By: #### C MP, LIPID #### [facility] [address] [place] [address] Dr. Calixto [place] Eosinophils/100 WBC (Bld) 1.7 % Normal 0.9-7.0 [facility] Comment on above: Performed By: #### C MP, LIPID #### [facility] [facility] [address] [place] [address] Dr. Calixto West Erythrocyte distribution width (RBC) [Ratio] 12.9 % Normal 11.0-15.0 [facility] Comment on above: Performed By: #### C MP, LIPID #### [facility] [address] [place] [address] Dr. Calixto West Hematocrit (Bld) [Volume fraction] 45.5 % Normal 42.0-54.0 [facility] Comment on above: Performed By: #### C MP, LIPID #### [facility] [address] [place] [address] Dr. Calixto West Hemoglobin (Bld) [Mass/Vol] 16.5 g/dL Normal 14.0-18.0 [facility] Comment on above: Performed By: #### C MP, LIPID #### [facility] [address] [place] [address] Dr. Calixto West IG # 0.05 10e3/ul Critically high 0.00-0.03 [facility] Comment on above: Performed By: #### C MP, LIPID #### [facility] [address] [place] [address] Dr. Calixto West IG % 0.5 % Normal 0.0-0.5 [facility] Comment on above: Performed By: #### C MP, LIPID #### [facility] [address] [place] [address] Dr. Calixto West LYMPH # 5.2 103/ul Critically high 1.2-3.8 [facility] Comment on above: Performed By: #### C MP, LIPID #### [facility] [address] [place] [address] Dr. Calixto West Lymphocytes/100 WBC (Bld) 49.6 % Normal 20.5-60.0 [facility] Comment on above: Performed By: #### C MP, LIPID #### [facility] [address] [place] [address] Dr. Calixto West MANUAL DIFF REQ NO Normal [facility] Comment on above: Performed By: #### C MP, LIPID #### [facility] [address] [place] [address] Dr. Calixto West MCH (RBC) [Entitic mass] 31.2 pg Normal 25.9-34.0 [facility] Comment on above: Performed By: #### C MP, LIPID #### [facility] [address] [place] [address] Dr. Calixto West MCHC (RBC) [Mass/Vol] 36.3 g/dL Critically high 29.9-35.2 [facility] Comment on above: Performed By: #### C MP, LIPID #### [facility] [address] [place] [address] Dr. Calixto West MCV (RBC) [Entitic vol] 86.0 fL Normal 80.0-94.0 [facility] Comment on above: Performed By: #### C MP, LIPID #### [facility] [address] [place] [address] Dr. Calixto West MONO # 0.8 103/ul Normal 0.3-0.8 [facility] Comment on above: Performed By: #### C MP, LIPID #### [facility] [address] [place] [address] Dr. Calixto West Monocytes/100 WBC (Bld) 7.8 % Normal 1.7-12.0 [facility] Comment on above: Performed By: #### C MP, LIPID #### [facility] [address] [place] [address] Dr. Calixto West NEUT # 4.1 103/ul Normal 1.4-6.5 [facility] Comment on above: Performed By: #### C MP, LIPID #### [facility] [address] [place] [address] Dr. Calixto West Neutrophils/100 WBC (Bld) 39.5 % Critically low 43.0-75.0 [facility] Comment on above: Performed By: #### C MP, LIPID #### [facility] [address] [place] [address] Dr. Calixto West Platelet mean volume (Bld) [Entitic vol] 9.3 fL Critically low 9.5-13.5 [facility] Comment on above: Performed By: #### C MP, LIPID #### [facility] [address] [address] [address] Calixto West PLT 449 103/ul Normal 150-450 [facility] Comment on above: Performed By: #### C MP, LIPID #### [facility] [address] [address] [address] Calixto West RBC 5.29 106/ul Normal 4.70-6.10 [facility] Comment on above: Performed By: #### C MP, LIPID #### [facility] [address] [address] [address] Calixto West WBC 10.4 103/ul Normal 4.0-11.0 [facility] Comment on above: Performed By: #### C MP, LIPID #### [facility] [address] [place] [address] Dr. Calixto West GLYCOHEMOGLOBIN A1Con 2021 ADA RECOMMENDATION SEE BELOW Normal [facility] Comment on above: Result Comment: ADA RECOMMENDED LIMIT 4.0 - 6.0 ADA THERAPEUTIC TARGET < 7.0 ACTION SUGGESTED > 7.0 Performed By: #### A 1C #### [facility] [address] [place] [address] Dr. Calixto West Glucose [Mass/Vol] 134 mg/dL Normal [facility] Comment on above: Performed By: #### A 1C #### [facility] [address] [place] [address] Dr. Calixto West HbA1c (Bld) [Mass fraction] 6.3 % Critically high 4.5-6.2 [facility] Comment on above: Performed By: #### A 1C #### [facility] [address] [place] [address] Dr. Calixto West LIPID PROFILEon 12-19-2021 CHOL-HDL RATIO NORM SEE BELOW Normal [facility] Comment on above: Result Comment: 3.3 - 4.4 LOW RISK 4.4 - 7.1 AVERAGE RISK 7.1 - 11.0 MODERATE RISK >11.0 HIGH RISK Performed By: #### T SH, BNP, CMP, CMADM #### [facility] [address] [place] [address] Dr. Calixto West Cholesterol [Mass/Vol] 302 mg/dL Critically high <=200 [facility] Comment on above: Performed By: #### T SH, BNP, CMP, CMADM #### [facility] [address] [address] [address] Calixto West Cholesterol in HDL [Mass/Vol] 36 mg/dL Critically low 40-60 [facility] Comment on above: Performed By: #### T SH, BNP, CMP, CMADM #### [facility] [address] [address] [address] Calixto West Cholesterol in LDL [Mass/Vol] 189.6 mg/dL Normal [facility] Comment on above: Performed By: #### T SH, BNP, CMP, CMADM #### [facility] [address] [address] [address] Calixto West Cholesterol.total/Chol esterol in HDL [Mass ratio] 8.4 {ratio} Normal [facility] Comment on above: Performed By: #### T SH, BNP, CMP, CMADM #### [facility] [address] [address] [address] Calixto West HDL NORMAL > or = 60 mg/dl - LO W CARDIOVASCULAR RISK <40 mg/dl - HIGH CARDIOVASCULAR RISK Normal [facility] Comment on above: Performed By: #### T SH, BNP, CMP, CMADM #### [facility] [address] [address] [address] Calixto West LDL CALC NORMAL SEE BELOW Normal [facility] Comment on above: Result Comment: <100 mg/dl OPTIMAL 100 - 129 mg/dl NEAR OR ABOVE OPTIMAL 130 - 159 mg/dl BORDERLINE HIGH 160 - 189 mg/dl HIGH >190 mg/dl VERY HIGH Performed By: #### T SH, BNP, CMP, CMADM #### [facility] [address] [address] [address] Calixto West Triglyceride [Mass/Vol] 382 mg/dL Critically high <=150 [facility] Comment on above: Performed By: #### T SH, BNP, CMP, CMADM #### [facility] [address] [address] [address] Calixto West VLDL CALC 76.4 mg/dL Normal [facility] Comment on above: Performed By: #### T SH, BNP, CMP, CMADM #### [facility] [address] [place] [address] Dr. Calixto West PROF 14(COMP METB)on 022 Albumin [Mass/Vol] 3.7 g/dL Normal 3.4-5.0 [facility] Comment on above: Performed By: #### T SH, BNP, CMP, CMADM #### [facility] [address] [place] [address] Dr. Calixto West Albumin/Globulin [Mass ratio] 0.9 {ratio} Normal [facility] Comment on above: Performed By: #### T SH, BNP, CMP, CMADM #### [facility] [address] [place] [address] Dr. Calixto West ALP [Catalytic activity/Vol] 72 U/L Normal 46-116 [facility] Comment on above: Performed By: #### T SH, BNP, CMP, CMADM #### [facility] [address] [place] [address] Dr. Calixto West ALT [Catalytic activity/Vol] 35 U/L Normal 16-63 [facility] Comment on above: Performed By: #### T SH, BNP, CMP, CMADM #### [facility] [address] [place] [address] Dr. Calixto West Anion gap [Moles/Vol] 13.3 mmol/L Normal [facility] Comment on above: Performed By: #### T SH, BNP, CMP, CMADM #### [facility] [address] [place] [address] Dr. Calixto West AST [Catalytic activity/Vol] 20 U/L Normal 15-37 [facility] Comment on above: Performed By: #### T SH, BNP, CMP, CMADM #### [facility] [address] [place] [address] Dr. Calixto West Bilirubin [Mass/Vol] 0.6 mg/dL Normal 0.2-1.0 [facility] Comment on above: Performed By: #### T SH, BNP, CMP, CMADM #### [facility] [address] [address] [address] Calixto West Calcium [Mass/Vol] 8.8 mg/dL Normal 8.5-10.1 [facility] Comment on above: Performed By: #### T SH, BNP, CMP, CMADM #### [facility] [address] [address] [address] Calixto West Chloride [Moles/Vol] 102 mmol/L Normal 98-107 [facility] Comment on above: Performed By: #### T SH, BNP, CMP, CMADM #### [facility] [address] [place] [address] Dr. Calixto West CO2 [Moles/Vol] 26.9 mmol/L Normal 21.0-32.0 [facility] Comment on above: Performed By: #### T SH, BNP, CMP, CMADM #### [facility] [address] [place] [address] Dr. Calixto West Creatinine [Mass/Vol] 1.22 mg/dL Normal 0.70-1.30 [facility] Comment on above: Performed By: #### T SH, BNP, CMP, CMADM #### [facility] [address] [place] [address] Dr. Calixto West EGFR-AF MAURITIAN >60 Normal >=60 [facility] Comment on above: Performed By: #### T SH, BNP, CMP, CMADM #### [facility] [address] [place] [address] Dr. Calixto West EGFR-NON AF MAURITIAN =60 Normal >=60 [facility] Comment on above: Performed By: #### T SH, BNP, CMP, CMADM #### [facility] [address] [place] [address] Dr. Calixto West Globulin (S) [Mass/Vol] 3.9 g/dL Normal [facility] Comment on above: Performed By: #### T SH, BNP, CMP, CMADM #### [facility] [address] [place] [address] Dr. Calixto West Glucose [Mass/Vol] 147 mg/dL Critically high 74-106 [facility] Comment on above: Performed By: #### T SH, BNP, CMP, CMADM #### [facility] [address] [address] [address] Calixto West Potassium [Moles/Vol] 4.2 mmol/L Normal 3.5-5.1 [facility] Comment on above: Performed By: #### T SH, BNP, CMP, CMADM #### [facility] [address] [place] [address] Dr. Calixto West Protein [Mass/Vol] 7.6 g/dL Normal 6.4-8.2 [facility] Comment on above: Performed By: #### T SH, BNP, CMP, CMADM #### [facility] [address] [place] [address] Dr. Calixto West Sodium [Moles/Vol] 138 mmol/L Normal 136-145 [facility] Comment on above: Performed By: #### T SH, BNP, CMP, CMADM #### [facility] [address] [address] [address] Calixto West Urea nitrogen [Mass/Vol] 16.0 mg/dL Normal 7.0-18.0 [facility] Comment on above: Performed By: #### T SH, BNP, CMP, CMADM #### [facility] [address] [place] [address] Dr. Calixto West Urea nitrogen/Creatinine [Mass ratio] 13.1 mg/mg Normal [facility] Comment on above: Performed By: #### T SH, BNP, CMP, CMADM #### [facility] [address] [address] [address] Calixto West URIC ACID SERUMon 12-19-2021 Urate [Mass/Vol] 7.2 mg/dL Normal 3.5-7.2 [facility] Comment on above: Performed By: #### T SH, BNP, CMP, CMADM #### [facility] [address] [place] [address] Dr. Calixto West Physician Referralon 022 Physician Referral [phone] [phone] [id number] Normal [facility] ECHOCARDIO M/2D COMPLETEon 0 10-24-2021 ECHOCARDIO M/2D COMPLETE Patient: CECIL MCRAE Exam Date: 10/24/2021 : 1960 Gender:M Ordering : DR LINDEN NAIR . Admission #: [id number] Family : Order #: [id number] CLICK HERE TO VIEW EXAM ECHOCARDIOGRAM REPORT [...] Woodall M.D. on 10/25/2021 at 10:17 Normal [facility] T4 LABCORPon 09-15-2021 T4 [Mass/Vol] 7.7 ug/dL Normal 4.5-12.0 [facility] Comment on above: Performed By: #### T SH, BNP, CMP, CMADM #### [facility] [address] [place] [address] Dr. Calixto West BNPon 09-13-2021 Natriuretic peptide B (Bld) [Mass/Vol] 41.0 pg/mL Normal <=900.0 [facility] Comment on above: Performed By: #### T SH, BNP, CMP, CMADM #### [facility] [address] [place] [address] Dr. Calixto West CBC AUTO DIFFon 09-13-2021 BASO # 0.1 103/ul Normal 0.0-0.1 [facility] Comment on above: Performed By: #### C MP, LIPID #### [facility] [address] [place] [address] Dr. Calixto West Basophils/100 WBC (Bld) 0.8 % Normal 0.2-2.0 [facility] Comment on above: Performed By: #### C MP, LIPID #### [facility] [address] [place] [address] Dr. Calixto West EO # 0.3 103/ul Normal 0.0-0.7 [facility] Comment on above: Performed By: #### C MP, LIPID #### [facility] [address] [place] [address] Dr. Calixto West Eosinophils/100 WBC (Bld) 2.8 % Normal 0.9-7.0 [facility] Comment on above: Performed By: #### C MP, LIPID #### [facility] [address] [place] [address] Dr. Calixto West Erythrocyte distribution width (RBC) [Ratio] 13.0 % Normal 11.0-15.0 [facility] Comment on above: Performed By: #### C MP, LIPID #### [facility] [address] [place] [address] Dr. Calixto West Hematocrit (Bld) [Volume fraction] 44.6 % Normal 42.0-54.0 [facility] Comment on above: Performed By: #### C MP, LIPID #### [facility] [address] [place] [address] Dr. Calixto West Hemoglobin (Bld) [Mass/Vol] 15.5 g/dL Normal 14.0-18.0 [facility] Comment on above: Performed By: #### C MP, LIPID #### [facility] [address] [place] [address] Dr. Calixto West IG # 0.06 10e3/ul Critically high 0.00-0.03 [facility] Comment on above: Performed By: #### C MP, LIPID #### [facility] [address] [place] [address] Dr. Calixto West IG % 0.6 % Critically high 0.0-0.5 [facility] Comment on above: Performed By: #### C MP, LIPID #### [facility] [address] [place] [address] Dr. Calixto West LYMPH # 4.1 103/ul Critically high 1.2-3.8 [facility] Comment on above: Performed By: #### C MP, LIPID #### [facility] [address] [place] [address] Dr. Calixto eWst Lymphocytes/100 WBC (Bld) 40.5 % Normal 20.5-60.0 [facility] Comment on above: Performed By: #### C MP, LIPID #### [facility] [address] [place] [address] Dr. Calixto West MANUAL DIFF REQ NO Normal [facility] Comment on above: Performed By: #### C MP, LIPID #### [facility] [address] [place] [address] Dr. Calixto West MCH (RBC) [Entitic mass] 31.0 pg Normal 25.9-34.0 [facility] Comment on above: Performed By: #### C MP, LIPID #### [facility] [address] [place] [address] Dr. Calixto West MCHC (RBC) [Mass/Vol] 34.8 g/dL Normal 29.9-35.2 [facility] Comment on above: Performed By: #### C MP, LIPID #### [facility] [address] [address] [address] Calixto West MCV (RBC) [Entitic vol] 89.2 fL Normal 80.0-94.0 [facility] Comment on above: Performed By: #### C MP, LIPID #### [facility] [address] [place] [address] Dr. Calixto West MONO # 0.8 103/ul Normal 0.3-0.8 [facility] Comment on above: Performed By: #### C MP, LIPID #### [facility] [address] [place] [address] Dr. Calixto West Monocytes/100 WBC (Bld) 8.1 % Normal 1.7-12.0 [facility] Comment on above: Performed By: #### C MP, LIPID #### [facility] [address] [place] [address] Dr. Calixto West NEUT # 4.8 103/ul Normal 1.4-6.5 [facility] Comment on above: Performed By: #### C MP, LIPID #### [facility] [address] [place] [address] Dr. Calixto West Neutrophils/100 WBC (Bld) 47.2 % Normal 43.0-75.0 [facility] Comment on above: Performed By: #### C MP, LIPID #### [facility] [address] [place] [address] Dr. Calixto West Platelet mean volume (Bld) [Entitic vol] 9.3 fL Critically low 9.5-13.5 [facility] Comment on above: Performed By: #### C MP, LIPID #### [facility] [address] [place] [address] Dr. Calixto West PLT 398 103/ul Normal 150-450 [facility] Comment on above: Performed By: #### C MP, LIPID #### [facility] [address] [place] [address] Dr. Calixto West RBC 5.00 106/ul Normal 4.70-6.10 [facility] Comment on above: Performed By: #### C MP, LIPID #### [facility] [address] [address] [address] Calixto West WBC 10.1 103/ul Normal 4.0-11.0 [facility] Comment on above: Performed By: #### C MP, LIPID #### [facility] [address] [place] [address] Dr. Calixto West FREE T3on 09-13-2021 FREE T3 3.04 pg/mlL Normal 2.18-3.98 [facility] Comment on above: Performed By: #### C MP, LIPID #### [facility] [address] [place] [address] Dr. Calixto West FREE THYROXINE INDEX T7on FTI 2.62 Normal 1.30-4.50 [facility] Comment on above: Performed By: #### T SH, BNP, CMP, CMADM #### [facility] [address] [place] [address] Dr. Calixto West T3U 34.0 % Normal 33.0-40.0 [facility] Comment on above: Performed By: #### T SH, BNP, CMP, CMADM #### [facility] [address] [place] [address] Dr. Calixto West T4 [Mass/Vol] 7.70 ug/dL Normal 4.50-12.[address] [facility] Comment on above: Performed By: #### T SH, BNP, CMP, CMADM #### [facility] [address] [address] [address] Calixto West PROF 14(COMP METB)on 022 Albumin [Mass/Vol] 3.5 g/dL Normal 3.4-5.0 [facility] Comment on above: Performed By: #### T SH, BNP, CMP, CMADM #### [facility] [address] [place] [address] Dr. Calixto West Albumin/Globulin [Mass ratio] 0.9 {ratio} Normal [facility] Comment on above: Performed By: #### T SH, BNP, CMP, CMADM #### [facility] [address] [address] [address] Calixto West ALP [Catalytic activity/Vol] 67 U/L Normal 46-116 [facility] Comment on above: Performed By: #### T SH, BNP, CMP, CMADM #### [facility] [address] [address] [address] Calixto West ALT [Catalytic activity/Vol] 49 U/L Normal 16-63 [facility] Comment on above: Performed By: #### T SH, BNP, CMP, CMADM #### [facility] [address] [address] [address] Calixto West Anion gap [Moles/Vol] 14.0 mmol/L Normal [facility] Comment on above: Performed By: #### T SH, BNP, CMP, CMADM #### [facility] [address] [place] [address] Dr. Calixto West AST [Catalytic activity/Vol] 24 U/L Normal 15-37 [facility] Comment on above: Performed By: #### T SH, BNP, CMP, CMADM #### [facility] [address] [address] [address] Calixto West Bilirubin [Mass/Vol] 0.4 mg/dL Normal 0.2-1.0 [facility] Comment on above: Performed By: #### T SH, BNP, CMP, CMADM #### [facility] [address] [address] [address] Calixto West Calcium [Mass/Vol] 9.0 mg/dL Normal 8.5-10.1 [facility] Comment on above: Performed By: #### T SH, BNP, CMP, CMADM #### [facility] [address] [address] [address] Calixto West Chloride [Moles/Vol] 102 mmol/L Normal 98-107 [facility] Comment on above: Performed By: #### T SH, BNP, CMP, CMADM #### [facility] [address] [address] [address] Calixto West CO2 [Moles/Vol] 27.1 mmol/L Normal 21.0-32.0 [facility] Comment on above: Performed By: #### T SH, BNP, CMP, CMADM #### [facility] [address] [place] [address] Dr. Calixto West Creatinine [Mass/Vol] 1.01 mg/dL Normal 0.70-1.30 [facility] Comment on above: Performed By: #### T SH, BNP, CMP, CMADM #### [facility] [address] [address] [address] Calixto West EGFR-AF MAURITIAN >60 Normal >=60 [facility] Comment on above: Performed By: #### T SH, BNP, CMP, CMADM #### [facility] [address] [place] [address] Dr. Calixto West EGFR-NON AF MAURITIAN >60 Normal >=60 [facility] Comment on above: Performed By: #### T SH, BNP, CMP, CMADM #### [facility] [address] [place] [address] Dr. Calixto West Globulin (S) [Mass/Vol] 4.1 g/dL Normal [facility] Comment on above: Performed By: #### T SH, BNP, CMP, CMADM #### [facility] [address] [place] [address] Dr. Calixto West Glucose [Mass/Vol] 156 mg/dL Critically high 74-106 [facility] Comment on above: Performed By: #### T SH, BNP, CMP, CMADM #### [facility] [address] [place] [address] Dr. Calixto West Potassium [Moles/Vol] 4.1 mmol/L Normal 3.5-5.1 [facility] Comment on above: Performed By: #### T SH, BNP, CMP, CMADM #### [facility] [address] [place] [address] Dr. Calixto West Protein [Mass/Vol] 7.6 g/dL Normal 6.4-8.2 [facility] Comment on above: Performed By: #### T SH, BNP, CMP, CMADM #### [facility] [address] [address] [address] Calixto West Sodium [Moles/Vol] 139 mmol/L Normal 136-145 [facility] Comment on above: Performed By: #### T SH, BNP, CMP, CMADM #### [facility] [address] [address] [address] Calixto West Urea nitrogen [Mass/Vol] 19.0 mg/dL Critically high 7.0-18.0 [facility] Comment on above: Performed By: #### T SH, BNP, CMP, CMADM #### [facility] [address] [address] [address] Calixto West Urea nitrogen/Creatinine [Mass ratio] 18.8 mg/mg Normal [facility] Comment on above: Performed By: #### T SH, BNP, CMP, CMADM #### [facility] [address] [place] [address] Dr. Calixto West TSHon 09-13-2021 TSH 5.060 uIU/mL Critically high 0.358-3.740 [facility] Comment on above: Performed By: #### T SH, BNP, CMP, CMADM #### [facility] [address] [place] [address] Dr. Calixto West TSH RANGE SEE BELOW Normal [facility] Comment on above: Result Comment: <0.3 4 UIU/ml HYPERTHYROID 0.34-5.60 UIU/ml EUTHYROID >5.60 UIU/ml HYPOTHYROID Performed By: #### T SH, BNP, CMP, CMADM #### [facility] [address] [place] [address] Dr. Calixto West BLOOD CULTURE ID/SENSon 05-0 Aerobe ID + Suscept Final report Abnormal [facility] Comment on above: Performed By: #### C MP, LIPID #### [facility] [address] [place] [address] Dr. Calixto West Antimicrobial Susceptibility Comment Normal [facility] Comment on above: Result Comment: S = Susceptible; I = Intermediate; R = Resistant P = Positive; N = Negative MICS are expressed in micrograms per mL Antibiotic RSLT#1 RSLT#2 RSLT#3 RSLT#4 Ciprofloxacin S Clindamycin S Erythromycin S Gentamicin S Levofloxacin S Moxifloxacin S Oxacillin S Penicillin R Rifampin S Tetracycline S Trimethoprim/Sulfa S Vancomycin S Performed By: #### C MP, LIPID #### [facility] [address] [place] [address] Dr. Calixto West Result 1 Comment Abnormal [facility] Comment on above: Result Comment: Stap [...] Performed By: #### C MP, LIPID #### [facility] [address] [place] [address] Dr. Calixto West BLOOD CULTURE ID PANELon A. baumannii Not detected Normal [facility] Comment on above: Performed By: #### T SH, BNP, CMP, CMADM #### [facility] [address] [place] [address] Dr. Calixto West BCID CONTROLS PASSED Normal The [facility] Comment on above: Performed By: #### T SH, BNP, CMP, CMADM #### [facility] [address] [place] [address] Dr. Calixto West BCIDBTHD BLOOD CULTURE BOTTLE INFORMATION Normal [facility] Comment on above: Performed By: #### T SH, BNP, CMP, CMADM #### [facility] [address] [place] [address] Dr. Calixto West BCIDHD1 ANTIMICROBIAL RESISTANCE GENES [facility] Comment on above: Performed By: #### T SH, BNP, CMP, CMADM #### [facility] [address] [place] [address] Dr. Calixto West BCIDHD2 SEE BELOW [facility] Comment on above: Result Comment: KPC- carbapenem resistance gene, mecA- methecillin resistance gene, van A/B- vancomycin resistance gene Note: Antimicrobial resitance can occur via multiple mechanisms. A Not Detected result for the Film[employer] antomicrobial resistance gene assays does not indicate antimicrobial susceptibility. Subculturing is required for specis identificationand susceptibility testing of isolates. Performed By: #### T SH, BNP, CMP, CMADM #### [facility] [address] [place] [address] Dr. Calixto West BCIDHD3 Positive [facility] Comment on above: Performed By: #### T SH, BNP, CMP, CMADM #### [facility] [address] [place] [address] Dr. Calixto West BCIDHD4 Negative [facility] Comment on above: Performed By: #### T SH, BNP, CMP, CMADM #### [facility] [address] [place] [address] Dr. Calixto West BCIDHD5 YEAST [facility] Comment on above: Performed By: #### T SH, BNP, CMP, CMADM #### [facility] [address] [place] [address] Dr. Calixto West BCIDHD6 SEE BELOW [facility] Comment on above: Result Comment: Note : All genus and species BCID Film[employer] results will be verified post subculturing via Maldi-Tof MS testing methodology. Performed By: #### T SH, BNP, CMP, CMADM #### [facility] [address] [place] [address] Dr. Calixto West Bottle Set: Set 1 [facility] Comment on above: Performed By: #### T SH, BNP, CMP, CMADM #### [facility] [address] [place] [address] Dr. Calixto West Bottle: Anaerobic Normal [facility] Comment on above: Performed By: #### T SH, BNP, CMP, CMADM #### [facility] [address] [address] [address] Calixto West Asia albicans Not detected Normal [facility] Comment on above: Performed By: #### T SH, BNP, CMP, CMADM #### [facility] [address] [address] [address] Calixto West [place] glabrata Not detected Normal [facility] Comment on above: Performed By: #### T SH, BNP, CMP, CMADM #### [facility] [address] [address] [address] Calixto West Asia Krusei Not detected Normal [facility] Comment on above: Performed By: #### T SH, BNP, CMP, CMADM #### [facility] [address] [address] [address] Calixto West [place] Parapsilosis Not detected Normal [facility] Comment on above: Performed By: #### T SH, BNP, CMP, CMADM #### [facility] [address] [address] [address] Calixto West Asia Tropicalis Not detected Normal [facility] Comment on above: Performed By: #### T SH, BNP, CMP, CMADM #### [facility] [address] [place] [address] Dr. Calixto West E. Cloacae complex Not detected Normal [facility] Comment on above: Performed By: #### T SH, BNP, CMP, CMADM #### [facility] [address] [address] [address] Calixto West Enterobacteriaceae Not detected Normal [facility] Comment on above: Performed By: #### T SH, BNP, CMP, CMADM #### [facility] [address] [place] [address] Dr. Calixto West Enterococcus Not detected Normal [facility] Comment on above: Performed By: #### T SH, BNP, CMP, CMADM #### [facility] [address] [place] [address] Dr. Calixto West Escheria coli Not detected Normal The [facility] Comment on above: Performed By: #### T SH, BNP, CMP, CMADM #### [facility] [address] [place] [address] Dr. Calixto West K. oxytoca Not detected Normal [facility] Comment on above: Performed By: #### T SH, BNP, CMP, CMADM #### [facility] [address] [place] [address] Dr. Calixto West K. pneumoniae Not detected Normal The [facility] Comment on above: Performed By: #### T SH, BNP, CMP, CMADM #### [facility] [address] [place] [address] Dr. Calixto West KPC Resistant Gene Not Applicable Normal [facility] Comment on above: Performed By: #### T SH, BNP, CMP, CMADM #### [facility] [address] [place] [address] Dr. Calixto West List. monocytogenes Not detected Normal [facility] Comment on above: Performed By: #### T SH, BNP, CMP, CMADM #### [facility] [address] [place] [address] Dr. Calixto West mecA Resistant Gene Not detected Normal [facility] Comment on above: Performed By: #### T SH, BNP, CMP, CMADM #### [facility] [address] [place] [address] Dr. Calixto West Proteus Not detected Normal [facility] Comment on above: Performed By: #### T SH, BNP, CMP, CMADM #### [facility] [address] [place] [address] Dr. Calixto West Pseud. aeruginosa Not detected Normal [facility] Comment on above: Performed By: #### T SH, BNP, CMP, CMADM #### [facility] [address] [place] [address] Dr. Calixto West Seratia marcescens Not detected Normal [facility] Comment on above: Performed By: #### T SH, BNP, CMP, CMADM #### [facility] [address] [address] [address] Calixto West Site: ac Normal [facility] Comment on above: Performed By: #### T SH, BNP, CMP, CMADM #### [facility] [address] [address] [address] Calixto West Staph. aureus Detected Critically abnormal [facility] Comment on above: Performed By: #### T SH, BNP, CMP, CMADM #### [facility] [address] [address] [address] Calixto Wset Staphylococcus Not detected Normal [facility] Comment on above: Performed By: #### T SH, BNP, CMP, CMADM #### [facility] [address] [address] [address] Calixto West Strep. agalactiae Not detected Normal [facility] Comment on above: Performed By: #### T SH, BNP, CMP, CMADM #### [facility] [address] [address] [address] Calixto West Strep. pneumoniae Not detected Normal The [facility] Comment on above: Performed By: #### T SH, BNP, CMP, CMADM #### [facility] [address] [address] [address] Calixto West Strep. pyogenes Not detected Normal The [facility] Comment on above: Performed By: #### T SH, BNP, CMP, CMADM #### [facility] [address] [address] [address] Calixto West Streptococcus Not detected Normal The [facility] Comment on above: Performed By: #### T SH, BNP, CMP, CMADM #### [facility] [address] [address] [address] Calixto West Dixie/B Resist. Gene Not Applicable Normal [facility] Comment on above: Performed By: #### T SH, BNP, CMP, CMADM #### [facility] [address] [address] [address] Calixto West [facility] MODE NASAL CANNULA Normal [facility] Comment on above: Performed By: #### T SH, BNP, CMP, CMADM #### [facility] [address] [address] [address] Calixto VALENTINE TEST Positive [facility] Comment on above: Performed By: #### T SH, BNP, CMP, CMADM #### [facility] [address] [address] [address] Calixto West Base excess Calc (Bld) [Moles/Vol] 2.2 mmol/L Critically high -2.0-2.0 [facility] Comment on above: Performed By: #### T SH, BNP, CMP, CMADM #### [facility] [address] [address] [address] Calixto West BIPAP PRESSURE [facility] Comment on above: Performed By: #### T SH, BNP, CMP, CMADM #### [facility] [address] [address] [address] Calixto West CO2 [Moles/Vol] 52.2 mmol/L Critically high 23.0-28.0 [facility] Comment on above: Performed By: #### T SH, BNP, CMP, CMADM #### [facility] [address] [address] [address] Calixto West CPAP [facility] Comment on above: Performed By: #### T SH, BNP, CMP, CMADM #### [facility] [address] [address] [address] Calixto West FIO2 [facility] Comment on above: Performed By: #### T SH, BNP, CMP, CMADM #### [facility] [address] [address] [address] Calixto West HCO3 (Bld) [Moles/Vol] 25.9 mmol/L Normal 22.0-26.0 [facility] Comment on above: Performed By: #### T SH, BNP, CMP, CMADM #### [facility] [address] [address] [address] Calixto West LPM 3 [facility] Comment on above: Performed By: #### T SH, BNP, CMP, CMADM #### [facility] [address] [address] [address] Calixto West MINUTE VOLUME Normal [facility] Comment on above: Performed By: #### T SH, BNP, CMP, CMADM #### [facility] [address] [address] [address] Calixto West Oxygen (Bld) [Partial pressure] 57.9 mm[Hg] Critically low 80.0-100.0 [facility] Comment on above: Performed By: #### T SH, BNP, CMP, CMADM #### [facility] [address] [address] [address] Calixto West Oxygen saturation in Blood 91.4 % Critically low 95.0-100.0 [facility] Comment on above: Performed By: #### T SH, BNP, CMP, CMADM #### [facility] [address] [address] [address] Calixto West PCO2 41.2 mmHg Normal 35.0-45.0 [facility] Comment on above: Performed By: #### T SH, BNP, CMP, CMADM #### [facility] [address] [address] [address] Calixto West [facility] Comment on above: Performed By: #### T SH, BNP, CMP, CMADM #### [facility] [address] [address] [address] Calixto West pH (Bld) 7.420 [pH] Normal 7.350-7.450 [facility] Comment on above: Performed By: #### T SH, BNP, CMP, CMADM #### [facility] [address] [address] [address] Calixto West [facility] Comment on above: Performed By: #### T SH, BNP, CMP, CMADM #### [facility] [address] [address] [address] Calixto West [facility] Comment on above: Performed By: #### T SH, BNP, CMP, CMADM #### [facility] [address] [address] [address] Calixto West PUNCTURE SITE LR Normal [facility] Comment on above: Performed By: #### T SH, BNP, CMP, CMADM #### [facility] [address] [place] [address] Dr. Calixto West [facility] Comment on above: Performed By: #### T SH, BNP, CMP, CMADM #### [facility] [address] [address] [address] Calixto West VENT MODE [facility] Comment on above: Performed By: #### T SH, BNP, CMP, CMADM #### [facility] [address] [place] [address] Dr. Calixto West [facility] Comment on above: Performed By: #### T SH, BNP, CMP, CMADM #### [facility] [address] [place] [address] Dr. Calixto West BNPon 08-17-2021 Natriuretic peptide B (Bld) [Mass/Vol] 1786.0 pg/mL Critically high <=900.0 [facility] Comment on above: Performed By: #### T SH, BNP, CMP, CMADM #### [facility] [address] [place] [address] Dr. Calixto West CARDIAC GARCÍA ADMITon 022 CK [Catalytic activity/Vol] 113 U/L Normal 39-308 [facility] Comment on above: Performed By: #### T SH, BNP, CMP, CMADM #### [facility] [address] [place] [address] Dr. Calixto West CK.MB [Mass/Vol] 1.62 ng/mL Normal <=3.60 [facility] Comment on above: Performed By: #### T SH, BNP, CMP, CMADM #### [facility] [address] [place] [address] Dr. Calixto West HSTROP 67.5 pg/mL Normal 4.0-76.1 [facility] Comment on above: Result Comment: CUT- OFF POINTS HAVE BEEN ESTABLISHED BASED ON THE FOURTH UNIVERSAL DEFINITIONS OF MYOCARDIAL INFARCTION. THE UPPER REFERENCE LIMIT (URL) OF TROPONIN, DEFINED THE 99TH PERCENTILE OF cTnI DISTRIBUTION IN A REFERENCE POPULATION, HAS BEEN CONFIRMED THE DECISION THRESHOLD FOR LA DIAGNOSIS. Performed By: #### T SH, BNP, CMP, CMADM #### [facility] [address] [place] [address] Dr. Calixto West PATRICIA 52 ng/mL Normal 16-96 [facility] Comment on above: Performed By: #### T SH, BNP, CMP, CMADM #### [facility] [address] [place] [address] Dr. Calixto West CBC AUTO DIFFon 08-17-2021 BASO # 0.0 103/ul Normal 0.0-0.1 [facility] Comment on above: Performed By: #### C MP, LIPID #### [facility] [address] [place] [address] Dr. Calixto West Basophils/100 WBC (Bld) 0.3 % Normal 0.2-2.0 [facility] Comment on above: Performed By: #### C MP, LIPID #### [facility] [address] [place] [address] Dr. Calixto West EO # 0.1 103/ul Normal 0.0-0.7 [facility] Comment on above: Performed By: #### C MP, LIPID #### [facility] [address] [place] [address] Dr. Calixto West Eosinophils/100 WBC (Bld) 0.8 % Critically low 0.9-7.0 [facility] Comment on above: Performed By: #### C MP, LIPID #### [facility] [address] [place] [address] Dr. Calixto West Erythrocyte distribution width (RBC) [Ratio] 13.3 % Normal 11.0-15.0 [facility] Comment on above: Performed By: #### C MP, LIPID #### [facility] [address] [place] [address] Dr. Calixto West Hematocrit (Bld) [Volume fraction] 43.7 % Normal 42.0-54.0 [facility] Comment on above: Performed By: #### C MP, LIPID #### [facility] [address] [address] [address] Calixto West Hemoglobin (Bld) [Mass/Vol] 15.0 g/dL Normal 14.0-18.0 [facility] Comment on above: Performed By: #### C MP, LIPID #### [facility] [address] [address] [address] Calixto West IG # 0.05 10e3/ul Critically high 0.00-0.03 [facility] Comment on above: Performed By: #### C MP, LIPID #### [facility] [address] [place] [address] Dr. Calixto West IG % 0.4 % Normal 0.0-0.5 [facility] Comment on above: Performed By: #### C MP, LIPID #### [facility] [address] [place] [address] Dr. Calixto West LYMPH # 2.8 103/ul Normal 1.2-3.8 [facility] Comment on above: Performed By: #### C MP, LIPID #### [facility] [address] [place] [address] Dr. Calixto West Lymphocytes/100 WBC (Bld) 23.4 % Normal 20.5-60.0 [facility] Comment on above: Performed By: #### C MP, LIPID #### [facility] [address] [place] [address] Dr. aClixto West MANUAL DIFF REQ NO Normal [facility] Comment on above: Performed By: #### C MP, LIPID #### [facility] [address] [place] [address] Dr. Calixto West MCH (RBC) [Entitic mass] 31.3 pg Normal 25.9-34.0 [facility] Comment on above: Performed By: #### C MP, LIPID #### [facility] [address] [place] [address] Dr. Calixto West MCHC (RBC) [Mass/Vol] 34.3 g/dL Normal 29.9-35.2 [facility] Comment on above: Performed By: #### C MP, LIPID #### [facility] [address] [address] [address] Calixto West MCV (RBC) [Entitic vol] 91.2 fL Normal 80.0-94.0 [facility] Comment on above: Performed By: #### C MP, LIPID #### [facility] [address] [place] [address] Dr. Calixto West MONO # 0.5 103/ul Normal 0.3-0.8 [facility] Comment on above: Performed By: #### C MP, LIPID #### [facility] [address] [place] [address] Dr. Calixto West Monocytes/100 WBC (Bld) 4.5 % Normal 1.7-12.0 [facility] Comment on above: Performed By: #### C MP, LIPID #### [facility] [address] [place] [address] Dr. Calixto West NEUT # 8.4 103/ul Critically high 1.4-6.5 [facility] Comment on above: Performed By: #### C MP, LIPID #### [facility] [address] [place] [address] Dr. Calixto West Neutrophils/100 WBC (Bld) 70.6 % Normal 43.0-75.0 [facility] Comment on above: Performed By: #### C MP, LIPID #### [facility] [address] [place] [address] Dr. Calixto West Platelet mean volume (Bld) [Entitic vol] 9.2 fL Critically low 9.5-13.5 [facility] Comment on above: Performed By: #### C MP, LIPID #### [facility] [address] [place] [address] Dr. Calixto West PLT 351 103/ul Normal 150-450 [facility] Comment on above: Performed By: #### C MP, LIPID #### [facility] [address] [place] [address] Dr. Calixto West RBC 4.79 106/ul Normal 4.70-6.10 [facility] Comment on above: Performed By: #### C MP, LIPID #### [facility] [address] [place], [place] [address] Dr. Calixto West WBC 11.9 103/ul Critically high 4.0-11.0 [facility] Comment on above: Performed By: #### C MP, LIPID #### [facility] [address] [place], [place] [address] HEAD WO CONon [...] KIERSTEN [place] Date: 2021-08-17 12:29 Normal [facility] CTA CHEST WO W CONon 2 [...] by: FELICITY MCGRATH Date: 2021-08-17 13:26 Normal [facility] CULTURE BLOODon 08-17-2021 Microscopic examination of blood, culture Culture Observations: NO GROWTH AT 5 DAYS. Normal [facility] Comment on above: Performed By: #### C MP, LIPID #### [facility] [address] [place] [address] Dr. Calixto West Microscopic examination of blood, culture Culture Observations: NO GROWTH AT 5 DAYS IN ANAEROBIC BOTTLE. Culture Observations: POS AEROBIC BOTTLE SENT TO [facility]. Normal [facility] Comment on above: Performed By: #### C MP, LIPID #### [facility] [address] [place] [address] Dr. Calixto West Covid-19 PCR (CVDTB)on 07-22 SARS-CoV-2 (COVID-19) RNA PATSY+probe Ql (Unsp spec) Not detected Normal NOT DETECTED [facility] Comment on above: Result Comment: When diagnostic testing is negative, the possibility of a false negative should be considered in the context of a patient's recent exposures and the presence of clinical signs and symptoms consistent with SARS-CoV-2. This test is not yet approved or cleared by the [place] Food and Drug Administration (FDA). This test was developed by [employer], [place], [place]. The performance characteristics of this test were validated by [facility]. The results are not intended to be used as the sole means for clinical diagnosis or patient management decisions. [facility] is authorized under Clinical Laboratory Improvement [...] for this test is supported by the [employer] of Health and Human Service's declaration that [...] #### T SH, BNP, CMP, CMADM #### [facility] [address] [place] [address] Dr. Calixto West D-DIMERon 08-17-2021 D-DIMER 2.62 mg/L FEU Critically high 0.19-0.50 [facility] Comment on above: Performed By: #### P TT, PT, DDIM #### [facility] [address] [place] [address] Dr. Calixto West D-DIMER COMMENTS SEE BELOW Normal [facility] Comment on above: Result Comment: Incr eases [...] By: #### P TT, PT, DDIM #### [facility] [address] [place] [address] Dr. Calixto West LACTATE/LACTIC ACIDon 2021 Lactate [Moles/Vol] 2.7 mmol/L Critically high 0.4-2.0 [facility] Comment on above: Performed By: #### T SH, BNP, CMP, CMADM #### [facility] [address] [place] [address] Dr. Calixto West PROF 14(COMP METB)on Albumin [Mass/Vol] 3.4 g/dL Normal 3.4-5.0 [facility] Comment on above: Performed By: #### T SH, BNP, CMP, CMADM #### [facility] [facility] [address] [address] [address] Calixto West Albumin/Globulin [Mass ratio] 0.9 {ratio} Normal [facility] Comment on above: Performed By: #### T SH, BNP, CMP, CMADM #### [facility] [address] [place] [address] Dr. Calixto [place] ALP [Catalytic activity/Vol] 72 U/L Normal 46-116 [facility] Comment on above: Performed By: #### T SH, BNP, CMP, CMADM #### [facility] [address] [place] [address] Dr. Calixto [place] ALT [Catalytic activity/Vol] 74 U/L Critically high 16-63 [facility] Comment on above: Performed By: #### T SH, BNP, CMP, CMADM #### [facility] [address] [place] [address] Dr. Calixto West Anion gap [Moles/Vol] 13.8 mmol/L Normal [facility] Comment on above: Performed By: #### T SH, BNP, CMP, CMADM #### [facility] [address] [place] [address] Dr. Calixto [place] AST [Catalytic activity/Vol] 53 U/L Critically high 15-37 [facility] Comment on above: Performed By: #### T SH, BNP, CMP, CMADM #### [facility] [address] [address] [address] Calixto [place] Bilirubin [Mass/Vol] 0.4 mg/dL Normal 0.2-1.0 [facility] Comment on above: Performed By: #### T SH, BNP, CMP, CMADM #### [facility] [address] [place] [address] Dr. Calixto [place] Calcium [Mass/Vol] 8.2 mg/dL Critically low 8.5-10.1 [facility] Comment on above: Performed By: #### T SH, BNP, CMP, CMADM #### [facility] [address] [address] [address] Calixto West Chloride [Moles/Vol] 101 mmol/L Normal 98-107 [facility] Comment on above: Performed By: #### T SH, BNP, CMP, CMADM #### [facility] [address] [address] [address] Calixto [place] CO2 [Moles/Vol] 25.6 mmol/L Normal 21.0-32.0 [facility] Comment on above: Performed By: #### T SH, BNP, CMP, CMADM #### [facility] [address] [address] [address] Calixto [place] Creatinine [Mass/Vol] 1.13 mg/dL Normal 0.70-1.30 [facility] Comment on above: Performed By: #### T SH, BNP, CMP, CMADM #### [facility] [address] [address] [address] Calixto [place] EGFR-AF MAURITIAN >60 Normal >=60 [facility] Comment on above: Performed By: #### T SH, BNP, CMP, CMADM #### [facility] [address] [address] [address] Calixto West EGFR-NON AF MAURITIAN >60 Normal >=60 [facility] Comment on above: Performed By: #### T SH, BNP, CMP, CMADM #### [facility] [address] [address] [address] Calixto [place] Globulin (S) [Mass/Vol] 3.8 g/dL Normal [facility] Comment on above: Performed By: #### T SH, BNP, CMP, CMADM #### [facility] [address] [address] [address] Calixto West Glucose [Mass/Vol] 198 mg/dL Critically high 74-106 [facility] Comment on above: Performed By: #### T SH, BNP, CMP, CMADM #### [facility] [address] [address] [address] Calixto [place] Potassium [Moles/Vol] 4.4 mmol/L Normal 3.5-5.1 [facility] Comment on above: Performed By: #### T SH, BNP, CMP, CMADM #### [facility] [address] [place] [address] Dr. Calixto [place] Protein [Mass/Vol] 7.2 g/dL Normal 6.1-8.2 [facility] Comment on above: Performed By: #### T SH, BNP, CMP, CMADM #### [facility] [address] [place] [address] Dr. Calixto [place] Sodium [Moles/Vol] 136 mmol/L Normal 136-145 [facility] Comment on above: Performed By: #### T SH, BNP, CMP, CMADM #### [facility] [address] [place] [address] Dr. Calixto [place] Urea nitrogen [Mass/Vol] 14.0 mg/dL Normal 7.0-18.0 [facility] Comment on above: Performed By: #### T SH, BNP, CMP, CMADM #### [facility] [address] [place] [address] Dr. Calixto [place] Urea nitrogen/Creatinine [Mass ratio] 12.4 mg/mg Normal [facility] Comment on above: Performed By: #### T SH, BNP, CMP, CMADM #### [facility] [address] [place] [address] Dr. Calixto [place] PROTIMEon 08-17-2021 INR Coag (PPP) [Relative time] 0.98 {INR} Normal [facility] Comment on above: Performed By: #### P TT, PT, DDIM #### [facility] [address] [place] [address] Dr. Calixto West INR GUIDELINES SEE BELOW Normal [facility] Comment on above: Result Comment: ANTELMO RED INR: 2.0 - 3.0 CONDITIONS NOT LISTED BELOW 2.5 - 3.5 FOR PROSTHETIC HEART VALVE REPLACEMENT 2.5 - 3.5 RECURRENT THROMBOSIS Performed By: #### P TT, PT, DDIM #### [facility] [address] [place] [address] Dr. Calixto [place] PT Coag (PPP) [Time] 10.6 s Normal 9.0-11.6 [facility] Comment on above: Performed By: #### P TT, PT, DDIM #### [facility] [address] [place] [address] Dr. Calixto West PTTon 08-17-2021 aPTT Coag (Bld) [Time] 24.9 s Normal 22.3-36.2 [facility] Comment on above: Performed By: #### P TT, PT, DDIM #### [facility] [address] [place] [address] Dr. Calixto West TSHon 08-17-2021 TSH 5.288 uIU/mL Critically high 0.470-4.680 [facility] Comment on above: Performed By: #### T SH, BNP, CMP, CMADM #### [facility] [address] [place] [address] Dr. Calixto West TSH RANGE SEE BELOW Normal [facility] Comment on above: Result Comment: <0.3 4 UIU/ml HYPERTHYROID 0.34-5.60 UIU/ml EUTHYROID >5.60 UIU/ml HYPOTHYROID Performed By: #### T SH, BNP, CMP, CMADM #### [facility] [address] [place] [address] Dr. Calixto West XR CHEST 1 Von [...] by: BETTY HOLT Date: 2021-08-17 12:18 Normal [facility] Vital Signs Date Time Vital Sign Value Performing Clinician Delma nichols 08-07-2022 17:00-0400 Body height 175.26 cm Blade Wright Other [facility] Other 08-07-2022 17:00-0400 Body mass index (BMI) [Ratio] 43.41 kg/m2 Christwilberer Adriana Other [facility] Other 08-07-2022 17:00-0400 Body temperature 97.8 [degF] Christopher Adriana Other [facility] Other 08-07-2022 17:00-0400 Body weight 133.36 kg Christopher Adriana Other [facility] Other 08-07-2022 17:00-0400 Diastolic blood pressure 64 mm[Hg] Christwilberer Adriana Other [facility] Other 08-07-2022 17:00-0400 Respiratory rate 20 /min Dinesher Adriana Other [facility] Other 08-07-2022 17:00-0400 SaO2% (BldA) [Mass fraction] 96 % Christwilberer Adriana Other [facility] Other 08-07-2022 17:00-0400 Systolic blood pressure 138 mm[Hg] Dinesher Adriana Other [facility] Other 01-08-2022 11:30-0400 Body height 175.26 cm Christwilberer Adriana Other [facility] Other 01-08-2022 11:30-0400 Body mass index (BMI) [Ratio] 46.51 kg/m2 Christopher Adriana Other [facility] Other 01-08-2022 11:30-0400 Body temperature 98.2 [degF] Dinesher Adriana Other [facility] Other 01-08-2022 11:30-0400 Body weight 142.88 kg Blade Shortno Other [facility] Other 01-08-2022 11:30-0400 Diastolic blood pressure 86 mm[Hg] Blade Hewittdano Other [facility] Other 01-08-2022 11:30-0400 Respiratory rate 20 /min Blade Hewittdano Other [facility] Other 01-08-2022 11:30-0400 SaO2% (BldA) [Mass fraction] 94 % Blade Hewittdano Other [facility] Other 01-08-2022 11:30-0400 Systolic blood pressure 148 mm[Hg] Blade Hewittdano Other [facility] Other Encounters Encounter Date Encounter Type Care Provider Facility Start: 04-06-2024 End: 04-07-2024 ambulatory [facility] Start: 07-26-2023 End: 07-26-2023 ambulatory [facility] Start: 08-07-2022 End: 08-07-2022 ambulatory Blade Wright Other [facility] Start: 08-07-2022 Office outpatient visit 15 minutes Blade Wright [facility] Start: 06-18-2022 End: 06-18-2022 ambulatory Blade Wright Facility:[facility] Start: 06-18-2022 End: 06-18-2022 ambulatory MD Linden Nair Work Phone: [facility] Work Phone: Start: 06-18-2022 End: 06-18-2022 Patient encounter procedure MD Linden Nair Work Phone: [facility] Work Phone: Start: 04-25-[address] SHONNA WOODALL Fac ility:[facility] Start: 04-20-2022 End: 04-21-[address] DOCTOR SELLERS Facility:[facility] Start: 03-30-2022 End: 03-31-[address] SHONNA WOODALL Facility:[facility] Start: 01-23-2022 End: 01-24-[address] DOCTOR SELLERS Facility:[facility] Start: 01-12-2022 End: 01-13-[address] SHONNA WOODALL Facility:[facility] Start: 01-08-2022 End: 01-08-2022 ambulatory Blade Wright Other [facility] Other Start: 01-08-2022 Office outpatient ne w [...] #### T SH, BNP, CMP, CMADM #### [facility] [address] [place] [address] Dr. Calixto West Payers Date Payer Category Payer Medicare [id number] 2022 Self-pay 1960 Unknown [id number] [id number]. 593 1959 Unknown [id number] 2.16.840.1.043653.3.579.2. 593 1959 Unknown [id number] 2.16.840.1.708952.3.579.2. 593 1959 Unknown [id number] 2.16.840.1.614700.3.579.2. 593 1959 Unknown [id number] 2.16.840.1.322504.3.579.2. 593 1959 Unknown [id number] 2.16.840.1.766410.3.579.2. 593 1959 Unknown [id number] 2.16.840.1.114493.3.579.2. 593 1959 Unknown [id number] 2.16.840.1.534693.3.579.2. 593 1959 Unknown [id number] 2.16.840.1.801865.3.579.2. 593 1959 Unknown [id number] 2.16.840.1.349172.3.579.2. 593 1959 Unknown [id number] 2.16.840.1.192851.3.579.2. 593 1960 Medicare [id number] [id number] 1960 Private Health Insurance [id number] Medicare MMO MCR Adv PFFS [id number] Medicare [id number] Private Health Insurance [facility] MCR PFFS [id number] Unknown MMO [employer] [id number] Unknown Regular Insurance [id number] Unknown [id number] 2.16.840.1.389886.3.579.2. 531 Social History Date Type Detail Facility Sex Assigned At [facility] Other Start: 1960 Sex Assigned At Male F [facility] Progress note 04-06-2024 Note Date & Type Note Facility 04-06-2024 Note [place] [facility] Subjective Cecil Mcrae is a 63 y.o. year old male patient being seen for CAD, chronic diastolic heart failure, hypertension, and hyperlipidemia. Denies chest pain, SOB, lightheadedness/syncope, and bleeding on Eliquis. Patient Active Problem List Diagnosis History of pulmonary embolism Factor 5 Leiden mutation, heterozygous (CMS/HCC) Chronic diastolic congestive heart failure (CMS/HCC) Coronary artery disease involving [place] coronary artery of [place] heart without angina pectoris Primary hypertension Abnormal [...] with mild exertion. He was admitted to [facility] with pulmonary embolism and then transferred to [facility] and underwent catheter directed lysis of pulmonary [...] No murmur h (more content not included)... [facility] Progress note 07-26-2023 Note Date & Type Note Facility 07-26-2023 Note [place] [facility] Subjective Cecil Mcrae is a 62 y.o. year old male patient being seen for Follow-up (Yearly follow up) Patient Active Problem List Diagnosis History of pulmonary embolism Factor 5 Leiden mutation, heterozygous (CMS/HCC) Chronic diastolic congestive heart failure (CMS/HCC) Coronary artery disease involving [place] coronary artery of [place] heart without angina pectoris Primary hypertension Abnormal [...] with mild exertion. He was admitted to [facility] with pulmonary embolism and then transferred to [facility] and underwent catheter directed lysis of pulmonary [...] normal. Behavior: Behavior (more content not included)... [facility] Evaluation note 08-07-2022 Note Date & Type Note Facility 08-07-2022 Evaluation note Encounter Date Diagnosis Assessment Notes Jul, Obstructive sleep apnea (ICD-10 - G47.33) Jul, Pulmonary embolism (ICD-10 - I26.99) [facility] Other Evaluation note 01-08-2022 Note Date & Type Note Facility 01-08-2022 Evaluation note Encounter Date Diagnosis Assessment Notes Dec, Obstructive sleep apnea (ICD-10 - G47.33) Dec, Pulmonary embolism (ICD-10 - I26.99) [facility] Other Evaluation note Note Date & Type Note Facility Evaluation note No assessment information availa [facility] Work Phone: History general Narrative - Reported Note Date & Type Note Facility History general Narrative - Reported Type Medical History sleep apnea Medical History Atrial fibrillation Medical History hypertension Surgical History splenectomy 1962 Surgical History spinal fusion Hospitalization History pulmonary embolism [facility] Other History general Narrative - Reported Note Date & Type Note Facility History general Narrative - Reported Type Medical History sleep apnea Medical History Atrial fibrillation Medical History hypertension Medical History YOBANI Surgical History splenectomy 1962 Surgical History spinal fusion Surgical History Heart catherization with stent put in 01/2022 Hospitalization History pulmonary embolism [facility] Other Summary Purpose Family History No Family [...] section and content) DATE CREATED AUTHOR 12/18/2021 [facility] DATE CREATED AUTHOR AUTHOR'S ORGANIZ ATION 06/22/2022 [facility] DATE CREATED AUTHOR AUTHOR'S ORGANIZ ATION 07/24/2022 [facility] DATE CREATED AUTHOR AUTHOR'S ORGANIZ ATION 04/08/2024 [facility] REASON FOR VISIT (unrecogniz ed section [...] BE BASED ON THE PRIMARY CLINICAL RECORDS. [email or web address] [facility]. provides no warranty or guarantee of the accuracy or completeness of information in this document.
== END 2024-06-12 10:14 | disposition home or self-care (01) ==
LOC: EC 10:14
PROVIDERS: PCP Family Medicine; Visit Provider Orthopaedic Surgery Orthopaedic Surgery of the Spine
DX: M54.50 Low back pain, unspecified (principal); M43.26 Fusion of spine, lumbar region; M51.369 Other intervertebral disc degeneration, lumbar region without mention of lumbar back pain or lower extremity pain
CPT/HCPCS: 72110

== ENCOUNTER 2024-06-23 13:41 | Outpatient (OUT) | payer MEDICARE, SELFPAY ==
--- NOTE | 2024-06-23 13:44 | MR_ITS ---
[address] [address] Patient Name: CECIL HAMMOND MRN: [id number] date: 1960 Sex: M Assigned Patient Location: MRI Current Patient Location: MRI Accession/Order Number: [id number] Exam Date: 06/23/2024 16:04 Report Date: 06/23/2024 16:10 At the request of: YARIEL CABAN MD Procedure: MR lumbar spine wo con EXAMINATION: MRI LUMBAR SPINE WITHOUT IV CONTRAST CLINICAL HISTORY: Aftercare Following Surgery chronic back pain with radiculopathy. COMPARISON: Lumbar spine series 06/12/2024 TECHNIQUE: Multiecho imaging was performed in the sagittal and axial planes without contrast administration. FINDINGS: Vertebral body heights appear maintained. Modic endplate degenerative changes. No bone marrow edema. Spinal cord terminates in normal position without abnormal signal. No paraspinal mass. Visualized retroperitoneum demonstrates a cyst involving the left kidney. At L1-L2: Diffuse broad-based disc bulge with ligamentum flavum hypertrophy and facet joint degenerative changes causing mild canal and bilateral neural foraminal stenosis. At L2-L3: Diffuse broad-based disc bulge with ligamentum flavum hypertrophy and facet joint degenerative changes causing moderate canal and bilateral neural foraminal stenosis. At L3-L4: No posterior disc pathology is present. Ligamentum flavum hypertrophy and facet joint degenerative changes. Findings are causing no significant canal or neural foraminal stenosis. At L4-L5: Diffuse broad-based disc bulge is present with bilateral paracentral protrusion type disc herniations present with associated mass effect upon the adjacent nerve roots. Facet joint degenerative changes. Findings are causing mild canal and moderate right-sided and mild left-sided neural foraminal stenosis. At L5-S1: Disc spacer is present with associated blooming artifact. No significant canal stenosis. Moderate bilateral neural foraminal stenosis. MR/MR lumbar spine wo con IMPRESSION: Multilevel degenerative disease as described above worst at L4-L5 with bilateral protrusion type paracentral disc herniations present. Impression dictated by: Mohan Rivas Jr., D.OFrederick06/23/2024 4:10 PM Dictation Location: [address] [address] Electronically authenticated by: [id number] Y Date: 06/23/2024 16:10
--- OUTSIDE RECORDS SUMMARY | 2024-06-23 13:51 | XMS_ITS | CCD ---
Author Organization [facility] Care Team Providers Care Professional Services Manager Name Role Phone Blade Wright Unavailable MD Linden Nair Primary Care Provider [phone] MD Blade Wright Attending Provider Blade Wrihgt Attending Unavaila ble Blade Wright Admitting Unavaila [...] Codeine; Translations: [CODEINE] Drug Allergy 08-17-[address] 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 Office Visiton 07-26-2023 Follow-up visit [id number] Giovanni Mcrae 1960 M Date Provider Department Center 07/26/2023 SHONNA BAUTISTA Family History Problem Relation Age of Onset Pulmonary embolism Father Deep vein thrombosis Father Deep vein thrombosis Sister Deep vein thrombosis Brother Heart failure Brother Family Status - Relation Status Age at Father Sister Brother Level of Service:42947 [place] OFFICE/OUTPATIENT ESTABLISHED MOD MDM 30 MIN Reason for Visit and Comments: Follow-up [[id number]] - Yearly follow up Normal [facility] CBC AUTO DIFFon 04-20-2022 BASO # 0.1 103/ul Normal 0.0-0.1 [facility] Comment on above: Performed By: #### C MP, LIPID #### [facility] [address] [place] [address] Dr. Calixto West Basophils/100 WBC (Bld) 0.7 % Normal 0.2-2.0 [facility] Comment on above: Performed By: #### C MP, LIPID #### [facility] [address] [place] [address] Dr. Calixto West EO # 0.2 103/ul Normal 0.0-0.7 [facility] Comment on above: Performed By: #### C MP, LIPID #### [facility] [address] [place] [address] Dr. Calixto West Eosinophils/100 WBC (Bld) 2.2 % Normal 0.9-7.0 [facility] Comment on above: Performed By: #### C MP, LIPID #### [facility] [address] [place] [address] Dr. Calixto West Erythrocyte distribution width (RBC) [Ratio] 12.7 % Normal 11.0-15.0 [facility] Comment on above: Performed By: #### C MP, LIPID #### [facility] [address] [place] [address] Dr. Calixto West Hematocrit (Bld) [Volume fraction] 46.8 % Normal 42.0-54.0 [facility] Comment on above: Performed By: #### C MP, LIPID #### [facility] [address] [place] [address] Dr. Calixto West Hemoglobin (Bld) [Mass/Vol] 16.9 g/dL Normal 14.0-18.0 [facility] Comment on above: Performed By: #### C MP, LIPID #### [facility] [address] [address] [address] Calixto West IG # 0.04 10e3/ul Critically high 0.00-0.03 [facility] Comment on above: Performed By: #### C MP, LIPID #### [facility] [address] [address] [address] Calixto West IG % 0.4 % Normal 0.0-0.5 [facility] Comment on above: Performed By: #### C MP, LIPID #### [facility] [address] [address] [address] Calixto West LYMPH # 4.1 103/ul Critically high 1.2-3.8 [facility] Comment on above: Performed By: #### C MP, LIPID #### [facility] [address] [place] [address] Dr. Calixto West Lymphocytes/100 WBC (Bld) 41.8 % Normal 20.5-60.0 [facility] Comment on above: Performed By: #### C MP, LIPID #### [facility] [address] [address] [address] Calixto West MANUAL DIFF REQ NO Normal [facility] Comment on above: Performed By: #### C MP, LIPID #### [facility] [address] [address] [address] Calixto West MCH (RBC) [Entitic mass] 31.6 pg Normal 25.9-34.0 [facility] Comment on above: Performed By: #### C MP, LIPID #### [facility] [address] [address] [address] Calixto West MCHC (RBC) [Mass/Vol] 36.1 g/dL Critically high 29.9-35.2 [facility] Comment on above: Performed By: #### C MP, LIPID #### [facility] [address] [place] [address] Dr. Calixto West MCV (RBC) [Entitic vol] 87.6 fL Normal 80.0-94.0 [facility] Comment on above: Performed By: #### C MP, LIPID #### [facility] [address] [place] [address] Dr. Calixto West MONO # 0.8 103/ul Normal 0.3-0.8 [facility] Comment on above: Performed By: #### C MP, LIPID #### [facility] [address] [place] [address] Dr. Calixto West Monocytes/100 WBC (Bld) 8.4 % Normal 1.7-12.0 [facility] Comment on above: Performed By: #### C MP, LIPID #### [facility] [address] [place] [address] Dr. Calixto West NEUT # 4.5 103/ul Normal 1.4-6.5 [facility] Comment on above: Performed By: #### C MP, LIPID #### [facility] [address] [place] [address] Dr. Calixto West Neutrophils/100 WBC (Bld) 46.5 % Normal 43.0-75.0 [facility] Comment on above: Performed By: #### C MP, LIPID #### [facility] [address] [place] [address] Dr. Calixto West Platelet mean volume (Bld) [Entitic vol] 9.1 fL Critically low 9.5-13.5 [facility] Comment on above: Performed By: #### C MP, LIPID #### [facility] [address] [place] [address] Dr. Calixto West PLT 383 103/ul Normal 150-450 [facility] Comment on above: Performed By: #### C MP, LIPID #### [facility] [address] [place] [address] Dr. Calixto West RBC 5.34 106/ul Normal 4.70-6.10 [facility] Comment on above: Performed By: #### C MP, LIPID #### [facility] [address] [place] [address] Dr. Calixto West WBC 9.7 103/ul Normal 4.0-11.0 [facility] Comment on above: Performed By: #### C MP, LIPID #### [facility] [address] [place] [address] Dr. Calixto eWst D-DIMERon 04-20-2022 D-DIMER 0.35 mg/L FEU Normal <=0.59 [facility] Comment on above: Performed By: #### T SH, BNP, CMP, CMADM #### [facility] [address] [place] [address] Dr. Calixto West D-DIMER COMMENTS SEE BELOW Normal [facility] Comment on above: Result Comment: Incr [...] #### T SH, BNP, CMP, CMADM #### [facility] [address] [place] [address] Dr. Calixto West PROF 14(COMP METB)on 022 Albumin [Mass/Vol] 3.8 g/dL Normal 3.4-5.0 [facility] Comment on above: Performed By: #### T SH, BNP, CMP, CMADM #### [facility] [address] [place] [address] Dr. Calixto West Albumin/Globulin [Mass ratio] 0.9 {ratio} Normal [facility] Comment on above: Performed By: #### T SH, BNP, CMP, CMADM #### [facility] [address] [place] [address] Dr. Calixto West ALP [Catalytic activity/Vol] 64 U/L Normal 46-116 [facility] Comment on above: Performed By: #### T SH, BNP, CMP, CMADM #### [facility] [address] [place] [address] Dr. Calixto West ALT [Catalytic activity/Vol] 33 U/L Normal 16-63 [facility] Comment on above: Performed By: #### T SH, BNP, CMP, CMADM #### [facility] [address] [address] [address] Calixto West Anion gap [Moles/Vol] 12.4 mmol/L Normal [facility] Comment on above: Performed By: #### T SH, BNP, CMP, CMADM #### [facility] [address] [place] [address] Dr. Calixto West AST [Catalytic activity/Vol] 26 U/L Normal 15-37 [facility] Comment on above: Performed By: #### T SH, BNP, CMP, CMADM #### [facility] [address] [address] [address] Calixto West Bilirubin [Mass/Vol] 0.4 mg/dL Normal 0.2-1.0 [facility] Comment on above: Performed By: #### T SH, BNP, CMP, CMADM #### [facility] [address] [place] [address] Dr. Calixto West Calcium [Mass/Vol] 8.9 mg/dL Normal 8.5-10.1 [facility] Comment on above: Performed By: #### T SH, BNP, CMP, CMADM #### [facility] [address] [place] [address] Dr. Calixto West Chloride [Moles/Vol] 100 mmol/L Normal 98-107 [facility] Comment on above: Performed By: #### T SH, BNP, CMP, CMADM #### [facility] [address] [address] [address] Calixto West CO2 [Moles/Vol] 28.8 mmol/L Normal 21.0-32.0 [facility] Comment on above: Performed By: #### T SH, BNP, CMP, CMADM #### [facility] [address] [place] [address] Dr. Calixto West Creatinine [Mass/Vol] 1.21 mg/dL Normal 0.70-1.30 [facility] Comment on above: Performed By: #### T SH, BNP, CMP, CMADM #### [facility] [address] [address] [address] Calixto West EGFR-AF ENGLISH >60 Normal >=60 [facility] Comment on above: Performed By: #### T SH, BNP, CMP, CMADM #### [facility] [address] [address] [address] Calixto West EGFR-NON AF ENGLISH >60 Normal >=60 [facility] Comment on above: Performed By: #### T SH, BNP, CMP, CMADM #### [facility] [address] [address] [address] Calixto West Globulin (S) [Mass/Vol] 4.0 g/dL Normal [facility] Comment on above: Performed By: #### T SH, BNP, CMP, CMADM #### [facility] [address] [address] [address] Calixto West Glucose [Mass/Vol] 118 mg/dL Critically high 74-106 [facility] Comment on above: Performed By: #### T SH, BNP, CMP, CMADM #### [facility] [address] [address] [address] Calixto West Potassium [Moles/Vol] 4.2 mmol/L Normal 3.5-5.1 [facility] Comment on above: Performed By: #### T SH, BNP, CMP, CMADM #### [facility] [address] [address] [address] Calixto West Protein [Mass/Vol] 7.8 g/dL Normal 6.4-8.2 [facility] Comment on above: Performed By: #### T SH, BNP, CMP, CMADM #### [facility] [address] [address] [address] Calixto West Sodium [Moles/Vol] 137 mmol/L Normal 136-145 [facility] Comment on above: Performed By: #### T SH, BNP, CMP, CMADM #### [facility] [address] [address] [address] Calixto [place] Urea nitrogen [Mass/Vol] 18.0 mg/dL Normal 7.0-18.0 [facility] Comment on above: Performed By: #### T SH, BNP, CMP, CMADM #### [facility] [address] [address] [address] Calixto West Urea nitrogen/Creatinine [Mass ratio] 14.9 mg/mg Normal [facility] Comment on above: Performed By: #### T SH, BNP, CMP, CMADM #### [facility] [address] [address] [address] Calixto West LIPID PROFILEon 03-30-2022 CHOL-HDL RATIO NORM SEE BELOW Normal [facility] Comment on above: Result Comment: 3.3 - 4.4 LOW RISK 4.4 - 7.1 AVERAGE RISK 7.1 - 11.0 MODERATE RISK >11.0 HIGH RISK Performed By: #### C MP, LIPID #### [facility] [address] [place] [address] Dr. Calixto West Cholesterol [Mass/Vol] 166 mg/dL Normal <=200 [facility] Comment on above: Performed By: #### C MP, LIPID #### [facility] [address] [place] [address] Dr. Calixto West Cholesterol in HDL [Mass/Vol] 40 mg/dL Normal 40-60 [facility] Comment on above: Performed By: #### C MP, LIPID #### [facility] [address] [address] [address] Calixto [place] Cholesterol in LDL [Mass/Vol] 65.8 mg/dL Normal [facility] Comment on above: Performed By: #### C MP, LIPID #### [facility] [address] [place] [address] Dr. Calixto [place] Cholesterol.total/Chol esterol in HDL [Mass ratio] 4.2 {ratio} Normal [facility] Comment on above: Performed By: #### C MP, LIPID #### [facility] [address] [place] [address] Dr. Calixto West HDL NORMAL > or = 60 mg/dl - LO W CARDIOVASCULAR RISK <40 mg/dl - HIGH CARDIOVASCULAR RISK Normal [facility] Comment on above: Performed By: #### C MP, LIPID #### [facility] [address] [place] [address] Dr. Calixto West LDL CALC NORMAL SEE BELOW Normal [facility] Comment on above: Result Comment: <100 mg/dl OPTIMAL 100 - 129 mg/dl NEAR OR ABOVE OPTIMAL 130 - 159 mg/dl BORDERLINE HIGH 160 - 189 mg/dl HIGH >190 mg/dl VERY HIGH Performed By: #### C MP, LIPID #### [facility] [address] [place] [address] Dr. Calixto [place] Triglyceride [Mass/Vol] 301 mg/dL Critically high <=150 [facility] Comment on above: Performed By: #### C MP, LIPID #### [facility] [address] [place] [address] Dr. Calixto [place] VLDL CALC 60.2 mg/dL Normal [facility] Comment on above: Performed By: #### C MP, LIPID #### [facility] [address] [place] [address] Dr. Calixto [place] PROF 14(COMP METB)on 022 Albumin [Mass/Vol] 3.6 g/dL Normal 3.4-5.0 [facility] Comment on above: Performed By: #### C MP, LIPID #### [facility] [address] [place] [address] Dr. Calixto West Albumin/Globulin [Mass ratio] 0.9 {ratio} Normal [facility] Comment on above: Performed By: #### C MP, LIPID #### [facility] [address] [place] [address] Dr. Calixto [place] ALP [Catalytic activity/Vol] 70 U/L Normal 46-116 [facility] Comment on above: Performed By: #### C MP, LIPID #### [facility] [address] [place] [address] Dr. Calixto West ALT [Catalytic activity/Vol] 28 U/L Normal 16-63 [facility] Comment on above: Performed By: #### C MP, LIPID #### [facility] [address] [place] [address] Dr. Calixto West Anion gap [Moles/Vol] 11.8 mmol/L Normal Th [facility] Comment on above: Performed By: #### C MP, LIPID #### [facility] [address] [place] [address] Dr. Calixto West AST [Catalytic activity/Vol] 26 U/L Normal 15-37 [facility] Comment on above: Performed By: #### C MP, LIPID #### [facility] [address] [place] [address] Dr. Calixto [place] Bilirubin [Mass/Vol] 0.3 mg/dL Normal 0.2-1.0 [facility] Comment on above: Performed By: #### C MP, LIPID #### [facility] [address] [place] [address] Dr. Calixto [place] Calcium [Mass/Vol] 9.4 mg/dL Normal 8.5-10.1 [facility] Comment on above: Performed By: #### C MP, LIPID #### [facility] [address] [place] [address] Dr. Calixto West Chloride [Moles/Vol] 101 mmol/L Normal 98-107 [facility] Comment on above: Performed By: #### C MP, LIPID #### [facility] [address] [place] [address] Dr. Calixto West CO2 [Moles/Vol] 27.8 mmol/L Normal 21.0-32.0 [facility] Comment on above: Performed By: #### C MP, LIPID #### [facility] [address] [place] [address] Dr. Calixto West Creatinine [Mass/Vol] 1.28 mg/dL Normal 0.70-1.30 [facility] Comment on above: Performed By: #### C MP, LIPID #### [facility] [address] [place] [address] Dr. Calixto West EGFR-AF ENGLISH >60 Normal >=60 [facility] Comment on above: Performed By: #### C MP, LIPID #### [facility] [address] [place] [address] Dr. Calixto West EGFR-NON AF ENGLISH 57 mL/min/1.73m2 Critically low >=60 [facility] Comment on above: Performed By: #### C MP, LIPID #### [facility] [address] [place] [address] Dr. Calixto West Globulin (S) [Mass/Vol] 4.1 g/dL Normal [facility] Comment on above: Performed By: #### C MP, LIPID #### [facility] [address] [place] [address] Dr. Calixto West Glucose [Mass/Vol] 133 mg/dL Critically high 74-106 [facility] Comment on above: Performed By: #### C MP, LIPID #### [facility] [address] [place] [address] Dr. Calixto West Potassium [Moles/Vol] 4.6 mmol/L Normal 3.5-5.1 [facility] Comment on above: Performed By: #### C MP, LIPID #### [facility] [address] [place] [address] Dr. Calixto West Protein [Mass/Vol] 7.7 g/dL Normal 6.4-8.2 [facility] Comment on above: Performed By: #### C MP, LIPID #### [facility] [address] [place] [address] Dr. Calixto West Sodium [Moles/Vol] 136 mmol/L Normal 136-145 [facility] Comment on above: Performed By: #### C MP, LIPID #### [facility] [address] [place] [address] Dr. Calixto West Urea nitrogen [Mass/Vol] 25.0 mg/dL Critically high 7.0-18.0 [facility] Comment on above: Performed By: #### C MP, LIPID #### [facility] [address] [place] [address] Dr. Calixto West Urea nitrogen/Creatinine [Mass ratio] 19.5 mg/mg Normal [facility] Comment on above: Performed By: #### C MP, LIPID #### [facility] [address] [place] [address] Dr. Calixto West PROF CHEM 8 (BAS METB)on Anion gap [Moles/Vol] 11.3 mmol/L Normal Th [facility] Comment on above: Performed By: #### C MP, LIPID #### [facility] [address] [place] [address] Dr. Calixto West Calcium [Mass/Vol] 9.1 mg/dL Normal 8.5-10.1 [facility] Comment on above: Performed By: #### C MP, LIPID #### [facility] [address] [place] [address] Dr. Calixto West Chloride [Moles/Vol] 101 mmol/L Normal 98-107 [facility] Comment on above: Performed By: #### C MP, LIPID #### [facility] [address] [place] [address] Dr. Calixto West CO2 [Moles/Vol] 32.2 mmol/L Critically high 21.0-32.0 [facility] Comment on above: Performed By: #### C MP, LIPID #### [facility] [address] [place] [address] Dr. Calixto West Creatinine [Mass/Vol] 1.33 mg/dL Critically high 0.70-1.30 [facility] Comment on above: Performed By: #### C MP, LIPID #### [facility] [address] [place] [address] Dr. Calixto West EGFR-AF ENGLISH >60 Normal >=60 [facility] Comment on above: Performed By: #### C MP, LIPID #### [facility] [address] [place] [address] Dr. Calixto West EGFR-NON AF ENGLISH 54 mL/min/1.73m2 Critically low >=60 [facility] Comment on above: Performed By: #### C MP, LIPID #### [facility] [address] [place] [address] Dr. Calixto West Glucose [Mass/Vol] 149 mg/dL Critically high 74-106 [facility] Comment on above: Performed By: #### C MP, LIPID #### [facility] [address] [address] [address] Calixto West Potassium [Moles/Vol] 4.5 mmol/L Normal 3.5-5.1 [facility] Comment on above: Performed By: #### C MP, LIPID #### [facility] [address] [place] [address] Dr. Calixto West Sodium [Moles/Vol] 140 mmol/L Normal 136-145 [facility] Comment on above: Performed By: #### C MP, LIPID #### [facility] [address] [place] [address] Dr. Calixto West Urea nitrogen [Mass/Vol] 21.0 mg/dL Critically high 7.0-18.0 [facility] Comment on above: Performed By: #### C MP, LIPID #### [facility] [address] [place] [address] Dr. Calixto West Urea nitrogen/Creatinine [Mass ratio] 15.8 mg/mg Normal [facility] Comment on above: Performed By: #### C MP, LIPID #### [facility] [address] [place] [address] Dr. Calixto West [facility] SARS-CoV-2 (COVID-19) RNA PATSY+probe Ql (Unsp spec) Not detected Normal NOT DETECTED [facility] Comment on above: Result Comment: This test is not yet approved or cleared by the [place] FDA. When there are no FDA-approved or cleared tests available, and other criteria are met, FDA can make tests available under an emergency access mechanism called an Emergency Use Authorization (EUA). The EUA for this test is supported by the [place] of Health and Human Service's (HHS's) declaration [...] #### T SH, BNP, CMP, CMADM #### [facility] [address] [place] [address] Dr. Calixto West INSULINon 12-20-2021 Insulin 28.6 uIU/mL Critically high 2.6-24.9 [facility] Comment on above: Performed By: #### T SH, BNP, CMP, CMADM #### [facility] [address] [place] [address] Dr. Calixto eWst BNPon 12-19-2021 Natriuretic peptide B (Bld) [Mass/Vol] 89.0 pg/mL Normal <=900.0 [facility] Comment on above: Performed By: #### T SH, BNP, CMP, CMADM #### [facility] [address] [place] [address] Dr. Calixto West CBC AUTO DIFFon 12-19-2021 BASO # 0.1 103/ul Normal 0.0-0.1 [facility] Comment on above: Performed By: #### C MP, LIPID #### [facility] [address] [place] [address] Dr. Calixto West Basophils/100 WBC (Bld) 0.9 % Normal 0.2-2.0 [facility] Comment on above: Performed By: #### C MP, LIPID #### [facility] [address] [place] [address] Dr. Calixto West EO # 0.2 103/ul Normal 0.0-0.7 [facility] Comment on above: Performed By: #### C MP, LIPID #### [facility] [address] [place] [address] Dr. Calixto West Eosinophils/100 WBC (Bld) 1.7 % Normal 0.9-7.0 [facility] Comment on above: Performed By: #### C MP, LIPID #### [facility] [address] [place] [address] Dr. Calixto West Erythrocyte distribution width (RBC) [Ratio] 12.9 % Normal 11.0-15.0 [facility] Comment on above: Performed By: #### C MP, LIPID #### [facility] [address] [place] [address] Dr. Calixto West Hematocrit (Bld) [Volume fraction] 45.5 % Normal 42.0-54.0 [facility] Comment on above: Performed By: #### C MP, LIPID #### [facility] [address] [place] [address] Dr. Calixto West Hemoglobin (Bld) [Mass/Vol] 16.5 g/dL Normal 14.0-18.0 [facility] Comment on above: Performed By: #### C MP, LIPID #### [facility] [address] [place] [address] Dr. Calixto West IG # 0.05 10e3/ul Critically high 0.00-0.03 [facility] Comment on above: Performed By: #### C MP, LIPID #### [facility] [address] [place] [address] Dr. Calixto West IG % 0.5 % Normal 0.0-0.5 [facility] Comment on above: Performed By: #### C MP, LIPID #### [facility] [address] [place] [address] Dr. Calixto West LYMPH # 5.2 103/ul Critically high 1.2-3.8 [facility] Comment on above: Performed By: #### C MP, LIPID #### [facility] [address] [place] [address] Dr. Calixto West Lymphocytes/100 WBC (Bld) 49.6 % Normal 20.5-60.0 [facility] Comment on above: Performed By: #### C MP, LIPID #### [facility] [address] [place] [address] Dr. Calixto West MANUAL DIFF REQ NO Normal [facility] Comment on above: Performed By: #### C MP, LIPID #### [facility] [address] [place] [address] Dr. Calixto West MCH (RBC) [Entitic mass] 31.2 pg Normal 25.9-34.0 [facility] Comment on above: Performed By: #### C MP, LIPID #### [facility] [address] [place] [address] Dr. Calixto West MCHC (RBC) [Mass/Vol] 36.3 g/dL Critically high 29.9-35.2 [facility] Comment on above: Performed By: #### C MP, LIPID #### [facility] [address] [place] [address] Dr. Calixto West MCV (RBC) [Entitic vol] 86.0 fL Normal 80.0-94.0 [facility] Comment on above: Performed By: #### C MP, LIPID #### [facility] [address] [place] [address] Dr. Calixto West MONO # 0.8 103/ul Normal 0.3-0.8 [facility] Comment on above: Performed By: #### C MP, LIPID #### [facility] [address] [place] [address] Dr. Calixot West Monocytes/100 WBC (Bld) 7.8 % Normal 1.7-12.0 [facility] Comment on above: Performed By: #### C MP, LIPID #### [facility] [address] [place] [address] Dr. Calixto West NEUT # 4.1 103/ul Normal 1.4-6.5 [facility] Comment on above: Performed By: #### C MP, LIPID #### [facility] [address] [place] [address] Dr. Calixto West Neutrophils/100 WBC (Bld) 39.5 % Critically low 43.0-75.0 [facility] Comment on above: Performed By: #### C MP, LIPID #### [facility] [address] [place] [address] Dr. Calixto West Platelet mean volume (Bld) [Entitic vol] 9.3 fL Critically low 9.5-13.5 [facility] Comment on above: Performed By: #### C MP, LIPID #### [facility] [address] [address] [address] Calixto West PLT 449 103/ul Normal 150-450 [facility] Comment on above: Performed By: #### C MP, LIPID #### [facility] [address] [address] [address] Calixto West RBC 5.29 106/ul Normal 4.70-6.10 [facility] Comment on above: Performed By: #### C MP, LIPID #### [facility] [address] [address] [address] Calixto West WBC 10.4 103/ul Normal 4.0-11.0 [facility] Comment on above: Performed By: #### C MP, LIPID #### [facility] [address] [place] [address] Dr. Calixto West GLYCOHEMOGLOBIN A1Con 2021 ADA RECOMMENDATION SEE BELOW Normal [facility] Comment on above: Result Comment: ADA RECOMMENDED LIMIT 4.0 - 6.0 ADA THERAPEUTIC TARGET < 7.0 ACTION SUGGESTED > 7.0 Performed By: #### A 1C #### [facility] [address] [place] [address] Dr. Calixto West Glucose [Mass/Vol] 134 mg/dL Normal [facility] Comment on above: Performed By: #### A 1C #### [facility] [address] [place] [address] Dr. Calixto West HbA1c (Bld) [Mass fraction] 6.3 % Critically high 4.5-6.2 [facility] Comment on above: Performed By: #### A 1C #### [facility] [address] [place] [address] Dr. Calixto West LIPID PROFILEon 12-19-2021 CHOL-HDL RATIO NORM SEE BELOW Normal [facility] Comment on above: Result Comment: 3.3 - 4.4 LOW RISK 4.4 - 7.1 AVERAGE RISK 7.1 - 11.0 MODERATE RISK >11.0 HIGH RISK Performed By: #### T SH, BNP, CMP, CMADM #### [facility] [address] [place] [address] Dr. Calixto West Cholesterol [Mass/Vol] 302 mg/dL Critically high <=200 [facility] Comment on above: Performed By: #### T SH, BNP, CMP, CMADM #### [facility] [address] [address] [address] Calixto West Cholesterol in HDL [Mass/Vol] 36 mg/dL Critically low 40-60 [facility] Comment on above: Performed By: #### T SH, BNP, CMP, CMADM #### [facility] [address] [address] [address] Calixto West Cholesterol in LDL [Mass/Vol] 189.6 mg/dL Normal [facility] Comment on above: Performed By: #### T SH, BNP, CMP, CMADM #### [facility] [address] [address] [address] Calixto West Cholesterol.total/Chol esterol in HDL [Mass ratio] 8.4 {ratio} Normal [facility] Comment on above: Performed By: #### T SH, BNP, CMP, CMADM #### [facility] [address] [address] [address] Calixto West HDL NORMAL > or = 60 mg/dl - LO W CARDIOVASCULAR RISK <40 mg/dl - HIGH CARDIOVASCULAR RISK Normal [facility] Comment on above: Performed By: #### T SH, BNP, CMP, CMADM #### [facility] [address] [address] [address] Calixto West LDL CALC NORMAL SEE BELOW Normal [facility] Comment on above: Result Comment: <100 mg/dl OPTIMAL 100 - 129 mg/dl NEAR OR ABOVE OPTIMAL 130 - 159 mg/dl BORDERLINE HIGH 160 - 189 mg/dl HIGH >190 mg/dl VERY HIGH Performed By: #### T SH, BNP, CMP, CMADM #### [facility] [address] [address] [address] Calixto West Triglyceride [Mass/Vol] 382 mg/dL Critically high <=150 [facility] Comment on above: Performed By: #### T SH, BNP, CMP, CMADM #### [facility] [address] [address] [address] Calixto West VLDL CALC 76.4 mg/dL Normal [facility] Comment on above: Performed By: #### T SH, BNP, CMP, CMADM #### [facility] [address] [place] [address] Dr. Calixto West PROF 14(COMP METB)on 022 Albumin [Mass/Vol] 3.7 g/dL Normal 3.4-5.0 [facility] Comment on above: Performed By: #### T SH, BNP, CMP, CMADM #### [facility] [address] [place] [address] Dr. Calixto West Albumin/Globulin [Mass ratio] 0.9 {ratio} Normal [facility] Comment on above: Performed By: #### T SH, BNP, CMP, CMADM #### [facility] [address] [place] [address] Dr. Calixto West ALP [Catalytic activity/Vol] 72 U/L Normal 46-116 [facility] Comment on above: Performed By: #### T SH, BNP, CMP, CMADM #### [facility] [address] [place] [address] Dr. Calixto West ALT [Catalytic activity/Vol] 35 U/L Normal 16-63 [facility] Comment on above: Performed By: #### T SH, BNP, CMP, CMADM #### [facility] [address] [place] [address] Dr. Calixto West Anion gap [Moles/Vol] 13.3 mmol/L Normal [facility] Comment on above: Performed By: #### T SH, BNP, CMP, CMADM #### [facility] [address] [place] [address] Dr. Calixto West AST [Catalytic activity/Vol] 20 U/L Normal 15-37 [facility] Comment on above: Performed By: #### T SH, BNP, CMP, CMADM #### [facility] [address] [place] [address] Dr. Calixto West Bilirubin [Mass/Vol] 0.6 mg/dL Normal 0.2-1.0 [facility] Comment on above: Performed By: #### T SH, BNP, CMP, CMADM #### [facility] [address] [address] [address] Calixto West Calcium [Mass/Vol] 8.8 mg/dL Normal 8.5-10.1 [facility] Comment on above: Performed By: #### T SH, BNP, CMP, CMADM #### [facility] [address] [address] [address] Calixto West Chloride [Moles/Vol] 102 mmol/L Normal 98-107 [facility] Comment on above: Performed By: #### T SH, BNP, CMP, CMADM #### [facility] [address] [place] [address] Dr. Calixto West CO2 [Moles/Vol] 26.9 mmol/L Normal 21.0-32.0 [facility] Comment on above: Performed By: #### T SH, BNP, CMP, CMADM #### [facility] [address] [place] [address] Dr. Calixto West Creatinine [Mass/Vol] 1.22 mg/dL Normal 0.70-1.30 [facility] Comment on above: Performed By: #### T SH, BNP, CMP, CMADM #### [facility] [address] [place] [address] Dr. Calixto West EGFR-AF ENGLISH >60 Normal >=60 [facility] Comment on above: Performed By: #### T SH, BNP, CMP, CMADM #### [facility] [address] [place] [address] Dr. Calixto West EGFR-NON AF ENGLISH =60 Normal >=60 [facility] Comment on above: Performed By: #### T SH, BNP, CMP, CMADM #### [facility] [address] [place] [address] Dr. Calixto West Globulin (S) [Mass/Vol] 3.9 g/dL Normal [facility] Comment on above: Performed By: #### T SH, BNP, CMP, CMADM #### [facility] [address] [place] [address] Dr. Calixto West Glucose [Mass/Vol] 147 mg/dL Critically high 74-106 [facility] Comment on above: Performed By: #### T SH, BNP, CMP, CMADM #### [facility] [address] [address] [address] Calixto West Potassium [Moles/Vol] 4.2 mmol/L Normal 3.5-5.1 [facility] Comment on above: Performed By: #### T SH, BNP, CMP, CMADM #### [facility] [address] [place] [address] Dr. Calixto West Protein [Mass/Vol] 7.6 g/dL Normal 6.4-8.2 [facility] Comment on above: Performed By: #### T SH, BNP, CMP, CMADM #### [facility] [address] [place] [address] Dr. Calixto West Sodium [Moles/Vol] 138 mmol/L Normal 136-145 [facility] Comment on above: Performed By: #### T SH, BNP, CMP, CMADM #### [facility] [address] [address] [address] Calixto West Urea nitrogen [Mass/Vol] 16.0 mg/dL Normal 7.0-18.0 [facility] Comment on above: Performed By: #### T SH, BNP, CMP, CMADM #### [facility] [address] [place] [address] Dr. Calixto West Urea nitrogen/Creatinine [Mass ratio] 13.1 mg/mg Normal [facility] Comment on above: Performed By: #### T SH, BNP, CMP, CMADM #### [facility] [address] [address] [address] Calixto West URIC ACID SERUMon 12-19-2021 Urate [Mass/Vol] 7.2 mg/dL Normal 3.5-7.2 [facility] Comment on above: Performed By: #### T SH, BNP, CMP, CMADM #### [facility] [address] [place] [address] Dr. Calixto West Physician Referralon 022 Physician Referral [id number] Normal [facility] ECHOCARDIO M/2D COMPLETEon 0 10-24-2021 ECHOCARDIO M/2D COMPLETE Patient: CECIL MCRAE Exam Date: 10/24/2021 : 1960 Gender:M Ordering : DR LINDEN NAIR . Admission #: [id number] Family : Order #: [id number] CLICK HERE TO VIEW EXAM ECHOCARDIOGRAM REPORT [...] Woodall M.D. on 10/25/2021 at 10:17 Normal [facility] T4 LABCORPon 09-15-2021 T4 [Mass/Vol] 7.7 ug/dL Normal 4.5-12.0 [facility] Comment on above: Performed By: #### T SH, BNP, CMP, CMADM #### [facility] [address] [place] [address] Dr. Calixto West BNPon 09-13-2021 Natriuretic peptide B (Bld) [Mass/Vol] 41.0 pg/mL Normal <=900.0 [facility] Comment on above: Performed By: #### T SH, BNP, CMP, CMADM #### [facility] [address] [place] [address] Dr. Calixto West CBC AUTO DIFFon 09-13-2021 BASO # 0.1 103/ul Normal 0.0-0.1 [facility] Comment on above: Performed By: #### C MP, LIPID #### [facility] [address] [place] [address] Dr. Calixto West Basophils/100 WBC (Bld) 0.8 % Normal 0.2-2.0 [facility] Comment on above: Performed By: #### C MP, LIPID #### [facility] [address] [place] [address] Dr. Calixto West EO # 0.3 103/ul Normal 0.0-0.7 [facility] Comment on above: Performed By: #### C MP, LIPID #### [facility] [address] [place] [address] Dr. Calixto West Eosinophils/100 WBC (Bld) 2.8 % Normal 0.9-7.0 [facility] Comment on above: Performed By: #### C MP, LIPID #### [facility] [address] [place] [address] Dr. Calixto West Erythrocyte distribution width (RBC) [Ratio] 13.0 % Normal 11.0-15.0 [facility] Comment on above: Performed By: #### C MP, LIPID #### [facility] [address] [place] [address] Dr. Calixto West Hematocrit (Bld) [Volume fraction] 44.6 % Normal 42.0-54.0 [facility] Comment on above: Performed By: #### C MP, LIPID #### [facility] [address] [place] [address] Dr. Calixto West Hemoglobin (Bld) [Mass/Vol] 15.5 g/dL Normal 14.0-18.0 [facility] Comment on above: Performed By: #### C MP, LIPID #### [facility] [address] [place] [address] Dr. Calixto West IG # 0.06 10e3/ul Critically high 0.00-0.03 [facility] Comment on above: Performed By: #### C MP, LIPID #### [facility] [address] [place] [address] Dr. Calixto West IG % 0.6 % Critically high 0.0-0.5 [facility] Comment on above: Performed By: #### C MP, LIPID #### [facility] [address] [place] [address] Dr. Calixto West LYMPH # 4.1 103/ul Critically high 1.2-3.8 [facility] Comment on above: Performed By: #### C MP, LIPID #### [facility] [address] [place] [address] Dr. Calixto West Lymphocytes/100 WBC (Bld) 40.5 % Normal 20.5-60.0 [facility] Comment on above: Performed By: #### C MP, LIPID #### [facility] [address] [place] [address] Dr. Calixto West MANUAL DIFF REQ NO Normal [facility] Comment on above: Performed By: #### C MP, LIPID #### [facility] [address] [place] [address] Dr. Calixto West MCH (RBC) [Entitic mass] 31.0 pg Normal 25.9-34.0 [facility] Comment on above: Performed By: #### C MP, LIPID #### [facility] [address] [place] [address] Dr. Calixto West MCHC (RBC) [Mass/Vol] 34.8 g/dL Normal 29.9-35.2 [facility] Comment on above: Performed By: #### C MP, LIPID #### [facility] [address] [address] [address] Calixto West MCV (RBC) [Entitic vol] 89.2 fL Normal 80.0-94.0 [facility] Comment on above: Performed By: #### C MP, LIPID #### [facility] [address] [place] [address] Dr. Calixto West MONO # 0.8 103/ul Normal 0.3-0.8 [facility] Comment on above: Performed By: #### C MP, LIPID #### [facility] [address] [place] [address] Dr. Calixto West Monocytes/100 WBC (Bld) 8.1 % Normal 1.7-12.0 [facility] Comment on above: Performed By: #### C MP, LIPID #### [facility] [address] [place] [address] Dr. Calixto West NEUT # 4.8 103/ul Normal 1.4-6.5 [facility] Comment on above: Performed By: #### C MP, LIPID #### [facility] [address] [place] [address] Dr. Calixto West Neutrophils/100 WBC (Bld) 47.2 % Normal 43.0-75.0 [facility] Comment on above: Performed By: #### C MP, LIPID #### [facility] [address] [place] [address] Dr. Calixto West Platelet mean volume (Bld) [Entitic vol] 9.3 fL Critically low 9.5-13.5 [facility] Comment on above: Performed By: #### C MP, LIPID #### [facility] [address] [place] [address] Dr. Calixto West PLT 398 103/ul Normal 150-450 [facility] Comment on above: Performed By: #### C MP, LIPID #### [facility] [address] [place] [address] Dr. Calixto West RBC 5.00 106/ul Normal 4.70-6.10 [facility] Comment on above: Performed By: #### C MP, LIPID #### [facility] [address] [address] [address] Calixto West WBC 10.1 103/ul Normal 4.0-11.0 [facility] Comment on above: Performed By: #### C MP, LIPID #### [facility] [address] [place] [address] Dr. Calixto West FREE T3on 09-13-2021 FREE T3 3.04 pg/mlL Normal 2.18-3.98 [facility] Comment on above: Performed By: #### C MP, LIPID #### [facility] [address] [place] [address] Dr. Calixto West FREE THYROXINE INDEX T7on FTI 2.62 Normal 1.30-4.50 [facility] Comment on above: Performed By: #### T SH, BNP, CMP, CMADM #### [facility] [address] [place] [address] Dr. Calixto West T3U 34.0 % Normal 33.0-40.0 [facility] Comment on above: Performed By: #### T SH, BNP, CMP, CMADM #### [facility] [address] [place] [address] Dr. Calixto West T4 [Mass/Vol] 7.70 ug/dL Normal 4.50-12.[address] [facility] Comment on above: Performed By: #### T SH, BNP, CMP, CMADM #### [facility] [address] [address] [address] Calixto West PROF 14(COMP METB)on 022 Albumin [Mass/Vol] 3.5 g/dL Normal 3.4-5.0 [facility] Comment on above: Performed By: #### T SH, BNP, CMP, CMADM #### [facility] [address] [place] [address] Dr. Calixto West Albumin/Globulin [Mass ratio] 0.9 {ratio} Normal [facility] Comment on above: Performed By: #### T SH, BNP, CMP, CMADM #### [facility] [address] [address] [address] Calixto West ALP [Catalytic activity/Vol] 67 U/L Normal 46-116 [facility] Comment on above: Performed By: #### T SH, BNP, CMP, CMADM #### [facility] [address] [address] [address] Calixto West ALT [Catalytic activity/Vol] 49 U/L Normal 16-63 [facility] Comment on above: Performed By: #### T SH, BNP, CMP, CMADM #### [facility] [address] [address] [address] Calixto West Anion gap [Moles/Vol] 14.0 mmol/L Normal [facility] Comment on above: Performed By: #### T SH, BNP, CMP, CMADM #### [facility] [address] [place] [address] Dr. Calixto [place] AST [Catalytic activity/Vol] 24 U/L Normal 15-37 [facility] Comment on above: Performed By: #### T SH, BNP, CMP, CMADM #### [facility] [address] [address] [address] Calixto [place] Bilirubin [Mass/Vol] 0.4 mg/dL Normal 0.2-1.0 [facility] Comment on above: Performed By: #### T SH, BNP, CMP, CMADM #### [facility] [address] [address] [address] Calixto [place] Calcium [Mass/Vol] 9.0 mg/dL Normal 8.5-10.1 [facility] Comment on above: Performed By: #### T SH, BNP, CMP, CMADM #### [facility] [address] [address] [address] Calixto [place] Chloride [Moles/Vol] 102 mmol/L Normal 98-107 [facility] Comment on above: Performed By: #### T SH, BNP, CMP, CMADM #### [facility] [address] [address] [address] Calixto [place] CO2 [Moles/Vol] 27.1 mmol/L Normal 21.0-32.0 [facility] Comment on above: Performed By: #### T SH, BNP, CMP, CMADM #### [facility] [address] [place] [address] Dr. Calixto [place] Creatinine [Mass/Vol] 1.01 mg/dL Normal 0.70-1.30 [facility] Comment on above: Performed By: #### T SH, BNP, CMP, CMADM #### [facility] [address] [address] [address] Calixto West EGFR-AF ENGLISH >60 Normal >=60 [facility] Comment on above: Performed By: #### T SH, BNP, CMP, CMADM #### [facility] [address] [place] [address] Dr. Calixto West EGFR-NON AF ENGLISH >60 Normal >=60 [facility] Comment on above: Performed By: #### T SH, BNP, CMP, CMADM #### [facility] [address] [place] [address] Dr. Calixto West Globulin (S) [Mass/Vol] 4.1 g/dL Normal [facility] Comment on above: Performed By: #### T SH, BNP, CMP, CMADM #### [facility] [address] [place] [address] Dr. Calixto [place] Glucose [Mass/Vol] 156 mg/dL Critically high 74-106 [facility] Comment on above: Performed By: #### T SH, BNP, CMP, CMADM #### [facility] [address] [place] [address] Dr. Calixto [place] Potassium [Moles/Vol] 4.1 mmol/L Normal 3.5-5.1 [facility] Comment on above: Performed By: #### T SH, BNP, CMP, CMADM #### [facility] [address] [place] [address] Dr. Calixto [place] Protein [Mass/Vol] 7.6 g/dL Normal 6.4-8.2 [facility] Comment on above: Performed By: #### T SH, BNP, CMP, CMADM #### [facility] [address] [address] [address] Calixto [place] Sodium [Moles/Vol] 139 mmol/L Normal 136-145 [facility] Comment on above: Performed By: #### T SH, BNP, CMP, CMADM #### [facility] [address] [address] [address] Calixto [place] Urea nitrogen [Mass/Vol] 19.0 mg/dL Critically high 7.0-18.0 [facility] Comment on above: Performed By: #### T SH, BNP, CMP, CMADM #### [facility] [address] [address] [address] Calixto [place] Urea nitrogen/Creatinine [Mass ratio] 18.8 mg/mg Normal [facility] Comment on above: Performed By: #### T SH, BNP, CMP, CMADM #### [facility] [address] [place] [address] Dr. Calixto West TSHon 09-13-2021 TSH 5.060 uIU/mL Critically high 0.358-3.740 [facility] Comment on above: Performed By: #### T SH, BNP, CMP, CMADM #### [facility] [address] [place] [address] Dr. Calixto West TSH RANGE SEE BELOW Normal [facility] Comment on above: Result Comment: <0.3 4 UIU/ml HYPERTHYROID 0.34-5.60 UIU/ml EUTHYROID >5.60 UIU/ml HYPOTHYROID Performed By: #### T SH, BNP, CMP, CMADM #### [facility] [address] [place] [address] Dr. Calixto [place] BLOOD CULTURE ID/SENSon [id number] Aerobe ID + Suscept Final report Abnormal [facility] Comment on above: Performed By: #### C MP, LIPID #### [facility] [address] [place] [address] Dr. Calixto [place] Antimicrobial Susceptibility Comment Normal [facility] Comment on above: Result Comment: S = Susceptible; I = Intermediate; R = Resistant P = Positive; N = Negative MICS are expressed in micrograms per mL Antibiotic RSLT#1 RSLT#2 RSLT#3 RSLT#4 Ciprofloxacin S Clindamycin S Erythromycin S Gentamicin S Levofloxacin S Moxifloxacin S Oxacillin S Penicillin R Rifampin S Tetracycline S Trimethoprim/Sulfa S Vancomycin S Performed By: #### C MP, LIPID #### [facility] [address] [place] [address] Dr. Calixto [place] Result 1 Comment Abnormal [facility] Comment on above: Result Comment: Stap [...] Performed By: #### C MP, LIPID #### [facility] [address] [place] [address] Dr. Calixto [place] BLOOD CULTURE ID PANELon A. baumannii Not detected Normal [facility] Comment on above: Performed By: #### T SH, BNP, CMP, CMADM #### [facility] [address] [place] [address] Dr. Calixto [place] BCID CONTROLS PASSED Normal [facility] Comment on above: Performed By: #### T SH, BNP, CMP, CMADM #### [facility] [address] [place] [address] Dr. Calixto [place] BCIDBTHD BLOOD CULTURE BOTTLE INFORMATION Normal [facility] Comment on above: Performed By: #### T SH, BNP, CMP, CMADM #### [facility] [address] [place] [address] Dr. Calixto [place] BCIDHD1 ANTIMICROBIAL RESISTANCE GENES [facility] Comment on above: Performed By: #### T SH, BNP, CMP, CMADM #### [facility] [address] [place] [address] Dr. Calixto [place] BCIDHD2 SEE BELOW [facility] Comment on above: Result Comment: KPC- carbapenem resistance gene, mecA- methecillin resistance gene, van A/B- vancomycin resistance gene Note: Antimicrobial resitance can occur via multiple mechanisms. A Not Detected result for the Film[employer] antomicrobial resistance gene assays does not indicate antimicrobial susceptibility. Subculturing is required for specis identificationand susceptibility testing of isolates. Performed By: #### T SH, BNP, CMP, CMADM #### [facility] [address] [place] [address] Dr. Calixto West BCIDHD3 Positive [facility] Comment on above: Performed By: #### T SH, BNP, CMP, CMADM #### [facility] [address] [place] [address] Dr. Calixto [place] BCIDHD4 Negative [facility] Comment on above: Performed By: #### T SH, BNP, CMP, CMADM #### [facility] [address] [place] [address] Dr. Calixto [place] BCIDHD5 YEAST [facility] Comment on above: Performed By: #### T SH, BNP, CMP, CMADM #### [facility] [address] [place] [address] Dr. Calixto [place] BCIDHD6 SEE BELOW [facility] Comment on above: Result Comment: Note : All genus and species BCID Film[employer] results will be verified post subculturing via Maldi-Tof MS testing methodology. Performed By: #### T SH, BNP, CMP, CMADM #### [facility] [address] [place] [address] Dr. Calixto West Bottle Set: Set 1 [facility] Comment on above: Performed By: #### T SH, BNP, CMP, CMADM #### [facility] [address] [place] [address] Dr. Calixto [place] Bottle: Anaerobic Normal [facility] Comment on above: Performed By: #### T SH, BNP, CMP, CMADM #### [facility] [address] [address] [address] Calixto [place] Asia albicans Not detected Normal [facility] Comment on above: Performed By: #### T SH, BNP, CMP, CMADM #### [facility] [address] [address] [address] Calixto [place] Asia glabrata Not detected Normal [facility] Comment on above: Performed By: #### T SH, BNP, CMP, CMADM #### [facility] [address] [address] [address] Calixto [place] Asia Krusei Not detected Normal [facility] Comment on above: Performed By: #### T SH, BNP, CMP, CMADM #### [facility] [address] [address] [address] Calixto [place] Asia Parapsilosis Not detected Normal [facility] Comment on above: Performed By: #### T SH, BNP, CMP, CMADM #### [facility] [address] [address] [address] Calixto [place] Asia Tropicalis Not detected Normal [facility] Comment on above: Performed By: #### T SH, BNP, CMP, CMADM #### [facility] [address] [place] [address] Dr. Calixto [place] E. Cloacae complex Not detected Normal [facility] Comment on above: Performed By: #### T SH, BNP, CMP, CMADM #### [facility] [address] [address] [address] [place]xto [place] Enterobacteriaceae Not detected Normal [facility] Comment on above: Performed By: #### T SH, BNP, CMP, CMADM #### [facility] [address] [place] [address] Dr. [place]o [place] Enterococcus Not detected Normal [facility] Comment on above: Performed By: #### T SH, BNP, CMP, CMADM #### [facility] [address] [place] [address] Dr. Calixto [place] Escheria coli Not detected Normal [facility] Comment on above: Performed By: #### T SH, BNP, CMP, CMADM #### [facility] [address] [place] [address] Dr. Calixto [place] K. oxytoca Not detected Normal [facility] Comment on above: Performed By: #### T SH, BNP, CMP, CMADM #### [facility] [address] [place] [address] Dr. [place]o [place] K. pneumoniae Not detected Normal [facility] Comment on above: Performed By: #### T SH, BNP, CMP, CMADM #### [facility] [address] [place] [address] Dr. Calixto [place] KPC Resistant Gene Not Applicable Normal [facility] Comment on above: Performed By: #### T SH, BNP, CMP, CMADM #### [facility] [address] [place] [address] Dr. Calixto [place] List. monocytogenes Not detected Normal [facility] Comment on above: Performed By: #### T SH, BNP, CMP, CMADM #### [facility] [address] [place] [address] Dr. [place]ixto [place] mecA Resistant Gene Not detected Normal [facility] Comment on above: Performed By: #### T SH, BNP, CMP, CMADM #### [facility] [address] [place] [address] Dr. [place]xto [place] Proteus Not detected Normal [facility] Comment on above: Performed By: #### T SH, BNP, CMP, CMADM #### [facility] [address] [place] [address] Dr. [place]ixto [place] Pseud. aeruginosa Not detected Normal [facility] Comment on above: Performed By: #### T SH, BNP, CMP, CMADM #### [facility] [address] [place] [address] Dr. [place]o [place] Seratia marcescens Not detected Normal [facility] Comment on above: Performed By: #### T SH, BNP, CMP, CMADM #### [facility] [address] [address] [address] Calixto [place] Site: ac Normal [facility] Comment on above: Performed By: #### T SH, BNP, CMP, CMADM #### [facility] [address] [address] [address] [place]o [place] Staph. aureus Detected Critically abnormal [facility] Comment on above: Performed By: #### T SH, BNP, CMP, CMADM #### [facility] [address] [address] [address] [place]o [place] Staphylococcus Not detected Normal [facility] Comment on above: Performed By: #### T SH, BNP, CMP, CMADM #### [facility] [address] [address] [address] [place]o [place] Strep. agalactiae Not detected Normal [facility] Comment on above: Performed By: #### T SH, BNP, CMP, CMADM #### [facility] [address] [address] [address] [place] Strep. pneumoniae Not detected Normal [facility] Comment on above: Performed By: #### T SH, BNP, CMP, CMADM #### [facility] [address] [address] [address] [place] Strep. pyogenes Not detected Normal [facility] Comment on above: Performed By: #### T SH, BNP, CMP, CMADM #### [facility] [address] [address] [address] [place]o [place] Streptococcus Not detected Normal [facility] Comment on above: Performed By: #### T SH, BNP, CMP, CMADM #### [facility] [address] [address] [address] Calixto [place] Dixie/B Resist. Gene Not Applicable Normal [facility] Comment on above: Performed By: #### T SH, BNP, CMP, CMADM #### [facility] [address] [address] [address] [place] [facility] MODE NASAL CANNULA Normal [facility] Comment on above: Performed By: #### T SH, BNP, CMP, CMADM #### [facility] [address] [address] [address] Calixto VALENTINE TEST Positive [facility] Comment on above: Performed By: #### T SH, BNP, CMP, CMADM #### [facility] [address] [address] [address] Calixto [place] Base excess Calc (Bld) [Moles/Vol] 2.2 mmol/L Critically high -2.0-2.0 [facility] Comment on above: Performed By: #### T SH, BNP, CMP, CMADM #### [facility] [address] [address] [address] [place]ixto [place] BIPAP PRESSURE [facility] Comment on above: Performed By: #### T SH, BNP, CMP, CMADM #### [facility] [address] [address] [address] [place]xto [place] CO2 [Moles/Vol] 52.2 mmol/L Critically high 23.0-28.0 [facility] Comment on above: Performed By: #### T SH, BNP, CMP, CMADM #### [facility] [address] [address] [address] [place]ixto [place] CPAP [facility] Comment on above: Performed By: #### T SH, BNP, CMP, CMADM #### [facility] [address] [address] [address] Calixto [place] FIO2 [facility] Comment on above: Performed By: #### T SH, BNP, CMP, CMADM #### [facility] [address] [address] [address] [place]ixto [place] HCO3 (Bld) [Moles/Vol] 25.9 mmol/L Normal 22.0-26.0 [facility] Comment on above: Performed By: #### T SH, BNP, CMP, CMADM #### [facility] [address] [address] [address] Calixto [place] LPM 3 [facility] Comment on above: Performed By: #### T SH, BNP, CMP, CMADM #### [facility] [address] [address] [address] [place]ixto [place] MINUTE VOLUME Normal [facility] Comment on above: Performed By: #### T SH, BNP, CMP, CMADM #### [facility] [address] [address] [address] Calixto [place] Oxygen (Bld) [Partial pressure] 57.9 mm[Hg] Critically low 80.0-100.0 [facility] Comment on above: Performed By: #### T SH, BNP, CMP, CMADM #### [facility] [address] [address] [address] Calixto [place] Oxygen saturation in Blood 91.4 % Critically low 95.0-100.0 [facility] Comment on above: Performed By: #### T SH, BNP, CMP, CMADM #### [facility] [address] [address] [address] Calixto [place] PCO2 41.2 mmHg Normal 35.0-45.0 [facility] Comment on above: Performed By: #### T SH, BNP, CMP, CMADM #### [facility] [address] [address] [address] Calixto West [facility] Comment on above: Performed By: #### T SH, BNP, CMP, CMADM #### [facility] [address] [address] [address] Calixto [place] pH (Bld) 7.420 [pH] Normal 7.350-7.450 [facility] Comment on above: Performed By: #### T SH, BNP, CMP, CMADM #### [facility] [address] [address] [address] Calixto West [facility] Comment on above: Performed By: #### T SH, BNP, CMP, CMADM #### [facility] [address] [address] [address] Calixto [place] [facility] Comment on above: Performed By: #### T SH, BNP, CMP, CMADM #### [facility] [address] [address] [address] Calixto [place] PUNCTURE SITE LR Normal [facility] Comment on above: Performed By: #### T SH, BNP, CMP, CMADM #### [facility] [address] [place] [address] Dr. Calixto [place] [facility] Comment on above: Performed By: #### T SH, BNP, CMP, CMADM #### [facility] [address] [address] [address] Calixto West VENT MODE [facility] Comment on above: Performed By: #### T SH, BNP, CMP, CMADM #### [facility] [address] [place] [address] Dr. Calixto West [facility] Comment on above: Performed By: #### T SH, BNP, CMP, CMADM #### [facility] [address] [place] [address] Dr. Calixto [place] BNPon 08-17-2021 Natriuretic peptide B (Bld) [Mass/Vol] 1786.0 pg/mL Critically high <=900.0 [facility] Comment on above: Performed By: #### T SH, BNP, CMP, CMADM #### [facility] [address] [place] [address] Dr. [place]xto [place] CARDIAC GARCÍA ADMITon 022 CK [Catalytic activity/Vol] 113 U/L Normal 39-308 [facility] Comment on above: Performed By: #### T SH, BNP, CMP, CMADM #### [facility] [address] [place] [address] Dr. Calixto [place] CK.MB [Mass/Vol] 1.62 ng/mL Normal <=3.60 [facility] Comment on above: Performed By: #### T SH, BNP, CMP, CMADM #### [facility] [address] [place] [address] Dr. Calixto [place] HSTROP 67.5 pg/mL Normal 4.0-76.1 [facility] Comment on above: Result Comment: CUT- OFF POINTS HAVE BEEN ESTABLISHED BASED ON THE FOURTH UNIVERSAL DEFINITIONS OF MYOCARDIAL INFARCTION. THE UPPER REFERENCE LIMIT (URL) OF TROPONIN, DEFINED THE 99TH PERCENTILE OF cTnI DISTRIBUTION IN A REFERENCE POPULATION, HAS BEEN CONFIRMED THE DECISION THRESHOLD FOR NM DIAGNOSIS. Performed By: #### T SH, BNP, CMP, CMADM #### [facility] [address] [place] [address] Dr. Calixto [place] PATRICIA 52 ng/mL Normal 16-96 [facility] Comment on above: Performed By: #### T SH, BNP, CMP, CMADM #### [facility] [address] [place] [address] Dr. Calixto [place] CBC AUTO DIFFon 08-17-2021 BASO # 0.0 103/ul Normal 0.0-0.1 [facility] Comment on above: Performed By: #### C MP, LIPID #### [facility] [address] [place] [address] Dr. Calixto [place] Basophils/100 WBC (Bld) 0.3 % Normal 0.2-2.0 [facility] Comment on above: Performed By: #### C MP, LIPID #### [facility] [address] [place] [address] Dr. Calixto [place] EO # 0.1 103/ul Normal 0.0-0.7 [facility] Comment on above: Performed By: #### C MP, LIPID #### [facility] [address] [place] [address] Dr. Calixto [place] Eosinophils/100 WBC (Bld) 0.8 % Critically low 0.9-7.0 [facility] Comment on above: Performed By: #### C MP, LIPID #### [facility] [address] [place] [address] Dr. Calixto [place] Erythrocyte distribution width (RBC) [Ratio] 13.3 % Normal 11.0-15.0 [facility] Comment on above: Performed By: #### C MP, LIPID #### [facility] [address] [place] [address] Dr. Calixto [place] Hematocrit (Bld) [Volume fraction] 43.7 % Normal 42.0-54.0 [facility] Comment on above: Performed By: #### C MP, LIPID #### [facility] [address] [address] [address] Calixto [place] Hemoglobin (Bld) [Mass/Vol] 15.0 g/dL Normal 14.0-18.0 [facility] Comment on above: Performed By: #### C MP, LIPID #### [facility] [address] [address] [address] Calixto [place] IG # 0.05 10e3/ul Critically high 0.00-0.03 [facility] Comment on above: Performed By: #### C MP, LIPID #### [facility] [address] [place] [address] Dr. Calixto [place] IG % 0.4 % Normal 0.0-0.5 [facility] Comment on above: Performed By: #### C MP, LIPID #### [facility] [address] [place] [address] Dr. Calixto [place] LYMPH # 2.8 103/ul Normal 1.2-3.8 [facility] Comment on above: Performed By: #### C MP, LIPID #### [facility] [address] [place] [address] Dr. Calixto [place] Lymphocytes/100 WBC (Bld) 23.4 % Normal 20.5-60.0 [facility] Comment on above: Performed By: #### C MP, LIPID #### [facility] [address] [place] [address] Dr. Calixto [place] MANUAL DIFF REQ NO Normal [facility] Comment on above: Performed By: #### C MP, LIPID #### [facility] [address] [place] [address] Dr. Calixto West MCH (RBC) [Entitic mass] 31.3 pg Normal 25.9-34.0 [facility] Comment on above: Performed By: #### C MP, LIPID #### [facility] [address] [place] [address] Dr. Calixto West MCHC (RBC) [Mass/Vol] 34.3 g/dL Normal 29.9-35.2 [facility] Comment on above: Performed By: #### C MP, LIPID #### [facility] [address] [address] [address] Calixto West MCV (RBC) [Entitic vol] 91.2 fL Normal 80.0-94.0 [facility] Comment on above: Performed By: #### C MP, LIPID #### [facility] [address] [place] [address] Dr. Calixto West MONO # 0.5 103/ul Normal 0.3-0.8 [facility] Comment on above: Performed By: #### C MP, LIPID #### [facility] [address] [place] [address] Dr. Calixto West Monocytes/100 WBC (Bld) 4.5 % Normal 1.7-12.0 [facility] Comment on above: Performed By: #### C MP, LIPID #### [facility] [address] [place] [address] Dr. Calixto West NEUT # 8.4 103/ul Critically high 1.4-6.5 [facility] Comment on above: Performed By: #### C MP, LIPID #### [facility] [address] [place] [address] Dr. Calixto West Neutrophils/100 WBC (Bld) 70.6 % Normal 43.0-75.0 [facility] Comment on above: Performed By: #### C MP, LIPID #### [facility] [address] [place] [address] Dr. Calixto West Platelet mean volume (Bld) [Entitic vol] 9.2 fL Critically low 9.5-13.5 [facility] Comment on above: Performed By: #### C MP, LIPID #### [facility] [address] [place] [address] Dr. Calixto West PLT 351 103/ul Normal 150-450 [facility] Comment on above: Performed By: #### C MP, LIPID #### [facility] [address] [place] [address] Dr. Calixto West RBC 4.79 106/ul Normal 4.70-6.10 [facility] Comment on above: Performed By: #### C MP, LIPID #### [facility] [address] [place], [place] [address] Dr. Calixto West WBC 11.9 103/ul Critically high 4.0-11.0 [facility] Comment on above: Performed By: #### C MP, LIPID #### [facility] [address] [place], [place] [address] HEAD WO CONon [...] KIERSTEN [place] Date: 2021-08-17 12:29 Normal [facility] CTA CHEST WO W CONon 2 [...] by: FELICITY MCGRATH Date: 2021-08-17 13:26 Normal [facility] CULTURE BLOODon 08-17-2021 Microscopic examination of blood, culture Culture Observations: NO GROWTH AT 5 DAYS. Normal [facility] Comment on above: Performed By: #### C MP, LIPID #### [facility] [address] [place] [address] Dr. Calixto West Microscopic examination of blood, culture Culture Observations: NO GROWTH AT 5 DAYS IN ANAEROBIC BOTTLE. Culture Observations: POS AEROBIC BOTTLE SENT TO [facility]. Normal [facility] Comment on above: Performed By: #### C MP, LIPID #### [facility] [address] [place] [address] Dr. Calixto West Covid-19 PCR (CVDTB)on 07-22 SARS-CoV-2 (COVID-19) RNA PATSY+probe Ql (Unsp spec) Not detected Normal NOT DETECTED [facility] Comment on above: Result Comment: When diagnostic testing is negative, the possibility of a false negative should be considered in the context of a patient's recent exposures and the presence of clinical signs and symptoms consistent with SARS-CoV-2. This test is not yet approved or cleared by the [place] Food and Drug Administration (FDA). This test was developed by [employer], [place], [place]. The performance characteristics of this test were validated by The [facility]. The results are not intended to be used as the sole means for clinical diagnosis or patient management decisions. The [facility] is authorized under Clinical Laboratory Improvement [...] for this test is supported by the [employer] of Health and Human Service's declaration that [...] #### T SH, BNP, CMP, CMADM #### [facility] [address] [place] [address] Dr. Calixto West D-DIMERon 08-17-2021 D-DIMER 2.62 mg/L FEU Critically high 0.19-0.50 [facility] Comment on above: Performed By: #### P TT, PT, DDIM #### [facility] [address] [place] [address] Dr. Calixto West D-DIMER COMMENTS SEE BELOW Normal [facility] Comment on above: Result Comment: Incr [...] By: #### P TT, PT, DDIM #### [facility] [address] [place] [address] Dr. Calixto West LACTATE/LACTIC ACIDon 2021 Lactate [Moles/Vol] 2.7 mmol/L Critically high 0.4-2.0 [facility] Comment on above: Performed By: #### T SH, BNP, CMP, CMADM #### [facility] [address] [place] [address] Dr. Calixto West PROF 14(COMP METB)on Albumin [Mass/Vol] 3.4 g/dL Normal 3.4-5.0 [facility] Comment on above: Performed By: #### T SH, BNP, CMP, CMADM #### [facility] [address] [address] [address] Calixto West Albumin/Globulin [Mass ratio] 0.9 {ratio} Normal [facility] Comment on above: Performed By: #### T SH, BNP, CMP, CMADM #### [facility] [address] [place] [address] Dr. Calixto West ALP [Catalytic activity/Vol] 72 U/L Normal 46-116 [facility] Comment on above: Performed By: #### T SH, BNP, CMP, CMADM #### [facility] [address] [place] [address] Dr. Calixto West ALT [Catalytic activity/Vol] 74 U/L Critically high 16-63 [facility] Comment on above: Performed By: #### T SH, BNP, CMP, CMADM #### [facility] [address] [place] [address] Dr. Calixto West Anion gap [Moles/Vol] 13.8 mmol/L Normal [facility] Comment on above: Performed By: #### T SH, BNP, CMP, CMADM #### [facility] [address] [place] [address] Dr. Calixto West AST [Catalytic activity/Vol] 53 U/L Critically high 15-37 [facility] Comment on above: Performed By: #### T SH, BNP, CMP, CMADM #### [facility] [address] [address] [address] Calixto West Bilirubin [Mass/Vol] 0.4 mg/dL Normal 0.2-1.0 [facility] Comment on above: Performed By: #### T SH, BNP, CMP, CMADM #### [facility] [address] [place] [address] Dr. Calixto West Calcium [Mass/Vol] 8.2 mg/dL Critically low 8.5-10.1 [facility] Comment on above: Performed By: #### T SH, BNP, CMP, CMADM #### [facility] [address] [address] [address] Calixto West Chloride [Moles/Vol] 101 mmol/L Normal 98-107 [facility] Comment on above: Performed By: #### T SH, BNP, CMP, CMADM #### [facility] [address] [address] [address] Calixto West CO2 [Moles/Vol] 25.6 mmol/L Normal 21.0-32.0 [facility] Comment on above: Performed By: #### T SH, BNP, CMP, CMADM #### [facility] [address] [address] [address] Calixto West Creatinine [Mass/Vol] 1.13 mg/dL Normal 0.70-1.30 [facility] Comment on above: Performed By: #### T SH, BNP, CMP, CMADM #### [facility] [address] [address] [address] Calixto West EGFR-AF ENGLISH >60 Normal >=60 [facility] Comment on above: Performed By: #### T SH, BNP, CMP, CMADM #### [facility] [address] [address] [address] Calixto West EGFR-NON AF ENGLISH >60 Normal >=60 [facility] Comment on above: Performed By: #### T SH, BNP, CMP, CMADM #### [facility] [address] [address] [address] Calixto West Globulin (S) [Mass/Vol] 3.8 g/dL Normal [facility] Comment on above: Performed By: #### T SH, BNP, CMP, CMADM #### [facility] [address] [address] [address] Calixto West Glucose [Mass/Vol] 198 mg/dL Critically high 74-106 [facility] Comment on above: Performed By: #### T SH, BNP, CMP, CMADM #### [facility] [address] [address] [address] Calixto West Potassium [Moles/Vol] 4.4 mmol/L Normal 3.5-5.1 [facility] Comment on above: Performed By: #### T SH, BNP, CMP, CMADM #### [facility] [address] [place] [address] Dr. Calixto West Protein [Mass/Vol] 7.2 g/dL Normal 6.1-8.2 [facility] Comment on above: Performed By: #### T SH, BNP, CMP, CMADM #### [facility] [address] [place] [address] Dr. Calixto West Sodium [Moles/Vol] 136 mmol/L Normal 136-145 [facility] Comment on above: Performed By: #### T SH, BNP, CMP, CMADM #### [facility] [address] [place] [address] Dr. Calixto West Urea nitrogen [Mass/Vol] 14.0 mg/dL Normal 7.0-18.0 [facility] Comment on above: Performed By: #### T SH, BNP, CMP, CMADM #### [facility] [address] [place] [address] Dr. Calixto West Urea nitrogen/Creatinine [Mass ratio] 12.4 mg/mg Normal [facility] Comment on above: Performed By: #### T SH, BNP, CMP, CMADM #### [facility] [address] [place] [address] Dr. Calixto West PROTIMEon 08-17-2021 INR Coag (PPP) [Relative time] 0.98 {INR} Normal [facility] Comment on above: Performed By: #### P TT, PT, DDIM #### [facility] [address] [place] [address] Dr. Calixto West INR GUIDELINES SEE BELOW Normal The [facility] Comment on above: Result Comment: ANTELMO RED INR: 2.0 - 3.0 CONDITIONS NOT LISTED BELOW 2.5 - 3.5 FOR PROSTHETIC HEART VALVE REPLACEMENT 2.5 - 3.5 RECURRENT THROMBOSIS Performed By: #### P TT, PT, DDIM #### [facility] [address] [place] [address] Dr. Calixto West PT Coag (PPP) [Time] 10.6 s Normal 9.0-11.6 [facility] Comment on above: Performed By: #### P TT, PT, DDIM #### [facility] [address] [place] [address] Dr. Calixto West PTTon 08-17-2021 aPTT Coag (Bld) [Time] 24.9 s Normal 22.3-36.2 Th [facility] Comment on above: Performed By: #### P TT, PT, DDIM #### [facility] [address] [place] [address] Dr. Calixto West TSHon 08-17-2021 TSH 5.288 uIU/mL Critically high 0.470-4.680 [facility] Comment on above: Performed By: #### T SH, BNP, CMP, CMADM #### [facility] [address] [place] [address] Dr. Calixto West TSH RANGE SEE BELOW Normal [facility] Comment on above: Result Comment: <0.3 4 UIU/ml HYPERTHYROID 0.34-5.60 UIU/ml EUTHYROID >5.60 UIU/ml HYPOTHYROID Performed By: #### T SH, BNP, CMP, CMADM #### [facility] [address] [place] [address] Dr. Calixto West XR CHEST 1 Von [...] by: BETTY HOLT Date: 2021-08-17 12:18 Normal [facility] Vital Signs Date Time Vital Sign Value Performing Clinician Delma nichols 08-07-2022 17:00-0400 Body height 175.26 cm Blade Wright Other [employer] Other 08-07-2022 17:00-0400 Body mass index (BMI) [Ratio] 43.41 kg/m2 Christwilberer Adriana Other [employer] Other 08-07-2022 17:00-0400 Body temperature 97.8 [degF] Christopher Adriana Other [employer] Other 08-07-2022 17:00-0400 Body weight 133.36 kg Christopher Adriana Other [employer] Other 08-07-2022 17:00-0400 Diastolic blood pressure 64 mm[Hg] Christwilberer Adriana Other [employer] Other 08-07-2022 17:00-0400 Respiratory rate 20 /min Dinesher Adriana Other [employer] Other 08-07-2022 17:00-0400 SaO2% (BldA) [Mass fraction] 96 % Christwilberer Adriana Other [employer] Other 08-07-2022 17:00-0400 Systolic blood pressure 138 mm[Hg] Dinesher Adriana Other [employer] Other 01-08-2022 11:30-0400 Body height 175.26 cm Christwilberer Adriana Other [employer] Other 01-08-2022 11:30-0400 Body mass index (BMI) [Ratio] 46.51 kg/m2 Christopher Adriana Other [employer] Other 01-08-2022 11:30-0400 Body temperature 98.2 [degF] Dinesher Adriana Other [employer] Other 01-08-2022 11:30-0400 Body weight 142.88 kg Blade Shortno Other [employer] Other 01-08-2022 11:30-0400 Diastolic blood pressure 86 mm[Hg] Blade Hewittdano Other [employer] Other 01-08-2022 11:30-0400 Respiratory rate 20 /min Blade Hewittdano Other [employer] Other 01-08-2022 11:30-0400 SaO2% (BldA) [Mass fraction] 94 % lBade Hewittdano Other [employer] Other 01-08-2022 11:30-0400 Systolic blood pressure 148 mm[Hg] Blade Hewittdano Other [employer] Other Encounters Encounter Date Encounter Type Care Provider Facility Start: 04-06-2024 End: 04-07-2024 ambulatory [facility] Start: 07-26-2023 End: 07-26-2023 ambulatory [facility] Start: 08-07-2022 End: 08-07-2022 ambulatory Blade Wright Other [employer] Other Start: 08-07-2022 Office outpatient visit 15 minutes Blade Wright [facility] Start: 06-18-2022 End: 06-18-2022 ambulatory Blade Wright Facility:[facility] Start: 06-18-2022 End: 06-18-2022 ambulatory MD Linden Nair Work Phone: [facility] Work Phone: Start: 06-18-2022 End: 06-18-2022 Patient encounter procedure MD Linden Nair Work Phone: [facility] Work Phone: Start: 04-25-[address] SHONNA WOODALL Fac ility:[facility] Start: 04-20-2022 End: 04-21-[address] DOCTOR SELLERS Facility:[facility] Start: 03-30-2022 End: 03-31-[address] SHONNA WOODALL Facility:[facility] Start: 01-23-2022 End: 01-24-[address] DOCTOR SELLERS Facility:[facility] Start: 01-12-2022 End: 01-13-[address] SHONNA WOODALL Facility:[facility] Start: 01-08-2022 End: 01-08-2022 ambulatory Blade Wright Other [employer] Other Start: 01-08-2022 Office outpatient ne w 45 minutes Blade Wright [facility] Start: 12-20-[address] LINDEN NAIR . Facili ty:[facility] Start: 12-19-2021 End: 12-20-[address] LINDEN NAIR . Facility:[facility] Start: 10-24-2021 End: 10-25-[address] LINDEN NARI . Facility:[facility] Start: 10-16-2021 End: 10-17-[address] LINDEN NAIR . Facility:[facility] Start: 09-13-2021 End: 09-14-[address] LINDEN NAIR . Facility:[facility] Start: 08-17-2021 End: 08-17-[address] FELICITY MCGRATH Facility:[facility] Procedures Date Procedure Procedure Detail Performing Clinician Start: 12-19-[address] ABRAM NAIR . Comment on above: Performed By: #### T SH, BNP, CMP, CMADM #### [facility] [address] [place] [address] Dr. Calixto West Payers Date Payer Category Payer Medicare [id number] 2022 Self-pay 1960 Unknown [id number]. 593 1960 Unknown [id number] 2.16.840.1.264050.3.579.2. 593 1959 Unknown [id number] 2.16.840.1.491187.3.579.2. 593 1959 Unknown [id number] 2.16.840.1.430760.3.579.2. 593 1959 Unknown [id number] 2.16.840.1.013416.3.579.2. 593 1959 Unknown [id number] 2.16.840.1.918902.3.579.2. 593 1959 Unknown [id number] 2.16.840.1.492528.3.579.2. 593 1959 Unknown [id number] 2.16.840.1.593529.3.579.2. 593 1959 Unknown [id number] 2.16.840.1.276102.3.579.2. 593 1959 Unknown [id number] 2.16.840.1.986780.3.579.2. 593 1959 Unknown [id number] 2.16.840.1.226684.3.579.2. 593 1960 Medicare [id number] [id number] 1960 Private Health Insurance [id number] Medicare MMO MCR Adv PFFS [id number] Medicare [id number] Private Health Insurance [facility] MCR PFFS [id number] Unknown MMO [employer] [id number] Unknown Regular Insurance [id number] Unknown [id number] [id number]. 531 Social History Date Type Detail Facility Sex Assigned At [employer] Other Start: 1960 Sex Assigned At Male F [facility] Progress note 04-06-2024 Note Date & Type Note Facility 04-06-2024 Note [place] [facility] Subjective Cecil Mcrae is a 63 y.o. year old male patient being seen for CAD, chronic diastolic heart failure, hypertension, and hyperlipidemia. Denies chest pain, SOB, lightheadedness/syncope, and bleeding on Eliquis. Patient Active Problem List Diagnosis History of pulmonary embolism Factor 5 Leiden mutation, heterozygous (CMS/HCC) Chronic diastolic congestive heart failure (CMS/HCC) Coronary artery disease involving [place] coronary artery of [place] heart without angina pectoris Primary hypertension Abnormal [...] with mild exertion. He was admitted to [facility] with pulmonary embolism and then transferred to [facility] [place] [facility] and underwent catheter directed lysis [...] No murmur h (more content not included)... [facility] Progress note 07-26-2023 Note Date & Type Note Facility 07-26-2023 Note [place] [facility] Subjective Cecil Mcrae is a 62 y.o. year old male patient being seen for Follow-up (Yearly follow up) Patient Active Problem List Diagnosis History of pulmonary embolism Factor 5 Leiden mutation, heterozygous (CMS/HCC) Chronic diastolic congestive heart failure (CMS/HCC) Coronary artery disease involving [place] coronary artery of [place] heart without angina pectoris Primary hypertension Abnormal [...] with mild exertion. He was admitted to [facility] with pulmonary embolism and then transferred to [facility] [place] [facility] and underwent catheter directed lysis [...] normal. Behavior: Behavior (more content not included)... [facility] Evaluation note 08-07-2022 Note Date & Type Note Facility 08-07-2022 Evaluation note Encounter Date Diagnosis Assessment Notes Jul, Obstructive sleep apnea (ICD-10 - G47.33) Jul, Pulmonary embolism (ICD-10 - I26.99) [facility] [employer] Other Evaluation note 01-08-2022 Note Date & Type Note Facility 01-08-2022 Evaluation note Encounter Date Diagnosis Assessment Notes Dec, Obstructive sleep apnea (ICD-10 - G47.33) Dec, Pulmonary embolism (ICD-10 - I26.99) [facility] [employer] Other Evaluation note Note Date & Type Note Facility Evaluation note No assessment information availa [facility] Work Phone: History general Narrative - Reported Note Date & Type Note Facility History general Narrative - Reported Type Medical History sleep apnea Medical History Atrial fibrillation Medical History hypertension Surgical History splenectomy 1962 Surgical History spinal fusion Hospitalization History pulmonary embolism [facility] [employer] Other History general Narrative - Reported Note Date & Type Note Facility History general Narrative - Reported Type Medical History sleep apnea Medical History Atrial fibrillation Medical History hypertension Medical History YOBANI Surgical History splenectomy 1962 Surgical History spinal fusion Surgical History Heart catherization with stent put in 01/2022 Hospitalization History pulmonary embolism [employer] Other Summary Purpose Family History No Family [...] section and content) DATE CREATED AUTHOR 12/18/2021 [facility] DATE CREATED AUTHOR AUTHOR'S ORGANIZ ATION 06/22/2022 [facility] DATE CREATED AUTHOR AUTHOR'S ORGANIZ ATION 07/24/2022 [facility] DATE CREATED AUTHOR AUTHOR'S ORGANIZ ATION 04/08/2024 [facility] REASON FOR VISIT (unrecogniz ed section and [...] BE BASED ON THE PRIMARY CLINICAL RECORDS. [employer] [facility] provides no warranty or guarantee of the accuracy or completeness of information in this document.
== END 2024-06-23 13:42 | disposition home or self-care (01) ==
LOC: MRI 13:41
PROVIDERS: PCP Family Medicine; Visit Provider Orthopaedic Surgery Orthopaedic Surgery of the Spine
DX: Z47.89 Encounter for other orthopedic aftercare (principal); M51.369 Other intervertebral disc degeneration, lumbar region without mention of lumbar back pain or lower extremity pain
CPT/HCPCS: 72148

== ENCOUNTER 2024-08-12 12:57 | Outpatient (OUT) | payer MEDICARE, SELFPAY ==
--- NOTE | 2024-08-12 13:06 | ECG_ITS ---
[facility] Test Date: 2024-08-12 Pat Name: CECIL HAMMOND Department: Room: - Gender: Male Medical Record Technician: : 1960 Requested By: [id number] Order Number: [id number] Reading MD: SHONNA WOODALL M.D. Measurements Intervals [place] Rate: 71 P: 51 [place]: 174 QRS: 2 QRSD: 113 T: 52 QT: 380 QTc: 414 Interpretive Statements SINUS RHYTHM WITH FREQUENT VENTRICULAR PREMATURE COMPLEXES IN A BIGEMINAL PATTERN LOW QRS VOLTAGE IN PRECORDIAL LEADS [QRS DEFLECTION < 1.0 mV IN CHEST LEADS] POSSIBLE ANTERIOR MYOCARDIAL INFARCTION [30 ms Q WAVE IN V3/V4, OR R < 0.2 mV IN V4], OF INDETERMINATE AGE Compared to ECG 08/17/2021 11:08:02 Ventricular premature complex(es) now present Possible ischemia no longer present Myocardial infarct finding still present Electronically Signed On 08-12-2024 17:54:41 EDT by SHONNA WOODALL M.D.
--- NOTE | 2024-08-12 13:30 | XR_ITS ---
[address] [address] Patient Name: CECIL HAMMOND MRN: [id number] date: 1960 Sex: M Assigned Patient Location: CARD Current Patient Location: CARD Accession/Order Number: [id number] Exam Date: 08/12/2024 13:58 Report Date: 08/12/2024 13:58 At the request of: YARIEL CABAN MD Procedure: XR chest 2V Plain film chest 2 view HISTORY: Presurgical evaluation COMPARISON: None FINDINGS: SUPPORT DEVICES: None POSTSURGICAL CHANGES: None HEART: Within normal limits PULMONARY MIRTHA: Within normal limits MEDIASTINUM: Unremarkable LUNGS AND PLEURA: No acute lung process, pleural effusion or pneumothorax identified. BONY STRUCTURES: Intact ADDITIONAL FINDINGS None XR/XR chest 2V IMPRESSION: No acute process. Impression dictated by: Wenceslao Oleary M.D.08/12/2024 1:58 PM Dictation Location: [place] [address] Electronically authenticated by: [id number] Y Date: 08/12/2024 13:58
== END 2024-08-12 12:58 | disposition home or self-care (01) ==
LOC: CARD 12:58
PROVIDERS: PCP Family Medicine; Visit Provider Orthopaedic Surgery Orthopaedic Surgery of the Spine
DX: Z01.810 Encounter for preprocedural cardiovascular examination (principal); M48.062 Spinal stenosis, lumbar region with neurogenic claudication
CPT/HCPCS: 71046; 93005

== ENCOUNTER 2024-08-19 09:59 | Outpatient (OUT) | payer MEDICARE, SELFPAY ==
[2024-08-19 10:27] LABS: Basophils Absolute Auto 0.1 10^3/uL (0.0-0.1); Basophils Percent Auto 0.6 % (0.2-2.0); Eosinophils Absolute Auto 0.2 10^3/uL (0.0-0.7); Eosinophils Percent Auto 1.4 % (0.9-7.0); Hematocrit 45.3 % (42.0-54.0); Hemoglobin 16.6 g/dL (14.0-18.0); Immature Granulocytes Abs Auto 0.08 10^3/uL (0.00-0.03); Immature Granulocytes Pct Auto 0.7 % (0.0-0.5); Lymphocytes Absolute Auto 4.1 10^3/uL (1.2-3.8); Lymphocytes Percent Auto 37.2 % (20.5-60.0); Mean Corpuscular HGB Conc 36.6 g/dL (29.9-35.2); Mean Corpuscular Hemoglobin 33.5 pg (25.9-34.0); Mean Corpuscular Volume 91.5 fL (80.0-94.0); Mean Platelet Volume 9.8 fL (9.5-13.5); Monocytes Absolute Auto 0.8 10^3/uL (0.3-0.8); Monocytes Percent Auto 7.4 % (1.7-12.0); Neutrophils Absolute Auto 5.8 10^3/uL (1.4-6.5); Neutrophils Percent Auto 52.7 % (43.0-75.0); Platelet Count 369 10^3/uL (150-450); Red Blood Count 4.95 10^6/uL (4.70-6.10); White Blood Count 11.1 10^3/uL (4.0-11.0)
[2024-08-19 10:49] LABS: INR 1.04; Partial Thromboplastin Time 29.7 sec (22.3-36.2)
[2024-08-19 11:23] LABS: Anion Gap 16.6; BUN Creatinine Ratio 24.1; Carbon Dioxide 24.3 mmol/L (21.0-32.0); Chloride 106 mmol/L (98-107); Estimated GFR (African America >60 (>=60 mL/min/1.73m^2); Estimated GFR (Non-African Ame >60 (>=60 mL/min/1.73m^2); Glucose 133 mg/dL (74-106); Potassium 3.9 mmol/L (3.5-5.1); Sodium 143 mmol/L (136-145)
[2024-08-19 11:32] LABS: Estimated Average Glucose 126 mg/dL
== END 2024-08-19 10:00 | disposition home or self-care (01) ==
LOC: LAB 10:01
PROVIDERS: PCP Family Medicine; Visit Provider Physician Assistant
DX: Z01.812 Encounter for preprocedural laboratory examination (principal); Z79.01 Long term (current) use of anticoagulants; M48.062 Spinal stenosis, lumbar region with neurogenic claudication; E11.9 Type 2 diabetes mellitus without complications; I10 Essential (primary) hypertension
CPT/HCPCS: 36415; 80048; 83036; 85025; 85610; 85730; 87081

== ENCOUNTER 2025-02-19 10:28 | Outpatient (OUT) | payer MEDICARE, SELFPAY ==
--- OUTSIDE RECORDS SUMMARY | 2025-02-19 10:35 | XMS_ITS | Clinical Summary ---
Author Organization [facility] Address [address] [place] [address] Care Team Providers Care Automobile Mechanic Motor Name Role Phone Unavailable Primary Care Provider Unavailabl e Social History Tobacco UseTypesPacks/DayYears UsedDateSmoking Tobacco: Never AssessedSex and Gender InformationValueDate RecordedSex Assigned at BirthNot on fileLegal Sex Male07/04/2022 8:28 PM EDTGender IdentityNot on fileSexual OrientationNot on file Plan of Treatment Not on file
--- OUTSIDE RECORDS SUMMARY | 2025-02-19 10:35 | XMS_ITS | Clinical Summary ---
Author Organization [facility] Address [address], [address] [place] [address] Care Team Providers Care Research Clerk Name Role Phone Dakotah Nair MD Primary Care Provider [phone] Allergies Active AllergyReactionsCriticalityNoted DateCommentsCodeineAnaphylaxisHigh 08/24/2024 Medications MedicationSigDispense QuantityRefillsLast FilledStart DateEnd DateStatus potassium chloride (KLOR-CON M) 10 MEQ extended release tablet Take 1 tablet by mouth dailyActive Evolocumab (REPATHA SURECLICK SC) Inject 140 mg into the skin every 14 daysActive clopidogrel (PLAVIX) 75 MG tablet Take 1 tablet by mouth dailyActive apixaban (ELIQUIS) 5 MG TABS tablet Take 1 tablet by mouth 2 times dailyActive dapagliflozin (FARXIGA) 10 MG tablet Take 1 tablet by mouth every morningActive furosemide (LASIX) 40 MG tablet Take 1 tablet by mouth dailyActive gabapentin (NEURONTIN) 600 MG tablet Take 1 tablet by mouth 3 times daily.Active metaxalone (SKELAXIN) 800 MG tablet Take 1 tablet by mouth 3 times dailyActive levothyroxine (SYNTHROID) 200 MCG tablet Take 1 tablet by mouth DailyActive metoprolol tartrate (LOPRESSOR) 25 MG tablet Take 1 tablet by mouth 2 times dailyActive mirtazapine (REMERON) 15 MG tablet Take 6 tablets by mouth nightlyActive omeprazole (PRILOSEC) 40 MG delayed release capsule Take 1 capsule by mouth dailyActive vitamin C (ASCORBIC ACID) 500 MG tablet Take 2 tablets by mouth dailyActive zinc gluconate 50 MG tablet Take 1 tablet by mouth dailyActive folic acid (FOLVITE) 400 MCG tablet Take 2.5 tablets by mouth dailyActive Cholecalciferol (VITAMIN D-3 PO) Take 2,000 Int'l Units by mouth dailyActive Active Problems ProblemNoted DateDiagnosed DateLumbar stenosis with neurogenic claudication 09/01/2024 Family History Medical HistoryRelationNameCommentsClotting DisorderFatherClotting Disorder MotherRelationNameStatusCommentsFatherDeceasedMotherAlive Social History Tobacco UseTypesPacks/DayYears UsedDateSmoking Tobacco: FormerCigarettes Smokeless Tobacco: Never Tobacco Cessation:Counseling Given: Not Answered Alcohol UseStandard Drinks/WeekCommentsNot Currently0 (1 standard drink = 0.6 oz pure alcohol)Interpersonal Safety Domain Source: IP Abuse ScreeningAnswerDate RecordedPhysical dtlbuPkcido72/13/2025Verbal aqxtwKtzbag19/13/2025Emotional ooyukFetugh33/13/2025Financial zwaohWqtamu09/13/2025Sexual aiipkSrsofa79/13/2025 Sex and Gender InformationValueDate RecordedSex Assigned at BirthNot on file Legal SivNmir7606/01/2012 6:30 PM ESTGender IdentityNot on fileSexual Orientation Not on file Last Filed Vital Signs Vital SignReadingTime TakenCommentsBlood Tnaqgoqk114/75009/06/2024 12:30 PM EDT Fcyww935509/06/2024 12:30 PM MZDBkblmgcmwfy32.5 ??C (97.7 ??F)09/06/2024 12:30 PM EDTRespiratory Oege491609/06/2024 12:30 PM EDTOxygen Ouycnvxhmw08%09/06/2024 12:30 PM EDTInhaled Oxygen Concentration--Woqlbs722.8 kg (321 lb 6.9 oz)09/01/2024 6:30 PM YSDSomast650.5 cm (5' 9.5 )09/01/2024 11:00 AM EDTBody Mass Index46.79 09/01/2024 11:00 AM EDT Plan of Treatment Health MaintenanceDue DateLast DoneCommentsHib vaccine (1 of 1 - Risk 1-dose series)02/13/1961Meningococcal (ACWY) vaccine (1 - Risk 2-dose series)11/13/1961 Meningococcal B vaccine (1 of 4 - Increased Risk)11/13/1969Depression Screen 1971HIV kfxtgs9011/13/1974Hepatitis C meoeon7711/13/1977DTaP/Tdap/Td vaccine (1 - Tdap)11/13/1978Pneumococcal 50+ years Vaccine (1 of 2 - PCV)11/13/1978 Ykwpyz7211/14/19998258Xlymixkbqcu16/25/2005Colorectal Cancer Ncerpq8011/13/2004FIT/FOBT: Average risk11/13/2004Fecal-DNA (Cologuard): Average risk11/13/2004 Sigmoidoscopy/CT erkqghbkfmol25/25/2005Shingles vaccine (1 of 2)11/13/2009 Respiratory Syncytial Virus (RSV) or age 60 yrs+ (1 - Risk 60-74 years 1-dose series)2019Annual Wellness Visit (Medicare)5AAA screen 11/13/2024Flu vaccine (#1)511/, 01/27/2020, 01/28/2017COVID-19 Vaccine ( - season)2024A1C test (Diabetic or Prediabetic) Diabetes tqqxojZxkqqabdjigy84/15/2025Hepatitis A vaccineAged OutNo longer eligible based on patient's age to complete this topicHepatitis B vaccineAged OutNo longer eligible based on patient's age to complete this topic Polio vaccineAged OutNo longer eligible based on patient's age to complete this topic Medical Devices ImplantedTypeAreaManufacturerDevice IdentifierShelf Expiration DateModel / Serial / LotScrew/Plate/Nail/RodScrew/Plate/Nail/RodN/A: BackStent:Coronary Stent:CoronaryN/A: HeartGraft Bone 4-10mm 30ml Canc Cube - [id number] Implanted:Qty: 1 on 09/01/2024 [facility] Spine LumbarMEDTRONIC SPINALGRAFT TECH-WD09/08/2028 [id number] / / Set Screw 5.5-6.0 - [id number] Implanted:Qty: 8 on 09/01/2024 [facility]: Spine LumbarSURGALIGN SPINE TECHNOLOGIES INC [id number] / / Screw Poly Solid 7.5x45 - [id number] Implanted:Qty: 2 on 09/01/2024 [facility]: Spine LumbarSURGALIGN SPINE TECHNOLOGIES INC [id number] / / Screw Poly Solid 7.5x50 - [id number] Implanted:Qty: 6 on 09/01/2024 by [facility]: Spine LumbarSURGALIGN SPINE TECHNOLOGIES INC [id number] / / Dickson Ti Prebent 5.5x100 - [id number] Implanted:Qty: 2 on 09/01/2024 by [facility]: Spine LumbarSURGALIGN SPINE TECHNOLOGIES INC [id number] / / Connector Spnl M Streamline Tl Davon X Link - [id number] Implanted:Qty: 1 on 09/01/2024 by [facility]: Spine LumbarSURGALIGN SPINE TECHNOLOGIES [id number] / / Allograft Bne Bridge 50x25 Mm 24 Cc Bioadapt - [id number] Implanted:Qty: 1 on 09/01/2024 by [facility]: Spine LumbarSURGALIGN SPINE TECHNOLOGIES INC01/31/2027 [id number] / [id number] / [id number] Procedures Procedure NamePriorityDate/TimeAssociated DiagnosisCommentsHEMOGLOBIN L1KZjwfily 09/03/2024 6:20 AM EDT from Last 3 Months or Most Recently Relevant to Health Maintenance Results * (ABNORMAL) Hemoglobin A1c (09/03/2024 6:20 AM EDT)ComponentValueRef RangeTest MethodAnalysis TimePerformed AtPathologist SignatureHemoglobin A1C6.2(H)4.0 - 6.0 %09/03/2024 7:23 AM [facility] Estimated Avg Rvttyqy89469 - 126 mg/dL09/03/2024 7:23 AM [facility] LABComment:Performed at [facility] [address] [place], [place] [address]Specimen (Source)Anatomical Location / Laterality Collection Method / VolumeCollection TimeReceived TimeBloodBLOOD SPECIMEN / Jckaqtw5809/03/2024 6:20 AM EDT09/03/2024 6:52 AM EDT Narrative Authorizing ProviderResult TypeResult StatusOluremi A Nate MDCHEMISTRY ORDERABLES Final ResultPerforming OrganizationAddressCity/State/ZIP CodePhone Number [facility] [address] [place] [address], [facility] [phone] [facility] [address] [place] [address], [facility] [phone] from Last 3 Months or Most Recently Relevant to Health Maintenance Insurance Advance Directives * Full Code (Latest Code Status on File) Date ActivatedDate InactivatedComments09/01/2024 10:54 AM09/06/2024 5:48 PM Care Teams Team MemberRelationshipSpecialtyStart DateEnd Date Dakotah Nair MD [address] [place] [address] PCP - GeneralFamily Medicine08/27/24
--- OUTSIDE RECORDS SUMMARY | 2025-02-19 10:35 | XMS_ITS | Clinical Summary ---
Author Organization [facility] Address [address] [place] [address] Care Team Providers Care Chemical Equipment Repairer Name Role Phone Dakotah Nair MD Primary Care Provider [phone] Allergies Active AllergyReactionsCriticalityNoted DateCommentsCodeineAnaphylaxisHigh 08/17/2021 Medications MedicationSigDispense QuantityRefillsLast FilledStart DateEnd DateStatus apixaban (Eliquis) 5 mg tablet Take 5 mg by mouth in the morning and at bedtime.Active gabapentin (Neurontin) 600 mg tablet Take 1,800 mg by mouth in the morning.Active levothyroxine (Synthroid, Levoxyl) 200 mcg tablet Take 200 mcg by mouth before breakfast.Active mirtazapine (Remeron) 45 mg tablet Take 90 mg by mouth at bedtime.Active omeprazole (PriLOSEC) [address] capsule Take 40 mg by mouth before breakfast. Do not crush or chew.Active cholecalciferol (Vitamin D-3) 125 MCG (5000 UT) capsule Take 5,000 Units by mouth in the morning.Active ascorbic acid (Vitamin C) 1,000 mg tablet Take 1,000 mg by mouth in the morning.Active melatonin 10 mg tablet Take 10 mg by mouth at bedtime.Active furosemide (Lasix) 40 mg tablet Indications:Heart failure with preserved ejection fraction, unspecified HF chronicityTake 1 tablet (40 mg) by mouth in the morning. 90 tablet ctive metaxalone (Skelaxin) 800 mg tablet Take 800 mg by mouth three times daily.Active evolocumab (Repatha SureClick) 140 mg/mL pen injector Indications:Hyperlipidemia, unspecified hyperlipidemia typeInject 140 mg under the skin every 14 (fourteen) days. 6 mL ctive potassium chloride CR (Klor-Con) 10 mEq ER tablet Take 10 mEq by mouth in the morning.Active clopidogrel (Plavix) 75 mg tablet Take 75 mg by mouth in the morning.Active folic acid (Folvite) 1 mg tablet Take 1 mg by mouth in the morning.Active dapagliflozin propanediol (Farxiga) 10 mg Indications:Chronic diastolic congestive heart failure (CMS/HCC)Take 1 tablet (10 mg) by mouth in the morning. 90 tablet /160789/6Active metoprolol tartrate (Lopressor) 25 mg tablet Indications:Coronary artery disease involving cabazon coronary artery of cabazon heart without angina pectoris,PVC (premature ventricular contraction)Take 1 tablet (25 mg) by mouth two times daily. 180 tablet 5008/04/2025ctive Active Problems ProblemNoted DateDiagnosed DateArthrodesis piibkn9308/11/2024Degeneration of intervertebral disc of lumbar region with discogenic back pain and lower extremity pain08/11/2024Spondylolisthesis, lumbar roqljf8508/11/2024PVC (premature ventricular contraction)05/04/2022 Assessment & Plan (05/04/2022 12:55 PM EST): - Frequent ventricular bigeminy during cardiac rehab -Has been having symptoms of lightheadedness, dizziness and had a syncopal episode recently -30 day event monitor and follow up with Dr. Marsh with results Syncope and tqddifkd65/13/2023 Assessment & Plan (05/04/2022 12:56 PM EST): -recent episode but did not feel palpitations prior to syncope -PCP decreased lisinopril to 20mg daily vs 40mg -follow up in 3 months with event monitor with Dr. Marsh -report to ED if syncopal again Primary osteoarthritis of right kkwlidrj56/11/2023History of pulmonary embolism 02/26/2022Factor 5 Leiden mutation, njshwwkltwyt25/07/2022hronic diastolic congestive heart upoxego6402/26/2022oronary artery disease involving cabazon coronary artery of cabazon heart without angina onduhswm30/07/2022rimary xjxzfiijtfbn65/07/2022 Assessment & Plan (05/04/2022 12:57 PM EST): -stable today -will not increase lisinopril back to 40mg daily at this time due to recent syncope until we have more conclusive results with event monitor Wnqtpiwfzmmioc19/02/2022ulmonary axdycqcl91/02/2022Family history of pulmonary mlmtdzpo69/14/2022Hereditary iutuihmsmxhwl99/14/2022bnormal EKG008/17/2021hest pain on /28/2022Elevated troponin I dgwwghahfur42/28/2022 Encounters DateTypeDepartmentCare QihnLasphvdowzz37/30/2025Telephone [facility] [place] [address] [place] [address] Kareen Blum MA from Last 3 Months Immunizations ImmunizationAdministration DatesNext DueInfluenza, Cxfdpkatzyp23/09/2017 Family History Medical HistoryRelationNameCommentsDeep vein thrombosisBrotherHeart failure BrotherDeep vein thrombosisFatherPulmonary embolismFatherDeep vein thrombosis SisterRelationNameStatusCommentsBrotherFatherSister Social History Tobacco UseTypesPacks/DayYears UsedDateSmoking Tobacco: FormerCigarettesQuit: 1987Smokeless Tobacco: Never Tobacco Cessation:Counseling Given: Not Answered Alcohol UseStandard Drinks/WeekCommentsNot Currently0 (1 standard drink = 0.6 oz pure alcohol)UT Safety & EnvironmentAnswerDate RecordedFear of Current or Ex-PartnerNot on file06/13/2023Emotionally AbusedNot on file06/13/2023hysically AbusedNot on file06/13/2023Sexually AbusedNot on file06/13/2023hysically or Sexually AbusedNot on file06/13/2023Sex and Gender InformationValueDate Recorded Sex Assigned at BirthNot on fileLegal HtxHiaf0311/14/2021 3:16 PM EDTGender IdentityNot on fileSexual OrientationNot on file Last Filed Vital Signs Vital SignReadingTime TakenCommentsBlood Esecljtx472/7204 2:18 PM EDT Wezld521008/12/2024 2:18 PM EDTTemperature--Respiratory Jqqd8467 1:28 PM EDTOxygen Qcdfoyazni07%08/12/2024 2:18 PM EDTInhaled Oxygen Concentration-- Zcoqoe154 kg (297 lb)08/12/2024 2:18 PM FXIMfhtle836.3 cm (5' 9 )08/12/2024 2:18 PM EDTBody Mass Index43.8608/12/2024 2:18 PM EDT Plan of Treatment Health MaintenanceDue DateLast DoneCommentsCT Nbkulrgmhaas88/25/1960Colonoscopy 1959Colorectal Cancer Pvjvpbdfr52/25/1960FIT-DNA1959FIT1959 FOBT1959Medicare Annual Wellness (AWV)1959Medicare Initial Physical (IPPE)1959 5423Dcphrsnvnqycz87/25/1960HIB Vaccines (1 of 1 - Risk 1-dose series)02/13/1961Meningococcal Vaccine (1 - Risk 2-dose series)11/13/1961 Meningococcal B Vaccine (1 of 4 - Increased Risk)11/13/1969Depression Screening 1971Pneumococcal Vaccine: 50+ Years (1 of 2 - PCV)11/13/1978Adult Tetanus 11/13/1981Zoster Vaccines (1 of 2)11/13/2009Fall Risk Hwmcrdgft51/25/2025COVID- 19 Vaccine (1 - season)2024Influenza Vaccine (#1)2024 01/28/2017HPV VaccinesAged OutNo longer eligible based on patient's age to complete this topicIPV VaccinesAged OutNo longer eligible based on patient's age to complete this topicRotavirus VaccinesAged OutNo longer eligible based on patient's age to complete this topic Medical Devices ImplantedTypeAreaManufacturerDevice IdentifierShelf Expiration DateModel / Serial / LotStentFlor 2.75 X 20 - [id number] - [id number] Implanted:Qty: 1 on 01/16/2022 by [facility] Stent[facility] [id number]/16/2023 [id number] / [id number] / [id number] Insurance Advance Directives * Full Code (Latest Code Status on File) Date ActivatedDate InactivatedComments01/16/2022 11:59 AM01/16/2022 7:03 PM Care Teams Team MemberRelationshipSpecialtyStart DateEnd Date Dakotah Nair MD [address] [facility] [address] [address] PCP - General01/16/22
--- OUTSIDE RECORDS SUMMARY | 2025-02-19 10:35 | XMS_ITS | Clinical Summary ---
Author Organization [employer] Address [id number] [address] [place] [address] Care Team Providers Care Seam Feller Name Role Phone Dakotah Nair MD Primary Care Provider [phone] Allergies Active AllergyReactionsCriticalityNoted DateCommentsCodeineAnaphylaxisHigh 08/17/2021 Medications MedicationSigDispense QuantityRefillsLast FilledStart DateEnd DateStatus omeprazole (PriLOSEC) 40 mg capsule Indications:gastroesophageal reflux diseaseTake 40 mg by mouth in the morning. Indications: gastroesophageal reflux disease.Active mirtazapine (REMERON) 45 MG tablet Take 45 mg by mouth nightly.Active gabapentin (NEURONTIN) 600 mg tablet Indications:neuropathic painTake 600 mg by mouth in the morning and 600 mg at noon and 600 mg before bedtime. Indications: neuropathic pain. One tab in AM, 2 tab in afternoon.Active metaxalone (SKELAXIN) 800 mg tablet Take 800 mg by mouth in the morning and 800 mg at noon and 800 mg before bedtime. 1 tab in AM, 2 tab at night.Active oxyCODONE (OxyCONTIN) 20 mg 12 hr tablet Indications:severe chronic pain requiring long-term opioid treatmentTake 20 mg by mouth as needed in the morning and 20 mg as needed at noon and 20 mg as needed in theevening for pain (Chronic back pain). Indications: severe chronic pain requiring long-term opioid treatment.Active metoprolol succinate XL (TOPROL XL) 25 mg 24 hr tablet Indications:hypertensionTake 25 mg by mouth in the morning and at bedtime Indications: high blood pressure.Active lisinopriL (PRINIVIL,ZESTRIL) 40 mg tablet Indications:hypertensionTake 40 mg by mouth in the morning. Indications: high blood pressure.Active levothyroxine (SYNTHROID, LEVOTHROID) 200 MCG tablet Take 200 mcg by mouth in the morning.Active cholecalciferol, vitamin D3, (VITAMIN D3) 5,000 units capsule Indications:vitamin D deficiencyTake 5,000 Units by mouth in the morning. Indications: low vitamin D levels.Active ascorbic acid, vitamin C, (VITAMIN C) 1000 mg tablet Take 1,000 mg by mouth in the morning.Active apixaban (ELIQUIS) 5 mg tablet Take 1 tablet (5 mg total) by mouth in the morning and 1 tablet (5 mg total) before bedtime. 60 tablet 08/28/2021ctive zinc gluconate 50 mg tablet Take 50 mg by mouth in the morning. Unsure of dose.Active polycarbophil (FIBERCON) 625 mg tablet Take 625 mg by mouth in the morning and 625 mg at noon and 625 mg in the evening and 625 mg before bedtime.Active Active Problems ProblemNoted DateDiagnosed DateHistory of pulmonary eahlkpqx78/14/2022Family history of pulmonary /14/2022Hereditary dykclelpvxozb76/14/2022hest pain on kgcbabrar48/28/2022bnormal EKG008/17/2021Elevated troponin I measurement 08/17/2021Essential dcnbslkearsx34/28/2022 Resolved Problems ProblemNoted DateDiagnosed DateResolved DatePulmonary nfmmcvet20/28/2022 11/02/2021 Immunizations ImmunizationAdministration DatesNext DueInfluenza, Injectable, Mdck, Preservative Free, Quad03/15/2021,01/27/2020Influenza, Mbwknshvcbq17/09/2017 Social History Tobacco UseTypesPacks/DayYears UsedDateSmoking Tobacco: FormerSmokeless Tobacco: NeverAlcohol UseStandard Drinks/WeekCommentsNever0 (1 standard drink = 0.6 oz pure alcohol)PHQ-2AnswerDate RecordedTotal Nvuny01911/02/2021hildcareAnswerDate MkljywpsCskzbburrHbtztfe76/13/2019EmploymentAnswerDate RecordedEmploymentUnknown 10/02/2018Purpose - LifeAnswerDate RecordedPurpose and direction in lifeUnknown 06/02/2020ex and Gender InformationValueDate RecordedSex Assigned at BirthNot on fileLegal CadVqtc2811/19/2016 12:48 PM EDTGender IdentityNot on fileSexual OrientationNot on fileOccupationIndustryJob Start DateJob End DateNot on fileNot on fileNot on fileNot on file Last Filed Vital Signs Vital SignReadingTime TakenCommentsBlood Opogbhfm595/7607 2:35 PM EDT Wefkx686611/02/2021 2:35 PM TRKPfkfvatmokh59.1 ??C (98.8 ??F)08/22/2021 8:00 AM EDTRespiratory Wohx455808/22/2021 12:00 PM EDTOxygen Vpvuxmeoah13%08/22/2021 12:00 PM EDTInhaled Oxygen Concentration--Vdqsfk969.2 kg (313 lb 7.9 oz)11/02/2021 2:35 PM DLVTroqds738.9 cm (5' 9.65 )11/02/2021 2:35 PM EDTBody Mass Index45.43 11/02/2021 2:35 PM EDT Plan of Treatment Health MaintenanceDue DateLast DoneCommentsDepression Uapuqwdaz52/25/1972Tobacco Fbszrnexy38/25/1972Adult BMI Pglbkwvtb70/25/1978DTaP,Tdap and Td Vaccines (1 - Tdap)11/13/1978Zoster (Shingles) Vaccine (1 of 2)11/13/2009Fall Risk Screening 11/13/2024Influenza Jfzflfm60/01/348428/, 01/27/2020, 01/28/2017 Medical Devices Not on file Insurance Advance Directives * Full Code (Latest Code Status on File) Date ActivatedDate InactivatedComments08/17/2021 6:14 PM08/22/2021 4:01 PM Care Teams Team MemberRelationshipSpecialtyStart DateEnd Date Dakotah Nair MD PCP - GeneralFamily Medicine11/02/21
--- OUTSIDE RECORDS SUMMARY | 2025-02-19 10:37 | XMS_ITS | CCD ---
Author Organization [facility] Care Team Providers Care Spice Mixer Name Role Phone Blade Wright Unavailable MD Linden King Primary Care Provider [phone] MD Blade Wright Attending Provider FERNANDO ., DR CHEATHAM Consulting Unavailable HOY ., [...] Admitting Unavailable MOUKARBEL, DR KILPATRICK Consulting Unavailable DARRYLY ., DR CHEATHAM Primary Care Unavailable MOUKARBEL, DR KILPATRICK Attending Unavailable MOUKARBEL, DR KILPATRICK Admitting Unavailable MOUKARBEL, DR KILPATRICK Consulting Unavailable FERNANDO Mack, DR CHEATHAM Primary Care Unavailable TALISHA, DR KILPATRICK Attending Unavailable TALISHA, DR KIPLATRICK Admitting Unavailable DR FELICITY MCGRATH Consulting Unavailable IRAIS Mack, KEYANNA Attending Unavailable IRAIS Mack, KEYANNA Admitting Unavailable FERNANDO Mack, DR CHEATHAM Primary Care Unavailable ANSELMO JAY Consulting Unavailable IRAIS Mack, KEYANNA Consulting Unavailable BETTY HOLT Consulting Unavailable Linden King MD Primary Care Provider [phone] STFrederick KASANDRA SELVOBobo Villed[place] Admitting Unavailable VERÓNICA CESPEDES Attending Unavailable LINDEN KING Primary Care Unavailable MARIO, BCMI A Consulting Unavailable Linden King MD Primary Care Provider [phone] Verónica Ramos MD Attending Provider [phone] Blade Wright MD Attending Provider SHONNA MELTON Attending Unavailable SHONNA MELTON Attending Unavailable Linden King Primary Care Unavailable Anjali Castillo Admitting UnavailAnjali Britt Attending UnavailLinden Oliva Primary Care Unavailable Verónica Ramos F Admitting Unavailable Verónica Ramos Attending Unavailable Allergies Allergy ClassificationReported Allergen(s)Allergy TypeDate of OnsetReaction(s) Facility (4 sources)Codeine; Translations: [CODEINE]Drug Joojpzg05-63-9046CakqsyddkoaMmj [facility] (2 sources)CodeineDrug AllergyThe [facility] (1 source)CodeineDrug Zcoyljl59-49-3466AwqwbkponK[facility] Medications Current Medications MedicationDrug Class(es)DatesSig (Normalized)Sig (Original)acetaminophen 325 mg oral tablet (1 source)Start: 15-96-7313Sorwuobvuckvt / HYDROcodone (1 source)Opioid AgonistStart: 94-74-1827ZNALAqtumok-acetaminophen (NORCO) 5-325 MG per tablet 1 tabletascorbic acid 500 mg chewable tablet (3 sources)Vitamin Ctake 2 tablets by mouth once dailyvitamin C (ASCORBIC ACID) 500 MG tablet Take 2 tablets by mouth daily ActiveVitamin C Active cholecalciferol 0.05 mg oral tablet (2 sources)Vitamin DStart: 40-82-4895igeg 1 tablet by mouth once daily Cholecalciferol (Vitamin D3) 50 mcg (2,000 unit) tablet Active 50 MCG PO Daily September 03, 2023 12:00am Complies with drug therapyCholecalciferol (VITAMIN D-3 PO) Take 2,000 Int'l Units by mouth daily ActiveCpap (Continuous Positive Airway Pressure) unit (2 sources)Start: 03-86-8333Flfl (Continuous Positive Airway Pressure) unit Active 0 .Route September 03, 2023 4:24pm As directed DME LincareStart: 07-31-2023 End: 48-07-0086Bgfm (Continuous Positive Airway Pressure) unit Discontinued 0 .Route July 31, 2023 12:00am September 03, 2023 4:25pm As directedCPAP Machine (1 source)CPAP Machine Activedapagliflozin 10 mg oral tablet (4 sources)Sodium-Glucose Cotransporter 2 InhibitorStart: 07-31-2023 End: 09-11-8374bvym 1 tablet by mouth once daily in the morningDapagliflozin Propanediol (Farxiga) 10 mg tablet Active 10 MG PO Every morning September 03, 2023 4:32pm Complies with drug therapy1 ml evolocumab 140 mg/ml auto-injector (3 sources)PCSK9 InhibitorStart: 68-76-7334Bykoixajgk 140 mg/mL pen injector Active MG SUBCUT July 31, 2023 12:00am FreeTextSig: INJECT 140MG UNDER THE SKIN EVERY 14 DAYS Subcutaneous; Note: Source Status: Taking; Refills: 2; Qty: 2 Milliliter; Provider: TALISHA KILPATRICK Complies with drug therapyEvolocumab (REPATHA SURECLICK SC) Inject 140 mg into the skin every 14 days ActiveRepatha SureClick 140 MG/ML INJECT 140 MG UNDER THE SKIN EVERY 14 DAYS Subcutaneous for 28 Days ActiveFiber (2 sources)Fiber Activefolic acid 0.4 mg oral tablet (1 source)take 2.5 tablets by mouth once dailyfolic acid (FOLVITE) 400 MCG tablet Take 2.5 tablets by mouth daily Activeglucagon (rdna) 1 mg injection (1 source)Antihypoglycemic AgentStart: mg, SubCUTAneous, PRN, Starting on Sat09/02/24 at 1731, Until Discontinued, Low blood sugar, Blood glucose LESS THAN 70 mg/dL and patient NOT ALERT or NPO and does not have IV access., After administration, attempt intravenous access and start dextrose 10% at 100 mL/hr. Repeat blood glucose in 15minutes x 2 and notify provider. Reconstitute powder for injection by adding 1 mL of development trainer-supplied sterile diluent or sterile water for injection to a vial containing 1 mg of the drug, to provide solutions containing 1 mg/mL. Shake vial gently to dissolve. Glucose (3 sources)Start: 39-65-2984YmgjlGOAivb, at 100 mL/hr, CONTINUOUS PRN, if blood glucose remains LESS THAN 70 mg/dL after 2 dextrose 10% intravenous boluses or administration of glucagon, Starting on Sat09/02/24 at 1731, If blood glucose fails to stabilize after 2 dextrose 10% intravenous boluses or glucagon administration, start dextrose 10% infusion at 100 mL/hour and repeat blood glucose at 30 and 60 minutes. If blood glucose is GREATER THAN 70 mg/dL after 60 minutes, discontinue dextrose 10% infusion.Start: 77-00-7330cspzxtmg bolus 10% 125 mLStart: 78-02-367219 g (4 tablet), Oral, PRN, Starting on Sat09/02/24 at 1731, Until Discontinued, Low blood sugar, If blood glucose is LESS THAN 70 mg/dL and patient is alert and tolerating oral. Give 4 tablets (16g)Repeat blood glucose in 15 minutes. If blood glucose is LESS THAN 70 mg/dL, repeat treatment and recheck blood glucose in 15 minutes x 2. If blood glucose remains LESS THAN 70 mg/dL, notify provider.metaxalone 800 mg oral tablet (4 sources)Start: 31-13-9440mtlm 1 tablet by mouth three times dailyMetaxalone 800 mg tablet Active 800 MG PO Three times daily July 31, 2023 12:00am Complies with drug therapyomeprazole 40 mg delayed release oral capsule (4 sources)Proton Pump InhibitorStart: 01-46-5857vpod 1 capsule by mouth once dailyOmeprazole 40 mg capsule,delayed release(DR/EC) Active 40 MG PO Daily July 31, 2023 12:00am FreeTextSi capsule 30 minutes before morning meal Orally Once a day; Note: Source Status: Taking; Provider: Adriana Murguia ( ) Complies with drug therapyondansetron (ZOFRAN-ODT) disintegrating tablet 4 mg (1 source)Start: 81-93-0122dzqvslyhwfo (ZOFRAN-ODT) disintegrating tablet 4 mg polyethylene glycol 3350 43949 mg powder for oral solution (1 source)Osmotic LaxativeStart: 54-48-735686 g, Oral, DAILY, First dose on Sat09/01/24 at 1845, Until Discontinued, Stir and dissolve one packet of powder (17 g) in any 4 to 8 ounces of beverage (cold, hot or room temperature) then drink, Post-optraMADol hydrochloride 50 mg oral tablet (1 source)Opioid AgonistStart: 39-06-6449hans 1 tablet by mouth every six hours as neededTramadol 50 mg tablet Active 50 MG PO Every 6 hours as needed December 29, 2024 12:00am Complies with drug therapyVitamin D3 (2 sources)Vitamin D3 ActiveZinc (2 sources)Zinc Activezinc gluconate 50 mg oral tablet (1 source)take 1 tablet by mouth once dailyzinc gluconate 50 MG tablet Take 1 tablet by mouth daily Active Completed/Discontinued Medications MedicationDrug Class(es)DatesSig (Normalized)Sig (Original)apixaban 5 mg oral tablet (5 sources)Factor Xa InhibitorStart: 93-10-1913xbkp 5 mg by mouth twice daily5 mg, Oral, 2 TIMES DAILY, First dose on Sat09/05/24 at 1330, Until Discontinued, Indication of Use: Treatment-DVT/PE, ANTICOAGULANTbisacodyl 5 mg delayed release oral tablet (2 sources)Stimulant LaxativeStart: 25-11-5335kyxf 5 mg by mouth once daily5 mg, Oral, DAILY, First dose on Sat09/01/24 at 1930, Until Discontinued, Do not crush or break., Post-opStart: 39-49-9223jrBKDspjz (ANCEF) 3000 mg in sodium chloride 0.9% 100 mL IVPB (1 source)Start: 09-01-2024 End: ,000 mg, IntraVENous, EVERY 8 HOURS, 2 doses, First dose on Sat09/01/24 at 2045, Last dose on Sat09/02/24 at 0445, Antimicrobial Indications: Surgical Prophylaxis, Post-opclopidogrel 75 mg oral tablet (4 sources)P2Y12 Platelet InhibitorStart: 73-14-6931umuw 75 mg by mouth once daily75 mg, Oral, DAILY, First dose on Sat09/06/24 at 0930, Until Discontinued cyclobenzaprine hydrochloride 10 mg oral tablet (1 source)Muscle RelaxantStart: 74-27-7214acmn 10 mg by mouth three times daily as mg, Oral, 3 TIMES DAILY PRN, Starting on Sat09/01/24 at 1649, Until Discontinued, Muscle spasms,Post-opdexamethasone phosphate 4 mg/ml injectable solution (1 source)CorticosteroidStart: 09-02-2024 End: 58-15-831846 mg, IntraVENous, EVERY 8 HOURS, First dose on Sat09/02/24 at 0030, For 3 dosesdocusate sodium 50 mg / sennosides, penitentiary 8.6 mg oral tablet (1 source)Start: 72-80-9796auib 1 tablet by mouth twice daily1 tablet, Oral, 2 TIMES DAILY, First dose on Sat09/01/24 at 2100, Until Discontinued, Post-op2 ml droperidol 2.5 mg/ml injection (2 sources)Dopamine-2 Receptor AntagonistStart: 09-01-2024 End: .625 mg, IntraVENous, ONCE, 1 dose, On Sat09/01/24 at 1715, PACU onlyStart: 09-01-2024 End: dose, Starting on Sat09/01/24 at 1643, Until Sat09/01/24 at 1643, Sujey Cordova: eduardot override, Sujey Cordova: crystalinet override empagliflozin 10 mg oral tablet (1 source)Sodium-Glucose Cotransporter 2 InhibitorStart: 11-92-632639 mg, Oral, DAILY, First dose on Sat09/01/24 at 1930, Until Discontinued, Indication of Use: Chronic kidney disease, Type 2 diabetes, Substituted for dapagliflozin (IRWIN). Note: Discontinuation of therapy 3 days prior to surgery or major procedures is recommended given the risk for euglycemic diabetic ketoacidosis.2 ml fentaNYL 0.05 mg/ml injection (2 sources)Opioid AgonistStart: 09-01-2024 End: 62-54-838996 mcg, IntraVENous, EVERY 5 MIN PRN, 4 doses, Starting on Sat09/01/24 at 1652, Until Sat09/01/24 at 1813, Pain Severe (7-10), If oral and IV narcotics ordered, use oral first and only use IV if oralis ineffective or cannot take oral. Do Not give oral and IV within 1 hour of each other unless specifically ordered., PACU onlyfurosemide 40 mg oral tablet (4 sources)Loop DiureticStart: 13-75-8839kdbq 40 mg by mouth once daily40 mg, Oral, DAILY, First dose on Sat09/01/24 at 1845, Until Discontinuedgabapentin 600 mg oral tablet (6 sources)Anti-epileptic AgentStart: 07-31-2023 End: 16-10-3401yosp 600 mg by mouth three times vxoqr959 mg, Oral, 3 TIMES DAILY, First dose on Sat09/01/24 at 2100, Until DiscontinuedGabapentin 600 MG 1 tablet Orally 3 x a day Active1 ml HYDROmorphone hydrochloride 1 mg/ml cartridge (2 sources)Opioid AgonistStart: 09-01-2024 End: .5 mg, IntraVENous, EVERY 5 MIN PRN, 4 doses, Starting on Sat09/01/24 at 1652, Until Sat09/01/24 at 1813, Pain Severe (7-10), secondary therapy for severe pain, If oral and IV narcotics ordered, useoral first and only use IV if oral is ineffective or cannot take oral. Do Not give oral and IV within 1 hour of each other unless specifically ordered., PACU onlyStart: 09-01-2024 End: dose, Starting on Sat09/01/24 at 1650, Until Sat09/01/24 at 1650, Sujey Cordova: eduardot genna, Sujey Cordova: crystalinet override ibuprofen 200 mg oral capsule (1 source)Nonsteroidal Anti-inflammatory Drug End: 39-96-9931mlge 2 capsules by mouth every six hours as needed for fever ibuprofen (ADVIL) 200 MG CAPS capsule Take 2 capsules by mouth every 6 hours as needed for Fever 09/06/2024 Discontinued (Stop Taking at Discharge)insulin lispro 100 unt/ml injectable solution (1 source)Insulin AnalogStart: 56-99-44787-4 Units, SubCUTAneous, 4 TIMES DAILY BEFORE MEALS & NIGHTLY, First dose on Sat09/02/24 at 2100, Until Discontinued, Corrective Low Dose Algorithm Glucose: Dose: 70-179 No Insulin 180-249 1 U nit 250-299 2 Units 300-349 3 Units Over 349 4 Units and notify physician Administer as soon as possible within 60 minutes of last blood glucose check levothyroxine sodium 0.1 mg oral tablet (6 sources)l-ThyroxineStart: 68-81-1370eepy 200 ug by mouth once vcpek711 mcg, Oral, DAILY, First dose on Sat09/02/24 at 0700, Until Discontinued, Tube feeding (TF) interaction, obtain physician order to manage, recommend holding TF for 30 minutes before and after dose.Start: 04-24-7201urod 1 tablet by mouth once daily in the morningLevothyroxine 200 mcg tablet Active 1 TAB PO Daily July 31, 2023 12:00am FreeTextSi tablet in the morning on an empty stomach Orally Once a day; Note: Source Status: Taking; Provider: Adriana Murguia ( ) Complies with drug therapy End: 19-57-1961dmyxnv 50 ug intravenously once dailylevothyroxine (SYNTHROID) 200 MCG injection Infuse 50 mcg intravenously Daily 09/01/2024 Discontinued (DUPLICATE)take 1 tablet by mouth once daily in the morningLevothyroxine Sodium 200 MCG 1 tablet in the morning on an empty stomach Orally Once a day Active lisinopril 40 mg oral tablet (3 sources)Angiotensin Converting Enzyme InhibitorStart: 07-31-2023 End: 72-09-8737zkbj 1 tablet by mouth once dailyLisinopril 40 mg tablet Discontinued 40 MG PO Daily July 31, 2023 12:00am September 03, 2023 4:31pmtake 1 tablet by mouth every twenty-four hoursLisinopril 40 MG 1 tablet Orally Once a day Activelosartan potassium 25 mg oral tablet (1 source)Angiotensin 2 Receptor BlockerStart: 98-35-2446tfir 25 mg by mouth once daily25 mg, Oral, DAILY, First dose on Sat09/05/24 at 1330, Until Discontinuedmagnesium hydroxide 80 mg/ml oral suspension (1 source)Start: 78-90-5526bvtk 30 mL by mouth once daily as needed for wncxyleanuup88 mL, Oral, DAILY PRN, Starting on Sat09/01/24 at 1825, Until Discontinued, Constipation, First line therapy for constipation., Post-op melatonin 3 mg oral capsule (3 sources)Start: 07-31-2023 End: 13-19-2310ukxk 1 capsule by mouth once daily at bedtime as neededMelatonin 3 mg capsule Discontinued 3 MG PO Daily at bedtime as needed July 31, 2023 12:00am 2023 4:31pmMelatonin Activemetoprolol tartrate 50 mg oral tablet (5 sources)beta-Adrenergic BlockerStart: 38-67-3998ylih 50 mg by mouth twice daily50 mg, Oral, 2 TIMES DAILY, First dose (after last modification) on Sat09/04/24 at 2100, Until DiscontinuedStart: 09-03-2023 End: 65-13-4409lock 25 mg by mouth twice daily25 mg, Oral, 2 TIMES DAILY, First dose on Sat09/01/24 at 2100, Until Discontinuedtake 1 tablet by mouth every twelve hoursMetoprolol Tartrate 50 MG 1 tablet with food Orally Twice a day Activemirtazapine 45 mg oral tablet (5 sources)Start: 92-96-7529gxnx 90 mg by mouth once daily90 mg, Oral, NIGHTLY, First dose on Sat09/01/24 at 2100, Until DiscontinuedStart: 19-51-2631wnjq 2 tablets by mouth once daily at bedtimeMirtazapine 45 mg tablet Active 2 TAB PO Daily at bedtime July 31, 2023 12:00am FreeTextSi tablet at bedtime Orally Once a day; Note: Source Status: Taking; Provider: Adriana Murguia ( ) Complies with drug therapytake 6 tablets by mouth once daily mirtazapine (REMERON) 15 MG tablet Take 6 tablets by mouth nightly Activetake 2 tablets by mouth every twenty-four hoursMirtazapine 45 MG 2 tablet at bedtime Orally Once a day Activetake 1 tablet by mouth every twenty-four hours Mirtazapine 45 MG 1 tablet at bedtime Orally Once a day Activenaloxegol 25 mg oral tablet (1 source)Opioid AntagonistStart: 48-12-4794ksxg 1 dose by mouth every hour at ylebynfm51 mg, Oral, DAILY BEFORE BREAKFAST, First dose on Sat09/03/24 at 1600, Until Discontinued, Administer on an empty stomach at least 1 hour prior to or 2 hours after the first meal of the day. Avoid consumption of grapefruit or grapefruit juice during treatment.pantoprazole 40 mg delayed release oral tablet (1 source)Proton Pump InhibitorStart: 38-53-847697 mg, Oral, DAILY BEFORE BREAKFAST, First dose on Sat09/02/24 at 0700, Until Discontinued, Do not crush or break. Substituted for Omeprazole (PRILOSEC).potassium chloride 10 meq extended release oral tablet (4 sources)Start: mEq, Oral, DAILY, First dose on Sat09/01/24 at 1930, Until Discontinuedtake 1 tablet by mouth once dailypotassium chloride (KLOR-CON M) 10 MEQ extended release tablet Take 1 tablet by mouth daily Active take 1 tablet by mouth once daily in the morningPotassium Chloride ER 10 MEQ TAKE 1 TABLET BY MOUTH EVERY MORNING Oral for 90 Days Active5 ml sodium chloride 9 mg/ml injection (5 sources)Start: -40 mL, IntraVENous, EVERY 12 HOURS SCHEDULED (2 times per day), First dose on Sat09/01/24 at 2100, Until Discontinued, For Line Patency: Peripheral IV = 5 mL; Midline or Central Line = 10 mL/lumen.If following IV push medication, administer flush at same rate as the IV push. Flush volume is determined by type of infusion therapy being given. For non- viscous solutions use: Peripheral IV = 5 mL Midline or Central Line = 10 mL/lumen For viscous solutions (i.e. blood components, parenteral nutrition, contrast media, or after obtaining blood sample) use: Peripheral IV = 10 mL Midline or CentralLine = 20 mL/lumen, Post-opStart: 21-63-4055Fbbre: 09-01-2024 End: 97-42-2364NfcxhJNWffj, at 125 mL/hr, CONTINUOUS, Starting on Sat09/01/24 at 1845, Post-opStart: 09-01-2024 End: 62-18-3721AfaipWFVmnp, at 5-250 mL/hr, PRN, if patient receiving piggyback infusions and maintenance fluids are not ordered, Starting on Sat09/01/24 at 1054, For piggyback infusion, administer at same rate as piggyback for a total of 25 mL. Enter 25 mL into dose field and piggyback rate into rate field of ord er. If piggyback is infusing at a rate less than 100 mL/hr, enter 25 mL into dose field and 100 mL/hr into rate field of order., Pre-op (day of surgery) Problems Active Problems Problem ClassificationProblemDateDocumented DateEpisodic/ChronicCardiac dysrhythmias (4 sources)Ventricular tachycardia; Translations: [Unspecified atrial fibrillation]Onset: 88-00-1899GdqzencEvvlruoesyh and hemorrhagic disorders (2 sources)Activated protein C resistance; Translations: [Activated protein C resistance]Onset: 27-29-8216RyboyyqJyjlzqwsbp heart failure; nonhypertensive (12 sources)Chronic diastolic (congestive) heart failure; Translations: [Unspecified diastolic (congestive) heart failure]Onset: 97-77-4772Nrzqfni Coronary atherosclerosis and other heart disease (2 sources)Atherosclerotic heart disease of [place] coronary artery without angina pectoris; Translations: [Atherosclerotic heart disease of [place] coronary artery without angina pectoris]Onset: 64-15-2468SwtvwoqQdjlhntl atherosclerosis and other heart disease (4 sources)Coronary angioplasty status; Translations: [CORONARY ANGIOPLASTY STATUS]Onset: 95-88-4487EkqwnahgHvpeksws mellitus without complication (4 sources)Type 2 diabetes mellitus without complications; Translations: [TYPE 2 DM WITHOUT COMPLICATIONS]Onset: 55-18-2671SzrvvqiOscralxhq of lipid metabolism (8 sources)Mixed hyperlipidemia; Translations: [Hyperlipidemia, unspecified] Onset: 56-43-7396IpgeqtuMyknigtot hypertension (2 sources)Essential (primary) hypertension; Translations: [Essential (primary) hypertension]Onset: 16-41-1088XxtvleeDphivjzxzoop with complications and secondary hypertension (1 source)Hypertensive heart disease with heart failure; Translations: [HTN HEART DISEASE W/HEART FAIL]Onset: 61-45-9976BeptidbOxnbt and ill-defined heart disease (1 source)Heart disease, unspecified; Translations: [HEART DISEASE UNSPECIFIED] Onset: 09-99-9169HujfjqkJyshu connective tissue disease (4 sources)Pain in right leg; Translations: [PAIN IN RIGHT LEG]Onset: 04-20-2022 EpisodicOther connective tissue disease (1 source)Pain in left leg; Translations: [PAIN IN LEFT LEG]Onset: 04-26-2022 EpisodicOther connective tissue disease (1 source)Muscle weakness (generalized); Translations: [Muscle weakness (generalized)]Onset: 97-93-4055GdnbphvbIrcqs nutritional; endocrine; and metabolic disorders (1 source)Obesity, unspecified; Translations: [OBESITY UNSPECIFIED]Onset: 05-43-9664WofzckqHceny nutritional; endocrine; and metabolic disorders (1 source)Body mass index (BMI) 40.0-44.9, adult; Translations: [BODY MASS INDEX BMI 40.0-44.9 ADULT]Onset: 38-85-5681BopqjquLfgzvpde codes; unclassified (4 sources)Obstructive sleep apnea syndrome; Translations: [Obstructive sleep apnea (adult) (pediatric)]27-04-9844LanzmerKaktbwxh codes; unclassified (4 sources)Obstructive sleep apnea (adult) (pediatric); Translations: [Obstructive sleep apnea (adult) (pediatric)]Onset: 01-08-2022 Resolved: 32-08-8542KfthuysFnzhpzzs codes; unclassified (1 source)Periodic limb movement disorder; Translations: [Periodic limb movement disorder]ChronicResidual codes; unclassified (2 sources)Periodic leg movements of sleep ; Translations: [Periodic limb movement disorder]82-01-6453HsaeafmLnlmuio disorders (1 source)Hypothyroidism, unspecified; Translations: [HYPOTHYROIDISM UNSPECIFIED]Onset: 65-86-8485UlkcifmFolrnpwhlisk (4 sources)CONTACT W/AND (SUSP) EXPOS COVID-19; Translations: [CONTACT W/AND (SUSP) EXPOS COVID-19]Onset: 08-21-2021 Past or Other Problems Problem ClassificationProblemDateDocumented DateEpisodic/ChronicDiabetes mellitus without complication (1 source)Other abnormal glucose; Translations: [OTHER ABNORMAL GLUCOSE]Onset: 85-81-1587TdcznwqlOyzel aftercare (1 source)Other exterminator termite (current) drug therapy; Translations: [OTH ALF CURRENT DRUG THERAPY]Onset: 46-23-8526QeijjmpcRcudx screening for suspected conditions (not mental disorders or infectious disease) (3 sources)Encounter for screening for malignant neoplasm of prostate; Translations: [Abnormal results of thyroid function studies]Onset: 08-21-2021 EpisodicPulmonary heart disease (6 sources)Other pulmonary embolism without acute cor pulmonale; Translations: [Personal history of pulmonary embolism]Onset: 08-21-2021 Resolved: 39-99-1623UilnmbphRkuiaceod and history of mental health and substance abuse codes (1 source)Personal history of nicotine dependence; Translations: [PERSONAL HISTORY OF NICOTINE DEPEND]Onset: 84-61-7703WrlnmbaoQgjinzqygut; intervertebral disc disorders; other back problems (7 sources)Spinal stenosis of lumbar region; Translations: [Spinal stenosis, lumbar region with neurogenic claudication]Onset: 236841-45-2292Dwvyipmv Syncope (4 sources)Syncope and collapse; Translations: [SYNCOPE AND COLLAPSE]Onset: 71-90-0321DvbwroyxWcnzfjuiwoqr (1 source)CONTACT W/AND (SUSP) EXPOS COVID-19; Translations: [CONTACT W/AND (SUSP) EXPOS COVID-19]Onset: 01-12-2022 Results Test NameValueInterpretationReference FrdfzFbamihof90mf 56-90-710543Knyey call from patient, patient states I woke up this am and rolled over in bed and became dizzy, and have been getting dizzy with movement of my head, at this time the dizziness is subsiding, no other symptoms, I just wanted it reported and put on my chart just incase. Patient states could the dizziness be due to my blood pressure it was 139/60. Patient state he will also be contacting his PCP to see if it could be something else. Please advise. Shonna Melton MD to Me (Selected Message) 01/24/25 10:15 AM He should have the PCP look into it. As for the blood pressure, he should let us know if it is consistently >130/80 Spoke to , advised of Dr. Alegria recommendations. states they will be seeing his PCP on 01/28/2025. verbalized understanding and agreed with plan of careNormalUniversity of [facility]ts[facility] HospitalTelephoneon 01-19-2025 [id number] Cecil Hammond 1960 M Date Provider Department Center 01/19/2025 [id number] CASTILLO CARD [facility] Family History Problem Relation Age of Onset Pulmonary embolism Father Deep vein thrombosis Father Deep vein thrombosis Sister Deep vein thrombosis Brother Heart failure Brother Family Status - Relation Status Age at Father Sister BrotherNormalUniversity of Huntsville Memorial HospitalANION GAPon 98-40-7745Ypsel gap [Moles/Vol]9.0 mmol/LNormal8.0-16.0Mem[facility] HospitalComment on above: Result Comment: ANION GAP = Sodium -(Chloride + CO2)Performed By: #### SHAHIDA, BMP, ANION, EGFR1 #### [facility] [address] [place] [id number] Gapon 33-50-5466Rxehz gap [Moles/Vol]9 mmol/L8.0 - 16.0 meq/LBon Adena Regional Medical CenterComment on above:ANION GAP = Sodium -(Chloride + CO2) Performed at [facility] Formerly [facility] [address] [place] [address] BASIC METABOL PANELon 81-87-8540Zmlymod [Mass/Vol]8.7 mg/dLLow8.8-10.2SJoint venture between [facility] and [facility] Health ResourcesComment on above:Performed By: #### SHAHIDA, BMP, ANION, EGFR1 #### [facility] [address] [place] [address] 42534CR0 [Moles/Vol]28 mmol/BUiwvgi28-90ZobopMemorial Hermann Pearland Hospital Comment on above:Performed By: #### SHAHIDA, BMP, ANION, EGFR1 #### [facility] [address] [place] [address] 749[address]Tqjgzzuqlr [Mass/Vol]1.1 mg/dLNormal0.7-1.2SJoint venture between [facility] and [facility] Health ResourcesComment on above:Performed By: #### SHAHIDA, BMP, ANION, EGFR1 #### [facility] [address] [place] [address] 43822Vzdggto [Mass/Vol]136 mg/fFIcbx87-816CnoplMemorial Hermann Pearland Hospital Comment on above:Performed By: #### SHAHIDA, BMP, ANION, EGFR1 #### Counts Include [facility] [address] [place] [address]98[address]Snmj nitrogen [Mass/Vol]21 mg/dLNormal8-23Memorial [facility] Pearland HospitalComment on above:Performed By: #### SHAHIDA, BMP, ANION, EGFR1 #### [address] [address]Zozojuxi [Moles/Vol]101 mmol/LVgyaud36-838VdrygMemorial Hermann Pearland HospitalComment on above:Performed By: #### SHAHIDA, BMP, ANION, EGFR1 #### [address] [address]Fkjyvuigc [Moles/Vol]4.7 mmol/LNormal3.5-5.2SJoint venture between [facility] and [facility] Health ResourcesComment on above:Result Comment: Low level specimen hemolysis is present as indicated by the interference index on the Kim analyzer. ??The reported K+ level may be falsely increased. If clinically warranted, recollection of the specimen is suggested.Performed By: #### SHAHIDA, BMP, ANION, EGFR1 #### [address] [address]Zzbqxh [Moles/Vol]138 mmol/SUxindg938-158QswseMemorial Hermann Pearland HospitalComment on above:Performed By: #### SHAHIDA, BMP, ANION, EGFR1 #### [facility] [address] [address]Pcchw metabolic 2000 panelon 72-58-5702Miwezuv [Mass/Vol]8.7 mg/dL Low8.8 - 10.2 mg/dLBon [facility] Medical CenterComment on above:Performed at [facility] [address] [place] [address] 15690Yiwoibje [Moles/Vol]101 mmol/L 98 - 111 meq/LBon [facility] HealthCO2 [Moles/Vol]28 mmol/L22 - 29 meq/LBon [facility] CenterCreatinine [Mass/Vol]1.1 mg/dL0.7 - 1.2 mg/dLBon [employer] MediaGlucose [Mass/Vol]136 mg/rMQlpc42 - 109 mg/dLBon [employer] MediaPotassium [Moles/Vol]4.7 mmol/L3.5 - 5.2 meq/LBon [employer] Comment on above:Low level specimen hemolysis is present as indicated by the interference index on the Kim analyzer. The reported K+ level may be falsely increased. If clinically warranted, recollection of the specimen is suggested. Sodium [Moles/Vol]138 mmol/L135 - 145 meq/LBon [employer] MediaUrea nitrogen [Mass/Vol]21 mg/dL8 - 23 mg/dLBon [facility]!Box MediaGFR, ESTIMATEDon 46-12-3985WSY/1.73 sq M.predicted MDRD (S/P/Bld) [Vol rate/Area]75 mL/min/{1.73_m2}Normal>60Bon BannerZenvergeComment on above:Pediatric calculator link https://www.kidney.org/professionals/kdoqi/gfr_calculatorped Effective Jan 22, 2022 These results are not intended for use in patients <18 years of age. eGFR results are calculated without a race factor using the 2020 CKD-EPI equation. Careful clinical correlation is recommended, particularly when comparing to results calculated using previous equations. The CKD-EPI equation is less accurate in patients with extremes of muscle mass, extra-renal metabolism of creatinine, excessive creatine ingestion, or following therapy that affects renal tubular secretion. Performed at [facility] [address] [address] Result Comment: Pediatric calculator link https://www.kidney.org/professionals/kdoqi/gfr_calculatorped Effective Jan 22, 2022 These results are not intended for use in patients <18 years of age. eGFR results are calculated without a race factor using the 2020 CKD-EPI equation. Careful clinical correlation is recommended, particularly when comparing to results calculated using previous equations. The CKD-EPI equation is less accurate in patients with extremes of muscle mass, extra-renal metabolism of creatinine, excessive creatine ingestion, or following therapy that affects renal tubular secretion.Performed By: #### HH, BMP, ANION, EGFR1 #### [address] [address]BLIIFNP POCon 90-72-8167Zaeoclz [Mass/Vol]146 mg/qDFyaq15-156IcuMary Washington HospitalComapex medical center on above:Performed at [address] [address]Onfvvjqla By: #### POCGL #### [address] [address]UJP,HCTon 99-10-0182Vakwkpdira (Bld) [Volume fraction]38.1 %Low 42.0-52.0Mary [facility] HospitalComapex medical center on above:Performed at [address] [address]Pzxohrasl By: #### SHAHIDA BMP, ANION, EGFR1 #### [address] [address]Obewtmnept (Bld) [Mass/Vol]13.2 g/dLLow14.0-18.0Bon [facility] on above:Performed By: #### SHAHIDA BMP, ANION, EGFR1 #### [address] [address]Gi Panel Informationon 89-67-2338Lfxghkhdgyxwvw and review of laboratory resultsAbnormalRiverside Tappahannock HospitalANION GAPon 22-90-2627Gswde gap [Moles/Vol]13.0 mmol/LNormal8.0-16.0SaMedical Arts HospitalComment on above:Result Comment: ANION GAP = Sodium -(Chloride + CO2)Performed By: #### SHAHIDA, BMP, ANION, EGFR1 #### [address] [address]Dvywr Gapon 38-92-9117Jrdro gap [Moles/Vol]13 mmol/L8.0 - 16.0 meq/LBon [facility] CenterComapex medical center on above:ANION GAP = Sodium -(Chloride + CO2) Performed at [address] [address] BASIC METABOL PANELon 38-95-7095Slevcwn [Mass/Vol]8.1 mg/dLLow8.8-10.2SJoint venture between [facility] and [place] Health ResourcesComment on above:Performed By: #### HH, BMP, ANION, EGFR1 #### [facility] [address] [place], [place] [address]CQ0 [Moles/Vol]23 mmol/LPrwkro12-87PulkmMemorial Hermann Pearland Hospital Comment on above:Performed By: #### HH, BMP, ANION, EGFR1 #### [facility] [address] [place], [place] [address]Qerdptbrkr [Mass/Vol]0.9 mg/dLNormal0.7-1.2SJoint venture between [facility] and [place] Health ResourcesComment on above:Performed By: #### HH, BMP, ANION, EGFR1 #### [facility] [address] [place] [address]Rncsfpv [Mass/Vol]137 mg/eKSlga70-067SnonfMemorial Hermann Pearland Hospital Comment on above:Performed By: #### HH, BMP, ANION, EGFR1 #### [facility] [address] [place] [address]Igql nitrogen [Mass/Vol]20 mg/dLNormal8-23Memorial [facility] Pearland HospitalComment on above:Performed By: #### SHAHIDA, BMP, ANION, EGFR1 #### [facility] [address] [place] [address] 78773Llszexia [Moles/Vol]100 mmol/LBsjelb54-867SmqzaMemorial Hermann Pearland HospitalComment on above:Performed By: #### HH, BMP, ANION, EGFR1 #### [facility] [address] [place] [address] 08984Xqxyzuhrr [Moles/Vol]3.8 mmol/LNormal3.5-5.2SJoint venture between [facility] and [place] Health ResourcesComment on above:Performed By: #### HH, BMP, ANION, EGFR1 #### [facility] [address] [place] [address] 435[address]Nlxiab [Moles/Vol]136 mmol/TRlfike649-577MalchMemorial Hermann Pearland HospitalComment on above:Performed By: #### HH, BMP, ANION, EGFR1 #### [facility] [address] [place] [address] 85[address]Jgwfq metabolic 2000 panelon 82-89-5135Lrxdcna [Mass/Vol]8.1 mg/dL Low8.8 - 10.2 mg/dLBon [facility] Medical CenterComment on above:Performed at [facility] [address] [place], [place] [address]Qrhbzamt [Moles/Vol]100 mmol/L 98 - 111 meq/LBon [facility] HealthCO2 [Moles/Vol]23 mmol/L22 - 29 meq/LBon [facility] CenterCreatinine [Mass/Vol]0.9 mg/dL0.7 - 1.2 mg/dLBon SecAdena Fayette Medical CenterGlucose [Mass/Vol]137 mg/vCXyeg50 - 109 mg/dLBon [facility] HealthInterpretation and review of laboratory resultsAbnormalBon [facility] CenterPotassium [Moles/Vol]3.8 mmol/L3.5 - 5.2 meq/LBon [facility] Sodium [Moles/Vol]136 mmol/L135 - 145 meq/LBon [facility] Medical CenterUrea nitrogen [Mass/Vol]20 mg/dL8 - 23 mg/dLBon [facility] Medical CenterGFR, ESTIMATEDon 27-94-0970HWY/1.73 sq M.predicted MDRD (S/P/Bld) [Vol rate/Area]mL/min/{1.73_m2} Normal>60Bon [facility] Medical CenterComment on above:Pediatric calculator link https://www.kidney.org/professionals/kdoqi/gfr_calculatorped Effective Jan 22, 2022 These results are not intended for use in patients <18 years of age. eGFR results are calculated without a race factor using the 2020 CKD-EPI equation. Careful clinical correlation is recommended, particularly when comparing to results calculated using previous equations. The CKD-EPI equation is less accurate in patients with extremes of muscle mass, extra-renal metabolism of creatinine, excessive creatine ingestion, or following therapy that affects renal tubular secretion. Performed at [facility] [address] [place] [address] Result Comment: Pediatric calculator link https://www.kidney.org/professionals/kdoqi/gfr_calculatorped Effective Jan 22, 2022 These results are not intended for use in patients <18 years of age. eGFR results are calculated without a race factor using the 2020 CKD-EPI equation. Careful clinical correlation is recommended, particularly when comparing to results calculated using previous equations. The CKD-EPI equation is less accurate in patients with extremes of muscle mass, extra-renal metabolism of creatinine, excessive creatine ingestion, or following therapy that affects renal tubular secretion.Performed By: #### HH, BMP, ANION, EGFR1 #### [address] [address]ULHAHTX POCon 44-54-7954Xhbkurj [Mass/Vol]157 mg/cCVzqm54-798Lyy [facility] CenterComment on above:Performed at [address] [address]Ckngcftsy By: #### HH, BMP, ANION, EGFR1 #### [address] [address]Yycvret [Mass/Vol]155 mg/eDXghn54-683Zko [facility] Comment on above:Performed at [address] [address]Veyolxeqi By: #### HH, BMP, ANION, EGFR1 #### [address] [address]Pfasukf [Mass/Vol]152 mg/kGCwgg61-476Iye [facility] Comment on above:Performed at [address] [address]Kwditqcho By: #### EGFR1, CRE #### [address] [address]Ftniebw [Mass/Vol]144 mg/aQMcwv88-509Fco [facility] Comment on above:Performed at [address] [address]Lqlcvuwbq By: #### HH, BMP, ANION, EGFR1 #### [address] [address]Araroly [Mass/Vol]139 mg/bEMhsj71-640Uve [facility] Comment on above:Performed at [address] [address]Fzsxwokyw By: #### EGFR1, CRE #### [address] [address]Thjqqjw Auto test strip (Bld) [Mass/Vol]on 09-05-2024 Interpretation and review of laboratory resultsAbnormRiverside Regional Medical CenterInterpretation and review of laboratory resultsAbnormal [facility] HospitalInterpretation and review of laboratory resultsAbnormalRiverside Tappahannock Hospital Interpretation and review of laboratory resultsAbnormRiverside Regional Medical CenterInterpretation and review of laboratory resultsAbnormal [facility] HospitalHGB,HCTon 43-48-7106Lbequgftcf (Bld) [Volume fraction]36.7 %Low42.0-52.0Bon [facility] on above:Performed at [facility] [address] [place] [address] Performed By: #### HH, BMP, ANION, EGFR1 #### [facility] [address] [address]Kouwuqkwrg (Bld) [Mass/Vol]12.9 g/dLLow14.0-18.0[facility] on above:Performed By: #### HH, BMP, ANION, EGFR1 #### [facility] [address] [place] [address]Ionhbkosbm and Hematocrit panel (Bld)on 70-28-1233Llrjgevsrrloyt and review of laboratory resultsAbnormCritical access hospitalNo Panel Informationon 42-25-2449Hqk [facility] CenterANION GAPon 60-49-2808Xclnb gap [Moles/Vol]11.0 mmol/LNormal8.0-16.0SaMedical Arts HospitalComapex medical center on above:Result Comment: ANION GAP = Sodium -(Chloride + CO2) Performed By: #### HH, BMP, ANION, EGFR1 #### [facility] [address] [address]Txbpl Gapon 46-26-6772Gzans gap [Moles/Vol]11 mmol/L8.0 - 16.0 meq/LBon [facility] on above:ANION GAP = Sodium -(Chloride + CO2) Performed at [facility] [address] [place] [address] BASIC METABOL PANELon 18-56-2849Jhkqdeo [Mass/Vol]8.9 mg/dLNormal8.8-10.2Saint [facility] HospitalComment on above:Performed By: #### HH, BMP, ANION, EGFR1 #### [facility] [address] [place], [place] [address]IT5 [Moles/Vol]27 mmol/XGtrzwr73-10UnmzoMemorial Hermann Pearland Hospital Comment on above:Performed By: #### HH, BMP, ANION, EGFR1 #### [facility] [address] [place] [address] 239[address]Lnjbyhwtpu [Mass/Vol]1.1 mg/dLNormal0.7-1.2SJoint venture between [facility] and [place] Health ResourcesComment on above:Performed By: #### HH, BMP, ANION, EGFR1 #### [facility] [address] [place] [address]Ycvyfdi [Mass/Vol]131 mg/nQVdrl05-913WtrxlMemorial Hermann [facility] Hospital Comment on above:Performed By: #### HH, BMP, ANION, EGFR1 #### [facility] [address] [place] [address]Xcgv nitrogen [Mass/Vol]25 mg/dLHigh8-23Mem[facility] HospitalComment on above:Performed By: #### HH, BMP, ANION, EGFR1 #### [facility] [address] [place] [address]Jwvddaho [Moles/Vol]101 mmol/NSbidjd69-897YhutyMemorial Hermann Pearland HospitalComment on above:Performed By: #### HH, BMP, ANION, EGFR1 #### [facility] [address] [place] [address]Pwrscpilr [Moles/Vol]4.1 mmol/LNormal3.5-5.2SJoint venture between [facility] and [place] [facility] ResourcesComment on above:Result Comment: Low level specimen hemolysis is present as indicated by the interference index on the Kim analyzer. ??The reported K+ level may be falsely increased. If clinically warranted, recollection of the specimen is suggested.Performed By: #### HH, BMP, ANION, EGFR1 #### [facility] [address] [place] [address] 479[address]Lkxbnc [Moles/Vol]139 mmol/XQbedmp617-913RqpnuMemorial Hermann Pearland HospitalComment on above:Performed By: #### HH, BMP, ANION, EGFR1 #### [facility] [address] [place], [place] [address]Jtfvc metabolic 2000 panelon 40-65-8491Jujkwwl [Mass/Vol]8.9 mg/dL 8.8 - 10.2 mg/dLBon BannerMobileOCT [facility] on above:Performed at [facility] [address] [place], [place] [address]Ruedxcgj [Moles/Vol]101 mmol/L98 - 111 meq/LBon [facility] CenterCO2 [Moles/Vol]27 mmol/L22 - 29 meq/LBon [facility] CenterCreatinine [Mass/Vol]1.1 mg/dL0.7 - 1.2 mg/dLBon [facility] CenterCelltick Technologies [facility]uff[facility] HospitalGlucose [Mass/Vol]131 mg/aEOepl08 - 109 mg/dLBon BannerMobileOCT [facility]uffton HospitalInterpretation and review of laboratory resultsAbnormalBon [facility] Medical CenterPotassium [Moles/Vol]4.1 mmol/L3.5 - 5.2 meq/LBon [facility] Comment on above:Low level specimen hemolysis is present as indicated by the interference index on the Kim analyzer. The reported K+ level may be falsely increased. If clinically warranted, recollection of the specimen is suggested. Sodium [Moles/Vol]139 mmol/L135 - 145 meq/LBon [facility] CenterUrea nitrogen [Mass/Vol]25 mg/dLHigh8 - 23 mg/dLBon [facility] CenterCelltick Technologies Bluffton HospitalGFR, ESTIMATEDon 75-58-0674OAM/1.73 sq M.predicted MDRD (S/P/Bld) [Vol rate/Area]75 mL/min/{1.73_m2}Normal>60Bon [facility] on above:Pediatric calculator link https://www.kidney.org/professionals/kdoqi/gfr_calculatorped Effective Jan 22, 2022 These results are not intended for use in patients <18 years of age. eGFR results are calculated without a race factor using the 2020 CKD-EPI equation. Careful clinical correlation is recommended, particularly when comparing to results calculated using previous equations. The CKD-EPI equation is less accurate in patients with extremes of muscle mass, extra-renal metabolism of creatinine, excessive creatine ingestion, or following therapy that affects renal tubular secretion[place] [address] Result Comment: Pediatric calculator link https://www.kidney.org/professionals/kdoqi/gfr_calculatorped Effective Jan 22, 2022 These results are not intended for use in patients <18 years of age. eGFR results are calculated without a race factor using the 2020 CKD-EPI equation. Careful clinical correlation is recommended, particularly when comparing to results calculated using previous equations. The CKD-EPI equation is less accurate in patients with extremes of muscle mass, extra-renal metabolism of creatinine, excessive creatine ingestion, or following therapy that affects renal tubular secretion.Performed By: #### HH, BMP, ANION, EGFR1 #### [address] [address]LLESAMF POCon 64-68-6339Bzxkvsr [Mass/Vol]166 mg/hWMzuy82-566Bcs [facility] HealthComment on above:Performed at [place], [place] [address]Performed By: #### HH, BMP, ANION, EGFR1 #### [address] [address]Hiyipif [Mass/Vol]161 mg/kKYgzc02-559Lgw [facility] Comment on above:Performed at [place], [place] [address]Performed By: #### HH, BMP, ANION, EGFR1 #### [address] [address]Xtrefsd [Mass/Vol]178 mg/nHAhjq40-799Zvh [facility] Comment on above:Performed at [address] [address]Ladtboktm By: #### HH, BMP, ANION, EGFR1 #### [facility] [address] [address]Dhtpqhn [Mass/Vol]138 mg/iAGerf98-859Jvc [facility] Comment on above:Performed at [place] [address]Performed By: #### HH, BMP, ANION, EGFR1 #### [address] [address]Txzuygr Auto test strip (Bld) [Mass/Vol]on 09-04-2024 Interpretation and review of laboratory resultsAbnormRiverside Regional Medical CenterInterpretation and review of laboratory resultsAbnormal [facility] HospitalInterpretation and review of laboratory resultsAbnormCritical access hospital HGB,HCTon 76-25-4709Cippsxbinh (Bld) [Volume fraction]38.9 %Low42.0-52.0Bon [facility] on above:Performed at [facility] [address] [place] [address]Vwlqwujoq By: #### HH, BMP, ANION, EGFR1 #### [address] [address]Vmuhadfzhn (Bld) [Mass/Vol]13.4 g/dLLow14.0-18.0Bon [facility] on above:Performed By: #### HH, BMP, ANION, EGFR1 #### [facility] [address] [address]Ttrquegcev and Hematocrit panel (Bld)on 59-76-4365Ijdhzhkpoumiwp and review of laboratory resultsAbnormCritical access hospitalNo Panel Informationon 32-82-9813Mww [facility] CenterANION GAPon 65-66-8587Gyzky gap [Moles/Vol]11.0 mmol/LNormal8.0-16.0Mem[facility] HospitalComment on above:Result Comment: ANION GAP = Sodium -(Chloride + CO2) Performed By: #### EGFR1, ANION, BMP #### [facility] [address] [address]Yjiwz Gapon 44-39-8154Qwikb gap [Moles/Vol]11 mmol/L8.0 - 16.0 meq/LBon [facility] CenterComment on above:ANION GAP = Sodium -(Chloride + CO2) Performed at [facility] [address] [address] BASIC METABOL PANELon 64-05-5477Rpjhcdd [Mass/Vol]9.1 mg/dLNormal8.8-10.2Bon [facility] CenterComment on above:Performed at [facility] [address] [place] [address]Mttwfaqeq By: #### EGFR1, ANION, BMP #### [facility] [address] [place] [address]YT2 [Moles/Vol]26 mmol/JBhvizm17-38Gnu [facility] CenterComapex medical center on above:Performed By: #### EGFR1, ANION, BMP #### [facility] [address] [place] [address]Rkcmcbccwj [Mass/Vol]1.1 mg/dLNormal0.7-1.2Bon [facility] CenterComment on above:Performed By: #### EGFR1, ANION, BMP #### [facility] [address] [place] [address]Xbnzayb [Mass/Vol]175 mg/qHGpsw62-391Osh [facility] Comment on above:Performed By: #### EGFR1, ANION, BMP #### [facility] [address] [place] [address]Vole nitrogen [Mass/Vol]24 mg/dLHigh8-23Bon [facility] Comment on above:Performed By: #### EGFR1, ANION, BMP #### [facility] [address] [place] [address]Hilmxlia [Moles/Vol]103 mmol/GXiqdmr05-534RkvpmMemorial Hermann Pearland HospitalComment on above:Performed By: #### EGFR1, ANION, BMP #### [facility] [address] [place] [address]Yeplreara [Moles/Vol]4.4 mmol/LNormal3.5-5.2Saint [facility] HospitalComment on above:Performed By: #### EGFR1, ANION, BMP #### [facility] [address] [place] [address]Jnvfzg [Moles/Vol]140 mmol/PWoiphr405-110DccsxMemorial Hermann Pearland HospitalComment on above:Performed By: #### EGFR1, ANION, BMP #### [facility] [address] [place] [address]Djcwp metabolic 2000 panelon 21-59-0607Xyxapebr [Moles/Vol]103 mmol/L98 - 111 meq/LBon [facility] CenterInterpretation and review of laboratory resultsAbnormalBon [facility] CenterPotassium [Moles/Vol]4.4 mmol/L3.5 - 5.2 meq/LBon [facility] HealthSodium [Moles/Vol]140 mmol/L135 - 145 meq/LBon [facility] CenterCBCon 65-58-2705Yaajbvaqjto distribution width (RBC) [Entitic vol]44.4 fL35.0 - 45.0 fLMary Washington HospitalInterpretation and review of laboratory resultsAbnormalBon [facility] HospitalHC (RBC) [Mass/Vol]35 g/dLBon [facility] HospitalV (RBC) [Entitic vol]94 fL80.0 - 94.0 fLMary Washington HospitalPlatelets (Bld) [#/Vol]258 10*3/uLBon [facility] Medical CenterRBC (Bld) [#/Vol]3.86 10*6/uLLowBon [facility] Medical CenterWBC (Bld) [#/Vol] 20 10*3/uLHighBon [facility] CenterBon [facility] Medical CenterCBC NO DIFFERENTIALon 88-53-6395Aawglaykfbv distribution width (RBC) [Ratio]13.1 % Mmtlmf25.5-14.5Bon [facility] CenterComment on above:Performed By: #### HH, BMP, ANION, EGFR1 #### [facility] [address] [place], [place] [address]Xgejizcdwe (Bld) [Volume fraction]36.3 %Low42.0-52.0[facility] on above:Performed By: #### HH, BMP, ANION, EGFR1 #### [facility] [address] [place], [place] [address]Xxtjndmyqo (Bld) [Mass/Vol]12.7 g/dLLow14.0-18.0[facility] on above:Performed By: #### HH, BMP, ANION, EGFR1 #### [facility] [address] [place], [place] [address]CIW (RBC) [Entitic mass]32.9 lxNbqwie43.0-33.0Bon [facility] HealthComment on above:Performed By: #### HH, BMP, ANION, EGFR1 #### [facility] [address] [place] [address]OHYD (RBC) [Mass/Vol]35.0 g/wWGnsvmc90.2-35.5SJoint venture between [facility] and [facility] ResourcesComment on above:Performed By: #### HH, BMP, ANION, EGFR1 #### [facility] [address] [place] [address]LBX (RBC) [Entitic vol]94.0 tCHrbyyx19.0-94.0Mem[facility] HospitalComment on above:Performed By: #### HH, BMP, ANION, EGFR1 #### [address] [address]DXJBDHHV905 thou/sl1Wrgekz753-816VdbqkMemorial [facility]ann [facility] Hospital Comment on above:Performed By: #### HH, BMP, ANION, EGFR1 #### [facility] [address] [address]Duuvqlhf mean volume (Bld) [Entitic vol]10.4 fLNormal9.4-12.4Bon [facility] CenterComment on above:Performed at [facility] [address] [address]Alrpxdbbo By: #### HH, BMP, ANION, EGFR1 #### [address] [address]YWT6.86 mill/sf6Luo3.70-6.10Mem[facility] HospitalComment on above:Performed By: #### HH, BMP, ANION, EGFR1 #### [facility] [address] [place] [address]PCJ-GJ80.4 pWArudgd47.0-45.0[facility] HospitalComment on above:Performed By: #### HH, BMP, ANION, EGFR1 #### [facility] [address] [place] [address] 84782FVN39.0 thou/ku9Zsei5.8-10.8[facility] HospitalComment on above:Performed By: #### HH, BMP, ANION, EGFR1 #### [facility] [address] [address]EKK, ESTIMATEDon 94-05-9631UXG/1.73 sq M.predicted MDRD (S/P/Bld) [Vol rate/Area]75 mL/min/{1.73_m2}Normal>60Bon [facility] CenterComapex [facility] center on above:Pediatric calculator link https://www.kidney.org/professionals/kdoqi/gfr_calculatorped Effective Jan 22, 2022 These results are not intended for use in patients <18 years of age. eGFR results are calculated without a race factor using the 2020 CKD-EPI equation. Careful clinical correlation is recommended, particularly when comparing to results calculated using previous equations. The CKD-EPI equation is less accurate in patients with extremes of muscle mass, extra-renal metabolism of creatinine, excessive creatine ingestion, or following therapy that affects renal tubular secretion. Performed at [facility] [address] [address] Result Comment: Pediatric calculator link https://www.kidney.org/professionals/kdoqi/gfr_calculatorped Effective Jan 22, 2022 These results are not intended for use in patients <18 years of age. eGFR results are calculated without a race factor using the 2020 CKD-EPI equation. Careful clinical correlation is recommended, particularly when comparing to results calculated using previous equations. The CKD-EPI equation is less accurate in patients with extremes of muscle mass, extra-renal metabolism of creatinine, excessive creatine ingestion, or following therapy that affects renal tubular secretion.Performed By: #### EGFR1, CRE #### [facility] [address] [address]WLLRJHK POCon 25-72-0368Zdqncmo [Mass/Vol]163 mg/oWKkxn83-306Vyj [facility] CenterComment on above:Performed at [facility] [address] [place] [address] 74897Wwzuwvwsj By: #### HH, BMP, ANION, EGFR1 #### [facility] [address] [address]Comovxn [Mass/Vol]204 mg/jJBqok14-812Lsb [facility] Comment on above:Performed at [facility] [address] [place] [address] 00987Eotiicepn By: #### HH, BMP, ANION, EGFR1 #### [facility] [address] [place] [address] 26504Xlcezsq [Mass/Vol]185 mg/yFFnkd36-193Jol [facility] Comment on above:Performed at [facility] [address] [place] [address] 92507Fbukrgjpo By: #### HH, BMP, ANION, EGFR1 #### [facility] [address] [place] [address] 52658Fxjkycn [Mass/Vol]180 mg/dAIjdn79-262Aja [facility] Comment on above:Performed at [facility] [address] [place] [address] 46356Essrburow By: #### HH, BMP, ANION, EGFR1 #### [facility] [address] [place] [address] 15255Muhmmnb Auto test strip (Bld) [Mass/Vol]on 09-03-2024 Interpretation and review of laboratory resultsAbnormRiverside Regional Medical CenterInterpretation and review of laboratory resultsAbnormal [facility] HospitalInterpretation and review of laboratory resultsAbnormCritical access hospital Interpretation and review of laboratory resultsAbnormRiverside Regional Medical CenterHEMOGLOBIN A1Con 11-33-1570Uvcetpr [Mass/Vol]126 mg/dL Rwcmrp24-398PrxxpMemorial Hermann Pearland HospitalComment on above:Performed By: #### EGFR1, CRE #### [facility] [address] [place] [address] 78619IzR4h (Bld) [Mass fraction]6.2 %High4.0-6.0Mem[facility] HospitalComment on above:Performed By: #### EGFR1, CRE #### [facility] [address] [place] [address] 80288CfK1u (Bld) [Mass fraction]on 75-30-3353Wcvxyco mean value Estimated from glycated hemoglobin Qn (Bld)126 mg/dL70 - 126 mg/dLBon [facility] CenterComment on above:Performed at [facility] [address] [place] [address] 94268Cayjnzcvuitpaa and review of laboratory resultsAbnormalRiverside Tappahannock HospitalHemoglobin A1con 64-80-9665HaY1o (Bld) [Mass fraction]6.2 %High4.0 - 6.0 %Bon [facility] CenterNo Panel Informationon 17-94-0590Sef [facility] Medical CenterANION GAPon 08-99-5477Ysfbn gap [Moles/Vol]13.0 mmol/LNormal8.0-16.0[facility] HospitalComment on above: Result Comment: ANION GAP = Sodium -(Chloride + CO2)Performed By: #### EGFR1, CRE #### [facility] [address] [place], [place] [address]Sxpyr Gapon 89-03-0359Goujn gap [Moles/Vol]13 mmol/L8.0 - 16.0 meq/LBon [facility] Medical CenterComment on above:ANION GAP = Sodium -(Chloride + CO2) Performed at [facility] [address] [place] [address] BASIC METABOL PANELon 95-17-4497Ybuobav [Mass/Vol]8.2 mg/dLLow8.8-10.2SJoint venture between [facility] and [facility] Health ResourcesComment on above:Performed By: #### EGFR1, CRE #### [facility] [address] [place] [address] 46879IU9 [Moles/Vol]20 mmol/SBuz95-26PwqntMemorial Hermann Pearland HospitalComment on above:Performed By: #### EGFR1, CRE #### [facility] [address] [place] [address] 200[address]Qaseotftnz [Mass/Vol]1.0 mg/dLNormal0.7-1.2SJoint venture between [facility] and [facility] Health ResourcesComment on above:Performed By: #### EGFR1, CRE #### [facility] [address] [place] [address] 01683Kpiunmy [Mass/Vol]228 mg/wUQrxd34-176UtcejMemorial Hermann Pearland Hospital Comment on above:Performed By: #### EGFR1, CRE #### [facility] [address] [place] [address] 90506Lxzj nitrogen [Mass/Vol]19 mg/dLNormal8-23Mem[facility] HospitalComment on above:Performed By: #### EGFR1, CRE #### [facility] [address] [place] [address] 64685Clibybpd [Moles/Vol]106 mmol/MGyruds02-332ZfgfjMemorial Hermann Pearland HospitalComment on above:Performed By: #### EGFR1, CRE #### [address] [address]Nvtozxcem [Moles/Vol]4.4 mmol/LNormal3.5-5.2SJoint venture between [facility] and [facility] Health ResourcesComment on above:Result Comment: Low level specimen hemolysis is present as indicated by the interference index on the Kim analyzer. ??The reported K+ level may be falsely increased. If clinically warranted, recollection of the specimen is suggested.Performed By: #### EGFR1, CRE #### [address] [address]Orlkvy [Moles/Vol]139 mmol/MJjinwb599-962HosupMemorial Hermann Pearland HospitalComment on above:Performed By: #### EGFR1, CRE #### [address] [address]Zjrky metabolic 2000 panelon 45-67-4554Mfupxfq [Mass/Vol]8.2 mg/dL Low8.8 - 10.2 mg/dLBon [facility]st Classifieds [facility] HospitalComment on above:Performed at [facility] [address] [address]Ssvvzcpa [Moles/Vol]106 mmol/L 98 - 111 meq/LBon [facility] HealthCO2 [Moles/Vol]20 mmol/LLow22 - 29 meq/L Bon [facility] CenterCreatinine [Mass/Vol]1.0 mg/dL0.7 - 1.2 mg/dLBon [facility] [place] Classified[facility] HospitalGlucose [Mass/Vol]228 mg/gTMpfx30 - 109 mg/dLBon [facility] [place].[facility] Class[facility] HealthInterpretation and review of laboratory resultsAbnormalBon SecVeterans Health AdministrationCelltick Technologies HealthPotassium [Moles/Vol]4.4 mmol/L3.5 - 5.2 meq/LBon [facility] Comment on above:Low level specimen hemolysis is present as indicated by the interference index on the Kim analyzer. The reported K+ level may be falsely increased. If clinically warranted, recollection of the specimen is suggested. Sodium [Moles/Vol]139 mmol/L135 - 145 meq/LBon [facility] Medical CenterUrea nitrogen [Mass/Vol]19 mg/dL8 - 23 mg/dLBon [facility] Medical CenterCBCon 09-02-2024 Erythrocyte distribution width (RBC) [Entitic vol]44.3 fL35.0 - 45.0 fLMary Washington HospitalInterpretation and review of laboratory resultsAbnormalBon [facility] Medical CenterPlatelets (Bld) [#/Vol]271 10*3/uLMary Washington Hospital RBC (Bld) [#/Vol]4.09 10*6/uLLowBon [facility] Medical CenterWBC (Bld) [#/Vol]16.3 10*3/uLHighBon [facility] CenterBon [facility] CenterCBC NO DIFFERENTIALon 10-73-2842Zbcjqbxvxwp distribution width (RBC) [Ratio]13.0 %Qtsmlz80.5-14.5Bon [facility] CenterComment on above:Performed By: #### SHAHIDA BMP, ANION, EGFR1 #### [facility] [address] [place] [address]Aqnfxtfujv (Bld) [Volume fraction]38.9 %Low42.0-52.0Bon [facility] CenterComment on above:Performed By: #### SHAHIDA BMP, ANION, EGFR1 #### [facility] [address] [place] [address]Ysvjmhvonl (Bld) [Mass/Vol]13.4 g/dLLow14.0-18.0Bon [facility] CenterComment on above:Performed By: #### SHAHIDA, BMP, ANION, EGFR1 #### [facility] [address] [place] [address]GXK (RBC) [Entitic mass]32.8 buQcqwxu23.0-33.0Bon [facility] CenterComment on above:Performed By: #### SHAHIDA, BMP, ANION, EGFR1 #### [facility] [address] [place] [address]80[address]RBWX (RBC) [Mass/Vol]34.4 g/uIQccepj31.2-35.5Bon [facility] CenterComment on above:Performed By: #### HH, BMP, ANION, EGFR1 #### [address] [address]JHX (RBC) [Entitic vol]95.1 kGAtih27.0-94.0Bon [facility] CenterComment on above:Performed By: #### HH, BMP, ANION, EGFR1 #### [address] [address]GOFYLUIO569 thou/dm3Wnjpxz066-666BzzsfMemorial Hermann Pearland Hospital Comment on above:Performed By: #### HH, BMP, ANION, EGFR1 #### [address] [address]Bypiunqx mean volume (Bld) [Entitic vol]10.2 fLNormal9.4-12.4Bon [facility] CenterComment on above:Performed at [address] [address]Nbxhdbeqv By: #### SHAHIDA, BMP, ANION, EGFR1 #### [address] [address]MRD0.09 mill/pq5Nen6.70-6.10Mem[facility] HospitalComment on above:Performed By: #### HH, BMP, ANION, EGFR1 #### [address] [address]CUW-UN49.3 bZZfrpxe50.0-45.0Mem[facility] HospitalComment on above:Performed By: #### HH, BMP, ANION, EGFR1 #### [address] [address]QPZ96.3 thou/wx0Awvp3.8-10.8Mem[facility] HospitalComment on above:Performed By: #### HH, BMP, ANION, EGFR1 #### [address] [address]UPE, ESTIMATEDon 49-09-4278JHR/1.73 sq M.predicted MDRD (S/P/Bld) [Vol rate/Area]84 mL/min/{1.73_m2}Normal>60Bon [facility] CenterComment on above:Pediatric calculator link https://www.kidney.org/professionals/kdoqi/gfr_calculatorped Effective Jan 22, 2022 These results are not intended for use in patients <18 years of age. eGFR results are calculated without a race factor using the 2020 CKD-EPI equation. Careful clinical correlation is recommended, particularly when comparing to results calculated using previous equations. The CKD-EPI equation is less accurate in patients with extremes of muscle mass, extra-renal metabolism of creatinine, excessive creatine ingestion, or following therapy that affects renal tubular secretion[place] [address] Result Comment: Pediatric calculator link https://www.kidney.org/professionals/kdoqi/gfr_calculatorped Effective Jan 22, 2022 These results are not intended for use in patients <18 years of age. eGFR results are calculated without a race factor using the 2020 CKD-EPI equation. Careful clinical correlation is recommended, particularly when comparing to results calculated using previous equations. The CKD-EPI equation is less accurate in patients with extremes of muscle mass, extra-renal metabolism of creatinine, excessive creatine ingestion, or following therapy that affects renal tubular secretion.Performed By: #### EGFR1, CRE #### [address] [address]SPWSVQO POCon 13-85-1635Cvszqpy [Mass/Vol]249 mg/aHQtze59-003Epj[address] [place], [place] [address]Comment on above:Performed at [address] [address]Kzjfwjsil By: #### HH, BMP, ANION, EGFR1 #### [address] [address]Psgvlge [Mass/Vol]232 mg/aHKzhj31-697Thp[address] [place] [address] Comment on above:Performed at [address] [address]Htfuledbn By: #### HH, BMP, ANION, EGFR1 #### [address] [address]Nvkioxz Auto test strip (Bld) [Mass/Vol]on 09-02-2024 Interpretation and review of laboratory resultsAbnoCanton-Inwood Memorial HospitalInterpretation and review of laboratory resultsAbnormal [facility] HospitalNo Panel Informationon 27-14-7411Srp [facility] CenterTSHon 36-70-5423FLQ Qn1.23 m[IU]/LBon [facility] CenterComment on above:Performed at [facility] [address] [place] [address] 555[address]LJE THIRD GENERATIONon 88-65-6495OUX THIRD GENERATION1.23 uIU/mLNormal0.27-4.20SJoint venture between [facility] and [facility] Health ResourcesComment on above:Performed By: #### EGFR1, CRE #### [facility] [address] [place] [address]EU LUMBAR SPINE 1 VWon 56-29-8298SV LUMBAR SPINE 1 VWMOBILE LATERAL LUMBAR SPINE: CLINICAL INFORMATION: L2-S1 DECOMPRESSION AND FUSION (Spine Lumbar) COMPARISON: Earlier film same date, 1322 hours. TECHNIQUE: A single lateral mobile view of the lumbar spine was obtained following surgery performed with Dr. Cespedes. FINDINGS: Posterior lumbar fusion has been performed with insertion of metallic pedicle screws and rods from L2-L5. The lumbar vertebra are normally aligned. Note that one of the L5 screws projects over the superior endplate of L5 IMPRESSION: Postop appearance of the lumbar spine. This report has been created using voice recognition software. It may contain minor errors which are inherent in voice recognition technology. Electronically signed by Dr. Nando Frazier Interpreted by: Nando Frazier MD Signed by: Nando Frazier MD 09/02/24 Final resultNormalSJoint venture between [facility] and [facility] Health ResourcesXR Lumbar spine Single viewon 96-30-6197Twppdv appearance of the lumbar spine. This report has been created using voice recognition software. It may contain minor errors which are inherent in voice recognition technology. Electronically signed by Dr. Nando Jack [facility]IP[facility] HOSPITALMiriam LATERAL LUMBAR SPINE: CLINICAL INFORMATION: L2-S1 DECOMPRESSION AND FUSION (Spine Lumbar) COMPARISON: Earlier film same date, 1322 hours. TECHNIQUE: A single lateral mobile view of the lumbar spine was obtained following surgery performed with Dr. Cespedes. FINDINGS: Posterior lumbar fusion has been performed with insertion of metallic pedicle screws and rods from L2-L5. The lumbar vertebra are normally aligned. Note that one of the L5 screws projects over the superior endplate of L5 [facility] Nando Fam MD - 09/02/2024 MOBILE LATERAL LUMBAR SPINE: CLINICAL INFORMATION: L2-S1 DECOMPRESSION AND FUSION (Spine Lumbar) COMPARISON: Earlier film same date, 1322 hours. TECHNIQUE: A single lateral mobile view of the lumbar spine was obtained following surgery performed with Dr. Cespedes. FINDINGS: Posterior lumbar fusion has been performed with insertion of metallic pedicle screws and rods from L2-L5. The lumbar vertebra are normally aligned. Note that one of the L5 screws projects over the superior endplate of L5 IMPRESSION: Postop appearance of the lumbar spine. This report has been created using voice recognition software. It may contain minor errors which are inherent in voice recognition technology. Electronically signed by Dr. Nando Echavarria [facility] HospitalATININE 09-01-2024 Creatinine [Mass/Vol]1.1 mg/dLNormal0.7-1.2Bon [facility] on above:[place] [address] Performed By: #### EGFR1, CRE #### [facility] [place], [place] [address]GFR, ESTIMATEDon 73-77-2277VGC/1.73 sq M.predicted MDRD (S/P/Bld) [Vol rate/Area]75 mL/min/{1.73_m2}Normal>60Bon [facility] on above:Pediatric calculator link https://www.kidney.org/professionals/kdoqi/gfr_calculatorped Effective Jan 22, 2022 These results are not intended for use in patients <18 years of age. eGFR results are calculated without a race factor using the 2020 CKD-EPI equation. Careful clinical correlation is recommended, particularly when comparing to results calculated using previous equations. The CKD-EPI equation is less accurate in patients with extremes of muscle mass, extra-renal metabolism of creatinine, excessive creatine ingestion, or following therapy that affects renal tubular secretion. Performed at [facility] [place] [address] Result Comment: Pediatric calculator link https://www.kidney.org/professionals/kdoqi/gfr_calculatorped Effective Jan 22, 2022 These results are not intended for use in patients <18 years of age. eGFR results are calculated without a race factor using the 2020 CKD-EPI equation. Careful clinical correlation is recommended, particularly when comparing to results calculated using previous equations. The CKD-EPI equation is less accurate in patients with extremes of muscle mass, extra-renal metabolism of creatinine, excessive creatine ingestion, or following therapy that affects renal tubular secretion.Performed By: #### EGFR1, CRE #### Counts Include [address] [facility] At [facility] [address] [place] [address] 47[address]CGHULEN GEL TYPE AND SCREENon 89-09-2454UMZ and Rh group Nom (Bld) ANormalSJoint venture between [facility] and [facility] Health ResourcesComment on above:Performed By: #### GGTS #### Counts Include [address] At [facility] [address] [place] [address] 615[address]IWM INDIRECT COOMBSNegativeThe [facility] Comment on above:Performed By: #### GGTS #### Counts Include [address] At [facility] [address] [place] [address]SRJ RH GRIFOLSPositiveNormalSJoint venture between [facility] and [facility] ResourcesComment on above:Performed By: #### GGTS #### Counts Include [address] At [facility] [address] [place] [address] 467[address]An Panel Informationon 64-86-3257Ppl [facility] HealthTYPE AND SCREENon 47-85-6446UHC group Nom (Bld)ABon [facility] Medical CenterIndirect antiglobulin test.IgG specific reagent QlNegativeMary Washington HospitalComment on above:Performed at [facility] [address] [address]Ok Nom (Bld)PositiveBon [facility] Medical CenterBon [facility] Medical CenterXR LUMBAR SPINE 1 VWon 30-83-9760YH LUMBAR SPINE 1 VWMOBILE LATERAL LUMBAR SPINE: CLINICAL INFORMATION: surgery COMPARISON: No prior study. TECHNIQUE: A single lateral mobile view of the lumbar spine was obtained For localization purposes. FINDINGS: 2 spinal needles are present posteriorly, directed at the L4 and L5 vertebral bodies. IMPRESSION: Intraoperative appearance of the lumbar spine. This report has been created using voice recognition software. It may contain minor errors which are inherent in voice recognition technology. Electronically signed by Dr. Nando Frazier Interpreted by: Nando Frazier MD Signed by: Nando Frazier MD 09/01/24 Final resultNormalSaint Berkley's Medical CenterXR Lumbar spine Single viewon 06-99-2783Olrmoxaqv Study observation (narrative)[facility] [place].st Classified[facility] Intraoperative appearance of the lumbar spine. This report has been created using voice recognition software. It may contain minor errors which are inherent in voice recognition technology. Electronically signed by Dr. Nando WOODSSAN JUAN REGIONAL MEDICAL CENTERMiriam LATERAL LUMBAR SPINE: CLINICAL INFORMATION: surgery COMPARISON: No prior study. TECHNIQUE: A single lateral mobile view of the lumbar spine was obtained For localization purposes. FINDINGS: 2 spinal needles are present posteriorly, directed at the L4 and L5 vertebral bodies. [facility] Nando Mendez MD - 09/01/2024 MOBILE LATERAL LUMBAR SPINE: CLINICAL INFORMATION: surgery COMPARISON: No prior study. TECHNIQUE: A single lateral mobile view of the lumbar spine was obtained For localization purposes. FINDINGS: 2 spinal needles are present posteriorly, directed at the L4 and L5 vertebral bodies. IMPRESSION: Intraoperative appearance of the lumbar spine. This report has been created using voice recognition software. It may contain minor errors which are inherent in voice recognition technology. Electronically signed by Dr. Nando Frazier [facility] HospitalRadiology Study observation (narrative)[facility] Carmine [facility] HospitalXR Lumbar spine Single viewOrdered By: Nando Frazier on [id number] Work Phone: Office Visiton [phone]-up [id number] Cecil Hammond 1960 M Date Provider Department Center 08/12/2024 Trinidad-SHONNA MELTON [facility] Family History Problem Relation Age of Onset Pulmonary embolism Father Deep vein thrombosis Father Deep vein thrombosis Sister Deep vein thrombosis Brother Heart failure Brother Family Status - Relation Status Age at Father Sister Brother Level of Service:04582 NM OFFICE/OUTPATIENT ESTABLISHED MOD MDM 30 [facility] [place]36on [id number] was seen by you, Dr. Melton in Mar 2024 and isn't due back until Mar 2025. Are you able to clear him? He's scheduled for lumbar decompression and fusion on September [address] Cespedes. Thanks. (For my records- fax # for clearance is [phone])[facility] HospitalOffice [facility] [phone]-up [id number] Cecil Hammond 1960 M Date Provider Department Center 04/06/2024 SHONNA BAUTISTA [facility] Family History Problem Relation Age of Onset Pulmonary embolism Father Deep vein thrombosis Father Deep vein thrombosis Sister Deep vein thrombosis Brother Heart failure Brother Family Status - Relation Status Age at Father Sister Brother Level of Service:97906 NM OFFICE/OUTPATIENT ESTABLISHED LOW MDM 20 [facility] OhioCBC AUTO DIFFon 72-41-4596OMSM #0.1 103/ul Normal0.0-0.1Mercy HospitalComment on above:Performed By: #### CMP, LIPID #### [facility] [address] [place] [address] Dr. Calixto WestBasophils/100 WBC (Bld)0.7 %Normal0.2-2.0[facility] Comment on above:Performed By: #### CMP, LIPID #### [facility] [address] [address] [address] Calixto Dennis #0.2 103/ulNormal0.0-0.7The [facility] HospitalComment on above: Performed By: #### CMP, LIPID #### [facility] [address] [address] [address] Calixto Navarroosinophils/100 WBC (Bld)2.2 %Normal0.9-7.0[facility] Comment on above:Performed By: #### CMP, LIPID #### [facility] [address] [address] [address] Calixto Navarrorythrocyte distribution width (RBC) [Ratio]12.7 %Kwbdkl17.0-15.0 Mer[facility] HospitalComment on above:Performed By: #### CMP, LIPID #### [facility] [address] [place] [address] Dr. Calixto WestHematocrit (Bld) [Volume fraction]46.8 %Njxlca74.0-54.0Mercy HospitalComment on above:Performed By: #### CMP, LIPID #### [facility] [address] [address] [address] Calixto WestHemoglobin (Bld) [Mass/Vol]16.9 g/bVYsbvzk59.0-18.0Mercy HospitalComment on above:Performed By: #### CMP, LIPID #### [facility] [address] [place] [address] Dr. Calixto Davidson #0.04 10e3/ulCritically high0.00-0.03The [facility] Comment on above:Performed By: #### CMP, LIPID #### [facility] [address] [place] [address] Dr. Calixto Davidson %0.4 %Normal0.0-0.5ThCleveland Clinic Hillcrest HospitalComment on above: Performed By: #### CMP, LIPID #### [facility] [address] [place] [address] Dr. Calixto Olvera #4.1 103/ulCritically high1.2-3.8The [facility] Comment on above:Performed By: #### CMP, LIPID #### [facility] [address] [place] [address] Dr. Calixto Barnetthocytes/100 WBC (Bld)41.8 %Efwjbj79.5-60.0Mercy HospitalComment on above:Performed By: #### CMP, LIPID #### [facility] [address] [place] [address] Dr. Calixto LarkinUAL DIFF REQNONormalThe [facility] HospitalComment on above: Performed By: #### CMP, LIPID #### [facility] [address] [place] [address] Dr. Calixto Bloom (RBC) [Entitic mass]31.6 seYwezwr11.9-34.0The [facility] HospitalComment on above:Performed By: #### CMP, LIPID #### [facility] [address] [place] [address] Dr. Calixto Saleh (RBC) [Mass/Vol]36.1 g/dLCritically high29.9-35.2The [facility] HospitalComment on above:Performed By: #### CMP, LIPID #### [facility] [address] [place] [address] Dr. Calixto Duque (RBC) [Entitic vol]87.6 oAHaidos27.0-94.0The [facility] HospitalComment on above:Performed By: #### CMP, LIPID #### [facility] [address] [place] [address] Dr. Calixto Bridges #0.8 103/ulNormal0.3-0.8The [facility] HospitalComment on above:Performed By: #### CMP, LIPID #### [facility] [address] [place] [address] Dr. Calixto Rossocytes/100 WBC (Bld)8.4 %Normal1.7-12.0The [facility] Comment on above:Performed By: #### CMP, LIPID #### [facility] [address] [place] [address] Dr. Calixto Alegria #4.5 103/ulNormal1.4-6.5The [facility] HospitalComment on above:Performed By: #### CMP, LIPID #### [facility] [address] [place] [address] Dr. Calixto Newellutrophils/100 WBC (Bld)46.5 %Guypdn69.0-75.0The [facility] HospitalComment on above:Performed By: #### CMP, LIPID #### [facility] [address] [place] [address] Dr. Calixto Lay mean volume (Bld) [Entitic vol]9.1 fLCritically low 9.5-13.5The [facility] HospitalComment on above:Performed By: #### CMP, LIPID #### [facility] [address] [place] [address] Dr. Calixto SolorzanoT383 103/veSxotoy470-707Lqg [facility] HospitalComment on above: Performed By: #### CMP, LIPID #### [facility] [address] [place] [address] Dr. Calixto WestRBC5.34 106/ulNormal4.70-6.10The [facility] on above:Performed By: #### CMP, LIPID #### [facility] [address] [place] [address] Dr. Calixto WestWBC9.7 103/ulNormal4.0-11.0The [facility] on above: Performed By: #### CMP, LIPID #### [facility] [address] [place] [address] Dr. Calixto Mitchell-DIMERon 30-87-8316A-DIMER0.35 mg/L FEUNormal<=0.59The [facility] on above:Performed By: #### TSH, BNP, CMP, CMADM #### [facility] [address] [place] [address] Dr. Calixto Mitchell-DIMER COMMENTSSEE [facility]Com[facility] on above:Result Comment: Increases in D-Dimer concentration observed with thromboembolic events [...] stress, and generalized hospitalization. Performed By: #### TSH, BNP, CMP, CMADM #### [facility] [address] [place] [address] Dr. Calixto WestPROF 14(COMP METB)on 21-74-1263Ngxrxud [Mass/Vol]3.8 g/dLNormal 3.4-5.0The [facility] on above:Performed By: #### TSH, BNP, CMP, CMADM #### [facility] [address] [place] [address] Dr. Calixto WestAlbumin/Globulin [Mass ratio]0.9 {ratio}NormalThe [facility] on above:Performed By: #### TSH, BNP, CMP, CMADM #### [facility] [address] [address] [address] Calixto Neil [Catalytic activity/Vol]64 U/MPcwcla66-739Osu [facility] HospitalComment on above:Performed By: #### TSH, BNP, CMP, CMADM #### [facility] [address] [address] [address] Calixto Vera [Catalytic activity/Vol]33 U/CLeteth98-74Dkc [facility] HospitalComment on above:Performed By: #### TSH, BNP, CMP, CMADM #### [facility] [address] [place] [address] Dr. Calixto Alarcon gap [Moles/Vol]12.4 mmol/LNormalThe [facility] Comment on above:Performed By: #### TSH, BNP, CMP, CMADM #### [facility] [address] [place] [address] Dr. Calixto Johnson [Catalytic activity/Vol]26 U/WXvehow68-89Wbe [facility] HospitalComment on above:Performed By: #### TSH, BNP, CMP, CMADM #### [facility] [address] [place] [address] Dr. Calixto WestBilirubin [Mass/Vol]0.4 mg/dLNormal0.2-1.0The [facility] Comment on above:Performed By: #### TSH, BNP, CMP, CMADM #### [facility] [address] [place] [address] Dr. Calixto WestCalcium [Mass/Vol]8.9 mg/dLNormal8.5-10.1[facility] Comment on above:Performed By: #### TSH, BNP, CMP, CMADM #### [facility] [address] [place] [address] Dr. Calixto WestChloride [Moles/Vol]100 mmol/NAclqrl94-810Pna [facility] Comment on above:Performed By: #### TSH, BNP, CMP, CMADM #### [facility] [address] [place] [address] Dr. Calixto WestCO2 [Moles/Vol]28.8 mmol/VIsqzaq55.0-32.0The [facility] Comment on above:Performed By: #### TSH, BNP, CMP, CMADM #### [facility] [address] [address] [address] Calixto WestCreatinine [Mass/Vol]1.21 mg/dLNormal0.70-1.30The [facility] HospitalComment on above:Performed By: #### TSH, BNP, CMP, CMADM #### [facility] [address] [address] [address] Calixto NavarroGFR-AF CITIZEN OF [place]>60Normal>=60The [facility] HospitalComment on above:Performed By: #### TSH, BNP, CMP, CMADM #### [facility] [address] [place] [address] Dr. Calixto NavarroGFR-NON AF CITIZEN OF [place]>60Normal>=60The [facility] HospitalComment on above:Performed By: #### TSH, BNP, CMP, CMADM #### [facility] [address] [place] [address] Dr. Calixto WestGlobulin (S) [Mass/Vol]4.0 g/dLNormalThe [facility] HospitalComment on above:Performed By: #### TSH, BNP, CMP, CMADM #### [facility] [address] [address] [address] Calixto WestGlucose [Mass/Vol]118 mg/dLCritically gtqd59-875Hpc [facility] HospitalComment on above:Performed By: #### TSH, BNP, CMP, CMADM #### [facility] [address] [address] [address] Calixto WestPotassium [Moles/Vol]4.2 mmol/LNormal3.5-5.1The [facility] Comment on above:Performed By: #### TSH, BNP, CMP, CMADM #### [facility] [address] [address] [address] Calixto WestProtein [Mass/Vol]7.8 g/dLNormal6.4-8.2[facility] Comment on above:Performed By: #### TSH, BNP, CMP, CMADM #### [facility] [address] [address] [address] Calixto Mariedium [Moles/Vol]137 mmol/RHmndqj705-916QryMercy Hospital Comment on above:Performed By: #### TSH, BNP, CMP, CMADM #### [facility] [address] [address] [address] Calixto Alas nitrogen [Mass/Vol]18.0 mg/dLNormal7.0-18.0[facility] HospitalComment on above:Performed By: #### TSH, BNP, CMP, CMADM #### [facility] [address] [address] [address] Calixto Alas nitrogen/Creatinine [Mass ratio]14.9 mg/mgNoSelect Medical Specialty Hospital - CantonComment on above:Performed By: #### TSH, BNP, CMP, CMADM #### [facility] [address] [address] [address] Calixto LujanID PROFILEon 56-46-8846YFOX-HDL RATIO NORMSFairfield Medical CenterComment on above:Result Comment: 3.3 - 4.4 LOW RISK 4.4 - 7.1 AVERAGE RISK 7.1 - 11.0 MODERATE RISK >11.0 HIGH RISKPerformed By: #### CMP, LIPID #### [facility] [address] [address] [address] Calixto WestCholesterol [Mass/Vol]166 mg/dLNormal<=200The [facility] Comment on above:Performed By: #### CMP, LIPID #### [facility] [address] [address] [address] Calixto WestCholesterol in HDL [Mass/Vol]40 mg/wJQfavsm45-74Uvw [facility] HospitalComment on above:Performed By: #### CMP, LIPID #### [facility] [address] [address] [address] Calixto Henryesterol in LDL [Mass/Vol]65.8 mg/dLTrinity Health System [facility] on above:Performed By: #### CMP, LIPID #### [facility] [address] [address] [address] Calixto WestCholesterol.total/Cholesterol in HDL [Mass ratio]4.2 {ratio} NormalThe [facility] on above:Performed By: #### CMP, LIPID #### [facility] [address] [place] [address] Dr. Calixto Veras NORMAL> or = 60 mg/dl - LOW CARDIOVASCULAR RISK <40 mg/dl - HIGH CARDIOVASCULAR RISKTrinity Health System [facility] on above:Performed By: #### CMP, LIPID #### [facility] [address] [place] [address] Dr. Calixto WestLDL CALC NORMALSEE BELOWTrinity Health System Twin [facility] Center on above:Result Comment: <100 mg/dl OPTIMAL 100 - 129 mg/dl NEAR OR ABOVE OPTIMAL 130 - 159 mg/dl BORDERLINE HIGH 160 - 189 mg/dl HIGH >190 mg/dl VERY HIGH Performed By: #### CMP, LIPID #### [facility] [address] [place] [address] Dr. Calixto WestTriglyceride [Mass/Vol]301 mg/dLCritically high<=150The [facility] on above:Performed By: #### CMP, LIPID #### [facility] [address] [place] [address] Dr. Calixto FigueredoLDL CALC60.2 mg/dLNoMercy Health West Hospital on above: Performed By: #### CMP, LIPID #### [facility] [address] [place] [address] Dr. Calixto WestPROF 14(COMP METB)on 69-13-0778Vljnwxl [Mass/Vol]3.6 g/dLNormal 3.4-5.0The [facility] on above:Performed By: #### CMP, LIPID #### [facility] [address] [place] [address] Dr. Calixto WestAlbumin/Globulin [Mass ratio]0.9 {ratio}NormalThe [facility] HospitalComment on above:Performed By: #### CMP, LIPID #### [facility] [address] [address] [address] Calixto Neil [Catalytic activity/Vol]70 U/RYfxajo09-516Gij [facility] HospitalComment on above:Performed By: #### CMP, LIPID #### [facility] [address] [address] [address] Calixto Vera [Catalytic activity/Vol]28 U/QZtcrwl91-28Yle [facility] HospitalComment on above:Performed By: #### CMP, LIPID #### [facility] [address] [address] [address] Calixto Alarcon gap [Moles/Vol]11.8 mmol/LNormalThe [facility] Comment on above:Performed By: #### CMP, LIPID #### [facility] [address] [address] [address] Calixto WestAST [Catalytic activity/Vol]26 U/YWzfclg43-23Pmc [facility] HospitalComment on above:Performed By: #### CMP, LIPID #### [facility] [address] [address] [address] Calixto WestBilirubin [Mass/Vol]0.3 mg/dLNormal0.2-1.0The [facility] Comment on above:Performed By: #### CMP, LIPID #### [facility] [address] [address] [address] Calixto WestCalcium [Mass/Vol]9.4 mg/dLNormal8.5-10.1The [facility] Comment on above:Performed By: #### CMP, LIPID #### [facility] [address] [address] [address] Calixto WestChloride [Moles/Vol]101 mmol/HBnjqxz91-583Xxy [facility] Comment on above:Performed By: #### CMP, LIPID #### [facility] [address] [address] [address] Calixto WestCO2 [Moles/Vol]27.8 mmol/NKilonl44.0-32.0The [facility] Comment on above:Performed By: #### CMP, LIPID #### [facility] [address] [address] [address] Calixto WestCreatinine [Mass/Vol]1.28 mg/dLNormal0.70-1.30The [facility] HospitalComment on above:Performed By: #### CMP, LIPID #### [facility] [address] [address] [address] Calixto NavarroGFR-AF CITIZEN OF [place]>60Normal>=60The [facility] HospitalComment on above:Performed By: #### CMP, LIPID #### [facility] [address] [address] [address] Calixto NavarroGFR-NON AF SPTZGJBS12 mL/min/1.63k0Tkubwjshpq low>=60The [facility] HospitalComment on above:Performed By: #### CMP, LIPID #### [facility] [address] [address] [address] Calixto WestGlobulin (S) [Mass/Vol]4.1 g/dLNormalThe [facility] HospitalComment on above:Performed By: #### CMP, LIPID #### [facility] [address] [address] [address] Calixto WestGlucose [Mass/Vol]133 mg/dLCritically rwsw46-040Sek [facility] Hospitalment on above:Performed By: #### CMP, LIPID #### [facility] [address] [address] [address] Calixto WestPotassium [Moles/Vol]4.6 mmol/LNormal3.5-5.1The [facility] Comment on above:Performed By: #### CMP, LIPID #### [facility] [address] [address] [address] Calixto WestProtein [Mass/Vol]7.7 g/dLNormal6.4-8.2The [facility] Comment on above:Performed By: #### CMP, LIPID #### [facility] [address] [address] [address] Calixto WestSodium [Moles/Vol]136 mmol/LRoujrc048-970Tcy [facility] Comment on above:Performed By: #### CMP, LIPID #### [facility] [address] [address] [address] Calixto WestUrea nitrogen [Mass/Vol]25.0 mg/dLCritically high7.0-18.0The [facility] HospitalComment on above:Performed By: #### CMP, LIPID #### [facility] [address] [address] [address] Calixto Alas nitrogen/Creatinine [Mass ratio]19.5 mg/mgNormalThe [facility] HospitalComment on above:Performed By: #### CMP, LIPID #### [facility] [address] [place] [address] Dr. Calixto RomeroF CHEM 8 (BAS METB)on 02-50-8621Qnkcg gap [Moles/Vol]11.3 mmol/LNormalThe [facility] HospitalComment on above:Performed By: #### CMP, LIPID #### [facility] [address] [place] [address] Dr. Calixto WestCalcium [Mass/Vol]9.1 mg/dLNormal8.5-10.1[facility] Comment on above:Performed By: #### CMP, LIPID #### [facility] [address] [place] [address] Dr. Calixto WestChloride [Moles/Vol]101 mmol/KNvzvjn43-044BslMercy Hospital Comment on above:Performed By: #### CMP, LIPID #### [facility] [address] [place] [address] Dr. Calixto WestCO2 [Moles/Vol]32.2 mmol/LCritically high21.0-32.0The [facility] HospitalComment on above:Performed By: #### CMP, LIPID #### [facility] [address] [place] [address] Dr. Calixto WestCreatinine [Mass/Vol]1.33 mg/dLCritically high0.70-1.30The [facility] HospitalComment on above:Performed By: #### CMP, LIPID #### [facility] [address] [address] [address] Calixto NavarroGFR-AF CITIZEN OF [place]>60Normal>=60The [facility] HospitalComment on above:Performed By: #### CMP, LIPID #### [facility] [address] [address] [address] Calixto NavarroGFR-NON AF LQUTRESB48 mL/min/1.38c4Krpmfjbaxy low>=60The [facility] HospitalComment on above:Performed By: #### CMP, LIPID #### [facility] [address] [address] [address] Calixto WestGlucose [Mass/Vol]149 mg/dLCritically ixud88-063Mer [facility] HospitalComment on above:Performed By: #### CMP, LIPID #### [facility] [address] [place] [address] Dr. Calixto WestPotassium [Moles/Vol]4.5 mmol/LNormal3.5-5.1The [facility] Comment on above:Performed By: #### CMP, LIPID #### [facility] [address] [address] [address] Calixto WestSodium [Moles/Vol]140 mmol/ZBmnibx447-948Fqn [facility] Comment on above:Performed By: #### CMP, LIPID #### [facility] [address] [address] [address] Calixto WestUrea nitrogen [Mass/Vol]21.0 mg/dLCritically high7.0-18.0The [facility] HospitalComment on above:Performed By: #### CMP, LIPID #### [facility] [address] [place] [address] Dr. Calixto WestUrea nitrogen/Creatinine [Mass ratio]15.8 mg/mgNormalThe [facility] HospitalComment on above:Performed By: #### CMP, LIPID #### [facility] [address] [place] [address] Dr. Calixto WestCovid-19 PCR (CVDTB)on 00-55-6532GHHO-CoV-2 (COVID-19) RNA PATSY+probe Ql (Unsp spec)Not detectedNormalNOT DETECTEDThe [facility] Comment on above:Result Comment: This test is not yet approved or cleared by the [place] FDA. When there are no FDA-approved or cleared tests available, and other criteria are met, FDA can make tests available under an emergency access mechanism called an Emergency Use Authorization (EUA). The EUA for this test is supported by the Data Support Analyst of Health and Human Service's (HHS's) declaration that circumstances exist to justify the emergency use of in vitro diagnostics for the detection and/or diagnosis of the virus that causes COVID- 19. This EUA will remain in effect (meaning [...] of clinical signs and symptoms consistent with SARS-CoV-2.Performed By: #### TSH, BNP, CMP, CMADM #### [facility] [address] [place] [address] Dr. Calixto WestINSULINon 90-19-6097Gibqpza62.6 uIU/mLCritically high2.6-24.9The [facility] HospitalComment on above:Performed By: #### TSH, BNP, CMP, CMADM #### [facility] [address] [place] [address] Dr. Calixto Funez 75-99-7510Sxihkryqxgt peptide B (Bld) [Mass/Vol]89.0 pg/mL Normal<=900.0The [facility] HospitalComment on above:Performed By: #### TSH, BNP, CMP, CMADM #### [facility] [address] [place] [address] Dr. Calixto Freitas AUTO DIFFon 34-96-5183PNRP #0.1 103/ulNormal0.0-0.1The [facility] Hospitalment on above:Performed By: #### CMP, LIPID #### [facility] [address] [place] [address] Dr. Calixto WestBasophils/100 WBC (Bld)0.9 %Normal0.2-2.0[facility] Comment on above:Performed By: #### CMP, LIPID #### [facility] [address] [place] [address] Dr. Calixto Dennis #0.2 103/ulNormal0.0-0.7The [facility] HospitalComment on above: Performed By: #### CMP, LIPID #### [facility] [address] [place] [address] Dr. Calixto Navarroosinophils/100 WBC (Bld)1.7 %Normal0.9-7.0The [facility] Comment on above:Performed By: #### CMP, LIPID #### [facility] [address] [place] [address] Dr. Calixto Navarrorythrocyte distribution width (RBC) [Ratio]12.9 %Kymzxt18.0-15.0 The [facility] HospitalComment on above:Performed By: #### CMP, LIPID #### [facility] [address] [place] [address] Dr. Calixto WestHematocrit (Bld) [Volume fraction]45.5 %Cbhzbl42.0-54.0The [facility] HospitalComment on above:Performed By: #### CMP, LIPID #### [facility] [address] [place] [address] Dr. Calixto WestHemoglobin (Bld) [Mass/Vol]16.5 g/vMQkxszg21.0-18.0The [facility] HospitalComment on above:Performed By: #### CMP, LIPID #### [facility] [address] [place] [address] Dr. Calixto Davidson #0.05 10e3/ulCritically high0.00-0.03The [facility] Comment on above:Performed By: #### CMP, LIPID #### [facility] [address] [place] [address] Dr. Calixto Davidson %0.5 %Normal0.0-0.5The [facility] HospitalComment on above: Performed By: #### CMP, LIPID #### [facility] [address] [address] [address] Calixto Olvera #5.2 103/ulCritically high1.2-3.8The [facility] Comment on above:Performed By: #### CMP, LIPID #### [facility] [address] [address] [address] Calixto Suarezmphocytes/100 WBC (Bld)49.6 %Dryytz95.5-60.0The [facility] HospitalComment on above:Performed By: #### CMP, LIPID #### [facility] [address] [address] [address] Calixto Hawkins DIFF REQNONormalThe [facility] HospitalComment on above: Performed By: #### CMP, LIPID #### [facility] [address] [place] [address] Dr. Calixto Saleh (RBC) [Entitic mass]31.2 pvSrtuan65.9-34.0The [facility] HospitalComment on above:Performed By: #### CMP, LIPID #### [facility] [address] [place] [address] Dr. Calixto Saleh (RBC) [Mass/Vol]36.3 g/dLCritically high29.9-35.2The [facility] HospitalComment on above:Performed By: #### CMP, LIPID #### [facility] [address] [place] [address] Dr. Calixto Saleh (RBC) [Entitic vol]86.0 mOZgzriu60.0-94.0The [facility] HospitalComment on above:Performed By: #### CMP, LIPID #### [facility] [address] [place] [address] Dr. Calixto Bridges #0.8 103/ulNormal0.3-0.8The [facility] HospitalComment on above:Performed By: #### CMP, LIPID #### [facility] [address] [place] [address] Dr. Calixto Rossocytes/100 WBC (Bld)7.8 %Normal1.7-12.0[facility] Comment on above:Performed By: #### CMP, LIPID #### [facility] [address] [address] [address] Calixto Aelgria #4.1 103/ulNormal1.4-6.5The [facility] HospitalComment on above:Performed By: #### CMP, LIPID #### [facility] [address] [address] [address] Calixto Newellutrophils/100 WBC (Bld)39.5 %Critically low43.0-75.0The [facility] HospitalComment on above:Performed By: #### CMP, LIPID #### [facility] [address] [address] [address] Calixto Lay mean volume (Bld) [Entitic vol]9.3 fLCritically low 9.5-13.5The [facility] HospitalComment on above:Performed By: #### CMP, LIPID #### [facility] [address] [place] [address] Dr. Calixto WestPLT449 103/esRjyywy312-814Cgj [facility] HospitalComment on above: Performed By: #### CMP, LIPID #### [facility] [address] [place] [address] Dr. Calixto WestRBC5.29 106/ulNormal4.70-6.10The [facility] HospitalComment on above:Performed By: #### CMP, LIPID #### [facility] [address] [place] [address] Dr. Calixto WestWBC10.4 103/ulNormal4.0-11.0The [facility] HospitalComment on above:Performed By: #### CMP, LIPID #### [facility] [address] [place] [address] Dr. Calixto WestGLYCOHEMOGLOBIN A1Con 56-10-1640EQY RECOMMENDATIONSEE BELOWNormal [facility] HospitalComment on above:Result Comment: ADA RECOMMENDED LIMIT 4.0 - 6.0 ADA THERAPEUTIC TARGET < 7.0 ACTION SUGGESTED > 7.0Performed By: #### A1C #### [facility] [address] [address] [address] Calixto WestGlucose [Mass/Vol]134 mg/dLMercy Health Perrysburg HospitalComment on above:Performed By: #### A1C #### [facility] [address] [address] [address] Calixto WestHbA1c (Bld) [Mass fraction]6.3 %Critically high4.5-6.2The [facility] on above:Performed By: #### A1C #### [facility] [address] [place] [address] Dr. Calixto WestLIPID PROFILEon 74-13-9556MBNX-HDL RATIO NORMSEE BELOWMercy Health Perrysburg HospitalComapex medical center on above:Result Comment: 3.3 - 4.4 LOW RISK 4.4 - 7.1 AVERAGE RISK 7.1 - 11.0 MODERATE RISK >11.0 HIGH RISKPerformed By: #### TSH, BNP, CMP, CMADM #### [facility] [address] [place] [address] Dr. Calixto Henryesterol [Mass/Vol]302 mg/dLCritically high<=200The [facility] on above:Performed By: #### TSH, BNP, CMP, CMADM #### [facility] [facility] [address] [place] [address] Dr. Calixto Henryesterol in HDL [Mass/Vol]36 mg/dLCritically eiu53-95Tyn [facility] on above:Performed By: #### TSH, BNP, CMP, CMADM #### [facility] [address] [place] [address] Dr. Calixto eHnryesterol in LDL [Mass/Vol]189.6 mg/dLTrinity Health System [facility] on above:Performed By: #### TSH, BNP, CMP, CMADM #### [facility] [address] [place] [address] Dr. Calixto Henryesterstacy.total/Cholesterol in HDL [Mass ratio]8.4 {ratio} NormalThe [facility] on above:Performed By: #### TSH, BNP, CMP, CMADM #### [facility] [address] [address] [address] Calixto Veras NORMAL> or = 60 mg/dl - LOW CARDIOVASCULAR RISK <40 mg/dl - HIGH CARDIOVASCULAR RISKTrinity Health System [facility] on above:Performed By: #### TSH, BNP, CMP, CMADM #### [facility] [address] [address] [address] Claixto WestLDL CALC NORMALSEE BELOWMercy Health Perrysburg HospitalComment on above:Result Comment: <100 mg/dl OPTIMAL 100 - 129 mg/dl NEAR OR ABOVE OPTIMAL 130 - 159 mg/dl BORDERLINE HIGH 160 - 189 mg/dl HIGH >190 mg/dl VERY HIGH Performed By: #### TSH, BNP, CMP, CMADM #### [facility] [address] [address] [address] Calixto WestTriglyceride [Mass/Vol]382 mg/dLCritically high<=150The [facility] HospitalComment on above:Performed By: #### TSH, BNP, CMP, CMADM #### [facility] [address] [address] [address] Calixto WestVLDL CALC76.4 mg/dLMercy Health Perrysburg HospitalComapex medical center on above: Performed By: #### TSH, BNP, CMP, CMADM #### [facility] [address] [address] [address] Calixto WestPROF 14(COMP METB)on 27-98-1448Mtskfzl [Mass/Vol]3.7 g/dLNormal 3.4-5.0The [facility] HospitalComment on above:Performed By: #### TSH, BNP, CMP, CMADM #### [facility] [address] [address] [address] Calixto WestAlbumin/Globulin [Mass ratio]0.9 {ratio}NormalThe [facility] on above:Performed By: #### TSH, BNP, CMP, CMADM #### [facility] [address] [address] [address] Calixto SpencerP [Catalytic activity/Vol]72 U/LLxkgcd32-631Qrv [facility] HospitalComment on above:Performed By: #### TSH, BNP, CMP, CMADM #### [facility] [address] [address] [address] Calixto Vera [Catalytic activity/Vol]35 U/ONmnzjz38-00Zgw [facility] HospitalComment on above:Performed By: #### TSH, BNP, CMP, CMADM #### [facility] [address] [place] [address] Dr. Calixto Alarcon gap [Moles/Vol]13.3 mmol/LNormalMercy Hospital Comment on above:Performed By: #### TSH, BNP, CMP, CMADM #### [facility] [address] [place] [address] Dr. Calixto Johnson [Catalytic activity/Vol]20 U/NDuqxkm47-26Dmq [facility] HospitalComment on above:Performed By: #### TSH, BNP, CMP, CMADM #### [facility] [address] [place] [address] Dr. Calixto WestBilirubin [Mass/Vol]0.6 mg/dLNormal0.2-1.0The [facility] Comment on above:Performed By: #### TSH, BNP, CMP, CMADM #### [facility] [address] [place] [address] Dr. Calixto WestCalcium [Mass/Vol]8.8 mg/dLNormal8.5-10.1[facility] Comment on above:Performed By: #### TSH, BNP, CMP, CMADM #### [facility] [address] [place] [address] Dr. Calixto WestChloride [Moles/Vol]102 mmol/EPfxrzo16-959Glf [facility] Comment on above:Performed By: #### TSH, BNP, CMP, CMADM #### [facility] [address] [place] [address] Dr. Calixto WestCO2 [Moles/Vol]26.9 mmol/HHfvlbp53.0-32.0The [facility] Comment on above:Performed By: #### TSH, BNP, CMP, CMADM #### [facility] [address] [address] [address] Calixto WestCreatinine [Mass/Vol]1.22 mg/dLNormal0.70-1.30The [facility] Hospitalment on above:Performed By: #### TSH, BNP, CMP, CMADM #### [facility] [address] [place] [address] Dr. Calixto NavarroGFR-AF CITIZEN OF [place]>60Normal>=60The [facility] HospitalComment on above:Performed By: #### TSH, BNP, CMP, CMADM #### [facility] [address] [place] [address] Dr. Calixto NavarroGFR-NON AF CITIZEN OF [place]=60Normal>=60The [facility] HospitalComment on above:Performed By: #### TSH, BNP, CMP, CMADM #### [facility] [address] [place] [address] Dr. Calixto WestGlobulin (S) [Mass/Vol]3.9 g/dLNormalThe [facility] HospitalComment on above:Performed By: #### TSH, BNP, CMP, CMADM #### [facility] [address] [place] [address] Dr. Calixto WestGlucose [Mass/Vol]147 mg/dLCritically npyn23-280Vov [facility] Hospitalment on above:Performed By: #### TSH, BNP, CMP, CMADM #### [facility] [address] [place] [address] Dr. Calixto WestPotassium [Moles/Vol]4.2 mmol/LNormal3.5-5.1The [facility] Comment on above:Performed By: #### TSH, BNP, CMP, CMADM #### [facility] [address] [place] [address] Dr. Calixto WestProtein [Mass/Vol]7.6 g/dLNormal6.4-8.2The [facility] Comment on above:Performed By: #### TSH, BNP, CMP, CMADM #### [facility] [address] [place] [address] Dr. Yilan ChangSodium [Moles/Vol]138 mmol/HLcqano693-543Jgg [facility] Comment on above:Performed By: #### TSH, BNP, CMP, CMADM #### [facility] [address] [address] [address] Calixto WestUrea nitrogen [Mass/Vol]16.0 mg/dLNormal7.0-18.0The [facility] HospitalComment on above:Performed By: #### TSH, BNP, CMP, CMADM #### [facility] [address] [address] [address] Calixto WestUrea nitrogen/Creatinine [Mass ratio]13.1 mg/mgNormalThe [facility] HospitalComment on above:Performed By: #### TSH, BNP, CMP, CMADM #### [facility] [address] [place] [address] Dr. Calixto WestURIC ACID SERUMon 86-26-2316Jbzww [Mass/Vol]7.2 mg/dLNormal 3.5-7.2The [facility] HospitalComment on above:Performed By: #### TSH, BNP, CMP, CMADM #### [facility] [address] [place] [address] Dr. Calixto WestPhysician Referralon [id number] Referral [id number]:127NormalQuorum Healther [facility] Medical CenterECHOCARDIO M/2D COMPLETEon [id number] M/2D COMPLETEPatient: CECIL HAMMOND Exam Date: 10/24/2021 : 1960 Gender:M Ordering : DR LINDEN KING . Admission #: [id number] Family : Order #: [id number] CLICK HERE TO VIEW EXAM ECHOCARDIOGRAM REPORT [...] 6. No pericardial effusion. Dictated by: Shonna Melton M.D. on 10/25/2021 at 10:15 Approved by: Shonna Melton M.D. on 10/25/2021 at 10:[address] [address] LABCORPon [id number] [Mass/Vol]7.7 ug/dLNormal4.5-12.0[facility] Hospitalment on above:Performed By: #### TSH, BNP, CMP, CMADM #### [facility] [address] [place] [address] Dr. Calixto Funez 94-19-5418Qmfzjclrref peptide B (Bld) [Mass/Vol]41.0 pg/mL Normal<=900.0The [facility] HospitalComment on above:Performed By: #### TSH, BNP, CMP, CMADM #### [facility] [address] [place] [address] Dr. Calixto Freitas AUTO DIFFon 84-52-5243FZCB #0.1 103/ulNormal0.0-0.1The [facility] Hospitalment on above:Performed By: #### CMP, LIPID #### [facility] [address] [address] [address] Calixto WestBasophils/100 WBC (Bld)0.8 %Normal0.2-2.0The [facility] Comment on above:Performed By: #### CMP, LIPID #### [facility] [address] [address] [address] Calixto Dennis #0.3 103/ulNormal0.0-0.7The [facility] HospitalComment on above: Performed By: #### CMP, LIPID #### [facility] [address] [place] [address] Dr. Calixto Navarroosinophils/100 WBC (Bld)2.8 %Normal0.9-7.0The [facility] Comment on above:Performed By: #### CMP, LIPID #### [facility] [address] [place] [address] Dr. Calixto Navarrorythrocyte distribution width (RBC) [Ratio]13.0 %Mofsio85.0-15.0 The [facility] HospitalComment on above:Performed By: #### CMP, LIPID #### [facility] [address] [place] [address] Dr. Calixto WestHematocrit (Bld) [Volume fraction]44.6 %Usxxmr40.0-54.0The [facility] HospitalComment on above:Performed By: #### CMP, LIPID #### [facility] [address] [place] [address] Dr. Calixto WestHemoglobin (Bld) [Mass/Vol]15.5 g/zBLfvixe90.0-18.0The [facility] HospitalComment on above:Performed By: #### CMP, LIPID #### [facility] [address] [place] [address] Dr. Calixto Davidson #0.06 10e3/ulCritically high0.00-0.03The [facility] Comment on above:Performed By: #### CMP, LIPID #### [facility] [address] [place] [address] Dr. Calixto Davidson %0.6 %Critically high0.0-0.5The [facility] HospitalComment on above:Performed By: #### CMP, LIPID #### [facility] [address] [place] [address] Dr. Calixto Olvera #4.1 103/ulCritically high1.2-3.8The [facility] Comment on above:Performed By: #### CMP, LIPID #### [facility] [address] [place] [address] Dr. Calixto Barnetthocytes/100 WBC (Bld)40.5 %Tkylly51.5-60.0The [facility] HospitalComment on above:Performed By: #### CMP, LIPID #### [facility] [address] [place] [address] Dr. Calixto Hawkins DIFF REQNONormalThe [facility] HospitalComment on above: Performed By: #### CMP, LIPID #### [facility] [address] [place] [address] Dr. Calixto Bloom (RBC) [Entitic mass]31.0 ciUqjqum91.9-34.0The [facility] HospitalComment on above:Performed By: #### CMP, LIPID #### [facility] [address] [place] [address] Dr. Calixto Fisher (RBC) [Mass/Vol]34.8 g/vKCfglpp14.9-35.2The [facility] HospitalComment on above:Performed By: #### CMP, LIPID #### [facility] [address] [place] [address] Dr. Calixto Duque (RBC) [Entitic vol]89.2 zAVmnsel81.0-94.0The [facility] HospitalComment on above:Performed By: #### CMP, LIPID #### [facility] [address] [place] [address] Dr. Calixto Bridges #0.8 103/ulNormal0.3-0.8The [facility] HospitalComment on above:Performed By: #### CMP, LIPID #### [facility] [address] [place] [address] Dr. Yilan ChangMonocytes/100 WBC (Bld)8.1 %Normal1.7-12.0The [facility] Comment on above:Performed By: #### CMP, LIPID #### [facility] [address] [place] [address] Dr. Calixto Alegria #4.8 103/ulNormal1.4-6.5The [facility] HospitalComment on above:Performed By: #### CMP, LIPID #### [facility] [address] [place] [address] Dr. Calixto Newellutrophils/100 WBC (Bld)47.2 %Wokavp21.0-75.0The [facility] HospitalComment on above:Performed By: #### CMP, LIPID #### [facility] [address] [place] [address] Dr. Calixto Lay mean volume (Bld) [Entitic vol]9.3 fLCritically low 9.5-13.5The [facility] HospitalComment on above:Performed By: #### CMP, LIPID #### [facility] [address] [place] [address] Dr. Calixto WestPLT398 103/gtOpibyo030-120Lnt [facility] HospitalComment on above: Performed By: #### CMP, LIPID #### [facility] [address] [place] [address] Dr. Calixto WestRBC5.00 106/ulNormal4.70-6.10The [facility] HospitalComment on above:Performed By: #### CMP, LIPID #### [facility] [address] [place] [address] Dr. Calixto WestWBC10.1 103/ulNormal4.0-11.0The [facility] HospitalComment on above:Performed By: #### CMP, LIPID #### [facility] [address] [place] [address] Dr. Calixto Saravia T3on 74-29-5297TPDG T33.04 pg/mlLNormal2.18-3.98The [facility] HospitalComment on above:Performed By: #### CMP, LIPID #### [facility] [address] [address] [address] Calixto Saravia THYROXINE INDEX T7on 03-45-5043IHP2.63Msqweh8.30-4.50The [facility] HospitalComment on above:Performed By: #### TSH, BNP, CMP, CMADM #### [facility] [address] [place] [address] Dr. Calixto WestT3U34.0 %Knwblb64.0-40.0The [facility] HospitalComment on above: Performed By: #### TSH, BNP, CMP, CMADM #### [facility] [address] [place] [address] Dr. Calixto Steward4 [Mass/Vol]7.70 ug/dLNormal4.50-12.10The [facility] Comment on above:Performed By: #### TSH, BNP, CMP, CMADM #### [facility] [address] [place] [address] Dr. Calixto WestPROF 14(COMP METB)on 82-47-0340Ospxivs [Mass/Vol]3.5 g/dLNormal 3.4-5.0The [facility] on above:Performed By: #### TSH, BNP, CMP, CMADM #### [facility] [address] [place] [address] Dr. Calixot WestAlbumin/Globulin [Mass ratio]0.9 {ratio}NormalThe [facility] HospitalComment on above:Performed By: #### TSH, BNP, CMP, CMADM #### [facility] [address] [place] [address] Dr. Calixto SpencerP [Catalytic activity/Vol]67 U/WAqwseb91-311Tbb [facility] HospitalComment on above:Performed By: #### TSH, BNP, CMP, CMADM #### [facility] [address] [place] [address] Dr. Calixto Vera [Catalytic activity/Vol]49 U/IIeyaoj81-46Ref [facility] HospitalComment on above:Performed By: #### TSH, BNP, CMP, CMADM #### [facility] [address] [address] [address] Calixto Alarcon gap [Moles/Vol]14.0 mmol/LNormalThe [facility] Comment on above:Performed By: #### TSH, BNP, CMP, CMADM #### [facility] [address] [address] [address] Calixto WestAST [Catalytic activity/Vol]24 U/ZSfinov03-62Jhd [facility] HospitalComment on above:Performed By: #### TSH, BNP, CMP, CMADM #### [facility] [address] [address] [address] Calixto WestBilirubin [Mass/Vol]0.4 mg/dLNormal0.2-1.0The [facility] Comment on above:Performed By: #### TSH, BNP, CMP, CMADM #### [facility] [address] [place] [address] Dr. Calixto WestCalcium [Mass/Vol]9.0 mg/dLNormal8.5-10.1The [facility] Comment on above:Performed By: #### TSH, BNP, CMP, CMADM #### [facility] [address] [place] [address] Dr. Calixto WestChloride [Moles/Vol]102 mmol/BHndeyq88-190Res [facility] Comment on above:Performed By: #### TSH, BNP, CMP, CMADM #### [facility] [address] [place] [address] Dr. Calixto WestCO2 [Moles/Vol]27.1 mmol/IPgaypy99.0-32.0The [facility] Comment on above:Performed By: #### TSH, BNP, CMP, CMADM #### [facility] [address] [place] [address] Dr. Calixto WestCreatinine [Mass/Vol]1.01 mg/dLNormal0.70-1.30The [facility] HospitalComment on above:Performed By: #### TSH, BNP, CMP, CMADM #### [facility] [address] [place] [address] Dr. Calixto NavarroGFR-AF CITIZEN [place]>60Normal>=60The [facility] HospitalComment on above:Performed By: #### TSH, BNP, CMP, CMADM #### [facility] [address] [address] [address] Calixto NavarroGFR-NON AF CITIZEN OF [place]>60Normal>=60The [facility] HospitalComment on above:Performed By: #### TSH, BNP, CMP, CMADM #### [facility] [address] [address] [address] Calixto WestGlobulin (S) [Mass/Vol]4.1 g/dLNormalThe [facility] HospitalComment on above:Performed By: #### TSH, BNP, CMP, CMADM #### [facility] [address] [place] [address] Dr. Calixto WestGlucose [Mass/Vol]156 mg/dLCritically bwjl53-706Iwg [facility] HospitalComment on above:Performed By: #### TSH, BNP, CMP, CMADM #### [facility] [address] [place] [address] Dr. Calixto WestPotassium [Moles/Vol]4.1 mmol/LNormal3.5-5.1The [facility] Comment on above:Performed By: #### TSH, BNP, CMP, CMADM #### [facility] [address] [address] [address] Calixto WestProtein [Mass/Vol]7.6 g/dLNormal6.4-8.2The [facility] Comment on above:Performed By: #### TSH, BNP, CMP, CMADM #### [facility] [address] [place] [address] Dr. Calixto WestSodium [Moles/Vol]139 mmol/XEdpcim571-327Syv [facility] Comment on above:Performed By: #### TSH, BNP, CMP, CMADM #### [facility] [address] [address] [address] Calixto WestUrea nitrogen [Mass/Vol]19.0 mg/dLCritically high7.0-18.0The [facility] HospitalComment on above:Performed By: #### TSH, BNP, CMP, CMADM #### [facility] [address] [address] [address] Calixto Alas nitrogen/Creatinine [Mass ratio]18.8 mg/mgMercy Health Perrysburg HospitalComment on above:Performed By: #### TSH, BNP, CMP, CMADM #### [facility] [address] [address] [address] Calixto Sarkar 64-23-6412ACP6.060 uIU/mLCritically high0.358-3.740The [facility] HospitalComment on above:Performed By: #### TSH, BNP, CMP, CMADM #### [facility] [address] [place] [address] Dr. Calixto Rollins RANGESFairfield Medical CenterComment on above: Result Comment: <0.34 UIU/ml HYPERTHYROID 0.34-5.60 UIU/ml EUTHYROID >5.60 UIU/ml HYPOTHYROIDPerformed By: #### TSH, BNP, CMP, CMADM #### [facility] [address] [place] [address] Dr. Calixto Grubbs CULTURE ID/SENSon [id number] ID + SusceptFinal report AbnormalThe [facility] HospitalComapex medical center on above:Performed By: #### CMP, LIPID #### [facility] [address] [place] [address] Dr. Calixto WestAntimicrobial SusceptibilityComSouthern [facility] Comment on above:Result Comment: S = Susceptible; I = Intermediate; R = Resistant P = Positive; N = Negative MICS are expressed in micrograms per mL Antibiotic RSLT#1 RSLT#2 RSLT#3 RSLT#4 Ciprofloxacin S Clindamycin S Erythromycin S Gentamicin S Levofloxacin S Moxifloxacin S Oxacillin S Penicillin R Rifampin S Tetracycline S Trimethoprim/Sulfa S Vancomycin SPerformed By: #### CMP, LIPID #### [facility] [address] [place] [address] Dr. Calixto Mueller 1CommentKettering HealthComapex medical center on above: Result Comment: Staphylococcus hominis Based on susceptibility to oxacillin this isolate would be susceptible to: *Penicillinase-stable penicillins, such as: Cloxacillin, Dicloxacillin, Nafcillin *Beta-lactam combination agents, such as: Amoxicillin-clavulanic acid, Ampicillin-sulbactam, Piperacillin-tazobactam *Oral cephems, such as: Cefaclor, Cefdinir, Cefpodoxime, Cefprozil, Cefuroxime, Cephalexin, Loracarbef *Parenteral cephems, such as: Cefazolin, Cefepime, Cefotaxime, Cefotetan, Ceftaroline, Ceftizoxime, Ceftriaxone, Cefuroxime *Carbapenems, such as: Doripenem, Ertapenem, Imipenem, Meropenem Received aerobic bottle only.Performed By: #### CMP, LIPID #### [facility] [address] [place] [address] Dr. Calixto Grubbs CULTURE ID PANELon 2A. baumanniiNot detectedNormUniversity Hospitals Cleveland Medical CenterComment on above:Performed By: #### TSH, BNP, CMP, CMADM #### [facility] [address] [address] [address] Calixto Bradford CONTROLSOur Lady of Mercy HospitalComapex medical center on above: Performed By: #### TSH, BNP, CMP, CMADM #### [facility] [address] [address] [address] Calixto BradfordBTHDBLOOD CULTURE BOTTLE [facility] Medical CenterComment on above:Performed By: #### TSH, BNP, CMP, CMADM #### [facility] [address] [address] [address] Calixto BradfordKykwhXWIKLH2HNWOACAUAKAAQ RESISTANCE GENESMercy Health Perrysburg Hospital Comment on above:Performed By: #### TSH, BNP, CMP, CMADM #### [facility] [address] [place] [address] Dr. Calixto BradfordHD2SEE BELOWMercy Health Perrysburg HospitalComapex medical center on above: Result Comment: KPC- carbapenem resistance gene, mecA- methecillin resistance gene, van A/B- vancomycin resistance gene Note: Antimicrobial resitance can occur via multiple mechanisms. A Not Detectedresult for the FilmArray antomicrobial resistance gene assays does not indicate antimicrobial suscep tibility. Subculturing is required for specis identificationand susceptibility testing of isolates.Performed By: #### TSH, BNP, CMP, CMADM #### [facility] [address] [address] [address] Calixto BradfordRfnjnQTFWYZ9CggdferyMhlrkaBpzAultman HospitalComment on above: Performed By: #### TSH, BNP, CMP, CMADM #### [facility] [address] [place] [address] Dr. Calixto BradfordSxhpiQALQJW4GqlfcfkvJpxvetNebElyria Memorial HospitalComapex medical center on above: Performed By: #### TSH, BNP, CMP, CMADM #### [facility] [address] [place] [address] Dr. Calixto BradfordMakrwBPEBXF5NIPHHDhznxnNxaOhioHealth Doctors HospitalComment on above:Performed By: #### TSH, BNP, CMP, CMADM #### [facility] [address] [place] [address] Dr. Calixto BradfordHD6SEE [facility] on above: Result Comment: Note: All genus and species BCID FilmArray results will be verified post subculturing via Maldi-Tof MS testing methodology.Performed By: #### TSH, BNP, CMP, CMADM #### [facility] [address] [place] [address] Dr. Calixto Xiao Set:Set 1NormalAshtabula General Hospital on above: Performed By: #### TSH, BNP, CMP, CMADM #### [facility] [address] [place] [address] Dr. Calixto Xiao:[facility] HospitalComapex medical center on above: Performed By: #### TSH, BNP, CMP, CMADM #### [facility] [address] [address] [address] Calixto Romero albicansNot [facility] HospitalComment on above:Performed By: #### TSH, BNP, CMP, CMADM #### [facility] [address] [address] [address] Calixto Romero glabrataNot detectedBluffton Hospital HospitalComment on above:Performed By: #### TSH, BNP, CMP, CMADM #### [facility] [address] [address] [address] Calixto Dhaliwalt detectedNoProMedica Flower Hospital HospitalComment on above:Performed By: #### TSH, BNP, CMP, CMADM #### [facility] [address] [address] [address] Calixto Romero ParapsilosisNot [facility] on above:Performed By: #### TSH, BNP, CMP, CMADM #### [facility] [address] [address] [address] Calixto Romero TropicalisNot detectedMercy Health Perrysburg HospitalComment on above:Performed By: #### TSH, BNP, CMP, CMADM #### [facility] [address] [address] [address] Calixto Valdes Cloacae complexNot detectedMercy Health Perrysburg HospitalComapex medical center on above:Performed By: #### TSH, BNP, CMP, CMADM #### [facility] [address] [address] Dr. Calixto WaggonerbacteriaceaeNot detectedMercy Health Perrysburg HospitalComment on above:Performed By: #### TSH, BNP, CMP, CMADM #### [facility] [address] [address] [address] Calixto WaggonercoccusNot detectedMercy Health Perrysburg HospitalComment on above:Performed By: #### TSH, BNP, CMP, CMADM #### [facility] [address] [address] [address] Calixto Proctorcheria coliNot detectedBluffton Hospital HospitalComment on above:Performed By: #### TSH, BNP, CMP, CMADM #### [facility] [address] [address] [address] Calixto Flanagan. oxytocaNot detectedBluffton Hospital HospitalComment on above:Performed By: #### TSH, BNP, CMP, CMADM #### [facility] [address] [address] [address] Calixto Flanagan. pneumoniaeNot detectedBluffton Hospital HospitalComment on above:Performed By: #### TSH, BNP, CMP, CMADM #### [facility] [address] [address] [address] Calixto Quesada Resistant GeneNot ApplicableLake County Memorial Hospital - West on above:Performed By: #### TSH, BNP, CMP, CMADM #### [facility] [address] [address] [address] Calixto Steele. monocytogenesNot detectedBluffton Hospital HospitalComment on above:Performed By: #### TSH, BNP, CMP, CMADM #### [facility] [address] [address] [address] Calixto May Resistant GeneNot detectedBluffton Hospital HospitalComment on above:Performed By: #### TSH, BNP, CMP, CMADM #### [facility] [address] [address] [address] Calixto WestProteusNot detectedMercy Health Perrysburg HospitalComment on above: Performed By: #### TSH, BNP, CMP, CMADM #### [facility] [address] [address] [address] Calixto Thomas. aeruginosaNot detectedBluffton Hospital HospitalComment on above:Performed By: #### TSH, BNP, CMP, CMADM #### [facility] [address] [address] [address] Calixto Narayan marcescensNot detectedBluffton Hospital HospitalComment on above:Performed By: #### TSH, BNP, CMP, CMADM #### [facility] [address] [address] [address] Calixto White:acNormalMercy HospitalComment on above:Performed By: #### TSH, BNP, CMP, CMADM #### [facility] [address] [address] [address] Calixto Zuleta. aureusDetectedCritically abnormalMercy Hospital Comment on above:Performed By: #### TSH, BNP, CMP, CMADM #### [facility] [address] [address] [address] Calixto ConradaphylococcusNot detectedMercy Health Perrysburg HospitalComment on above:Performed By: #### TSH, BNP, CMP, CMADM #### [facility] [address] [address] [address] Calixto Noyola. agalactiaeNot detectedMercy Health Perrysburg HospitalComment on above:Performed By: #### TSH, BNP, CMP, CMADM #### [facility] [address] [address] [address] Calixto Noyola. pneumoniaeNot detectedMercy Health Perrysburg HospitalComment on above:Performed By: #### TSH, BNP, CMP, CMADM #### [facility] [address] [address] [address] Calixto Noyola. pyogenesNot detectedMercy Health Perrysburg HospitalComment on above:Performed By: #### TSH, BNP, CMP, CMADM #### [facility] [address] [address] [address] Calixto NoyolatococcusNot detectedBluffton Hospital HospitalComment on above:Performed By: #### TSH, BNP, CMP, CMADM #### [facility] [address] [address] [address] Calixto Agustin/Natacha Resist. GeneNot ApplicableMercy Health Perrysburg Hospital Comment on above:Performed By: #### TSH, BNP, CMP, CMADM #### [facility] [address] [address] [address] Calixto ISSA BTYon MODENASAL CANNULANoSelect Medical Specialty Hospital - CantonComment on above:Performed By: #### TSH, BNP, CMP, CMADM #### [facility] [address] [address] [address] Calixto Khanna TESTPosUpper Valley Medical CenterComapex medical center on above: Performed By: #### TSH, BNP, CMP, CMADM #### [facility] [address] [address] [address] Calixto WestBase excess Calc (Bld) [Moles/Vol]2.2 mmol/LCritically high -2.0-2.0The [facility] on above:Performed By: #### TSH, BNP, CMP, CMADM #### [facility] [address] [place] [address] [facility] on above: Performed By: #### TSH, BNP, CMP, CMADM #### [facility] [address] [place] [address] Dr. Calixto WestCO2 [Moles/Vol]52.2 mmol/LCritically high23.0-28.0The [facility] on above:Performed By: #### TSH, BNP, CMP, CMADM #### [facility] [address] [place] [address] Dr. Calixto WestSelect Medical Specialty Hospital - Canton on above:Performed By: #### TSH, BNP, CMP, CMADM #### [facility] [address] [place] [address] Dr. [address] WestRed[address]TB[address]Br[address] on above:Performed By: #### TSH, BNP, CMP, CMADM #### [facility] [address] [place] [address] Dr. Calixto WestHCO3 (Bld) [Moles/Vol]25.9 mmol/GQurqmm73.0-26.0The [facility] on above:Performed By: #### TSH, BNP, CMP, CMADM #### [facility] [address] [place] [address] Dr. [address] WestZfwrtQED[address]Zvo[address] on above:Performed By: #### TSH, BNP, CMP, CMADM #### [facility] [address] [address] [address] Cal[address] Doming[address] [facility] HospitalComapex medical center on above: Performed By: #### TSH, BNP, CMP, CMADM #### [facility] [address] [address] [address] Calixto WestOxygen (Bld) [Partial pressure]57.9 mm[Hg]Critically low 80.0-100.0The [facility] on above:Performed By: #### TSH, BNP, CMP, CMADM #### [facility] [address] [place] [address] Dr. Calixto Pollard saturation in Blood91.4 %Critically low95.0-100.0The [facility] on above:Performed By: #### TSH, BNP, CMP, CMADM #### [facility] [address] [place] [address] Dr. Calixto WestPCO241.2 hqPlLbrrcm41.0-45.0[facility] on above:Performed By: #### TSH, BNP, CMP, CMADM #### [facility] [address] [place] [address] Dr. Cal[facility]xt[facility]Ch[facility] on above:Performed By: #### TSH, BNP, CMP, CMADM #### [facility] [address] [place] [address] Dr. Calixto WestpH (Bld)7.420 [pH]Normal7.350-7.450[facility] on above:Performed By: #### TSH, BNP, CMP, CMADM #### [facility] [address] [place] [address] Dr. Calixto MaierormalThe [facility] on above:Performed By: #### TSH, BNP, CMP, CMADM #### [facility] [address] [place] [address] Dr. Calixto WestThe [facility] on above:Performed By: #### TSH, BNP, CMP, CMADM #### [facility] [address] [address] [address] Calixto Simmons [facility] on above: Performed By: #### TSH, BNP, CMP, CMADM #### [facility] [address] [address] [address] Calixto Osborneecu health bertie hospitalThe [facility] on above:Performed By: #### TSH, BNP, CMP, CMADM #### [facility] [address] [address] [address] Calixto WestSum[facility] on above:Performed By: #### TSH, BNP, CMP, CMADM #### [facility] [address] [place] [address] Dr. Calixto WestOhio [facility] on above:Performed By: #### TSH, BNP, CMP, CMADM #### [facility] [address] [place] [address] Dr. Calixto Funez [id number] peptide B (Bld) [Mass/Vol]1786.0 pg/mLCritically high<=900.0The [facility] on above:Performed By: #### TSH, BNP, CMP, CMADM #### [facility] [address] [address] [address] Calixto Joiner GARCÍA ADMITon [id number] [Catalytic activity/Vol]113 U/L Mzqzdt36-671Dun [facility] on above:Performed By: #### TSH, BNP, CMP, CMADM #### [facility] [address] [address] [address] Calixto Tiwari.MB [Mass/Vol]1.62 ng/mLNormal<=3.60The [facility] Comment on above:Performed By: #### TSH, BNP, CMP, CMADM #### [facility] [address] [place] [address] Dr. Yilan DssttPBHMNA41.5 pg/mLNormal4.0-76.1The [facility] HospitalComment on above:Result Comment: CUT-OFF POINTS HAVE BEEN ESTABLISHED BASED ON THE FOURTH UNIVERSAL DEFINITIONS OF MYOCARDIAL INFARCTION. THE UPPER REFERENCE LIMIT (URL) OF TROPONIN, DEFINED THE 99TH PERCENTILE OF cTnI DISTRIBUTION IN A REFERENCE POPULATION, HAS BEEN CONFIRMED THE DECISION THRESHOLD FOR CT DIAGNOSIS.Performed By: #### TSH, BNP, CMP, CMADM #### [facility] [address] [place] [address] Dr. Calixto WestMYO52 ng/qGLtrfho43-87Iie [facility] HospitalComment on above: Performed By: #### TSH, BNP, CMP, CMADM #### [facility] [address] [place] [address] Dr. Calixto Freitas AUTO DIFFon [id number] #0.0 103/ulNormal0.0-0.1The [facility] HospitalComment on above:Performed By: #### CMP, LIPID #### [facility] [address] [place] [address] Dr. Calixto eWstBasophils/100 WBC (Bld)0.3 %Normal0.2-2.0[facility] Comment on above:Performed By: #### CMP, LIPID #### [facility] [address] [place] [address] Dr. Calixto Dennis #0.1 103/ulNormal0.0-0.7The [facility] HospitalComment on above: Performed By: #### CMP, LIPID #### [facility] [address] [place] [address] Dr. Calixto Navarroosinophils/100 WBC (Bld)0.8 %Critically low0.9-7.0The [facility] HospitalComment on above:Performed By: #### CMP, LIPID #### [facility] [address] [place] [address] Dr. Calixto Navarrorythrocyte distribution width (RBC) [Ratio]13.3 %Uircnp68.0-15.0 The [facility] HospitalComment on above:Performed By: #### CMP, LIPID #### [facility] [address] [address] [address] Calixto WestHematocrit (Bld) [Volume fraction]43.7 %Eyycbv04.0-54.0The [facility] HospitalComment on above:Performed By: #### CMP, LIPID #### [facility] [address] [address] [address] Calixto WestHemoglobin (Bld) [Mass/Vol]15.0 g/iPTnpbzq14.0-18.0The [facility] HospitalComment on above:Performed By: #### CMP, LIPID #### [facility] [address] [address] [address] Calixto Davidson #0.05 10e3/ulCritically high0.00-0.03The [facility] Comment on above:Performed By: #### CMP, LIPID #### [facility] [address] [address] [address] Calixto Davidson %0.4 %Normal0.0-0.5The [facility] HospitalComment on above: Performed By: #### CMP, LIPID #### [facility] [address] [address] [address] Calixto Olvera #2.8 103/ulNormal1.2-3.8The [facility] HospitalComment on above:Performed By: #### CMP, LIPID #### [facility] [address] [address] [address] Calixto Barnetthocytes/100 WBC (Bld)23.4 %Cwnluk44.5-60.0The [facility] HospitalComment on above:Performed By: #### CMP, LIPID #### [facility] [address] [address] [address] Calixto LarkinUAL DIFF REQNONormalThe [facility] HospitalComment on above: Performed By: #### CMP, LIPID #### [facility] [address] [address] [address] Calixto Bloom (RBC) [Entitic mass]31.3 msDssytn53.9-34.0The [facility] HospitalComment on above:Performed By: #### CMP, LIPID #### [facility] [address] [place] [address] Dr. Calixto Saleh (RBC) [Mass/Vol]34.3 g/uWWksajn50.9-35.2The [facility] HospitalComment on above:Performed By: #### CMP, LIPID #### [facility] [address] [place] [address] Dr. Calixto Duque (RBC) [Entitic vol]91.2 mUIcrbfm04.0-94.0The [facility] HospitalComment on above:Performed By: #### CMP, LIPID #### [facility] [address] [place] [address] Dr. Calixto Bridges #0.5 103/ulNormal0.3-0.8The [facility] HospitalComment on above:Performed By: #### CMP, LIPID #### [facility] [address] [place] [address] Dr. Calixto Rossocytes/100 WBC (Bld)4.5 %Normal1.7-12.0[facility] Comment on above:Performed By: #### CMP, LIPID #### [facility] [address] [place] [address] Dr. Calixto Alegria #8.4 103/ulCritically high1.4-6.5The [facility] Comment on above:Performed By: #### CMP, LIPID #### [facility] [address] [place] [address] Dr. Calixto Servinophils/100 WBC (Bld)70.6 %Lcwant58.0-75.0The [facility] HospitalComment on above:Performed By: #### CMP, LIPID #### [facility] [address] [place] [address] Dr. Calixto Lay mean volume (Bld) [Entitic vol]9.2 fLCritically low 9.5-13.5The [facility] HospitalComment on above:Performed By: #### CMP, LIPID #### [facility] [address] [address] [address] Calixto WestPLT351 103/yiCnxavl128-989Vbi [facility] HospitalComment on above: Performed By: #### CMP, LIPID #### [facility] [address] [place] [address] Dr. Calixto WestRBC4.79 106/ulNormal4.70-6.10The [facility] HospitalComment on above:Performed By: #### CMP, LIPID #### [facility] [address] [place] [address] Dr. Calixto WestWBC11.9 103/ulCritically high4.0-11.0The [facility] HospitalComment on above:Performed By: #### CMP, LIPID #### [facility] [address] [place] [address] Dr. Calixto WestCT HEAD WO CONon [id number] HEAD WO CONEXAMINATION: CT HEAD WO CON HISTORY: Syncope COMPARISON: [...] Electronically authenticated by: KIERSTEN WASHINGTON Date: 2021-08-17 12:29NormalThe [facility] HospitalCTA CHEST WO W CONon [id number] CHEST WO W CONEXAMINATION: CTA CHEST WO W CON HISTORY: Syncope [...] Electronically authenticated by: FELICITY MCGRATH Date: 2021-08-17 13:26NoSelect Medical Specialty Hospital - CantonCULTURE BLOODon [id number] examination of blood, cultureCulture Observations: NO GROWTH AT 5 DAYS.NormalMercy HospitalComment on above:Performed By: #### CMP, LIPID #### [facility] [address] [address] [address] Calixto WestMicroscopic examination of blood, cultureCulture Observations: NO GROWTH AT 5 DAYS IN ANAEROBIC BOTTLE. Culture Observations: POS AEROBIC [facility]OTTLE S[facility] TO [facility].NormalMercy HospitalComment on above: Performed By: #### CMP, LIPID #### [facility] [address] [address] [address] Calixto WestCovid-19 PCR (CVDROBERT [facility]CK [facility])on 70-23-3235JEDJ-CoV-2 (COVID-19) RNA PATSY+probe Ql (Unsp spec)Not detectedNormalNOT DETECTEDMercy Hospital Comment on above:Result Comment: When diagnostic testing is negative, the possibility of a false negative should be considered in the context of a patient's recent exposures and the presence of clinical signs and symptoms consistent with SARS-CoV-2. This test is not yet approved or cleared by the [place] Food and Drug Administration (FDA). This test was developed by [employer], [place], [place]. The performance characteristics of this test were validated by The [facility]. The results are not intended to be used as the sole means for clinical diagnosis or patient management decisions. The [facility] is authorized under Clinical Laboratory Improvement [...] for this test is supported by the [place] of Health and Human Service's declaration that circumstances exist to justify the emergency use of in vitro diagnostics for the detection and/or diagnosis of the virus that causes COVID-19. This EUA will remain in effect for the duration of the COVID-19 declaration justifying emergency of IVDs, unless it is terminated or revoked by the FDA (after which the test may no longer be used).Performed By: #### TSH, BNP, CMP, CMADM #### [facility] [address] [place] [address] Dr. Calixto DouglassDIMERon 71-55-9174A-DIMER2.62 mg/L FEUCritically high0.19-0.50 The [facility] HospitalComment on above:Performed By: #### PTT, PT, DDIM #### [facility] [address] [place] [address] Dr. Calixto Isaac [facility] on above:Result Comment: Increases in D-Dimer concentration observed with thromboembolic events [...] stress, and generalized hospitalization. Performed By: #### PTT, PT, DDIM #### [facility] [address] [place] [address] Dr. Calixto WestLACTATE/LACTIC ACIDon 14-52-5285Frxpygk [Moles/Vol]2.7 mmol/L Critically high0.4-2.0The [facility] HospitalComment on above:Performed By: #### TSH, BNP, CMP, CMADM #### [facility] [address] [address] [address] Calixto Quinonez 14(COMP METB)on 67-74-2504Bgmmxlu [Mass/Vol]3.4 g/dLNormal 3.4-5.0The [facility] HospitalComment on above:Performed By: #### TSH, BNP, CMP, CMADM #### [facility] [address] [address] [address] Calixto WestAlbumin/Globulin [Mass ratio]0.9 {ratio}NormalThe [facility] HospitalComment on above:Performed By: #### TSH, BNP, CMP, CMADM #### [facility] [address] [address] [address] Calixto Neil [Catalytic activity/Vol]72 U/EJogrkg87-345Cmv [facility] HospitalComment on above:Performed By: #### TSH, BNP, CMP, CMADM #### [facility] [address] [address] [address] Calixto Vera [Catalytic activity/Vol]74 U/LCritically vfws76-50Nfv [facility] HospitalComment on above:Performed By: #### TSH, BNP, CMP, CMADM #### [facility] [address] [address] [address] Calixto Alarcon gap [Moles/Vol]13.8 mmol/LNormalThe [facility] Comment on above:Performed By: #### TSH, BNP, CMP, CMADM #### [facility] [address] [address] [address] Calixto Johnson [Catalytic activity/Vol]53 U/LCritically uavk16-76Hdx [facility] HospitalComment on above:Performed By: #### TSH, BNP, CMP, CMADM #### [facility] [address] [address] [address] Calixto WestBilirubin [Mass/Vol]0.4 mg/dLNormal0.2-1.0The [facility] Comment on above:Performed By: #### TSH, BNP, CMP, CMADM #### [facility] [address] [place] [address] Dr. Calixto WestCalcium [Mass/Vol]8.2 mg/dLCritically low8.5-10.1The [facility] HospitalComment on above:Performed By: #### TSH, BNP, CMP, CMADM #### [facility] [address] [place] [address] Dr. Calixto WestChloride [Moles/Vol]101 mmol/DXhchna00-580Qyn [facility] Comment on above:Performed By: #### TSH, BNP, CMP, CMADM #### [facility] [address] [place] [address] Dr. Calixto WestCO2 [Moles/Vol]25.6 mmol/FUjwohb97.0-32.0The [facility] Comment on above:Performed By: #### TSH, BNP, CMP, CMADM #### [facility] [address] [place] [address] Dr. Calixto WestCreatinine [Mass/Vol]1.13 mg/dLNormal0.70-1.30The [facility] HospitalComment on above:Performed By: #### TSH, BNP, CMP, CMADM #### [facility] [address] [place] [address] Dr. Calixto NavarroGFR-AF CITIZEN OF [place]>60Normal>=60The [facility] HospitalComment on above:Performed By: #### TSH, BNP, CMP, CMADM #### [facility] [address] [place] [address] Dr. Calixto NavarroGFR-NON AF CITIZEN OF [place]>60Normal>=60The [facility] HospitalComment on above:Performed By: #### TSH, BNP, CMP, CMADM #### [facility] [address] [place] [address] Dr. Calixto WestGlobulin (S) [Mass/Vol]3.8 g/dLNormalThe [facility] HospitalComment on above:Performed By: #### TSH, BNP, CMP, CMADM #### [facility] [address] [address] [address] Calixto WestGlucose [Mass/Vol]198 mg/dLCritically kran49-854Ybg [facility] HospitalComment on above:Performed By: #### TSH, BNP, CMP, CMADM #### [facility] [address] [place] [address] Dr. Calixto WestPotassium [Moles/Vol]4.4 mmol/LNormal3.5-5.1The [facility] Comment on above:Performed By: #### TSH, BNP, CMP, CMADM #### [facility] [address] [address] [address] Calixto WestProtein [Mass/Vol]7.2 g/dLNormal6.1-8.2[facility] Comment on above:Performed By: #### TSH, BNP, CMP, CMADM #### [facility] [address] [place] [address] Dr. Calixto WestSodium [Moles/Vol]136 mmol/ZJxqrpw905-730Rui [facility] Comment on above:Performed By: #### TSH, BNP, CMP, CMADM #### [facility] [address] [place] [address] Dr. Calixto WestUrea nitrogen [Mass/Vol]14.0 mg/dLNormal7.0-18.0The [facility] HospitalComment on above:Performed By: #### TSH, BNP, CMP, CMADM #### [facility] [address] [place] [address] Dr. Calixto WestUrea nitrogen/Creatinine [Mass ratio]12.4 mg/mgNormalThe [facility] HospitalComment on above:Performed By: #### TSH, BNP, CMP, CMADM #### [facility] [address] [place] [address] Dr. Calixto WestPROTIMEon [id number] Coag (PPP) [Relative time]0.98 {INR} NormalThe [facility] HospitalComment on above:Performed By: #### PTT, PT, DDIM #### [facility] [address] [place] [address] Dr. Calixto Robertson CentervilleComment on above:Result Comment: DESIRED INR: 2.0 - 3.0 CONDITIONS NOT LISTED BELOW 2.5 - 3.5 FOR PROSTHETIC HEART VALVE REPLACEMENT 2.5 - 3.5 RECURRENT THROMBOSIS Performed By: #### PTT, PT, DDIM #### [facility] [address] [place] [address] Dr. Calixto Edouard Coag (PPP) [Time]10.6 sNormal9.0-11.6The [facility] Comment on above:Performed By: #### PTT, PT, DDIM #### [facility] [address] [place] [address] Dr. Calixto Benitez [id number] Coag (Bld) [Time]24.9 eSyztei09.3-36.2The [facility] HospitalComment on above:Performed By: #### PTT, PT, DDIM #### [facility] [address] [place] [address] Dr. Calixto Sarkar 65-78-4587MST1.288 uIU/mLCritically high0.470-4.680The [facility] HospitalComment on above:Performed By: #### TSH, BNP, CMP, CMADM #### [facility] [address] [place] [address] Dr. Calixto Rollins [facility] HospitalComment on above: Result Comment: <0.34 UIU/ml HYPERTHYROID 0.34-5.60 UIU/ml EUTHYROID >5.60 UIU/ml HYPOTHYROIDPerformed By: #### TSH, BNP, CMP, CMADM #### [facility] [address] [place] [address] Dr. Calixto WestXR CHEST 1 Von [id number] CHEST 1 VEXAM: XR CHEST 1 V EXAM: XR CHEST 1 V INDICATION: 60 years old Male Syncope COMPARISON: None. FINDINGS: The cardiac silhouette is normal. There is no pulmonary edema. The lungs are clear. There is no pneumonia. There is no pneumothorax. There is no abnormal foreign body. IMPRESSION: There is no acute abnormality. Electronically authenticated by: BETTY HOLT Date: 2021-08-17 12:18[facility] Vital Signs Date TimeVital SignValuePerforming [id number] 15:36-0400 Diastolic blood fieyryrq53 mm[Hg]Linden King MD Work Phone: [phone] [place] Street09-09-2025 15:36-0400 Systolic blood jmfahhud304 mm[Hg]Linden King MD Work Phone: [phone]09-09-2025 15:31-0400 Body .53 cmLinden King MD Work Phone: 1(251)[address] [place], [place] 2620209-09-2025 15:31-0400 Body mass index (BMI) [Ratio]43.3 kg/f9XxkmgqcLinden King MD Work Phone: [phone])[address]09-09-2025 15:31-0400 Body kiqnyp628.17 kgLinden King MD Work Phone: [phone]09-09-2025 15:31-0400 Heart rate92 /Sunil King MD Work Phone: [phone]09-09-2025 15:31-0400 Respiratory rate20 /Sunil King MD Work Phone: [phone])[address]09-09-2025 15:31-0400 SaO2% (BldA) [Mass fraction]95 %Linden King MD Work Phone: [phone]05-18-2025 12:30-0400 Body uohmcipywse01.7 [degF]Verónica Cespedes MD Work Phone: [facility]05-18-2025 12:30-0400Diastolic blood dckjdota35 mm[Hg]Verónica Cespedes MD Work Phone: [facility]05-18-2025 12:30-0400Heart rate56 /Korey Cespedes MD Work Phone: [facility]05-18-2025 12:30-0400 Respiratory rate19 /Korey Cespedes MD Work Phone: [facility]05-18-2025 12:30-4690VxA1% (BldA) [Mass fraction]96 %Verónica Cespedes MD Work Phone: [facility]05-18-2025 12:30-0400Systolic blood inalnbzx349 mm[Hg]Verónica Cespedes MD Work Phone: [facility]05-13-2025 18:30-0400Body mass index (BMI) [Ratio]46.79 kg/i4GoqearVerónica Cespedes MD Work Phone: [facility]05-13-2025 18:30-0400Body jealpj522.8 kgVerónica Cespedes MD Work Phone: [facility]05-13-2025 11:00-0400Body llndba507.5 cmSbird Cespedes MD Work Phone: [facility]04-18-2023 17:00-0400Body ysmyvl097.26 cmChristshawn Wright Other [employer] Other 04-18-2023 17:00-0400Body mass index (BMI) [Ratio] 43.41 kg/s3Uthtepnqjev Adriana Other [employer] Other 04-18-2023 17:00-0400Body rendptdfqhe40.8 [degF] Christshawn Wright Other [employer] Other 04-18-2023 17:00-0400Body agjzvn800.36 kgChristopher Adriana Other [employer] Other 04-18-2023 17:00-0400Diastolic blood hlpgzpuz72 mm[Hg] Christopher Adriana Other [employer] Other 04-18-2023 17:00-0400Respiratory rate20 /min Christopher Adriana Other [employer] Other 04-18-2023 17:00-2088IjW3% (BldA) [Mass fraction]96 % Christopher Adriana Other [employer] Other 04-18-2023 17:00-0400Systolic blood xqwgsvty935 mm[Hg] Christopher Adriana Other [employer] Other 09-19-2022 11:30-0400Body wfceuo742.26 cmChristopher Adriana Other [employer] Other 09-19-2022 11:30-0400Body mass index (BMI) [Ratio] 46.51 kg/w5Tzmqdvlywzt Adriana Other [employer] Other 09-19-2022 11:30-0400Body .2 [degF] Christopher Adriana Other [employer] Other 09-19-2022 11:30-0400Body .88 kgChristopher Adriana Other [employer] Other 09-19-2022 11:30-0400Diastolic blood mm[Hg] Christopher Adriana Other [facility] [employer] Other 09-19-2022 11:30-0400Respiratory rate20 /min Blade Shortno Other [employer] Other 09-19-2022 11:30-3865WjR3% (BldA) [Mass fraction]94 % Blade Shortno Other [facility] [employer] Other 09-19-2022 11:30-0400Systolic blood thoksjxs676 mm[Hg] Blade Wright Other [facility] @[employer] Other Encounters Encounter DateEncounter TypeCare ProviderFacilityStart: 45-30-0469srhwtkuczh Linden Nuñezcility:[facility] 12-29-2024 End: 61-22-7562atcmnuldduXsbwshf M Hoy MD Work Phone: [facility] Work Phone: Start: 12-29-2024 End: 53-87-4588Agasvpn encounter procedureChrismarybeth Wright MD-[facility] Work Phone: Start: 15-09-8250Lqqrpyilqd RecurringSenica Mckay MD-[facility] TherapyStart: 09-01-2024 End: 78-43-3759Rqknhygfqq and management of inpatientSbird Cespedes MD Work Phone: [facility] 7KStart: 08-20-2024 End: 44-78-4032yyjhdlregcKchsrio M HoyFacility:[facility] Start: 82-22-8038jucbuskzdmVZWXCWOhioHealth [facility] Start: 67-38-4634Gggkbjtmj for preprocedural cardiovascular examinationGEORGE MODelaware County Hospitaltart: 04-06-2024 End: 88-11-7596nxxevfzlosVHXQWO [facility] Start: 08-07-2022 End: 09-55-8223cavcoqgvihTvokfslukrb Adriana Other [facility] [employer] Other Start: 88-52-3691Kfqrmf outpatient visit 15 minutes Christopher AvendanoFPG Pulmonary DiseaseStart: 06-18-2022 End: 73-21-0385rbtjochqlgSD Linden Gutiérrez Fernando Work Phone: [facility] Work Phone: Start: 06-18-2022 End: 46-40-5887Yenoyqf encounter procedure Linden Fernando Work Phone: [facility] Work Phone: Start: 23-20-6393rodqlholehNH SHONNA MELTON Facility:Z6Oicpa: 04-20-2022 End: 20-25-9867krngeouypfFZ DOCTOR MISCFacility:X6Hfvcu: 03-30-2022 End: 49-30-7011tvxygahnijBK SHONNA HITCHCOCKELFacility:R8Ecyvb: 01-23-2022 End: 12-74-0318mpeedqpisyBW DOCTOR MISCFacility:C0Rabrx: 01-12-2022 End: 19-78-3332ynjphcaojrLF SHONNA ELLIOTTRBELFacility:I4Uakam: 01-08-2022 End: 75-76-3973sbnwjfaqpkCjbaquibhdl Adriana Other [facility] Other Start: 28-28-8545Rlilkl outpatient new 45 minutes Christshawn AvendanoJEANETH Pulmonary DiseaseStart: 15-68-5758wvintgsunqKT LINDEN KING .Facility:F1Oyyng: 12-19-2021 End: 27-78-2314rrgwyneqhuSM LINDEN KING .Facility:A3Maeic: 10-24-2021 End: 70-29-9681gdogtbnqxmGV LINDEN HOY .Facility:M2Xmmea: 10-16-2021 End: 89-29-3397ourltuouarHV LINDEN HOY .Facility:W1Cdtsf: 09-13-2021 End: 95-06-4539fcxuqrglrcUQ LINDEN HOY .Facility:R1Kfpwn: 08-17-2021 End: 97-85-5969dncqqherkqPD FELICITY Demi MCGRATHFacility:H1 Procedures DateProcedureProcedure DetailPerforming ClinicianStart: 01-29-0908Byytr gap [Moles/Vol]Enmanuel Diglio PA Work Phone: Start: 09-06-2024 End: 25-94-0871Osyyv metabolic panel calcium totalAlexis Diglio PA Work Phone: Start: 70-02-9220SQEZMTUADS FILTRATION RATE, ESTIMATED Enmanuel Diglio PA Work Phone: Start: 22-25-5886Mygn bld gluc mntr dev cleared fda spec home useOlkala Sullivan MD Work Phone: Start: 09-05-2024 End: 69-88-2252Sktv bld gluc mntr dev cleared fda spec home useOlkala Sullivan MD Work Phone: Start: 34-27-9112Pjdv bld gluc mntr dev cleared fda spec home useOlkala Sullivan MD Work Phone: Start: 04-77-6091Askj bld gluc mntr dev cleared fda spec home useOlkala Sullivan MD Work Phone: Start: 54-70-3782Mbiym gap [Moles/Vol]Enmanuel Diglio PA Work Phone: Start: 90-24-8093Yjhbj metabolic panel calcium total Enmanuel Diglio PA Work Phone: Start: 65-30-9854LTBGBXNLXN FILTRATION RATE, ESTIMATED Enmanuel Diglio PA Work Phone: Start: 80-56-9359Eqsc bld gluc mntr dev cleared fda spec home useOlakla Sullivan MD Work Phone: Start: 39-43-3780Nffm bld gluc mntr dev cleared fda spec home usePaul Sullivan MD Work Phone: Start: 06-86-0153Pvuqo gap [Moles/Vol]Enmanuel Diglio PA Work Phone: Start: 09-04-2024 End: 79-49-0060Qejuh metabolic panel calcium totalAlexis Diglio PA Work Phone: Start: 50-20-1149RBXYQJSGXP FILTRATION RATE, ESTIMATED Enmanuel Diglio PA Work Phone: Start: 32-19-2007Ttli bld gluc mntr dev cleared fda spec home useOlkala Sullivan MD Work Phone: Start: 44-46-4304Wkek bld gluc mntr dev cleared fda spec home usePaul Sullivan MD Work Phone: Start: 87-02-3013Ixck bld gluc mntr dev cleared fda spec home usePaul Sullivan MD Work Phone: Start: 41-71-5388Ugaek gap [Moles/Vol]Enmanuel Diglio PA Work Phone: Start: 09-03-2024 End: 31-06-4806Qxpmp metabolic panel calcium totalAlexis Diglio PA Work Phone: Start: 07-36-1298POUYTPMDXB FILTRATION RATE, ESTIMATED Enmanuel Diglio PA Work Phone: Start: 58-59-9686Aqpw bld gluc mntr dev cleared fda spec home usePaul Sullivan MD Work Phone: Start: 65-47-0078Biig bld gluc mntr dev cleared fda spec home useSbird Cespedes MD Work Phone: Start: 24-01-5425Vyinx gap [Moles/Vol]Enmanuel Diglio PA Work Phone: Start: 62-82-8906Vghhr metabolic panel calcium total Enmanuel Diglio PA Work Phone: Start: 64-35-7058CNREWOTGSC FILTRATION RATE, ESTIMATED Enmanuel Diglio PA Work Phone: Start: 25-26-0266Vkrfvohcal bloodJaspreet Lorena [facility] Start: 59-39-9733TLYPBXEUUP FILTRATION RATE, ESTIMATEDAlexis Diglio PA Work Phone: Start: 36-88-5713Zloii spine 1 view specify level Verónica Cespedes MD Work Phone: Start: 75-02-5297Pxnmw spine 1 view specify level Verónica Cespedes MD Work Phone: Start: 09-01-2024 End: 98-67-4176Abumrwaswea posterior/posterolateral lumbarSelvon Christiana Cespedes MD Work Phone: Start: 09-01-2024 End: 50-18-4165Ugpbgkqbb spine surgery local from same incisionSelcallie Cespedes MD Work Phone: Start: 09-01-2024 End: 76-44-5903Bsf facetectomy & foramotomy 1 segment lumbarSelvon Christiana Cespedes MD Work Phone: Start: 01-65-6269Njynk typing serologic aboAlexis Ericko YEVGENIY Work Phone: Start: 32-25-3597IPD screeningDR LINDEN KING .Comment on above:Performed By: #### TSH, BNP, CMP, CMADM #### [facility] [address] [place] [address] Dr. Calixto West Plan of Treatment DateCare ActivityDetailAuthorStart: 78-91-4612Pmtylodlks A1c ckmunidhuasL9J test (Diabetic or Prediabetic)[facility]: 25-15-6168Uscijsilu vaccinationFlu vaccine (Season Ended)[facility]: 09-01-2024 Annual Wellness Visit (Medicare)Annual Wellness Visit (Medicare)[facility]: 13-34-7499RYCGX-19 Vaccine ( season)COVID-19 Vaccine ( season)[facility]: 06-51-9021Ultloucnfak Syncytial Virus (RSV) or age 60 yrs+ (1 - Risk 60-74 years 1-dose series)Respiratory Syncytial Virus (RSV) or age 60 yrs+ (1 - Risk 60-74 years 1-dose series)[facility]: 97-58-5023Tftddofs vaccine (1 of 2)Shingles vaccine (1 of 2)[facility]: 11-13-2004 Screening for malignant neoplasm of colonMartinsville [facility] Hospital: 72-37-4060Rpxck panelLipidsMartinsville [facility] Hospital: 46-78-0078PBjR/Tdap/Td vaccine (1 - Tdap)DTaP/Tdap/Td vaccine (1 - Tdap)[facility]: 74-79-3359Qwrjwpezarbv 50+ years Vaccine (1 of 2 - PCV)Pneumococcal 50+ years Vaccine (1 of 2 - PCV)[facility]: 52-88-1969Svwkbigtl C screeningHepatitis C screenMartinsville Memorial Hospital: 62-47-5349UIA screeningHIV screenBon [facility]: 52-28-2543Uvyxcyeluj Screen Depression ScreenBon [facility]: 37-50-4057Zmhngepihjcop B vaccine (1 of 5 - Increased Risk)Meningococcal B vaccine (1 of 5 - Increased Risk)[facility]art: 06-96-2986Vcfatnbnjeaej (ACWY) vaccine (1 - Risk 2-dose series)Meningococcal (ACWY) vaccine (1 - Risk 2-dose series)[facility]: 80-24-0331Xzp vaccine (1 of 1 - Risk 1-dose series) Hib vaccine (1 of 1 - Risk 1-dose series)[facility] End: 72-60-1379Uzfrt metabolic 2000 panel - Serum or PlasmaBasic Metabolic Panel Lab Routine Daily for 1 Weeks starting 09/02/2024 until 09/08/2024, 5 completed Bon [facility]ZenvergeHedrick Medical Centerment on above:Daily for 1 Weeks starting 09/02/2024 until 09/08/2024, 5 completedGlucose [Mass/volume] in Serum or PlasmaBon [facility] on above:4X Daily (AC & HS) until discontinued starting 09/02/2024, 15 completedAs Needed until discontinued starting 09/02/2024 End: 97-00-3800Tutaeycebp and HematocritHemoglobin and Hematocrit Lab Routine Daily for 1 Weeks starting 09/02/2024 until 09/08/2024, 3 completedBon [facility] on above:Daily for 1 Weeks starting 09/02/2024 until 09/08/2024, 3 completedHome BIPAP or CPAPHome BIPAP or CPAP Respiratory Care Routine QHS until discontinued starting 09/01/2024 [employer] [facility] on above:QHS until discontinued starting 09/01/2024Oxygen therapy [Minimum Data Set]Initiate Oxygen Therapy Protocol Respiratory Care Routine As Needed until discontinued starting 09/01/2024 [facility] on above:As Needed until discontinued starting 09/01/2024Spirometry panelIncentive spirometry Respiratory Care Routine Every 2hr while awake until discontinued starting 09/01/2024 [facility] [facility] on above:Every 2hr while awake until discontinued starting 09/01/2024 Payers DatePayer CategoryMiyerLehigh [facility] ID03-14-2025Self-[id number] 2..1.479206.3.57[id number] 2..1.719980.3.57[id number] 2..1.318119.3.57[id number] 2..1.999119.3.57[id number] 2.0.1.942058.3.57[id number] 2..840.1.319637.3.57[id number] 2.840.1.659304.3.57[id number] 2.840.1.974111.3.57[id number] 2.0.1.013227.3.57[id number] 2.0.1.439612.3.57[id number] 2..1.257632.3.57[id number] 2..1.872591.3.57[id number] 2..1.477730.19 81-33-5161Cufevwj Health [id number] MCR Adv PFFS [id number] 2..1.146615.19 Private Health InsuranceSelect Medical [facility] MCR PFFS [id number] Netwk [id number] MCR Adv PFFS [id number] 2.16.840.1.6[id number] 2.16.840.1.725821.3.579.2.531 Social History DateTypeDetailFacilityStart: 10-70-2274Ivh Assigned At [facility] @Pay Other Start: 48-35-7262Ihi Assigned At [facility] Northtart: 08-24-2024 End: 40-50-6346Uvngtpl smoking status NHISEx-smokerBon [facility] History of tobacco useCurrent smokerBon [facility] HealthHistory of tobacco useCigarette SmokerSentara Martha Jefferson HospitalMobileOCT [facility] HospitalStart: 80-00-8866Xxrjsks use and exposureSmokeless tobacco non-userD[facility] HospitalStart: 09-02-2024 Alcoholic beverage intakeEx-drinker (finding)[facility] HospitalStart: 50-54-9313Njogsfy of Social functionBon BannerMobileOCT HealthPhysical abuseDenies [facility] HospitalMobileOCT [facility] HospitalStart: 56-37-5135Xsc assigned at birthNot on fileDignity Health [facility] Hospital Carmine [facility] HospitalStart: 66-05-8639GzkJcfc (finding)[employer] Equipment Procedure CodeEquipment CodeEquipment Original TextEquipment IdentifierDates Graft Bone 4-10mm 30ml Canc Cube - [id number]: 73-17-6902Ogt Screw 5.5-6.0 - [id number]: 73-59-7500Yqdac Poly Solid 7.5x45 - [id number]: 79-64-1575Diuca Poly Solid 7.5x50 - [id number]: 99-30-4594Kka Ti Prebent 5.5x100 - [id number] Start: 10-91-7705Qldozwzyj Spnl M Streamline Tl Davon X Link - [id number]: 97-61-7179Yvvymnjpr Bne Bridge 50x25 Mm 24 Cc Bioadapt - [id number]: 09-01-2024 Clinical Notes 01-08-2022 to 09-06-2024 Note Date & BvfmMoyhXdwvradz41-27-4551 History of Present illness Narrative* Paul Sullivan MD - 09/06/2024 12:03 PM EDT INTERNAL MEDICINE Progress Note 09/06/2024 12:03 PM Subjective: Admit Date: 09/01/2024 PCP: Linden King MD Interval History: + BM numbness and weakness in the left leg, tolerating PT/OT Objective: Vitals: BP (!) 146/54 Pulse 57 Temp 97.9 F (36.6 C) (Oral) Resp 21 Ht 1.765 m (5' 9.5 ) Wt (!) 145.8 kg (321 lb 6.9 oz) SpO2 95% BMI 46.79 kg/m General appearance: alert and cooperative with exam HEENT: atraumatic Neck: no adenopathy, no carotid bruit, and no JVD Lungs: clear to auscultation bilaterally Heart: regular rate and rhythm and S1, S2 normal Abdomen: soft, non-tender; bowel sounds normal; no masses, no organomegaly, distended Extremities: no edema, redness or tenderness in the calves or thighs Neurologic: Alert, oriented, thought content appropriate Left lower extremity weakness power 4/5. Medications: Scheduled Meds: clopidogrel 75 mg Oral Daily apixaban 5 mg Oral BID losartan 25 mg Oral Daily metoprolol tartrate 50 mg Oral BID naloxegol 25 mg Oral QAM AC insulin lispro 0-4 Units SubCUTAneous 4x Daily AC & HS empagliflozin 10 mg Oral Daily potassium chloride 10 mEq Oral Daily pantoprazole 40 mg Oral QAM AC mirtazapine 90 mg Oral Nightly levothyroxine 200 mcg Oral Daily gabapentin 600 mg Oral TID furosemide 40 mg Oral Daily sodium chloride flush 5-40 mL IntraVENous 2 times per day polyethylene glycol 17 g Oral Daily bisacodyl 5 mg Oral Daily sennosides-docusate sodium 1 tablet Oral BID Continuous Infusions: dextrose sodium chloride Lab Results: CBC: Recent Labs 09/04/24 0707 09/05/24 0552 09/06/24 0637 HGB 13.4* 12.9* 13.2* BMP: Recent Labs 09/04/24 0707 09/05/24 0552 09/06/24 0637 NA 139 136 138 K 4.1 3.8 4.7 CL 101 100 101 CO2 27 23 28 BUN 25* 20 21 CREATININE 1.1 0.9 1.1 GLUCOSE 131* 137* 136* TSH: Lab Results Component Value Date/Time TSH 1.23 09/02/2024 06:40 AM Assessment and Plan: Lumbar spinal stenosis with neurogenic claudication. Status post lumbar spine decompression and posterior spinal fusion. Hypertension Hypothyroidism History of recurrent VTE PE, on chronic anticoagulation YOBANI CAD s/p PTCI Leukocytosis related to steroid, stable Stable clinically Bowel regimen. cont blood pressure medicines, thyroid supplements. SSI coverage. Stable clinically. Disposition per orthop. Paul Sullivan MD, * Stephenie [place] PTA - 09/06/2024 10:20 AM EDT [facility] PHYSICAL THERAPY MISSED TREATMENT NOTE [facility] Date: 09/06/2024 Patient Name: Cecil Hammond : 1960 (63 y.o.) Gender: male Referring Practitioner: Enmanuel Geiger PA REASON FOR MISSED TREATMENT: RN approves patient for session but states that he is mod-max pain today and that he may d/c home later. Upon arrival, patient feels comfortable navigating steps into home and has personal RW. He states that his pain is too much to mobilize right now, a minute ago it felt like a red hot poker stabbed me . Will re-attempt as time allows. . Stephenie [place] PTA 10:22 AM 09/06/2024 Cosigned by Nasrin Rowan, PT at 09/06/2024 12:20 PM EDT * Enmanuel Geiger PA - 09/06/2024 9:11 AM EDT Department of Orthopedic Surgery Spine Service Attending Progress Note Subjective: POD#5 patient doing okay, ambulated in halls, still with numbness in left leg. ++BM. Eliquis resumed yesterday Vitals VITALS: BP (!) 146/54 Pulse 57 Temp 97.9 F (36.6 C) (Oral) Resp 21 Ht 1.765 m (5' 9.5 ) Wt (!) 145.8 kg (321 lb 6.9 oz) SpO2 95% BMI 46.79 kg/m 24HR INTAKE/OUTPUT: Intake/Output Summary (Last 24 hours) at 09/06/2024 0911 Last data filed at 09/06/2024 0812 Gross per 24 hour Intake 1480 ml Output 1860 ml Net -380 ml URINARY CATHETER OUTPUT (Peterson): [REMOVED] Urinary Catheter 09/01/24-Output (mL): 200 mL DRAIN/TUBE OUTPUT: Closed/Suction Drain Midline Back Accordion-Output (ml): 5 ml Closed/Suction Drain Left;Medial Back-Output (ml): 95 ml PHYSICAL EXAM: Orientation: alert and oriented to person, place and time Incision: dressing in place, clean, dry, intact Lower Extremity Motor : quadriceps, extensor hallucis longus, dorsiflexion, plantarflexion 5/5 bilaterally Lower Extremity Sensory: Intact L1-S1 Flatus: positive LABS: HgB: Lab Results Component Value Date/Time HGB 13.2 09/06/2024 06:37 AM ASSESSMENT AND PLAN: Post operative day 5 status post L2-5 decompression and fusion 1: Monitor labs and drain output 2: Activity Level: as tolerated. PT/OT, back brace when ambulating 3: Pain Control: Good 4: Discharge Planning: Discharge home today. Patient to manage to drains and follow up in office tohave them removed. 5: Eliquis resumed POD#4. Resume Plavix today. Drains still decreasing YEVGENIY Lagunas * Cecelia Schulte - 09/05/2024 1:38 PM EDT Spiritual Health History and Assessment/Progress Note [facility] Initial Encounter, Spiritual/Emotional Needs, , , Name: Cecil Hammond Age: 63 y.o. Sex: male Language: Ugandan Yazidi: None Lumbar stenosis with neurogenic claudication Date: 09/05/2024 Total Time Calculated: 53 min Spiritual Assessment began in [facility] Referral/Consult From: Rounding Encounter Overview/Reason: Initial Encounter, Spiritual/Emotional Needs Service Provided For: Patient Park, Belief, Meaning: Patient identifies as spiritual, is connected with a park tradition or spiritual practice, and hasbeliefs or practices that help with coping during difficult times Family/Friends No family/friends present Importance and Influence: Patient has spiritual/personal beliefs that influence decisions regarding their health Family/Friends No family/friends present Community: Patient is connected with a spiritual community and feels well-supported. Support system includes: Spouse/Partner, Children, Park Community, and Extended family Family/Friends No family/friends present Assessment and Plan of Care: Patient sitting up in bed, alone, welcoming of participant administrator. Patient discussed how medically challenging this year has been, not only for himself, but his , and his Mother. Patient reflected on his park in God and how he has brought him through many trials in his life and he is trusting him to bring him through this health challenge and the healing process again. Patient feels well supported by his , his friends/neighbors, his neighbor's guide plant whose gnosticism he attends at times, as well as his local [place] and community group. Patient discussed feeling supported either by phone calls or occasional visits from his son who lives in [place]. Patient is hopeful to recover from th is back surgery and has a goal to move to [place] when both he and his are feeling stronger. Periodontal Assistant (international account representative) engaged empathetic listening, offered words of encouragement, and prayed with the patient at his request. Patient expressed gratitude. Made patient aware of participant administrator availability and support. Patient Interventions include: Facilitated expression of thoughts and feelings, Explored spiritual coping/struggle/distress, Engaged in theological reflection, Affirmed coping skills/support systems,Provided sacramental/adventist ritual, and Facilitated life review and/ or legacy Family/Friends Interventions include: No family/friends present Patient Plan of Care: Spiritual Care available upon further referral Family/Friends Plan of Care: No family/friends present Electronically signed by Cecelia Schulte, Periodontal Assistant Reach Lift Truck Driver on 09/05/2024 at 1:38 PM * Paul Sullivan MD - 09/05/2024 1:06 PM EDT INTERNAL MEDICINE Progress Note 09/05/2024 1:06 PM Subjective: Admit Date: 09/01/2024 PCP: Linden King MD Interval History: + BM numbness and weakness in the left leg, tolerating PT/OT Objective: Vitals: BP (!) 156/64 Pulse 58 Temp 97.9 F (36.6 C) (Oral) Resp 18 Ht 1.765 m (5' 9.5 ) Wt (!) 145.8 kg (321 lb 6.9 oz) SpO2 95% BMI 46.79 kg/m General appearance: alert and cooperative with exam HEENT: atraumatic Neck: no adenopathy, no carotid bruit, and no JVD Lungs: clear to auscultation bilaterally Heart: regular rate and rhythm and S1, S2 normal Abdomen: soft, non-tender; bowel sounds normal; no masses, no organomegaly, distended Extremities: no edema, redness or tenderness in the calves or thighs Neurologic: Alert, oriented, thought content appropriate Left lower extremity weakness power 4/5. Medications: Scheduled Meds: metoprolol tartrate 50 mg Oral BID naloxegol 25 mg Oral QAM AC insulin lispro 0-4 Units SubCUTAneous 4x Daily AC & HS empagliflozin 10 mg Oral Daily potassium chloride 10 mEq Oral Daily pantoprazole 40 mg Oral QAM AC mirtazapine 90 mg Oral Nightly levothyroxine 200 mcg Oral Daily gabapentin 600 mg Oral TID furosemide 40 mg Oral Daily sodium chloride flush 5-40 mL IntraVENous 2 times per day polyethylene glycol 17 g Oral Daily bisacodyl 5 mg Oral Daily sennosides-docusate sodium 1 tablet Oral BID Continuous Infusions: dextrose sodium chloride 125 mL/hr at 09/01/24 1900 sodium chloride Lab Results: CBC: Recent Labs 09/03/24 0620 09/04/24 0707 09/05/24 0552 WBC 20.0* -- -- HGB 12.7* 13.4* 12.9* PLT 258 -- -- BMP: Recent Labs 09/03/24 0620 09/04/24 0707 09/05/24 0552 NA 140 139 136 K 4.4 4.1 3.8 CL 103 101 100 CO2 26 27 23 BUN 24* 25* 20 CREATININE 1.1 1.1 0.9 GLUCOSE 175* 131* 137* TSH: Lab Results Component Value Date/Time TSH 1.23 09/02/2024 06:40 AM Assessment and Plan: Lumbar spinal stenosis with neurogenic claudication. Status post lumbar spine decompression and posterior spinal fusion. Hypertension Hypothyroidism History of recurrent VTE PE, on chronic anticoagulation YOBANI CAD s/p PTCI Leukocytosis related to steroid. Continue postop care. Bowel regimen. Movantik Adjust blood pressure medicines, thyroid supplements. SSI coverage. Paul Sullivan MD, * Felicity Lackey, ROBERT - 09/05/2024 9:28 AM EDT Department of Orthopedic Surgery Spine Service Attending Progress Note Subjective: POD#4. Patient sitting up in chair. Patient doing well. Patient walked to bathroom withwalker on his own. +BM. Vitals VITALS: BP (!) 156/64 Pulse 58 Temp 97.9 F (36.6 C) (Oral) Resp 18 Ht 1.765 m (5' 9.5 ) Wt (!) 145.8 kg (321 lb 6.9 oz) SpO2 95% BMI 46.79 kg/m 24HR INTAKE/OUTPUT: Intake/Output Summary (Last 24 hours) at 09/05/2024 0998 Last data filed at 09/05/2024 0968 Gross per 24 hour Intake 460 ml Output 1520 ml Net -1060 ml URINARY CATHETER OUTPUT (Peterson): [REMOVED] Urinary Catheter 09/01/24-Output (mL): 200 mL DRAIN/TUBE OUTPUT: Closed/Suction Drain Midline Back Accordion-Output (ml): 0 ml Closed/Suction Drain Left;Medial Back-Output (ml): 45 ml PHYSICAL EXAM: Orientation: alert and oriented to person, place and time Incision: dressing in place, clean, dry, intact Lower Extremity Motor : quadriceps, extensor hallucis longus, dorsiflexion, plantarflexion 5/5 bilaterally Lower Extremity Sensory: Intact L1-S1 Flatus: positive ABNORMAL EXAM FINDINGS: none LABS: HgB: Lab Results Component Value Date/Time HGB 12.9 09/05/2024 05:52 AM ASSESSMENT AND PLAN: Post operative day 4 status post L2-5 decompression and fusion 1: Monitor labs and drain output 2: Activity Level: as tolerated 3: Pain Control: ok 4: Discharge Planning: pending, possibly tomorrow. Patient reports he is ok to empty the drain himself and follow up in office to have drain pulled. 5: Resume Plavix and Eliquis tomorrow, post op day 5. Felicity Lackey PA-C * Kandy Long PTA - 09/04/2024 1:09 PM EDT [facility] INPATIENT PHYSICAL THERAPY DAILY NOTE [facility] 7K - 7K-/025-A Discharge Recommendations: Home with Home Health PT Equipment Recommendations: No Time In: 1144 Time Out: 1222 Timed Code Treatment Minutes: 38 Minutes Minutes: 38 Date: 09/04/2024 Patient Name: Cecil Hammond, Gender: male : 1960 (63 y.o.) Referring Practitioner: Enmanuel Geiger PA Diagnosis: Lumbar stenosis with neurogenic claudication Additional Pertinent Hx: Pt is s/p L2-S1 DECOMPRESSION AND FUSION completed by Dr. Cespedes on 09/01. Prior Level of Function: Lives With: Spouse Type of Home: House Home Layout: One level, Laundry in basement Home Access: Stairs to enter without rails Entrance Stairs - Number of Steps: 3 MAYDA Home Equipment: Rollator, Cane, Walker - Rolling Bathroom Shower/Tub: Walk-in shower Bathroom Toilet: Standard Prior Level of Assist for ADLs: Independent Prior Level of Assist for Homemaking: Independent Homemaking Responsibilities: No Prior Level of Assist for Transfers: Independent 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 Vehicle Service Attendant: Yes Additional Comments: no AD prior unless he had increased pain and then would use a cane for mobility Prior Level of Assist for Ambulation: Independent household ambulator, with or without device Has the patient had two or more falls in the past year or any fall with injury in the past year?: No Restrictions/Precautions: Restrictions/Precautions: Fall Risk, General Precautions, Surgical Protocols Required Braces or Orthoses Spinal: Lumbar Corset Position Activity Restriction Spinal Precautions: No Bending/Lifting/Twisting (BLT) Other Position/Activity Restrictions: L LE buckling, drains x2 SUBJECTIVE: RN approved session. Patient in bedside chair and agreeable to PT PAIN: 06/29: bilateral hips Vitals: Vitals not assessed per clinical judgement, see nursing flowsheet OBJECTIVE: Bed Mobility: Not Tested Transfers: Sit to Stand: Contact Guard Assistance Stand to Sit:Contact Guard Assistance Stand Pivot:Contact Guard Assistance, cues for alignment to surface and for safety with assistive device, with RW for support Ambulation: Contact Guard Assistance Distance: 75 feet x 2 Surface: Level Tile Device: Rolling Walker Gait Deviations: Forward Flexed Posture, Decreased Step Length Bilaterally, Narrow Base of Support,and Increased reliance on assistive device Stairs: Stairs: 6 steps X 7 using Bilateral Handrails and Contact Guard Assistance, with verbal cues . Balance: Not Tested Exercise: Patient was guided in 1 set(s) 15 reps of exercises to both lower extremities: ,Seated marches, Seated hamstring curls, Seated heel/toe raises, Long arc quads, Seated isometric hip adduction, and Seated abduction/adduction. Exercises were completed for increased independence with functional mobility. Functional Outcome Measures: [facility] (6 CLICK) BASIC MOBILITY AM-PAC Inpatient Mobility Raw Score : 18 AM-PAC Inpatient T-Scale Score : 43.63 Modified Endy: Current Functional Status: Not Applicable ASSESSMENT: Assessment: Patient progressing toward established goals. Activity Tolerance: Patient tolerance of treatment:Good. Plan: Current Treatment Recommendations: Balance training, Strengthening, Gait training, Stair training, Functional mobility training, Transfer training, Neuromuscular re-education, Endurance training, Equipment evaluation, education, & procurement, Patient/Caregiver education & training, Safety education & training, Home exercise program, Therapeutic activities General Plan: (6x O) Education: Learners: Patient Patient Education: Transfers, Gait, Stairs, Verbal Exercise Instruction Goals: Patient Goals : return home with Short Term Goals Time Frame for Short Term Goals: by discharge Short Term Goal 1: Pt will demo sit to/from stand transfer with S with RW to progress with mobility. Short Term Goal 2: Pt will amb for 50 feet with RW with S to progress with mobility. Short Term Goal 3: Pt will demo S for bed mobility tasks with bed flat and good demo of log roll technique to progress with mobility. Short Term Goal 4: Pt will demo S for car transfers with with good technique/recall to return home safely. Short Term Goal 5: Pt will negotiate steps with rail for support and CGA to return home safely. Infantry Unit Leader Goals Time Frame for Alf Goals : NA due to short ELOS Following session, patient left in safe position with all fall risk precautions in place. Cosigned by Nasrin Rowan, PT at 09/05/2024 3:05 PM EDT * Paul Sullivan MD - 09/04/2024 12:22 PM EDT INTERNAL MEDICINE Progress Note 09/04/2024 12:22 PM Subjective: Admit Date: 09/01/2024 PCP: Linden King MD Interval History: ++ BM numbness and weakness in the left leg, tolerating PT/OT Objective: Vitals: BP (!) 152/60 Pulse 80 Temp 98.5 F (36.9 C) (Oral) Resp 20 Ht 1.765 m (5' 9.5 ) Wt (!) 145.8 kg (321 lb 6.9 oz) SpO2 97% BMI 46.79 kg/m General appearance: alert and cooperative with exam HEENT: atraumatic Neck: no adenopathy, no carotid bruit, and no JVD Lungs: clear to auscultation bilaterally Heart: regular rate and rhythm and S1, S2 normal Abdomen: soft, non-tender; bowel sounds normal; no masses, no organomegaly, distended Extremities: no edema, redness or tenderness in the calves or thighs Neurologic: Alert, oriented, thought content appropriate Left lower extremity weakness power 4/5. Medications: Scheduled Meds: naloxegol 25 mg Oral QAM AC insulin lispro 0-4 Units SubCUTAneous 4x Daily AC & HS empagliflozin 10 mg Oral Daily potassium chloride 10 mEq Oral Daily pantoprazole 40 mg Oral QAM AC mirtazapine 90 mg Oral Nightly metoprolol tartrate 25 mg Oral BID levothyroxine 200 mcg Oral Daily gabapentin 600 mg Oral TID furosemide 40 mg Oral Daily sodium chloride flush 5-40 mL IntraVENous 2 times per day polyethylene glycol 17 g Oral Daily bisacodyl 5 mg Oral Daily sennosides-docusate sodium 1 tablet Oral BID Continuous Infusions: dextrose sodium chloride 125 mL/hr at 09/01/24 1900 sodium chloride Lab Results: CBC: Recent Labs 09/02/24 0640 09/03/24 0620 09/04/24 0707 WBC 16.3* 20.0* -- HGB 13.4* 12.7* 13.4* PLT 271 258 -- BMP: Recent Labs 09/02/24 0640 09/03/24 0620 09/04/24 0707 NA 139 140 139 K 4.4 4.4 4.1 CL 106 103 101 CO2 20* 26 27 BUN 19 24* 25* CREATININE 1.0 1.1 1.1 GLUCOSE 228* 175* 131* TSH: Lab Results Component Value Date/Time TSH 1.23 09/02/2024 06:40 AM Assessment and Plan: Lumbar spinal stenosis with neurogenic claudication. Status post lumbar spine decompression and posterior spinal fusion. Hypertension Hypothyroidism History of recurrent VTE PE, on chronic anticoagulation YOBANI CAD s/p PTCI Leukocytosis related to steroid. Continue postop care. Bowel regimen. Movantik Adjust and Cont blood pressure medicines, thyroid supplements. SSI coverage. Paul Sullivan MD, * Felicity Lackey PA-C - 09/04/2024 9:09 AM EDT Department of Orthopedic Surgery Spine Service Attending Progress Note Subjective: POD#3. Patient sitting up in chair. Reports he ambulated in [place] yesterday. +BM. Vitals VITALS: BP (!) 152/60 Pulse 80 Temp 98.5 F (36.9 C) (Oral) Resp 20 Ht 1.765 m (5' 9.5 ) Wt (!) 145.8 kg (321 lb 6.9 oz) SpO2 97% BMI 46.79 kg/m 24HR INTAKE/OUTPUT: Intake/Output Summary (Last 24 hours) at 09/04/2024 0909 Last data filed at 09/04/2024 0810 Gross per 24 hour Intake 500 ml Output 2580 ml Net -2080 ml URINARY CATHETER OUTPUT (Peterosn): [REMOVED] Urinary Catheter 09/01/24-Output (mL): 200 mL DRAIN/TUBE OUTPUT: Closed/Suction Drain Midline Back Accordion-Output (ml): 95 ml Closed/Suction Drain Left;Medial Back-Output (ml): 0 ml PHYSICAL EXAM: Orientation: alert and oriented to person, place and time Incision: dressing in place, clean, dry, intact Lower Extremity Motor : quadriceps, extensor hallucis longus, dorsiflexion, plantarflexion 5/5 bilaterally Lower Extremity Sensory: Intact L1-S1 Flatus: positive ABNORMAL EXAM FINDINGS: none LABS: HgB: Lab Results Component Value Date/Time HGB 13.4 09/04/2024 07:07 AM ASSESSMENT AND PLAN: Post operative day 3 status post L2-5 decompression and fusion 1: Monitor labs and drain output 2: Activity Level: as tolerated 3: Pain Control: ok 4: Discharge Planning: pending 5: Resume Plavix post op day 5 and hold Eliquis today. Will assess drain output before resuming. Felicity Lackey PA-C * Armida Acosta [facility] - 09/03/2024 5:58 PM EDT Post-fall Pharmacist Review Pharmacy has been notified to review the medication profile for fall risk post-fall Medications increasing risk of falling: Cyclobenzaprine, gabapentin, furosemide, hydrocodone/acetaminophen, metoprolol tartrate, mirtazapine, oxycodone (last given today at 1127) Medications increasing risk of bleeding: None Recommendations: Continue to monitor for dizziness, drowsiness, and lightheadedness Findings discussed with Leyda Dillard RN * Paul Sullivan MD - 09/03/2024 3:15 PM EDT INTERNAL MEDICINE Progress Note 09/03/2024 3:15 PM Subjective: Admit Date: 09/01/2024 PCP: Linden King MD Interval History: No BM Patient reports numbness and weakness in the left leg. No headaches. Objective: Vitals: BP (!) 134/59 Pulse 90 Temp 98.2 F (36.8 C) (Oral) Resp 18 Ht 1.765 m (5' 9.5 ) Wt (!) 145.8 kg (321 lb 6.9 oz) SpO2 97% BMI 46.79 kg/m General appearance: alert and cooperative with exam HEENT: atraumatic Neck: no adenopathy, no carotid bruit, and no JVD Lungs: clear to auscultation bilaterally Heart: regular rate and rhythm and S1, S2 normal Abdomen: soft, non-tender; bowel sounds normal; no masses, no organomegaly, distended Extremities: no edema, redness or tenderness in the calves or thighs Neurologic: Alert, oriented, thought content appropriate Left lower extremity weakness power 4/5. Medications: Scheduled Meds: insulin lispro 0-4 Units SubCUTAneous 4x Daily AC & HS empagliflozin 10 mg Oral Daily potassium chloride 10 mEq Oral Daily pantoprazole 40 mg Oral QAM AC mirtazapine 90 mg Oral Nightly metoprolol tartrate 25 mg Oral BID levothyroxine 200 mcg Oral Daily gabapentin 600 mg Oral TID furosemide 40 mg Oral Daily sodium chloride flush 5-40 mL IntraVENous 2 times per day polyethylene glycol 17 g Oral Daily bisacodyl 5 mg Oral Daily sennosides-docusate sodium 1 tablet Oral BID Continuous Infusions: dextrose sodium chloride 125 mL/hr at 09/01/24 1900 sodium chloride Lab Results: CBC: Recent Labs 09/02/24 0640 09/03/24 0620 WBC 16.3* 20.0* HGB 13.4* 12.7* PLT 271 258 BMP: Recent Labs 09/01/24 1921 09/02/24 0640 09/03/24 0620 NA -- 139 140 K -- 4.4 4.4 CL -- 106 103 CO2 -- 20* 26 BUN -- 19 24* CREATININE 1.1 1.0 1.1 GLUCOSE -- 228* 175* TSH: Lab Results Component Value Date/Time TSH 1.23 09/02/2024 06:40 AM Assessment and Plan: Lumbar spinal stenosis with neurogenic claudication. Status post lumbar spine decompression and posterior spinal fusion. Hypertension Hypothyroidism History of recurrent VTE PE, on chronic anticoagulation YOBANI CAD s/p PTCI Leukocytosis related to steroid. Continue postop care. Bowel regimen. Add Movantik Resume blood pressure medicines, thyroid supplements. SSI coverage. Paul Sullivan MD, MD * Tanika Brizuela, [facility] - 09/03/2024 2:24 PM EDT [facility] INPATIENT PHYSICAL THERAPY DAILY NOTE [facility] 7K - -A Discharge Recommendations: Home with Home Health PT Equipment Recommendations: No Time In: 1349 Time Out: 1418 Timed Code Treatment Minutes: 29 Minutes Minutes: 29 Date: 09/03/2024 Patient Name: Cecil Hammond, Gender: male : 1960 (63 y.o.) Referring Practitioner: Enmanuel Geiger PA Diagnosis: Lumbar stenosis with neurogenic claudication Additional Pertinent Hx: Pt is s/p L2-S1 DECOMPRESSION AND FUSION completed by Dr. Cespedes on 09/01. Prior Level of Function: Lives With: Spouse Type of Home: House Home Layout: One level, Laundry in basement Home Access: Stairs to enter without rails Entrance Stairs - Number of Steps: 3 MAYDA Home Equipment: Rollator, Cane, Walker - Rolling Bathroom Shower/Tub: Walk-in shower Bathroom Toilet: Standard Prior Level of Assist for ADLs: Independent Prior Level of Assist for Homemaking: Independent Homemaking Responsibilities: No Prior Level of Assist for Transfers: Independent 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 Vehicle Service Attendant: Yes Additional Comments: no AD prior unless he had increased pain and then would use a cane for mobility Prior Level of Assist for Ambulation: Independent household ambulator, with or without device Has the patient had two or more falls in the past year or any fall with injury in the past year?: No Restrictions/Precautions: Restrictions/Precautions: Fall Risk, General Precautions, Surgical Protocols Required Braces or Orthoses Spinal: Lumbar Corset Position Activity Restriction Spinal Precautions: No Bending/Lifting/Twisting (BLT) Other Position/Activity Restrictions: L LE buckling, drains x2 SUBJECTIVE: Clearance from RN received for therapy at this date. Pt is seated in bedside chair whenPT arrives. Pt agreeable to therapy on this date. Pt reports that he was able to ambulate down the [place] to the central nurses station prior to lunch today. PAIN: -/10: Pt reports slight lower back pain. Pt does not quantify pain. Vitals: Vitals not assessed per clinical judgement, see nursing flowsheet OBJECTIVE: Bed Mobility: Not Tested Transfers: Sit to Stand: Contact Guard Assistance, to/from chair with arms, decreased force production Stand to Sit:Contact Guard Assistance, cues for hand placement, decreased eccentric control STS performed at bedside chair and hallway chair to RW. Pt educated regarding proper hand placementon chair/walker for STS. Ambulation: Contact Guard Assistance Distance: 60ft x 1, 40ft x 2 Surface: Level Tile Device: Rolling Walker Gait Deviations: Slow Carissa, Decreased Step Length Bilaterally, Decreased Arm Swing, Decreased Trunk Rotation, and Decreased Gait Speed Stairs: Not Tested Balance: Static Sitting Balance: Independent Dynamic Sitting Balance: Supervision Static Standing Balance: Contact Guard Assistance Dynamic Standing Balance: Contact Guard Assistance Sitting Balance performed at bedside chair. Standing Balance performed at RW and bedside with bed-rails elevated for UE support. Exercise: - STS to RW (2 sets x 5 reps) - Standing Hip Abduction with Bedside Rails for UE Support (1 set x 10 reps ea leg) - Seated Long Arc Quad (1 set x 10 reps ea leg) Exercises were completed for increased independence with functional mobility. Functional Outcome Measures: [facility] (6 CLICK) BASIC MOBILITY AM-PAC Inpatient Mobility without Stair Climbing Raw Score : 14 AM-PAC Inpatient without Stair Climbing T-Scale Score : 40.85 Modified Coffey: Current Functional Status: Not Applicable ASSESSMENT: Assessment: Patient progressing toward established goals. Pt tolerated today's session well with noincidents. Skilled PT interventions addressed functional mobility and strength. Pt educated regarding proper hand placement for RW during STS transfers with pt verbalizing and demonstrating understanding. PT observed decreased strength, but pt had no incident of knee buckling during today's treatment session. Pt would benefit from continued skilled PT per POC. Activity Tolerance: Patient tolerance of treatment:Good. Plan: Current Treatment Recommendations: Balance training, Strengthening, Gait training, Stair training, Functional mobility training, Transfer training, Neuromuscular re-education, Endurance training, Equipment evaluation, education, & procurement, Patient/Caregiver education & training, Safety education & training, Home exercise program, Therapeutic activities General Plan: (6x O) Education: Learners: Patient Patient Education: Plan of Care, Equipment Education, Transfers, Verbal Exercise Instruction, - Patient Verbalized Understanding Goals: Patient Goals : return home with Short Term Goals Time Frame for Short Term Goals: by discharge Short Term Goal 1: Pt will demo sit to/from stand transfer with S with RW to progress with mobility. Short Term Goal 2: Pt will amb for 50 feet with RW with S to progress with mobility. Short Term Goal 3: Pt will demo S for bed mobility tasks with bed flat and good demo of log roll technique to progress with mobility. Short Term Goal 4: Pt will demo S for car transfers with with good technique/recall to return home safely. Short Term Goal 5: Pt will negotiate steps with rail for support and CGA to return home safely. Infantry Unit Leader Goals Time Frame for Infantry Unit Leader Goals : NA due to short ELOS Following session, patient left seated in bedside chair with chair alarm activated. Call light and tray table within reach. Vira Hernandez, licensed Therapist was present and directly responsible for all treatments provided by, EMMIE Larson Cosigned by Vira Hernandez PT at 09/03/2024 3:07 PM EDT * Abena Pearl OTA - 09/03/2024 12:10 PM EDT [facility] 7K Occupational Therapy Daily Note Discharge Recommendations: Home with assist as needed Equipment Recommendations: No Time In: 1140 Time Out: 1210 Timed Code Treatment Minutes: 30 Minutes Minutes: 30 Date: 09/03/2024 Patient Name: Cecil Hammond, Gender: male [facility] 1960 (63 y.o.) Referring Practitioner: Enmanuel Geiger PA Diagnosis: Lumbar stenosis with neurogenic claudication Additional Pertinent Hx: This is a 63 y.o. male with a history of prior back surgery with refractory back and left leg pain from degenerative disc disease and lumbar stenosis from L2-S1. Pt is s/p L2-5 lumbar spine decompression and posterior spinal fusion on 09/[address] Mckay Restrictions/Precautions: Restrictions/Precautions: Fall Risk, General Precautions, Surgical Protocols Required Braces or Orthoses Spinal: Lumbar Corset Position Activity Restriction Spinal Precautions: No Bending/Lifting/Twisting (BLT) Other Position/Activity Restrictions: L LE buckling, drains x2 Social/Functional History: Lives With: Spouse Type of Home: House Home Layout: One level, Laundry in basement Home Access: Stairs to enter without rails Entrance Stairs - Number of Steps: 3 MAYDA Home Equipment: Rollator, Cane, Walker - Rolling Bathroom Shower/Tub: Walk-in shower Bathroom Toilet: Standard Prior Level of Assist for ADLs: Independent Prior Level of Assist for Homemaking: Independent Homemaking Responsibilities: No Prior Level of Assist for Transfers: Independent Prior Level of Assist for Ambulation: Independent household ambulator, with or without device Has the patient had two or more falls in the past year or any fall with injury in the past year?: No 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 Pt. In room pleasant and agreeable to participate. Pt. Reports LLE doing much better this date, no buckling noted, does feel some weakness. PAIN: 6/10: low back and B hips Vitals: Vitals not assessed per clinical judgement, see nursing flowsheet COGNITION: WFL ADL: Upper Extremity Dressing: Stand By Assistance. To doff and don corset Lower Extremity Dressing:Pt. Educated on donning and doffing of LB clothing while incorporating precautions. Pt. Unable to perform the figure four. Pt. Educated on use of LHR to don pants. Footwear Management: Pt. Unable to perform figure four, Pt. Educated on use of automotive quality engineer to doff and sock aid to don demo and visual trial provided prior to Pt. Trialing. Pt. Interested in purchasing LHAE kit will discuss with spouse. Pt. Educated on toileting aids and where to obtain. Pt. Reports spouse has assisted in the past after previous lumbar surgeries. Reports currently no DME needs. IADL: Not Tested BED MOBILITY: Not Tested TRANSFERS: Sit to Stand: Contact Guard Assistance. Stand to Sit: Contact Guard Assistance. FUNCTIONAL MOBILITY: Assistive Device: Rolling Walker Assist Level: Contact Guard Assistance. Distance: Household distances within unit ADDITIONAL ACTIVITIES: Pt. Educated on precautions and incorporation into daily ADL components in the home. Pt. Voices good understanding. Modified Coffey: Current Functional Status: Not Applicable Education: Learners: Patient Plan of Care, Role of OT,ADL's, Precautions: , Equipment Education, Home Safety, Fall Prevention, and Assistive Device Safety ASSESSMENT: Activity Tolerance: Patient tolerance of treatment: Good treatment tolerance Plan: Times Per Week: 6x Times Per Day: Once a day Current Treatment Recommendations: Strengthening, Balance training, Functional mobility training, Equipment evaluation, education, & procurement, Patient/Caregiver education & training, Self-Care / ADL, Home management training, Safety education & training Goals Short Term Goals Time Frame for Short Term Goals: until discharge Short Term Goal 1: Pt will navigate HH distances with RW, SBA, and good awareness for safety to improve safe access to ADLs. Short Term Goal 2: Pt will tolerate x3-5 min standing with 1-2 UE release at SBA to improve balanceand activity tolerance required for sinkside I/ADLs. Short Term Goal 3: Pt will complete LB dressing/bathing with minimal A utilizing LHAE as needed andwith no additional cues for maintaining spinal precautions to improve indep with ADL routines. Short Term Goal 4: Pt will retrieve x5 items from various surface heights with SBA and no additional cues for maintaining spinal precautions to improve indep with ADL prep and clean up. Following session, patient left in safe position with all fall risk precautions in place. Cosigned by Caron Parisi OT at 09/03/2024 3:26 PM EDT * Felicity Lackey PA-C - 09/03/2024 7:04 AM EDT Department of Orthopedic Surgery Spine Service Attending Progress Note Subjective: POD#2. Patient laying in bed. Left Leg pain and numbness. He reports it is improved compared to yesterday. Reports he walked in the [place] yesterday. No BM. Vitals VITALS: BP (!) 138/56 Pulse 78 Temp 98.5 F (36.9 C) (Oral) Resp 16 Ht 1.765 m (5' 9.5 ) Wt (!) 145.8 kg (321 lb 6.9 oz) SpO2 91% BMI 46.79 kg/m 24HR INTAKE/OUTPUT: Intake/Output Summary (Last 24 hours) at 09/03/2024 0704 Last data filed at 09/03/2024 0422 Gross per 24 hour Intake 1000 ml Output 4565 ml Net -3565 ml URINARY CATHETER OUTPUT (Peterson): [REMOVED] Urinary Catheter 09/01/24-Output (mL): 200 mL DRAIN/TUBE OUTPUT: Closed/Suction Drain Midline Back Accordion-Output (ml): 140 ml Closed/Suction Drain Left;Medial Back-Output (ml): 20 ml PHYSICAL EXAM: Orientation: alert and oriented to person, place and time Incision: dressing in place, clean, dry, intact Lower Extremity Motor : quadriceps, extensor hallucis longus, dorsiflexion, plantarflexion 5/5 bilaterally Lower Extremity Sensory: Intact L1-S1 Flatus: positive ABNORMAL EXAM FINDINGS: none LABS: HgB: Lab Results Component Value Date/Time HGB 12.7 09/03/2024 06:20 AM ASSESSMENT AND PLAN: Post operative day 2 status post L2-5 decompression and fusion 1: Monitor labs and drain output 2: Activity Level: as tolerated 3: Pain Control: ok 4: Discharge Planning: pending 5: Resume Plavix post op day 5 and possibly Eliquis on post op day 3. Will assess drain output before resuming. Felicity Lackey PA-C * Paul Sullivan MD - 09/02/2024 5:29 PM EDT INTERNAL MEDICINE Progress Note 09/02/2024 5:29 PM Subjective: Admit Date: 09/01/2024 PCP: Linden King MD Interval History: Patient reports numbness and weakness in the left leg. No headaches. Objective: Vitals: BP 139/68 Pulse 81 Temp 98.1 F (36.7 C) (Oral) Resp 16 Ht 1.765 m (5' 9.5 ) Wt (!) 145.8 kg (321 lb 6.9 oz) SpO2 92% BMI 46.79 kg/m General appearance: alert and cooperative with exam HEENT: Head: atraumatic Neck: no adenopathy, no carotid bruit, and no JVD Lungs: clear to auscultation bilaterally Heart: regular rate and rhythm and S1, S2 normal Abdomen: soft, non-tender; bowel sounds normal; no masses, no organomegaly Extremities: no edema, redness or tenderness in the calves or thighs Neurologic: Mental status: Alert, oriented, thought content appropriate Left lower extremity weakness power 4/5. Medications: Scheduled Meds: empagliflozin 10 mg Oral Daily potassium chloride 10 mEq Oral Daily pantoprazole 40 mg Oral QAM AC mirtazapine 90 mg Oral Nightly metoprolol tartrate 25 mg Oral BID levothyroxine 200 mcg Oral Daily gabapentin 600 mg Oral TID furosemide 40 mg Oral Daily sodium chloride flush 5-40 mL IntraVENous 2 times per day polyethylene glycol 17 g Oral Daily bisacodyl 5 mg Oral Daily sennosides-docusate sodium 1 tablet Oral BID dexAMETHasone 10 mg IntraVENous Q8H Continuous Infusions: sodium chloride 125 mL/hr at 09/01/24 1900 sodium chloride Lab Results: CBC: Recent Labs 09/02/24 0640 WBC 16.3* HGB 13.4* PLT 271 BMP: Recent Labs 09/01/24 1921 09/02/24 0640 NA -- 139 K -- 4.4 CL -- 106 CO2 -- 20* BUN -- 19 CREATININE 1.1 1.0 GLUCOSE -- 228* TSH: Lab Results Component Value Date/Time TSH 1.23 09/02/2024 06:40 AM Assessment and Plan: Lumbar spinal stenosis with neurogenic claudication. Status post lumbar spine decompression and posterior spinal fusion. Hypertension Hypothyroidism History of recurrent VTE PE, on chronic anticoagulation YOBANI CAD s/p PTCI Leukocytosis related to steroid. Continue postop care. Bowel regimen. Resume blood pressure medicines, thyroid supplements. SSI coverage. Paul Sullivan MD, * Nasrin Rowan, PT - 09/02/2024 2:28 PM EDT [facility] INPATIENT PHYSICAL THERAPY EVALUATION [facility] 7K - 7K-[id number] Discharge Recommendations: Continue to assess pending progress, 24 hour supervision or assist, Patient would benefit from continued therapy after discharge, depending on L LE buckling /strength Equipment Recommendations: No Time In: 1354 Time Out: 1429 Timed Code Treatment Minutes: 27 Minutes Minutes: 35 Date: 09/02/2024 Patient Name: Cecil Hammond, Gender: male : 1960 (63 y.o.) Referring Practitioner: Enmanuel Geiger PA Diagnosis: Lumbar stenosis with neurogenic claudication Additional Pertinent Hx: Pt is s/p L2-S1 DECOMPRESSION AND FUSION completed by Dr. Cespedes on 09/01. Restrictions/Precautions: Restrictions/Precautions: Fall Risk, General Precautions, Surgical Protocols Spinal Precautions: No Bending/Lifting/Twisting (BLT) Other Position/Activity Restrictions: L LE buckling, drains x2 Required Braces or Orthoses?: Yes Spinal: Lumbar Corset Subjective: Chart Reviewed: Yes Patient assessed for rehabilitation services?: Yes Family/Caregiver Present: No Subjective: OK to see pt per nursing. Pt in bedside chair when PT arrived, pleasant and agreeable to PT session. Pt requesting to get back in bed to rest and will get up later today for dinner. Pt very talkative. General: Overall Orientation Status: Within Normal Limits Orientation Level: Oriented X4 Vision: Within Functional Limits Hearing: Within functional limits Pain: 09/29: incision/surgical site Vitals: Vitals not assessed per clinical judgement, see nursing flowsheet Social/Functional History: Lives With: Spouse Type of Home: House Home Layout: One level, Laundry in basement Home Access: Stairs to enter without rails Entrance Stairs - Number of Steps: 3 MAYDA Home Equipment: Rollator, Cane, Walker - Rolling Bathroom Shower/Tub: Walk-in shower Bathroom Toilet: Standard Prior Level of Assist for ADLs: Independent Prior Level of Assist for Homemaking: Independent Homemaking Responsibilities: No Prior Level of Assist for Transfers: Independent Prior Level of Assist for Ambulation: Independent household ambulator, with or without device Has the patient had two or more falls in the past year or any fall with injury in the past year?: No 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 Vehicle Service Attendant: 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 Additional Comments: no AD prior unless he had increased pain and then would use a cane for mobility OBJECTIVE: Range of Motion: Bilateral Lower Extremity: WFL Strength: Bilateral Lower Extremity: Impaired - grossly deconditioned, buckling of L LE Balance: Static Sitting Balance: Supervision, Stand By Assistance Dynamic Sitting Balance: Stand By Assistance Static Standing Balance: Contact Guard Assistance, Minimal Assistance Buckling with initial stand of L LE, progressed to CGA once more stable on feet, increased UE support on walker Able to iraida and doff brace with S Bed Mobility: Sit to Supine: Moderate Assistance, X 1, with head of bed flat, with verbal cues assist for BLE to place back in bed, good demo of log roll Transfers: Sit to Stand: Contact Guard Assistance, Minimal Assistance, X 1, cues for hand placement, with verbal cues, decreased force production Stand to Sit:Minimal Assistance, X 1, with verbal cues, cues for alignment to surface and for safety with assistive device RW for support, decreased eccentric control into sitting, fair carryover with hand placement and will occasionally pull on walker to pull self up. Completed multiple during session Ambulation: Contact Guard Assistance, Minimal Assistance, X 1, with cues for safety, with verbal cues , with increased time for completion Distance: 3 feet x3, 10 feet Surface: Level Tile Device: Rolling Walker Gait Deviations: Slow Carissa, Decreased Step Length Bilaterally, Decreased Weight Shift Left, Decreased Gait Speed, Decreased Quad Control Left, and Increased reliance on assistive device Increased UE on walker when in stance phase on L LE due to weakness/buckling. Ret breaks trials Stairs: Not Tested Exercise: None Functional Outcome Measures: [facility] (6 CLICK) BASIC MOBILITY AM-PAC Inpatient Mobility without Stair Climbing Raw Score : 14 AM-PAC Inpatient without Stair Climbing T-Scale Score : 40.85 Modified Coffey: Premorbid Functional Status: Not Applicable Current Functional Status: Not Applicable ASSESSMENT: Activity Tolerance: Patient tolerance of treatment:Good. Rest breaks, and weakness Treatment Initiated: Treatment and education initiated within context of evaluation. Evaluation time included review of current medical information, gathering information related to past medical, social and functional history, completion of standardized testing, formal and informal observation of tasks, assessment of data and development of plan of care and goals. Treatment time included skilled education and facilitation of tasks to increase safety and independence with functional mobility forimproved independence and quality of life. Assessment: Body Structures, Functions, Activity Limitations Requiring Skilled Therapeutic Intervention: Decreased functional mobility , Decreased endurance, Decreased balance, Decreased strength, Increased pain Assessment: Cecil Hammond is a 63 y.o. male who presents with the deficits stated previously. Pt requires 1 person assist for functional tasks with use of walker for support. Pt cont to require skilled PT services to increase IND with functional tasks and progress towards PLOF to return to home environment safely. Therapy Prognosis: Good Requires PT Follow-Up: Yes Patient Education: . Patient Education Education Given To: Patient Education Provided: Role of Therapy, Plan of Care, Precautions, Transfer Training, Mobility Training, Equipment Education Method: Verbal Education Outcome: Verbalized understanding, Demonstrated understanding, Continued education needed Plan: Current Treatment Recommendations: Balance training, Strengthening, Gait training, Stair training, Functional mobility training, Transfer training, Neuromuscular re-education, Endurance training, Equipment evaluation, education, & procurement, Patient/Caregiver education & training, Safety education & training, Home exercise program, Therapeutic activities General Plan: (6x O) Goals: Patient Goals : return home with Short Term Goals Time Frame for Short Term Goals: by discharge Short Term Goal 1: Pt will demo sit to/from stand transfer with S with RW to progress with mobility. Short Term Goal 2: Pt will amb for 50 feet with RW with S to progress with mobility. Short Term Goal 3: Pt will demo S for bed mobility tasks with bed flat and good demo of log roll technique to progress with mobility. Short Term Goal 4: Pt will demo S for car transfers with with good technique/recall to return home safely. Short Term Goal 5: Pt will negotiate steps with rail for support and CGA to return home safely. Infantry Unit Leader Goals Time Frame for Alf Goals : NA due to short ELOS Following session, patient left in safe position with all fall risk precautions in place. Pt in bedfollowing session, all needs and call light in reach, alarm on. * Caron Parisi, OT - 09/02/2024 9:56 AM EDT [facility] INPATIENT OCCUPATIONAL THERAPY [facility] 7K EVALUATION Discharge Recommendations: Continue to assess pending progress (Pt plan is to return home with his but had limited mobility due to LLE buckling this session. Will continue to monitor for rehab needs.) Equipment Recommendations: No Time In: 0756 Time Out: 0900 Timed Code Treatment Minutes: 40 Minutes Minutes: 64 Variance: -8 Date: 09/02/2024 Patient Name: Cecil Hammond, Gender: male : 1960 (63 y.o.) Referring Practitioner: Enmanuel Geiger PA Diagnosis: Lumbar stenosis with neurogenic claudication Additional Pertinent Hx: This is a 63 y.o. male with a history of prior back surgery with refractory back and left leg pain from degenerative disc disease and lumbar stenosis from L2-S1. Pt is s/p L2-5 lumbar spine decompression and posterior spinal fusion on 09/[address] Mckay Restrictions/Precautions: Restrictions/Precautions: Fall Risk Required Braces or Orthoses Spinal: Lumbar Corset Position Activity Restriction Spinal Precautions: No Bending/Lifting/Twisting (BLT) Other Position/Activity Restrictions: L LE buckling Subjective Chart Reviewed: Yes, Orders, Progress Notes, History and Physical Subjective: Nurse approved OT eval. Pt sitting EOB on OT arrival, pleasant and cooperative. A+Ox4. present and supportive. Pain: 6/10 Vitals: Vitals not assessed per clinical judgement, see nursing flowsheet Social/Functional History: Lives With: Spouse Type of Home: House Home Layout: One level, Laundry in basement Home Access: Stairs to enter without rails Entrance Stairs - Number of Steps: 3 MAYDA Home Equipment: Rollator, Cane, Walker - Rolling Bathroom Shower/Tub: Walk-in shower Bathroom Toilet: Standard Prior Level of Assist for ADLs: Independent Prior Level of Assist for Homemaking: Independent Homemaking Responsibilities: No Prior Level of Assist for Transfers: Independent Has the patient had two or more falls in the past year or any fall with injury in the past year?: No VISION:WFL HEARING: WFL COGNITION: WFL RANGE OF MOTION: Bilateral Upper Extremity: WFL STRENGTH: Bilateral Upper Extremity: WFL SENSATION: Some L LE numbness that he has had since before surgery ADL: Upper Extremity Dressing: Minimal Assistance. Assist sitting EOB to don lumbar corset required Footwear Management: Dependent. For socks; pt and report that will be able to assist withLB dressing at home. Toileting: Not tested. BSC provided to pt to set over toilet. Pt presents with L LE knee buckling however, recommended pt have BSC placed next to bedside or bedside chair if needing to use toilet. . BALANCE: Sitting Balance: Supervision. Standing Balance: Minimal Assistance. Initially requiring minimal A with cues for proper hand placement on walker and posture. TRANSFERS: Sit to Stand: Minimal Assistance, X 1, with increased time for completion, cues for hand placement,with verbal cues, decreased force production. Stand to Sit: Minimal Assistance, X 1, with increased time for completion, cues for hand placement,to/from chair with arms. FUNCTIONAL MOBILITY: Assistive Device: Rolling Walker Assist Level: Minimal Assistance, X 1, with verbal cues , and with increased time for completion. Distance: Pt instructed in starting mobility with x2 side steps each direction followed by x2 stepsforward and backwards at bedside. While taking backwards steps pt demos L LE buckling requiring minimal A to lower back to bed. Bedside chair moved to pt side of bed due to decreased safety in further mobility this session. Pt then completed transfer from EOB to bedside chair with minimal A towardspt's left side. Nurse made aware of pt's L LE buckling and inability to ambulate safely to the bathroom at this time. Will continue to monitor for progression. Activity Tolerance: Patient tolerance of treatment: Good treatment tolerance; limited by L knee buckling Functional Outcome Measures: [facility] Inpatient Daily Activity Raw Score: 17 Education: Learners: Patient Plan of Care, Role of OT,ADL's Assessment: Assessment: Cecil Hammond is a 63 y.o.male that presents with above new performance deficits secondary to Lumbar decompression and fusion. Pt is requiring increased assistance for ADLs, functional mobility, ADL transfers compared to baseline level of function. Skilled OT services is warranted to im prove above performance deficits and progress pt towards PLOF. Without OT pt is at risk for falls, further decline in functional abilities, increased caregiver burden, increased risk for medical complication as a result of reduce mobility and inability to return to prior level of living. Performance deficits / Impairments: Decreased functional mobility , Decreased strength, Decreased endurance, Decreased balance, Decreased ROM, Decreased ADL status, Decreased high-level IADLs Prognosis: Good REQUIRES OT FOLLOW-UP: Yes Decision Making: High Complexity Treatment Initiated: Treatment and education initiated within context of evaluation. Evaluation time included review of current medical information, gathering information related to past medical, social and functional history, completion of standardized testing, formal and informal observation of tasks, assessment of data and development of plan of care and goals. Treatment time included skilled education and facilitation of tasks to increase safety and independence with ADL's for improved functional independence and quality of life. Plan: Times Per Week: 6x Times Per Day: Once a day Current Treatment Recommendations: Strengthening, Balance training, Functional mobility training, Equipment evaluation, education, & procurement, Patient/Caregiver education & training, Self-Care / ADL, Home management training, Safety education & training. See long-term goal time framefor expected duration of plan of care. If no long-term goals established, a short length of stay isanticipated. Goals: Patient goals : To return home Short Term Goals Time Frame for Short Term Goals: until discharge Short Term Goal 1: Pt will navigate HH distances with RW, SBA, and good awareness for safety to improve safe access to ADLs. Short Term Goal 2: Pt will tolerate x3-5 min standing with 1-2 UE release at SBA to improve balanceand activity tolerance required for sinkside I/ADLs. Short Term Goal 3: Pt will complete LB dressing/bathing with minimal A utilizing LHAE as needed andwith no additional cues for maintaining spinal precautions to improve indep with ADL routines. Short Term Goal 4: Pt will retrieve x5 items from various surface heights with SBA and no additional cues for maintaining spinal precautions to improve indep with ADL prep and clean up. AM-PAC Inpatient Daily Activity Raw Score: 17 AM-PAC Inpatient ADL T-Scale Score : 37.26 Following session, patient left in safe position with all fall risk precautions in place. * Felicity Lackey, ROBERT - 09/02/2024 6:47 AM EDT Department of Orthopedic Surgery Spine Service Attending Progress Note Subjective: POD#1. Patient laying comfortably in bed at this time. Leg pain improved, reports intermittent numbness left leg. No BM. Peterson removed. Vitals VITALS: BP (!) 117/50 Pulse 76 Temp 98.4 F (36.9 C) (Oral) Resp 20 Ht 1.765 m (5' 9.5 ) Wt (!) 145.8 kg (321 lb 6.9 oz) SpO2 94% BMI 46.79 kg/m 24HR INTAKE/OUTPUT: Intake/Output Summary (Last 24 hours) at 09/02/2024 0647 Last data filed at 09/02/2024 0547 Gross per 24 hour Intake 5560 ml Output 2760 ml Net 2800 ml URINARY CATHETER OUTPUT (Peterson): [REMOVED] Urinary Catheter 09/01/24-Output (mL): 200 mL DRAIN/TUBE OUTPUT: Closed/Suction Drain Midline Back Accordion-Output (ml): 160 ml Closed/Suction Drain Left;Medial Back-Output (ml): 30 ml PHYSICAL EXAM: Orientation: alert and oriented to person, place and time Incision: dressing in place, clean, dry, intact Lower Extremity Motor : quadriceps, extensor hallucis longus, dorsiflexion, plantarflexion 5/5 bilaterally Lower Extremity Sensory: Intact L1-S1 Flatus: positive ABNORMAL EXAM FINDINGS: none LABS: HgB: No results found for: HGB ASSESSMENT AND PLAN: Post operative day 1 status post L2-5 decompression and fusion 1: Monitor labs and drain output 2: Activity Level: as tolerated 3: Pain Control: ok 4: Discharge Planning: pending Felicity Lackey PA-C * Sujey Cordova RN - 09/01/2024 4:57 PM EDT 1630 pt arrived to PACU, awakens to voice. States pain 5/10 in back. Sites CDI with [address] VSS 1640 c/o pain 9/10, medicated with 50 mcg fentanyl 1643 pt nauseated, medicated with 0.625 mg droperidol 1645 no change in pain status, medicated with 50 mcg fentanyl 1650 no change in pain status, medicated with 0.5 mg dilaudid 1655 no change in pain status, medicated with 0.5 mg dilaudid 1700 c/o pain 7/10, medicated with 50 mcg fentanyl 1705 pt states pain 4/10 and tolerable. VSS 1715 attempted to call report to , no answer 1720 meets criteria for discharge from PACU 1730 pt awake in bed eating ice chips. Tolerating well 1733 report given to [facility]. Family sent to room 1744 transported to [facility] in stable condition * Priyanka Clifford RN - 09/01/2024 11:47 AM EDT Patient oriented to Same Day department and admitted to Same Day Surgery room 16. Patient verbalized approval for first name, last initial with physician name on unit whiteboard. Plan of care reviewed with patient. Patient room whiteboard filled out and discussed with patient and responsible adult. Call light in reach. Bed in lowest position, locked, with one bed rail up. SCDs and warming blanket in place. Appropriate arm bands on patient. Bathroom offered. All questions and concerns of patient addressed. Meds to Beds: Patient informed of [facility] Meds to Beds program during admission. Patient has declined use of program. * Priyanka Clifford RN - 09/01/2024 11:[address] Celaya notified that heart rate 35. No new orders. * Tiffany Pink RN - 08/31/2024 12:[address] Mchugh because pt call us to see if ok to take gabapentin and skelaxin. Dr Mchugh said ok to take both am of surgery. Informed pt of this. * Linda Rachel RN - 08/31/2024 10:48 AM EDT Left message for [facility] medical records - needing medical and cardiac clearance pre-op. Awaitresponse. * Tiffany Pink RN - 08/28/2024 1:25 PM EDT Called [facility] medical records for Labs, EKG , and CXR they are faxing * Tiffany Pink RN - 08/24/2024 4:[address] mckay office for labs, EKG and chest xray as well as clearance left message on [facility] voice mail \ * Tiffany Pink RN - 08/24/2024 3:38 PM EDT Can't get through to patient invalid phone number documented in this encounterBon [facility] Discharge instructions* Discharge Instructions* Enmanuel Geiger PA - 09/06/2024 9:16 AM EDT DRAIN CARE: Check drain outputs every 8 hours. Record time and amount (in mL). Do not forget to recompress the drain! Drain can be removed when total between the two drains is <50 mL over an 8 hour period Do not change dressing until the drains are ready to be removed. Do not shower until the drains areready to be removed. Okay to sponge bath. Call the office when your drain is ready to be pulled to schedule a follow up for drain removal. Wound Care: -Do not change dressing or shower until Home Health has removed the Hemovac drain -Once drain is removed, start dressing changes once daily until incision is clean and dry, then okay to leave open to air. -Do not submerge incision in water. Avoid hot-tubs and pools -Do not shower until the drain has been removed and try to keep incision as dry as possible. Restrictions: -Limit bending and twisting -No lifting over 10-15 lbs -Walk as much as tolerated, take short frequent walks throughout the day and try to take one long walk a day (start at 5 minutes and increase as tolerated) -Wear back brace whenever you are ambulating -Use walker until you feel safe -Continue restrictions and wearing the back brace until your first postop appointment Medications: -A pain medication (Percocet) and muscle relaxer (Flexeril) will be sent to your pharmacy. Take medications as directed -Pain medications can cause postoperative constipation. Take an over the counter stool softener while taking the pain medication -Okay to resume vitamins and supplements one week after surgery -Hold all NSAIDs (I.e. ibuprofen, motrin, Aleve, etc) for 6 months following surgery -Okay to resume aspirin 72 hours after surgery and all other blood thinners 5 days following surgery unless otherwise directed Postoperative appointment: -Please contact the office to schedule an appointment for 6 weeks after surgery if you are not already scheduled for an appointment - ext [phone] If any concerning symptoms, such as calf pain/swelling, new numbness/tingling or pain please the contact the office. If concerning symptoms including weakness, chest pain or difficulty breathing, go to the Emergency Department. * Attachments The following attachments cannot be sent through Care Everywhere. * Surgical Drain Care (Ugandan) * Caring for a Drain After Surgery: Video (Ugandan) * Hand-Washing: General Info (Ugandan) * Pain Management: Opioid Use Disorder History: General Info (Ugandan) * Opioids: Safe Use (Ugandan) documented in this encounterBon Adena [facility]25 NoteUT Cardiology - [facility] Subjective Cecil Hammond is a 63 y.o. year old male patient being seen for surgery clearance. Had EKG today. He's scheduled for cervical fusion surgery with Dr. Cespedes on 09/01/2024. Denies chest pain and SOB. Denies syncope and bleeding on Eliquis. Patient Active Problem List Diagnosis History of pulmonary embolism Factor 5 Leiden mutation, heterozygous Chronic diastolic congestive heart failure (CMS/HCC) Coronary artery disease involving [place] coronary artery of [place] heart without angina pectoris Primary hypertension Abnormal EKG Chest pain on breathing Elevated troponin I measurement Family history of pulmonary embolism Hereditary spherocytosis Hyperlipidemia Primary osteoarthritis of right shoulder Pulmonary embolism (CMS/HCC) PVC (premature ventricular contraction) Syncope and collapse Arthrodesis status Degeneration of intervertebral disc of lumbar region with discogenic back pain and lower extremity pain Spondylolisthesis, lumbar region Family History Problem Relation Name Age of Onset Pulmonary embolism Father Deep vein thrombosis Father Deep vein thrombosis Sister Deep vein thrombosis Brother Heart failure Brother Social History Tobacco Use Smoking status: Former Current packs/day: 0.00 Types: Cigarettes Quit date: 1986 Years since quittin.3 Smokeless tobacco: Never Substance Use Topics Alcohol use: Not Currently Drug use: Never HPI Visit of 12/22/2021: Cecil is seen as a new patient due to abnormal Holter monitor and pulmonary embolism. In July 2021 he was having worsening dyspnea with mild exertion. He was admitted to [facility] with pulmonary embolism and then transferred to [facility] and underwent catheter directed lysis of [...] of less than 1% on the current beta-ronny dosage. Since then he reports that he has been doing very well. He has had no chest pain, no shortness of breath, he has good exercise tolerance. If he concentrates he can feel occasional palpitations. He has no leg swelling. No dizziness or lightheadedness and no syncope. Visit of 08/12/2024: He is seen in follow-up. Today he is seen for preoperative evaluation prior to cervical fusion surgery. He reports that he has been doing well. He denies chest pain shortness of breath and feeling palpitations. He actually says that he feels a lot like palpitations than before. He thinks that his heart has regulated. He has mild occasional leg edema. His physical activity is limited by his cervical spine issues. Review of Systems Cardiovascular: Positive for leg swelling (intermittent). All other systems reviewed and are negative. Objective Visit Vit (more content not included)...[facility] 04-06-2024 NoteUT Cardiology - [facility] Subjective Cecil Hammond is a 63 y.o. year old male patient being seen for CAD, chronic diastolic heart failure, hypertension, and hyperlipidemia. Denies chest pain, SOB, lightheadedness/syncope, and bleeding on Eliquis. Patient Active Problem List Diagnosis History of pulmonary embolism Factor 5 Leiden mutation, heterozygous (CMS/HCC) Chronic diastolic congestive heart failure (CMS/HCC) Coronary artery disease involving [place] coronary artery of [place] heart without angina pectoris Primary hypertension Abnormal [...] with mild exertion. He was admitted to [facility] with pulmonary embolism and then transferred to [facility] and underwent catheter directed lysis of [...] of less than 1% on the current beta-ronny dosage. Since then he reports that he [...] No murmur h (more content not included)... [facility]04-18-2023 Evaluation note* Encounter Date Diagnosis Assessment Notes Treatment Notes Treatment Clinical Notes Jul, Obstructive sleep apnea (ICD-10 - G47.33) Jul,ulmonary embolism (ICD-10 - I26.99) [employer] Other 09-19-2022 Evaluation note* Encounter Date Diagnosis Assessment Notes Treatment Notes Treatment Clinical Notes Dec, Obstructive sleep apnea (ICD-10 - G47.33) Dec,ulmonary embolism (ICD-10 - I26.99) [employer] Other Evaluation noteNo assessment information available [facility] Work Phone: Evaluation note* Diagnosis Lumbar stenosis with neurogenic claudication- Primary Spinal stenosis, lumbar region, with neurogenic claudication documented in this [facility] [place] [facility] Diagnosis Onset Date Resolution Status Admit Date Obstructive sleep apnea acuteSeptember 2024 3:24pmPeriodic limb movementacuteSeptember 2024 3:24pm [facility] Work Phone: History general Narrative - Reported* Type Description Date Medical History sleep apnea Medical HistoryAtrial fibrillationMedical HistoryhypertensionSurgical History [id number] Historyspinal fusionHospitalization 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[employer] [facility] Other History general Narrative - Reported* Type Description Date Medical History sleep apnea Medical HistoryAtrial fibrillationMedical HistoryhypertensionMedical HistoryOSA Surgical [id number] Historyspinal fusionSurgical History Heart catherization with stent put in01/2022Hospitalization Historypulmonary embolism [employer] Other Reason for referral (narrative)No reason for referral information availableBet[facility] Work Phone: Reason for visit Narrative* Auth/CertSpecialty Diagnoses / ProceduresReferred By ContactReferred To Contact Diagnoses Spinal stenosis of lumbar region, unspecified whether neurogenic claudication present Spinal stenosis of lumbar region, unspecified whether neurogenic claudication present [M48.061] Procedures NM ARTHRODESIS POSTERIOR/PSTLAT TQ 1NTRSPC LUMBAR NM ARTHRODESIS PST/PSTLAT TQ 1NTRSPC EA ADDL NTRSPC NM OCAMPO FACETECTOMY & FORAMOTOMY 1 VRT SGM LUMBAR NM OCAMPO FACETECTOMY&FORAMOT 1 VRT SGM EA ADDL SGM NM POSTERIOR SEGMENTAL INSTRUMENTATION 3-6 VRT SEG NM AUTOGRAFT SPINE SURGERY LOCAL FROM SAME INCISION L2-S1 DECOMPRESSION AND FUSION L2-S1 DECOMPRESSION AND FUSION L2-S1 DECOMPRESSION AND FUSION L2-S1 DECOMPRESSION AND FUSION L2-S1 DECOMPRESSION AND FUSION L2-S1 DECOMPRESSION AND FUSION Verónica Cespedes MD [address] [place] [address] [place] [address] Phone: tel: fax: [facility] [id number] [place] [address] Referral IDStatusReasonStart DateExpiration DateVisits RequestedVisits [id number] [facility] Summary Purpose Family History No Family History Records Found Relationship Condition Age at Onset Recorded Date/T jesus brother Heart disease Unknown fatherHistory of strokeUnknownmotherHistory of strokeUnknown Advance Directives No Advanced Directives Records Found Advance Directive Response Recorded Date/ Time Advance Directives No May 10:45am Date ActivatedDate InactivatedComments09/01/2024 10:54 AM Advance Directive Response Recorded Date/ Time Advance Directives Yes December 4:11pm Chief Complaint and Reason for Visit Chief Complaint g47.33 Chief Complaint Admit Date B/Bonita spinal fusion December 29 1:45pm 1yr f/u YOBANI, PLMD-last visit 09/03/23 Sep tember 2024 3:24pm Reason for Visit Admit Date Obstructive sleep apnea December 29, 2 025 3:24pm Periodic limb movement December 29 3:24pm Additional Source Comments (unrecognized sect ion and content) No Status Records FoundNo Status Records FoundNo Status Records FoundNo Status Records FoundNo Status Records Found INFORMATION SOURCE (unrecogn ized section and content) DATE CREATED AUTHOR 12/18/2021 [facility] DATE CREATED AUTHOR AUTHOR'S ORGANIZ ATION 07/24/2022 [facility] DATE CREATED AUTHOR AUTHOR'S ORGANIZ ATION 09/10/2024 [facility] DATE CREATED AUTHOR AUTHOR'S ORGANIZ ATION 01/29/2025 [facility] DATE CREATED AUTHOR AUTHOR'S ORGANIZ ATION 02/13/2025 [facility] REASON FOR VISIT (unrecogniz ed section and content) Ref by Dr. King for Pulmonary Embolism2 mo f/u YOBANI Care Teams (unrecognized sec tion and content) Team Status: Active Member Role Status Dates Linden King MD Primary Care Provider Active Team Status: Active Member Role Status Dates Linden King MD Primary Care Provider Active Start: December 29, 2024 Nahomy Ramos ProviderActiveStart: December 29, 2024 Team Status: Inactive Member Role Status Dates Linden King MD Primary Care Provider Active Start: December 29, 2024 End: December 29Nahomy Trevizo ProviderActive Start: December 29, 2024 End: December 29, 2024 Team Status: Inactive Member Role Status Dates Linden King MD Primary Care Provider Active Nahomy Mcdermott ProviderActiveTeam MemberRelationship SpecialtyStart DateEnd Date Linden King MD [address] [place] [address] [facility] Goals (unrecognized section and content) Goals may be documented in a n alternate section Scheduled Active and Recently Administ ered Medications (unrecognized section and content) Medication Order apixaban (ELIQUIS) tablet 5 mg 5 mg, Oral, 2 TIMES DAILY, First dose on Sat09/05/24 at 1330, Until Discontinued, Indication of Use: Treatment-DVT/PE, ANTICOAGULANT * 1609 (Given - Provider: Laura Potter RN - Comment: not available until now) * 2016 (Given - Provider: Deidra Jeffers RN) * 1023 (Given - Provider: Leyda Dillard RN) * 2100 (Due) bisacodyl (DULCOLAX) EC tablet 5 mg 5 mg, Oral, DAILY, First dose on Sat09/01/24 at 1930, Until Discontinued, Do not crush or break., Post-op * 0914 (Not Given - Provider: Era Dickerson RN - Reason: Patient/family refused) * 1008 (Not Given - Provider: Laura Potter RN - Reason: Patient/family refused) * 1024 (Given - Provider: Leyda Dillard RN) clopidogrel (PLAVIX) tablet 75 mg 75 mg, Oral, DAILY, First dose on Sat09/06/24 at 0930, Until Discontinued * 1018 (Given - Provider: Leyda Dillard, HARJEET) empagliflozin (JARDIANCE) tablet 10 mg 10 mg, Oral, DAILY, First dose on Sat09/01/24 at 1930, Until Discontinued, Indication of Use: Chronic kidney disease, Type 2 diabetes, Substituted for dapagliflozin (FARXIGA). Note: Discontinuation of therapy 3 days prior to surgery or major procedures is recommended given the risk for euglycemic di abetic ketoacidosis. * 0825 (Given - Provider: Era Dickerson RN) * 1012 (Given - Provider: Laura Potter RN) * 1024 (Given - Provider: Leyda Dillard RN) furosemide (LASIX) tablet 40 mg 40 mg, Oral, DAILY, First dose on Sat09/01/24 at 1845, Until Discontinued * 0825 (Given - Provider: Era Dickerson RN) * 1012 (Given - Provider: Laura Potter RN) * 1023 (Given - Provider: Leyda Dillard, HARJEET) gabapentin (NEURONTIN) tablet 600 mg 600 mg, Oral, 3 TIMES DAILY, First dose on Sat09/01/24 at 2100, Until Discontinued * 0825 (Given - Provider: Era Dickerson RN) * 1331 (Given - Provider: Era Dickerson RN) * 2035 (Given - Provider: Deidra Jeffers RN) * 1012 (Given - Provider: Laura Potter RN) * 1328 (Given - Provider: Laura Potter RN) * 2017 (Given - Provider: Deidra Jeffers RN) * 1023 (Given - Provider: Leyda Dillard RN) * 1248 (Given - Provider: Leyda Dillard RN) * 2100 (Due) insulin lispro (HUMALOG,ADMELOG) injection vial 0-4 Units 0-4 Units, SubCUTAneous, 4 TIMES DAILY BEFORE MEALS & NIGHTLY, First dose on Sat09/02/24 at 2100, Until Discontinued, Corrective Low Dose Algorithm Glucose: Dose: 70-179 No Insulin 180-249 1 Unit 250-299 2 Units 300-349 3 Units Over 349 4 Units and notify physician Administer as soon as possible within 60 minutes of last blood glucose check * 0642 (Not Given - Provider: Brandi Ayala RN - Reason: Order parameters not met) * 1129 (Not Given - Provider: Era Dickerson RN - Reason: Order parameters not met) * 165 (Not Given - Provider: Era Dickerson RN - Reason: Order parameters not met) * 2031 (Not Given - Provider: Deidra Jeffers RN - Reason: Order parameters not met - Comment: 166) * 0749 (Not Given - Provider: Laura Potter RN - Reason: Order parameters not met) * 1205 (Not Given - Provider: Laura Potter RN - Reason: Order parameters not met) * 1610 (Not Given - Provider: Laura Potter RN - Reason: Order parameters not met) * 2155 (Not Given - Provider: Deidra Jeffers RN - Reason: Order parameters not met) * 0736 (Not Given - Provider: Leyda Dillard RN - Reason: Order parameters not met) * 1244 (Not Given - Provider: Leyda Dillard RN - Reason: Order parameters not met) * 1700 (Due) * 2100 (Due) levothyroxine (SYNTHROID) tablet 200 mcg 200 mcg, Oral, DAILY, First dose on Sat09/02/24 at 0700, Until Discontinued, Tube feeding (TF) interaction, obtain physician order to manage, recommend holding TF for 30 minutes before and after dose. * 0636 (Given - Provider: Brandi Ayala RN) * 0613 (Given - Provider: Deidra Jeffers RN) * 0537 (Given - Provider: Deidra Jeffers RN) losartan (COZAAR) tablet 25 mg 25 mg, Oral, DAILY, First dose on Sat09/05/24 at 1330, Until Discontinued * 1609 (Given - Provider: Laura Potter RN) * 1023 (Given - Provider: Leyda Dillard RN) metoprolol tartrate (LOPRESSOR) tablet 25 mg (CANCELED) 25 mg, Oral, 2 TIMES DAILY, First dose on Sat09/01/24 at 2100, Until Discontinued * 0825 (Given - Provider: Era Dickerson RN) metoprolol tartrate (LOPRESSOR) tablet 50 mg 50 mg, Oral, 2 TIMES DAILY, First dose (after last modification) on Sat09/04/24 at 2100, Until Discontinued * 2035 (Given - Provider: Deidra Jeffers RN) * 101 (Given - Provider: Laura Potter RN) * 2016 (Given - Provider: Deidra Jeffers RN) * 1023 (Given - Provider: Leyda Dillard RN) * 2100 (Due) mirtazapine (REMERON) tablet 90 mg 90 mg, Oral, NIGHTLY, First dose on Sat09/01/24 at 2100, Until Discontinued * 2033 (Given - Provider: Deidra Jeffers RN) * 2016 (Given - Provider: Deidra Jeffers RN) * 2100 (Due) naloxegol (MOVANTIK) tablet 25 mg 25 mg, Oral, DAILY BEFORE BREAKFAST, First dose on Sat09/03/24 at 1600, Until Discontinued, Administer on an empty stomach at least 1 hour prior to or 2 hours after the first meal of the day. Avoid consumption of grapefruit or grapefruit juice during treatment. * 0636 (Given - Provider: Brandi Ayala RN) * 0613 (Given - Provider: Deidra Jeffers, HARJEET) * 0535 (Given - Provider: Deidra Jeffers, RN) pantoprazole (PROTONIX) tablet 40 mg 40 mg, Oral, DAILY BEFORE BREAKFAST, First dose on Sat09/02/24 at 0700, Until Discontinued, Do not crush or break. Substituted for Omeprazole (PRILOSEC). * 0635 (Given - Provider: Brandi Ayala RN) * 0610 (Given - Provider: Deidra Jeffers, HARJEET) * 0535 (Given - Provider: Deidra Jeffers, HARJEET) polyethylene glycol (GLYCOLAX) packet 17 g 17 g, Oral, DAILY, First dose on Sat09/01/24 at 1845, Until Discontinued, Stir and dissolve one packet of powder (17 g) in any 4 to 8 ounces of beverage (cold, hot or room temperature) then drink, Post-op * 0914 (Not Given - Provider: Era Dickerson RN - Reason: Patient/family refused) * 1012 (Given - Provider: Laura Potter RN) * 1018 (Given - Provider: Leyda Dillard, HARJEET) potassium chloride (KLOR-CON) extended release tablet 10 mEq 10 mEq, Oral, DAILY, First dose on Sat09/01/24 at 1930, Until Discontinued * 0825 (Given - Provider: Era Dickerson RN) * 1012 (Given - Provider: Laura Potter RN) * 1018 (Given - Provider: Leyda Dillard, RN) sennosides-docusate sodium (SENOKOT-S) 8.6-50 MG tablet 1 tablet 1 tablet, Oral, 2 TIMES DAILY, First dose on Sat09/01/24 at 2100, Until Discontinued, Post-op * 0914 (Not Given - Provider: Era Dickerson RN - Reason: Patient/family refused) * 2032 (Given - Provider: Deidra Jeffers RN) * 1013 (Not Given - Provider: Laura Potter RN - Reason: Patient/family refused) * 2016 (Not Given - Provider: Deidra Jeffers RN - Reason: Patient/family refused) * 1023 (Given - Provider: Leyda Dillard, RN) * 2100 (Due) sodium chloride flush 0.9 % injection 5-40 mL 5-40 mL, IntraVENous, EVERY 12 HOURS SCHEDULED (2 times per day), First dose on Sat09/01/24 at 2100, Until Discontinued, For Line Patency: Peripheral IV = 5 mL; Midline or Central Line = 10 mL/lumen.If following IV push medication, administer flush at same rate as the IV push. Flush volume is determined by type of infusion therapy being given. For non-viscous solutions use: Peripheral IV = 5 mL Midline or Central Line = 10 mL/lumen For viscous solutions (i.e. blood components, parenteral nutrition, contrast media, or after obtaining blood sample) use: Peripheral IV = 10 mL Midline or CentralLine = 20 mL/lumen, Post-op * 0825 (Given - Provider: Era Dickerson RN) * 2036 (Given - Provider: Deidra Jeffers RN) * 101 (Given - Provider: Laura Potter RN) * 2018 (Given - Provider: Deidra Jeffers, HARJEET) * 1018 (Given - Provider: Leyda Dillard, RN) * 2100 (Due) Medication Order09/04//// 0.9 % sodium chloride infusion IntraVENous, at 5-250 mL/hr, PRN, if patient receiving piggyback infusions and maintenance fluids are not ordered OR KVO fluids to protect IV site / prevent frequent line interruptions/ long duration, Starting on Sat09/01/24 at 1825, For piggyback infusion, administer at same rate as piggyback for a total of 25 mL. Enter 25 mL into dose field and piggyback rate into rate field of order. If piggyback is infusing at a rate less than 100 mL/hr, enter 25 mL into dose field and 100 mL/hr into rate field of order. For KVO fluids, enter rate of 20 mL/hr or less into rate field of order., Post-op acetaminophen (TYLENOL) tablet 650 mg 650 mg, Oral, EVERY 6 HOURS PRN, Starting on Sat09/01/24 at 1649, Until Discontinued, Pain Mild (1-3), allowed for higher pain score per patient request, Fever, Maximum dose of acetaminophen is 4000 mg from all sources in 24 hours., Post-op bisacodyl (DULCOLAX) suppository 10 mg 10 mg, Rectal, DAILY PRN, Starting on Sat09/01/24 at 1825, Until Discontinued, Constipation, Secondline therapy for constipation, After 24 hours, if no result from first line PRN therapy, give second line therapy in combination with first line therapy., Post-op cyclobenzaprine (FLEXERIL) tablet 10 mg 10 mg, Oral, 3 TIMES DAILY PRN, Starting on Sat09/01/24 at 1649, Until Discontinued, Muscle spasms,Post-op * 0640 (Given - Provider: Brandi Ayala, RN) * 1259 (Given - Provider: Osiris Foley, HARJEET) * 2245 (Given - Provider: Deidra Jeffers, HARJEET) * 1327 (Given - Provider: Laura Potter, HARJEET) * 2324 (Given - Provider: Deidra Jeffers, HARJEET) * 1023 (Given - Provider: Leyda Dillard, HARJEET) dextrose 10 % infusion IntraVENous, at 100 mL/hr, CONTINUOUS PRN, if blood glucose remains LESS THAN 70 mg/dL after 2 dextrose 10% intravenous boluses or administration of glucagon, Starting on Sat09/02/24 at 1731, If blood glucose fails to stabilize after 2 dextrose 10% intravenous boluses or glucagon administration, start dextrose 10% infusion at 100 mL/hour and repeat blood glucose at 30 and 60 minutes. If blood glucose is GREATER THAN 70 mg/dL after 60 minutes, discontinue dextrose 10% infusion. dextrose bolus 10% 125 mL(Linked Group 1) 125 mL, IntraVENous, at 937.5 mL/hr, Administer over 8 Minutes, PRN, Other, Blood glucose 40 - 69 mg/dL and patient NOT ALERT or NPO, Starting on Sat09/02/24 at 1731, Repeat blood glucose in 15 minutes. If blood glucose remains LESS THAN 70 mg/dL, repeat treatment and recheck blood glucose in 15 minutes x 2. If using glycemic management system, dose as instructed per system. If blood glucose remains LESS THAN 70 mg/dL after 2 intravenous boluses start dextrose 10% at 100 mL/hour and notify provider. dextrose bolus 10% 250 mL(Linked Group 1) 250 mL, IntraVENous, at 937.5 mL/hr, Administer over 16 Minutes, PRN, Other, Blood glucose LESS THAN 40 mg/dL and patient NOT ALERT or NPO, Starting on Sat09/02/24 at 1731, Repeat blood glucose in 15minutes. If blood glucose remains LESS THAN 70 mg/dL, repeat treatment and recheck blood glucose in15 minutes x 2. If using glycemic management system, dose as instructed per system. If blood glucose remains LESS THAN 70 mg/dL after 2 intravenous boluses start dextrose 10% at 100 mL/hour and notify provider. glucagon injection 1 mg 1 mg, SubCUTAneous, PRN, Starting on Sat09/02/24 at 1731, Until Discontinued, Low blood sugar, Blood glucose LESS THAN 70 mg/dL and patient NOT ALERT or NPO and does not have IV access., After administration, attempt intravenous access and start dextrose 10% at 100 mL/hr. Repeat blood glucose in 15minutes x 2 and notify provider. Reconstitute powder for injection by adding 1 mL of development trainer-supplied sterile diluent or sterile water for injection to a vial containing 1 mg of the drug, to provide solutions containing 1 mg/mL. Shake vial gently to dissolve. glucose chewable tablet 16 g 16 g (4 tablet), Oral, PRN, Starting on Sat09/02/24 at 1731, Until Discontinued, Low blood sugar, If blood glucose is LESS THAN 70 mg/dL and patient is alert and tolerating oral. Give 4 tablets (16g)Repeat blood glucose in 15 minutes. If blood glucose is LESS THAN 70 mg/dL, repeat treatment and recheck blood glucose in 15 minutes x 2. If blood glucose remains LESS THAN 70 mg/dL, notify provider. HYDROcodone-acetaminophen (NORCO) 5-325 MG per tablet 1 tablet(Linked Group 2) 1 tablet, Oral, EVERY 4 HOURS PRN, Starting on Sat09/03/24 at 1521, Until Discontinued, Pain Moderate (4-6), allowed for higher pain score per patient request, Maximum dose of acetaminophen is 4000 mg from all sources in 24 hours. * 0355 (See Alternative - Provider: Brandi Ayala RN) * 0825 (See Alternative - Provider: Era Dickerson RN) * 1259 (See Alternative - Provider: Osiris Foley RN) * 1825 (See Alternative - Provider: Era Dickerson RN) * 0408 (See Alternative - Provider: Deidra Jeffers, HARJEET) * 0940 (See Alternative - Provider: Ruth Ann Emery RN) * 2015 (See Alternative - Provider: Deidra Jeffers, HARJEET) * 0508 (Given - Provider: Deidra Jeffers, HARJEET) * 1024 (See Alternative - Provider: Leyda Dillard RN) * 1521 (See Alternative - Provider: Leyda Dillard RN) HYDROcodone-acetaminophen (NORCO) 5-325 MG per tablet 2 tablet(Linked Group 2) 2 tablet, Oral, EVERY 4 HOURS PRN, Starting on Sat09/03/24 at 1521, Until Discontinued, Pain Severe(7-10), Maximum dose of acetaminophen is 4000 mg from all sources in 24 hours. * 0355 (Given - Provider: Brandi Ayala RN) * 0825 (Given - Provider: Era Dickerson RN) * 1259 (Given - Provider: Osiris Foley RN) * 1825 (Given - Provider: Era Dickerson RN) * 0408 (Given - Provider: Deidra Jeffers, HARJEET) * 0940 (Given - Provider: Ruth Ann Emery RN) * 2015 (Given - Provider: Deidra Jeffers RN) * 0508 (See Alternative - Provider: Deidra Jeffers RN) * 1024 (Given - Provider: Leyda Dillard RN) * 1521 (Given - Provider: Leyda Dillard, RN) magnesium hydroxide (MILK OF MAGNESIA) 400 MG/5ML suspension 30 mL 30 mL, Oral, DAILY PRN, Starting on Sat09/01/24 at 1825, Until Discontinued, Constipation, First line therapy for constipation., Post-op ondansetron (ZOFRAN) injection 4 mg(Linked Group 3) 4 mg, IntraVENous, EVERY 6 HOURS PRN, Starting on Sat09/01/24 at 182, Until Discontinued, Nausea, Vomiting, Administer if oral route cannot be used., Post-op * 1457 (See Alternative - Provider: Laura Potter RN) ondansetron (ZOFRAN-ODT) disintegrating tablet 4 mg(Linked Group 3) 4 mg, Oral, EVERY 8 HOURS PRN, Starting on Sat09/01/24 at 1825, Until Discontinued, Nausea, Vomiting, Post-op * 1457 (Given - Provider: Laura Potter RN) sodium chloride flush 0.9 % injection 5-40 mL 5-40 mL, IntraVENous, PRN, Starting on Sat09/01/24 at 1825, Until Discontinued, Line Care, After every IV line use, For Line Patency: Peripheral IV = 5 mL; Midline or Central Line = 10 mL/lumen. If following IV push medication, administer flush at same rate as the IV push. Flush volume is determined by type of infusion therapy being given. For non-viscous solutions use: Peripheral IV = 5 mL Midline or Central Line = 10 mL/lumen For viscous solutions (i.e. blood components, parenteral nutrition,contrast media, or after obtaining blood sample) use: Peripheral IV = 10 mL Midline or Central Line= 20 mL/lumen, Post-op Order Group 1: dextrose bolus 10% 125 mLJump to med 125 mL, IntraVENous, at 937.5 mL/hr, Administer over 8 Minutes, PRN, Other, Blood glucose 40 - 69 mg/dL and patient NOT ALERT or NPO, Starting on Sat09/02/24 at 1731, Repeat blood glucose in 15 minutes. If blood glucose remains LESS THAN 70 mg/dL, repeat treatment and recheck blood glucose in 15 minutes x 2. If using glycemic management system, dose as instructed per system. If blood glucose remains LESS THAN 70 mg/dL after 2 intravenous boluses start dextrose 10% at 100 mL/hour and notify provider. Or dextrose bolus 10% 250 mLJump to med 250 mL, IntraVENous, at 937.5 mL/hr, Administer over 16 Minutes, PRN, Other, Blood glucose LESS THAN 40 mg/dL and patient NOT ALERT or NPO, Starting on Sat09/02/24 at 1731, Repeat blood glucose in 15minutes. If blood glucose remains LESS THAN 70 mg/dL, repeat treatment and recheck blood glucose in15 minutes x 2. If using glycemic management system, dose as instructed per system. If blood glucose remains LESS THAN 70 mg/dL after 2 intravenous boluses start dextrose 10% at 100 mL/hour and notify provider. Group 2: HYDROcodone-acetaminophen (NORCO) 5-325 MG per tablet 1 tabletJump to med 1 tablet, Oral, EVERY 4 HOURS PRN, Starting on Yadi 09/03/24 at 1521, Until Discontinued, Pain Moderate (4-6), allowed for higher pain score per patient request, Maximum dose of acetaminophen is 4000 mg from all sources in 24 hours. Or HYDROcodone-acetaminophen (NORCO) 5-325 MG per tablet 2 tabletJump to med 2 tablet, Oral, EVERY 4 HOURS PRN, Starting on Yadi 09/03/24 at 1521, Until Discontinued, Pain Severe(7-10), Maximum dose of acetaminophen is 4000 mg from all sources in 24 hours. Group 3: ondansetron (ZOFRAN-ODT) disintegrating tablet 4 mgJump to med 4 mg, Oral, EVERY 8 HOURS PRN, Starting on Sat09/01/24 at 1825, Until Discontinued, Nausea, Vomiting, Post-op Or ondansetron (ZOFRAN) injection 4 mgJump to med 4 mg, IntraVENous, EVERY 6 HOURS PRN, Starting on Sat09/01/24 at 1825, Until Discontinued, Nausea, Vomiting, Administer if oral route cannot be used., Post-op FOR RECORDS PERTAINING TO PATIENTS WHO ARE [...] BE BASED ON THE PRIMARY CLINICAL RECORDS. [employer] [facility]. provides no warranty or guarantee of the accuracy or completeness of information in this document.
[2025-02-19 10:58] LABS: Hematocrit 49.5 % (42.0-54.0); Hemoglobin 17.5 g/dL (14.0-18.0); Mean Corpuscular HGB Conc 35.4 g/dL (29.9-35.2); Mean Corpuscular Hemoglobin 31.6 pg (25.9-34.0); Mean Corpuscular Volume 89.5 fL (80.0-94.0); Platelet Count 496 10^3/uL (150-450); Red Blood Count 5.53 10^6/uL (4.70-6.10); White Blood Count 10.4 10^3/uL (4.0-11.0)
[2025-02-19 11:27] LABS: Alanine Aminotransferase 43 U/L (16-63); Albumin Globulin Ratio 0.9; Albumin Level 3.8 g/dL (3.4-5.0); Alkaline Phosphatase 106 U/L (46-116); Anion Gap 14.5; Aspartate Amino Transferase 26 U/L (15-37); Blood Urea Nitrogen 20.0 mg/dL (7.0-18.0); Calcium 9.4 mg/dL (8.5-10.1); Carbon Dioxide 28.4 mmol/L (21.0-32.0); Chloride 103 mmol/L (98-107); Cholesterol 193 mg/dL (<=200); Estimated GFR (African America >60 (>=60 mL/min/1.73m^2); Estimated GFR (Non-African Ame >60 (>=60 mL/min/1.73m^2); Free T3 2.74 pg/mL (2.18-3.98); Globulin 4.0 g/dL; Glucose 143 mg/dL (74-106); HDL Cholesterol 38 mg/dL (40-60); Potassium 3.9 mmol/L (3.5-5.1); Sodium 142 mmol/L (136-145); Thyroid Stimulating Hormone 0.982 uIU/mL (0.358-3.740); Total Protein 7.8 g/dL (6.4-8.2); Triglycerides 325 mg/dL (<=150); Uric Acid 4.8 mg/dL (3.5-7.2); VLDL CHOLESTEROL 65.0 mg/dL
[2025-02-19 11:37] LABS: Atypical Lymphocytes % Manual 14.0 %; Atypical Lymphocytes Abs Man 1.45; Basophils Abs Manual 0.00 10^3/uL (0.00-0.10); Basophils Percent Manual 0.0 % (0.2-2.0); Eosinophils Absolute Manual 0.20 10^3/uL (0.00-0.70); Eosinophils Percent Manual 2.0 % (0.9-7.0); Lymphocytes Absolute Manual 2.39 10^3/uL (1.20-3.80); Lymphocytes Percent Manual 23.0 % (20.5-60.0); Monocytes Absolute Manual 0.93 10^3/uL (0.30-0.80); Monocytes Percent Manual 9.0 % (1.7-12.0); Segmented Neut Absolute Manual 5.40 10^3/uL (1.4-6.5); Segmented Neutrophils % Manual 52.0 (43.0-75.0)
== END 2025-02-19 10:29 | disposition home or self-care (01) ==
LOC: LAB 10:33
PROVIDERS: PCP Family Medicine; Visit Provider Family Medicine
DX: M51.26 Other intervertebral disc displacement, lumbar region (principal); I10 Essential (primary) hypertension; E11.9 Type 2 diabetes mellitus without complications; R53.83 Other fatigue; K21.9 Gastro-esophageal reflux disease without esophagitis; Z12.5 Encounter for screening for malignant neoplasm of prostate
CPT/HCPCS: 36415; 80053; 80061; 83036; 84436; 84443; 84481; 84550; 85007; 85027; G0103

== ENCOUNTER 2025-03-25 13:16 | Outpatient (OUT) | payer MEDICARE, SELFPAY ==
--- OUTSIDE RECORDS SUMMARY | 2024-06-11 05:45 | XMS_ITS ---
Author Organization [facility] in [place] Address [address] [place] [address] Care Team Providers Care Discharge Coordinator Name Role Phone Joanie Kike Primary Care Provider REASON FOR VISIT 6mon Encounters Encounter Location Date Provider Diagnosis [facility] [address] [place] [phone] 06/11/2024 Kike Nair Plan Of Treatment Next Appt Details Provider Name:Kike Nair, 11:15:00 AM, [address] [place], [address], Progress Notes * Raúl MCRAE CDOB: 0 (64 yo M)Acc No.[id number]:06/11/2024 UNLOCKED PROGRESS NOTE Progress Note Patient: Al Raúl CALVILLO :?Dakotah Garcia Joanie ([facility]), MDDOB:1960???Age: 63 Y???Sex:MaleDate:06/11/2024Phone:[phone]:[address] [place] [phone] Subjective: * Chief Complaints: * 1 . 6mon. * Medical History: Objective: * Vitals: Assessment: Plan: * Treatment: * * Electronic signature of Kike Nair MD, [id number] on 03/25/2025 at 01:21 PM EST Sign off status: PendingVisit Status:?CANCPHONE (Cancelled Phone) * Provider: Maurice Nair ([facility])MD Date: 0 06/11/2024 Generated for Printing/Faxing/eTransmitting on:?03/25/2025 01:21 PM EST
--- OUTSIDE RECORDS SUMMARY | 2025-03-19 08:10 | XMS_ITS | Continuity of Care Document ---
Author Organization [facility] Address [address] [place] [address] Phone Care Team Providers Care School Plant Consultant Name Role Phone Dakotah Nair MD Primary Care Provider [phone] Blade Wright MD Attending Provider Verónica Ramos MD Attending Provider [phone] Care Teams Patient Care Team Team Status: Active Member Role/Relationship Status Dates Dakotah Nair MD Primary Care Provider Active Visit Care Team Team Status: Inactive Member Role/Relationship Status Dates Dakotah Nair MD Primary Care Provider Active Start: December 29, 2024 End: December 29Nahomy Trevizo ProviderActive Start: December 29, 2024 End: December 29, 2024 Visit Care Team Team Status: Inactive Member Role/Relationship Status Dates Dakotah Nair MD Primary Care Provider Active Start: March 17, 2025 End: March 17, 2025SeNahomy Pat ProviderActiveStart: March 17, 2025 End: March 17, 2025 Chief Complaint and Reason for Visit Chief Complaint Admit Date 1yr f/u YOBANI, PLMD-last visit 09/03/23 Sep tember 2024 3:24pm B/[facility] spinal fusion March 17 11:00am Reason for Visit Admit Date Obstructive sleep apnea December 29, 025 3:24pm Periodic limb movement Sharon 9th, 20 25 3:24pm Allergies, Adverse Reactions, Alerts Allergen Type Severity Reaction Last Updated Verified Status codeine Allergy Unknown Unknown Reaction December 29, 2024 2:2 7pm Yes Active Social History Smoking Status Status Start Date End Date Date of Observa tion Ex-smoker (finding) December 29, 2024 4:11pm Observation Status Observation Response Date of Response Legal Sex Male (finding) Sex Assigned At BirthMaleJuly 1960 Family History Relationship Condition Age at Onset Recorded Date/T jesus brother Heart disease Unknown fatherHistory of strokeUnknownmotherHistory of strokeUnknown Problems Active Problems Problem Diagnosis/Recorded Date Onset Date Stat us Obstructive sleep apnea July 31, 2023 10:33am Unkno wn Active Periodic limb movement July 31, 2023 10:33am Unknow n Active Medications Medication Status Dose Units Route Directions Qty Days Refills S tart Date Stop Date End Date Reason(s) Instructions Adherence Melatonin 3 mg capsule Discontinued 3 MG PO Ryan y at bedtime as needed July 30, 2023 11:00pmMa2023 3:31pmCpap (Continuous Positive Airway Pressure) unitDiscontinued0.RouteApril 2023 11:00pmMay 2023 3:25pmAs directedFurosemide 40 mg umlmzpAocpau2YPVEMTrrgpVmwul 2023 11:00pm FreeTextSi tablet Orally Once a day; Note: Source Status: Taking; Provider: Adriana Murguia ( )UnknownGabapentin 600 mg tablet DiscontinuedMGPOApril 2023 11:00pmMa2023 3:32pmFreeTextSi tablet Orally 3 x a day; Note: Source Status: Taking; Provider: Adriana Murguia ( )Potassium Chloride 10 mEq tablet extended release Uitzdd5LYKFBMgvqk morningApril 2023 11:00pmFreeTextSig: TAKE 1 TABLET BY MOUTH EVERY MORNING Oral; Note: Source Status: Taking; Refills: 0; Qty: 90 Each; Provider: RASHAD Knapplopidogrel 75 mg wqgmgeXxelyc2TECIFXlrtpTygmp 2023 11:00pmFreeTextSi tablet Orally Once a day; Note: Source Status: Taking; Provider: Adriana Murguia ( )UnknownOmeprazole 40 mg capsule,delayed release(DR/EC)Scvert93ZKEJIjhhzDlvig 2023 11:00pm FreeTextSi capsule 30 minutes before morning meal Orally Once a day; Note: Source Status: Taking; Provider: Adriana Murguia ( )Unknown Mirtazapine 45 mg aoiuhhWxwnja2EKRIRUhtci at bedtimeApril 2023 11:00pm FreeTextSi tablet at bedtime Orally Once a day; Note: Source Status: Taking; Provider: Adriana Murguia ( )UnknownLevothyroxine 200 mcg ejwkqnTudxuy8QARTXZrucpOieli 2023 11:00pmFreeTextSi tablet in the morning on an empty stomach Orally Once a day; Note: Source Status: Taking; Provider: Adriana Murguia ( )UnknownLisinopril 40 mg tablet Nnafssrnrkli21PAORPeswbWpkmf 2023 11:00pmMa2023 3:31pmEvolocumab 140 mg/mL pen injectorActiveMGSUBCUTApril 2023 11:00pmFreeTextSig: INJECT 140 MG UNDER THE SKIN EVERY 14 DAYS Subcutaneous; Note: Source Status: Taking; R efills: 2; Qty: 2 Milliliter; Provider: TALISHA Mgiflozin Propanediol (Farxiga) 10 mg ktwwcvVnbuseeqokgc44DGYMReysb morningApr2023 11:00pmMa2023 3:32pmMetaxalone 800 mg wnpqxfTdmjec783YZEPUdver times dailyJuly 30, 2023 11:00pmUnknownApixaban 5 mg zmvaopIbeuvw1WORCTmcox daily July 30, 2023 11:00pmFreeTextSi tablet Orally Twice a day; Note: Source Status: Taking; Provider: Adriana Murguia ( )UnknownCpap (Continuous Positive Airway Pressure) unitActive0.RouteMay 2023 3:24pmAs directed DME LincareGabapentin 600 mg knenniYkdjym378KNXLYfqbj times dailySeptember 03, 2023 3:28pmFreeTextSi tablet Orally in am 2 tablets in pmUnknown Dapagliflozin Propanediol (Farxiga) 10 mg tvhsgrYnatqx79YCYEMedyk morningMa2023 3:32pmUnknownMetoprolol Tartrate 25 mg omqybjBzycco84ZPGMBsfhu daily September 02, 2023 11:00pmUnknownCholecalciferol (Vitamin D3) 50 mcg (2,000 unit) qsordnNwxytv60UBVCOJlxovLxb 13th, 2024 11:00pmUnknownTramadol 50 mg tabletActive 50MGPOEvery 6 hours as neededSept2024 11:00pmUnknown Vital Signs Vital Reading Result Reference Range Collection Date/Time Height 69.5 [in_i] December 29, 2024 2:04ioXcvoyu067.17 kgSept2024 2:31pmHeart Rate92 /egf99-633Butskzafp 9th, 2025 2:31pmRespiratory rate20 /rmo62-62Zenhlhstn 9th, 2025 2:31pmOxygen saturation by Pulse cilqhzqq48 %95-100Sept2024 2:31pmBP Nofmlkmn693 mm[Hg]100-140Sept2024 2:36pmBP Durgqyvsw44 mm[Hg]60-100Sept2024 2:36pmBMI (Body Mass Index)43.3 kg/x4Bwitflsri2024 2:31pm Advance Directives Advance Directive Response Recorded Date/ Time Advance Directives Yes December 3:11pm Insurance Providers Guarantor Raúl Mcrae Address [address] [place] [id number] Info.Home Phone: Coverage Status Update:2024 Payer Group Member ID Coverage Type Subscriber Relationship to Subscriber Effective Date Expiration Date MMO [employer] [address] [address] [facility] [address] Work Phone: Id: [id number] Wiley Brock Id: [id number] [address] [place] [id number] Home Phone: Email: [email or web address] Encounters Encounter Location(s) Arrival/Admit Date Discharge/Departure Date Discharge/Departure Disposition Provider(s) Departed Physician/ Provider Office Visit -[facility] December 29, 2024 3:24pm December 29, 2024 4:12pm Discharged to home care or self care (routine discharge) Blade Wright MD Discharged Recurring -[facility] March 17, 2025 11:00am March 17, 2025 6:00pm Discharged to home care or self care (routine discharge) Verónica Rose MD Recent Diagnosis Onset Date Admit Date Obstructive sleep apnea Unknown 2024 3:24pm Periodic limb movement Unknown December 29, 2024 3:24pm Assessments Diagnosis Onset Date Resolution Status Admit Date Obstructive sleep apnea acuteSept2024 3:24pmPeriodic limb movementacuteSept2024 3:24pm Plan of Treatment Author Blade Wright [facility]20[facility] 3:05pmPatient is stable on present therapy. Patient is using, tolerating, and benefitting from current PAP therapy. Will make no changes to present therapy as presently prescribed. Prescription for new mask, tubing, headgear, and filters was provided to the patient at the time of this visit [facility] Patient was cautioned regarding weight gain rendering his present level of pressure less effective. Weight loss was recommended. All questions were answered. The patient was instructed to call us with any new sleep issues or concerns. Future Tests Future scheduled test information is unavailable Pending Tests Pending diagnostic test information is unavailable Future Visits Future appointment information is unavailable Future Procedures Future procedure information is unavailable Future Medications Future medication information is unavailable Patient Instructions Patient instructions are unavailable
--- OUTSIDE RECORDS SUMMARY | 2025-03-25 13:20 | XMS_ITS | Patient Health Record ---
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 Name Role Phone Kike Nair Primary Care Provider Gal Washington [phone] Allergies Allergen (clinical drug ingredient) Drug/Non Drug Allergy documented on EMR Reaction Allergy Type Onset Date Status codeine Codeine Sulfate anaphylaxis Drug Allergy Active Results Component Value Reference Range Notes ECG 12 lead Reviewed date:08/12/2024 07:51:55 PM Interpretation: Performing Lab: Notes/Report: Source Facility: [place] [address] Electrocardiograph Report Signed Patient: CECIL MCRAE MR#: [id number] : 1960 Acct:[id number] Age/Sex: 63 / M ADM Date: 08/12/24 Loc: CARD Attending Dr: Yariel Cespedes M.D. Ordering Physician: Yariel Cespedes M.D. 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 Measurements Intervals [place] Rate: 71 P: 51 CA: 174 QRS: 2 QRSD: 113 T: 52 QT: 380 QTc: 414 Interpretive Statements SINUS RHYTHM WITH FREQUENT VENTRICULAR PREMATURE COMPLEXES IN A BIGEMINAL PATTERN LOW QRS VOLTAGE IN PRECORDIAL LEADS [QRS DEFLECTION < 1.0 mV IN CHEST LEADS] POSSIBLE ANTERIOR MYOCARDIAL INFARCTION [30 ms Q WAVE IN V3/V4, OR R < 0.2 mV IN V4], OF INDETERMINATE AGE Compared to ECG 08/17/2021 11:08:02 Ventricular premature complex(es) now present Possible ischemia no longer present Myocardial infarct finding still present Electronically Signed On 08-12-2024 17:54:41 EDT by SHONNA WOODALL M.D. Dictated By: SHONNA WOODALL Signed By: 08/12/24175408/12/241754 DD/ 11 TD/TT: Shook Machine Operator: XR chest 2V Reviewed date:08/12/2024 07:51:55 PM Interpretation: Performing Lab: Notes/Report: Source Facility: [place] [address] XRay Report Signed Patient: CECIL MCRAE MR#: [id number] : 1960 Acct:[id number] Age/Sex: 63 / M ADM Date: 08/12/24 Loc: CARD Attending Dr: Yariel Cespedes M.D. Ordering Physician: Yariel Cespedes M.D. Date of Service: 08/12/24 Procedure(s): XR chest 2V Accession Number(s): [id number] cc: Linden Nair M.D.; Yariel Cespedes M.D. [place] [address] Patient Name: CECIL MCRAE MRN: [id number] date: 1960 Sex: M Assigned Patient Location: CARD Current Patient Location: CARD Accession/Order Number: [id number] Exam Date: 08/12/2024 13:58 Report Date: 08/12/2024 13:58 At the request of: YARIEL CESPEDES MD Procedure: XR chest 2V Plain film chest 2 view HISTORY: Presurgical evaluation COMPARISON: None FINDINGS: SUPPORT DEVICES: None POSTSURGICAL CHANGES: None HEART: Within normal limits PULMONARY MIRTHA: Within normal limits MEDIASTINUM: Unremarkable LUNGS AND PLEURA: No acute lung process, pleural effusion or pneumothorax identified. BONY STRUCTURES: Intact ADDITIONAL FINDINGS None XR/XR chest 2V IMPRESSION: No acute process. Impression dictated by: Wenceslao Oleary M.D.08/12/2024 1:58 PM Dictation Location: [place] [address] Electronically authenticated by: [id number] Y Date: 08/12/2024 13:58 Dictated By: Wenceslao Oleary D.O. Signed By: 08/12/24 1400 DD/ 1358 TD/TT: Shook Machine Operator: GLYCOHEMOGLOBIN A1C Reviewed date:08/19/2024 05:18:53 PM Interpretation: Performing Lab: Notes/Report: [facility] , Glycohemoglobin A1C 6.0 4.5-6.2 % ACTION SUGGESTED > 7.0 ADA RECOMMENDED LIMIT 4.0 - 6.0 ADA THERAPEUTIC TARGET < 7.0 Estimated Average Glucose 126 Performing Lab:see note - [facility] LBPROF CHEM 8 (BAS METB) Reviewed date:08/19/2024 05:18:53 PM Interpretation: Performing Lab: Notes/Report: [facility] ,Hzsktz389254-831 mmol/LPotassium3.93.5-5.1 mmol/PSibasnsr98076-654 mmol/LCarbon Qbilgca23.321.0-32.0 mmol/LAnion Gap16.5Nislgfq85187-938 mg/dLBlood Urea Ghovmmgd96.07.0-18.0 mg/dLCreatinine1.080.70-1.30 mg/dLEstimated GFR ( Aag>60>=60 mL/min/1.73m 2Estimated GFR (Non- Imani>60>=60 mL/min/1.73m 2BUN Creatinine Ratio24.3Lubdulb1.08.5-10.1 mg/dLPerforming Lab:see noteML - [facility] LBPTT Reviewed date:08/19/2024 05:18:53 PM Interpretation: Performing Lab: Notes/Report: [facility] ,Partial Thromboplastin Time29.722.3-36.2 secPerforming Lab:see noteML - [facility] LBProthrombin Time INR Reviewed date:08/19/2024 05:18:53 PM Interpretation: Performing Lab: Notes/Report: [facility] ,Prothrombin Time11.09.0-11.6 secINR1.04 DESIRED INR: 2.0-3.0 CONDITIONS NOT LISTED BELOW 2.5-3.5 RECURRENT THROMBOSIS 2.5-3.5 FOR PROSTHETIC HEART VALVE REPLACEMENT Performing Lab:see noteML - [facility] LBCBC AUTO DIFF Reviewed date:02/19/2025 01:09:17 PM Interpretation: Performing Lab: Notes/Report: [facility] ,White Blood Count10.44.0-11.0 10 3/uLRed Blood Count5.534.70-6.10 10 6/uL Nifyxaggpx42.514.0-18.0 g/yNMbryfksqfc84.542.0-54.0 %Mean Corpuscular Kcrtqr31.5 80.0-94.0 fLMean Corpuscular Azvjblryen72.625.9-34.0 pgMean Corpuscular HGB Conc 35.429.9-35.2 g/dLRed Cell Distribution Width13.811.0-15.0 %Platelet Bfcey807 150-450 10 3/uLMean Platelet Volume9.09.5-13.5 fLPerforming Lab:see noteML - [facility] LBFREE T3 Reviewed date:02/19/2025 01:09:17 PM Interpretation: Performing Lab: Notes/Report: [facility] ,Free T32.742.18-3.98 pg/mLPerforming Lab:see noteML - [facility] LB GLYCOHEMOGLOBIN A1C Reviewed date:02/19/2025 01:09:17 PM Interpretation: Performing Lab: Notes/Report: [facility] ,Glycohemoglobin A1C6.34.5-6.2 % ADA RECOMMENDED LIMIT 4.0 - 6.0 ACTION SUGGESTED > 7.0 ADA THERAPEUTIC TARGET < 7.0 Estimated Average Imjndxm585Tnufevrmjb Lab:see noteML - [facility] LB LIPID PROFILE Reviewed date:02/19/2025 01:09:17 PM Interpretation: Performing Lab: Notes/Report: [facility] ,Ykmqkjwmbofjq415<=150 mg/hEIbqtqhvnxvb700<=200 mg/dLHDL Uqbpowtckkl7390-94 mg/dL > or =60 mg/dl - LOW CARDIOVASCULAR RISK <40 mg/dl - HIGH CARDIOVASCULAR RISK LDL Cholesterol Tboszzlntv88.0 130-159 mg/dl BORDERLINE HIGH <100 mg/dl OPTIMAL 100-129 mg/dl NEAR OR ABOVE OPTIMAL 160-189 mg/dl HIGH >190 mg/dl VERY HIGH VLDL RKICQBSFLVG29.0Chol HDL Ratio5.1 3.3 - 4.4 LOW RISK 4.4 - 7.1 AVERAGE RISK 7.1 - 11.0 MODERATE RISK >11.0 HIGH RISK Performing Lab:see note - [facility] LBPROF 14(COMP METB) Reviewed date:02/19/2025 01:09:17 PM Interpretation: Performing Lab: Notes/Report: [facility] ,Wzbnfi489945-214 mmol/LPotassium3.93.5-5.1 mmol/TGisndhqm05798-718 mmol/LCarbon Pkriynk04.421.0-32.0 mmol/LAnion Gap14.9Ukpjluk03469-346 mg/dLBlood Urea Cdricozp60.07.0-18.0 mg/dLCreatinine0.970.70-1.30 mg/dLEstimated GFR ( Aga>60>=60 mL/min/1.73m 2Estimated GFR (Non- Imani>60>=60 mL/min/1.73m 2BUN Creatinine Ratio20.1Syiljie4.48.5-10.1 mg/dLBilirubin Total0.50.2-1.0 mg/dL Aspartate Amino Jacdfpjrkzp8713-07 U/LAlanine Nesziculsxllhvem1509-58 U/L Alkaline Qhhwqmgleck43673-983 U/LTotal Protein7.86.4-8.2 g/dLAlbumin Level3.8 3.4-5.0 g/dLGlobulin4.0Albumin Globulin Ratio0.9Performing Lab:see note - [facility] LBT4 Reviewed date:02/19/2025 01:09:17 PM Interpretation: Performing Lab: Notes/Report: [facility] ,T4 Thyroxine9.704.50-12.10 ug/dLPerforming Lab:see noteML - [facility] LBTSH Reviewed date:02/19/2025 01:09:17 PM Interpretation: Performing Lab: Notes/Report: [facility] ,Thyroid Stimulating Hormone0.9820.358-3.740 uIU/mLPerforming Lab:see noteML - [facility] LBURIC ACID SERUM Reviewed date:02/19/2025 01:09:17 PM Interpretation: Performing Lab: Notes/Report: [facility] ,Uric Acid4.83.5-7.2 mg/dLPerforming Lab:see noteML - [facility] LB Manual Differential Reviewed date:02/19/2025 01:09:17 PM Interpretation: Performing Lab: Notes/Report: [facility] ,Segmented Neutrophils % Nnyldk09.043.0-75.0Lymphocytes Percent Mzmyjh27.020.5- 60.0 %Monocytes Percent Manual9.01.7-12.0 %Eosinophils Percent Manual2.00.9-7.0 %Basophils Percent Manual0.00.2-2.0 %Atypical Lymphocytes % Leirdm10.0Segmented Neut Absolute Manual5.401.4-6.5 10 3/uLLymphocytes Absolute Manual2.391.20-3.80 10 3/uLMonocytes Absolute Manual0.930.30-0.80 10 3/uLEosinophils Absolute Manual 0.200.00-0.70 10 3/uLBasophils Abs Manual0.000.00-0.10 10 3/uLAtypical Lymphocytes Abs Man1.45Performing Lab:see noteML - [facility] LBMRSA Screening Culture Reviewed date:08/23/2024 12:38:08 PM Interpretation: Performing Lab: Notes/Report: [facility] ,MRSA Screening CultureSee Below For ReportMRSA Screening CultureMRSA Screening CultureNegativeMRSA Screening CultureMRSA Screening CulturePerformed at: [facility] LabcoPSE&G Children's Specialized HospitalMRSA Screening CultureMRSA Screening [address] [place], [place] [id number] Screening CultureMRSA Screening CultureLab Director: Bridger Chiang PhD, Phone: [phone] Screening CulturePerforming Lab:see note LC - [facility] LB SEE REPORT - 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7 43.0-75.0 %Lymphocytes Percent Auto37.220.5-60.0 %Monocytes Percent Auto7.41.7- 12.0 %Eosinophils Percent Auto1.40.9-7.0 %Basophils Percent Auto0.60.2-2.0 % Immature Granulocytes Pct Auto0.70.0-0.5 %Neutrophils Absolute Auto5.81.4-6.5 10 3/uLLymphocytes Absolute Auto4.11.2-3.8 10 3/uLMonocytes Absolute Auto0.80.3-0.8 10 3/uLEosinophils Absolute Auto0.20.0-0.7 10 3/uLBasophils Absolute Auto0.10.0- 0.1 10 3/uLImmature Granulocytes Abs Auto0.080.00-0.03 10 3/uLPerforming Lab:see noteML - [facility] LBMR lumbar spine wo con Reviewed date:06/23/2024 07:49:34 PM Interpretation: Performing Lab: Notes/Report: Source Facility: [facility]-[address] [place] [address] [address] Magnetic Resonance Report Signed Patient: CECIL MCRAE MR#: [id number] : 1960 Acct:[id number] Age/Sex: 63 / M ADM Date: 06/23/24 Loc: MRI Attending Dr: Yariel Cespedes M.D. Ordering Physician: Yariel Cespedes M.D. Date of Service: 06/23/24 Procedure(s): MR lumbar spine wo con Accession Number(s): [id number] cc: Linden Nair M.D.; Yariel Cespedes M.D. [place] [address] Patient Name: CECIL MCRAE MRN: [id number] date: 1960 Sex: M Assigned Patient Location: MRI Current Patient Location: MRI Accession/Order Number: [id number] Exam Date: 06/23/2024 16:04 Report Date: 06/23/2024 16:10 At the request of: YARIEL CESPEDES MD Procedure: MR lumbar spine wo con EXAMINATION: MRI LUMBAR SPINE WITHOUT IV CONTRAST CLINICAL HISTORY: Aftercare Following Surgery chronic back pain with radiculopathy. COMPARISON: Lumbar spine series 06/12/2024 TECHNIQUE: Multiecho imaging was performed in the sagittal and axial planes without contrast administration. FINDINGS: Vertebral body heights appear maintained. Modic endplate degenerative changes. No bone marrow edema. Spinal cord terminates in normal position without abnormal signal. No paraspinal mass. Visualized retroperitoneum demonstrates a cyst involving the left kidney. At L1-L2: Diffuse broad-based disc bulge with ligamentum flavum hypertrophy and facet joint degenerative changes causing mild canal and bilateral neural foraminal stenosis. At L2-L3: Diffuse broad-based disc bulge with ligamentum flavum hypertrophy and facet joint degenerative changes causing moderate canal and bilateral neural foraminal stenosis. At L3-L4: No posterior disc pathology is present. Ligamentum flavum hypertrophy and facet joint degenerative changes. Findings are causing no significant canal or neural foraminal stenosis. At L4-L5: Diffuse broad-based disc bulge is present with bilateral paracentral protrusion type disc herniations present with associated mass effect upon the adjacent nerve roots. Facet joint degenerative changes. Findings are causing mild canal and moderate right-sided and mild left-sided neural foraminal stenosis. At L5-S1: Disc spacer is present with associated blooming artifact. No significant canal stenosis. Moderate bilateral neural foraminal stenosis. MR/MR lumbar spine wo con IMPRESSION: Multilevel degenerative disease as described above worst at L4-L5 with bilateral protrusion type paracentral disc herniations present. Impression dictated by: Mohan Rivas Jr., D.O.06/23/2024 4:10 PM Dictation Location: [place] [address] Electronically authenticated by: [id number] Y Date: 06/23/2024 16:10 Dictated By: Mohan Rivas M.D. Signed By: 06/23/241612 DD/ 09 TD/TT: Shook Machine Operator:XR lumbar spine min 4V Reviewed date:06/14/2024 11:33:11 AM Interpretation: Performing Lab: Notes/Report: Source Facility: [place] [address] XRay Report Signed Patient: CECIL MCRAE MR#: [id number] : 1960 Acct:[id number] Age/Sex: 63 / M ADM Date: 06/12/24 Loc: EC Attending Dr: Yariel Cespedes M.D. Ordering Physician: Yariel Cespedes M.D. Date of Service: 06/12/24 Procedure(s): XR lumbar spine min 4V Accession Number(s): [id number] cc: Linden Nair M.D.; Yariel Cespedes M.D. [place] [address] Patient Name: CECIL MCRAE MRN: [id number] date: 1960 Sex: M Assigned Patient Location: Current Patient Location: Accession/Order Number: [id number] Exam Date: 06/12/2024 12:41 Report Date: 06/12/2024 12:47 At the request of: YARIEL CESPEDES MD Procedure: XR lumbar spine min 4V LUMBAR SPINE WITH FLEXION-EXTENSION VIEWS - 4 views: CLINICAL HISTORY: Chronic low back pain with radiation to the legs and difficulty bending forward COMPARISON: None Standing AP as well as lateral views in neutral, flexion and extension were obtained. No acute compression fractures are identified. There is slight retrolisthesis of L1 on L2 and L2 on L3, without significant change with flexion or extension. A CHRISTIN cage is present at the lumbosacral junction. There is slight multilevel disc space narrowing with relative sparing at L3-4. Endplate spurring is seen throughout. There is mild mid and lower lumbar facet hypertrophy. The SI joints, as visualized, are intact. No paraspinal soft tissue abnormalities are seen. XR/XR lumbar spine min 4V IMPRESSION: LUMBOSACRAL FUSION. MULTILEVEL DEGENERATIVE CHANGES, DESCRIBED. Impression dictated by: Dayana Godwin M.D.06/12/2024 12:47 PM Dictation Location: [place] [address] Electronically authenticated by: [id number] Y Date: 06/12/2024 12:47 Dictated By: Dayana Godwin M.D. Signed By: 06/12/24 1250 DD/ 1247 TD/TT: Shook Machine Operator:XR foot LT min 3V Reviewed date:06/14/2024 11:33:11 AM Interpretation: Performing Lab: Notes/Report: Source Facility: [place] [address] XRay Report Signed Patient: CECIL MCRAE MR#: [id number] : 1960 Acct:[id number] Age/Sex: 63 / M ADM Date: 06/03/24 Loc: RAD Attending Dr: Gal Washington D.P.M. Ordering Physician: Gal Washington D.P.M. Date of Service: 06/03/24 Procedure(s): XR foot LT min 3V Accession Number(s): [id number] cc: Gal Washington D.P.M.; Linden Nair M.D. [place] [address] Patient Name: CECIL MCRAE MRN: [id number] date: 1960 Sex: M Assigned Patient Location: [facility] Current Patient Location: Accession/Order Number: [id number] Exam Date: 06/03/2024 12:41 Report Date: 06/04/2024 09:56 At the request of: GAL WASHINGTON Procedure: XR foot LT min 3V PROCEDURE: XR foot LT min 3V HISTORY: Left Foot Pain COMPARISON: None. FINDINGS: BONES:Degenerative changes the first metatarsophalangeal joint with prominent dorsal projecting osteophytes. No acute fracture or dislocation. Small separate corticated ossification at anterior margin of the tibiotalar joint; likely sequela of remote injury. SOFT TISSUES:No visible soft tissue swelling. EFFUSION:None visible. OTHER: Negative. XR/XR foot LT min 3V IMPRESSION: 1. No acute bone abnormality. 2. Moderate degenerative changes the first metatarsophalangeal joint. Electronically authenticated by: FABIANO SUTTON Date: 06/04/2024 09:56 Dictated By: Fabiano Sutton M.D. Signed By: 06/04/2459 DD/ 5 TD/TT: Shook Machine Operator:US extremity nonvascular LT Reviewed date:05/31/2024 11:52:16 AM Interpretation: Performing Lab: Notes/Report: Source Facility: [place] [address] [place] [address] Ultrasound Report Signed Patient: CECIL MCRAE MR#: [id number] : 1960 Acct:[id number] Age/Sex: 63 / M ADM Date: 05/29/24 Loc: US Attending Dr: Linden Nair M.D. Ordering Physician: Linden Nair M.D. Date of Service: 05/29/24 Procedure(s): US extremity nonvascular LT Accession Number(s): [id number] cc: Linden Nair M.D. [place] [address] Patient Name: CECLI MCRAE MRN: [id number] date: 1960 Sex: M Assigned Patient Location: US Current Patient Location: US Accession/Order Number: [id number] Exam Date: 05/29/2024 13:59 Report Date: 05/29/2024 14:34 At the request of: LINDEN NAIR Procedure: US extremity nonvascular LT EXAMINATION: US extremity nonvascular LT HISTORY: Calf Pain Left COMPARISON: No relevant comparison available. FINDINGS: Ultrasound in the region of patient's pain, left calf demonstrates normal skin, subcutaneous fat and muscle. No focal ultrasound abnormality. The small saphenous vein is normal in caliber, echotexture and compressibility US/US extremity nonvascular LT IMPRESSION: No ultrasound abnormality observed. Electronically authenticated by: ALE JUNIOR Date: 05/29/2024 14:34 Dictated By: Ale Junior M.D. Signed By: 05/29/24 1437 DD/ 1434 TD/TT: Shook Machine Operator:PSA SCREENING Reviewed date:02/19/2025 01:09:17 PM Interpretation: Performing Lab: Notes/Report: [facility] ,Prostate Specific Antigen Scrn0.83<=4.00 ng/mLPerforming Lab:see noteML - [facility] LB Reason For Referral Reason Referral to Dr. 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) Referral Organization [facility] (POD[facility]) Referring Provider First Name Gal Referring Provider Last Name [facility] Referring Provider Speciality Podiatry Referred Provider Specialty Physical The rapist Referral Priority Routine Medications Medication SIG (Take, Route, Frequency, Duration) Notes Start Date End Date Status Furosemide 40 MG 1 tablet Orally Once a day; Dur ation: 30 days ActivetraMADol HCl 50 MGTAKE 1 TABLET BY MOUTH EVERY 6 HOURS NEEDED FOR PAIN FOR 7 DAYS Oral; Duration: 7 DaysActiveCyclobenzaprine HCl 10 MG1 tablet at bedtime as needed Orally q8 hoursActiveEliquis 5 MG1 tablet Orally Twice a day; Duration: 90 daysActiveFarxiga 10 MG1 tablet Orally Once a dayUnsure of dosage ActivePotassium Chloride ER 10 MEQTake 1 tablet by mouth once daily with food; Duration: 30ActiveFolic AcidActiveRepatha SureClick 140 MG/MLas directed Subcutaneous every other week; Duration: 30 daysActiveMetaxalone 800 MGTAKE ONE TABLET BY MOUTH THREE TIMES A DAY; Duration: 30ActiveBlood Glucose Monitor System w/Deviceuse device Dx:E11.9 daily to monitor blood glucose level 02/03/2025tiveTest Strips -Dx: E11.9 Dx: Diabetes Type II Once daily; Duration: 90 days02/03/2025tiveZinc 50 MG1 tablet Orally Once a day12/12/2023 ActiveMetoprolol Tartrate 25 MG1 tablet with food Orally Twice a day; Duration: 30 days3ActiveMirtazapine 45 MG2 tablets Orally Q HS; Duration: 30 days ActiveClopidogrel Bisulfate 75 MGTake 1 tablet by mouth once daily; Duration: 30 ActiveOmeprazole 40 MGTAKE 1 CAPSULE EVERY DAY Oral Once a day; Duration: 30 daysActiveGabapentin 600 MGTake 3 tablets by mouth once daily; Duration: 90 ActiveVitamin C 1000 MG1 tablet Orally Once a day12/12/2023ctiveLancets 30G - Use 1 lancet E11.9 once daily; Duration: 90 days02/03/2025tiveLevothyroxine Sodium 200 MCGTAKE 1 TABLET BY MOUTH EVERY DAY Orally Once a day; Duration: 90 daysActiveVitamin D 2000 UNIT1 capsule Orally Once a day; Duration: 30 day(s) Active Social History Tobacco Use: Social History Observation Description Date Details (start date - stop date) Former Smoker NA - NA Tobacco Use/Smoking Question Answer Notes Patient is a former smoker When did you stop smoking?1986How long has it been since you last smoked?> 10 yearsAlcohol Screen (Audit-C) Question Answer Notes Did you have a drink containing alcohol in the p ast year? No Eprgye2FprpquwdeepqxbJdfvqqrxMjflrnc use other than smoking: Question Answer Notes Are you an other tobacco user? No AUDIT-C (Standard) Question Answer Notes Did you have a drink containing alcohol in the p ast year? No Gjlhju3VdatfohroimcpnKqcgoqkeYtgsmdu Notes: He is on disability Hobbies : used to do household projects ,woodworking and automotive maintenance He is on disability Hobbies : used to do household projects ,woodworking and automotive maintenance He is on disability Hobbies : used to do household projects ,woodworking and automotive maintenance He is on disability Hobbies : used to do household projects ,woodworking and automotive maintenance He is on disability Hobbies : used to do household projects ,woodworking and automotive maintenance He is on disability Hobbies : used to do household projects ,woodworking and automotive maintenance He is on disability Hobbies : used to do household projects ,woodworking and automotive maintenance He is on disability Hobbies : used to do household projects ,woodworking and automotive maintenance He is on disability Hobbies : used to do household projects ,woodworking and automotive maintenance He is on disability Hobbies : used to do household projects ,woodworking and automotive maintenance He is on disability Hobbies : used to do household projects ,woodworking and automotive maintenance He is on disability Hobbies : used to do household projects ,woodworking and automotive maintenance He is on disability Hobbies : used to do household projects ,woodworking and automotive maintenance He is on disability Hobbies : used to do household projects ,woodworking and automotive maintenance He is on disability Hobbies : used to do household projects ,woodworking and automotive maintenance He is on disability Hobbies : used to do household projects ,woodworking and automotive maintenance He is on disability Hobbies : used to do household projects ,woodworking and automotive maintenance He is on disability Hobbies : used to do household projects ,woodworking and automotive maintenance He is on disability Hobbies : used to do household projects ,woodworking and automotive maintenance He is on disability Hobbies : used to do household projects ,woodworking and automotive maintenance He is on disability Hobbies : used to do household projects ,woodworking and automotive maintenance He is on disability Hobbies : used to do household projects ,woodworking and automotive maintenance He is on disability Hobbies : used to do household projects ,woodworking and automotive maintenance He is on disability Hobbies : used to do household projects ,woodworking and automotive maintenance He is on disability Hobbies : used to do household projects ,woodworking and automotive maintenance He is on disability Hobbies : used to do household projects ,woodworking and automotive maintenance He is on disability Hobbies : used to do household projects ,woodworking and automotive maintenance He is on disability Hobbies : used to do household projects ,woodworking and automotive maintenance He is on disability Hobbies : used to do household projects ,woodworking and automotive maintenance He is on disability Hobbies : used to do household projects ,woodworking and automotive maintenance He is on disability Hobbies : used to do household projects ,woodworking and automotive maintenance He is on disability Hobbies : used to do household projects ,woodworking and automotive maintenance Problems Problem Type SNOMED Code ICD Code Onset Dates Problem Status W/U Status Risk Notes Problem Morbid obesity (disorder) (45053 6002) Morbid (severe) obesity due to excess calories (E66.01) ActiveconfirmedProblemSleep apnea (22220217)Sleep apnea, unspecified (G47.30) ActiveconfirmedProblemMononeuropathy of lower limb (849438926)Unspecified mononeuropathy of left lower limb (G57.92)ActiveconfirmedProblemChronic pain (14911657)Other chronic pain (G89.29)ActiveconfirmedProblemPulmonary Embolism (02819133)Other pulmonary embolism without acute cor pulmonale (I26.99)Active confirmedProblemChronic diastolic heart failure (406378489)Chronic diastolic (congestive) heart failure (I50.32)ActiveconfirmedProblemOsteoarthritis of knee (652308920)Bilateral primary osteoarthritis of knee (M17.0)Activeconfirmed ProblemPrimary osteoarthritis (080381916)Unilateral primary osteoarthritis, right knee (M17.11)ActiveconfirmedProblemPain of right knee region (finding) (014832047161120)Pain in right knee (M25.561)ActiveconfirmedProblemLeft side sciatica (015709719113116)Sciatica, left side (M54.32)ActiveconfirmedProblem Sciatica (16359034)Lumbago with sciatica, left side (M54.42)Activeconfirmed ProblemHistory of arthrodesis (430045697)Arthrodesis status (Z98.1)Active confirmedProblemHypertension (05204565)Hypertension (I10)ActiveconfirmedProblem Pulmonary embolism (68765161)Pulmonary embolism (I26.99)ActiveconfirmedProblem Osteoarthritis of knee (662971511)Primary osteoarthritis of right knee (M17.11) ActiveconfirmedProblemOsteoarthritis of knee (973258818)Primary osteoarthritis of left knee (M17.12)ActiveconfirmedProblemGastroesophageal reflux disease (574600738)GERD without esophagitis (K21.9)ActiveconfirmedProblemDisplacement of lumbar intervertebral disc without myelopathy (68018620)Lumbar herniated disc (M51.26)ActiveconfirmedProblemProlapsed lumbar intervertebral disc (020241379) Lumbar disc herniation (M51.26)ActiveconfirmedProblemLumbar spinal stenosis (98988836)Lumbar spinal stenosis (M48.06)ActiveconfirmedProblemLocalized, primary osteoarthritis of the shoulder region (878603664)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)ActiveconfirmedProblemCervical radiculitis (91486484) Cervical radiculitis (M54.12)ActiveconfirmedProblemPain in left foot (258174029598786)Left foot pain (M79.672)ActiveconfirmedProblemShoulder pain (83604020)Pain in shoulder (M25.519)ActiveconfirmedProblemSprain of right knee, unspecified ligament, initial encounter (S83.91XA)ActiveconfirmedProblem Instability of right patellofemoral joint (finding) (6750258581465277)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)ActiveconfirmedProblemThrombocytosis (disorder) (3407945)Elevated platelet count (D47.3)ActiveconfirmedProblemPain of right knee region (finding) (100670877523974)Right knee pain, unspecified chronicity (M25.561)ActiveconfirmedProblemAcute tear of meniscus of right knee (disorder) (30428347767992686)Tear of meniscus of right knee as current injury, unspecified meniscus, unspecified tear type, initial encounter (S83.206A)Active confirmedProblemSpinal stenosis of lumbar region (16641636)Spinal stenosis of lumbar region, unspecified whether neurogenic claudication present (M48.061) ActiveconfirmedProblemDiabetes mellitus (28398876)Diabetes mellitus (E11.9) Activeconfirmed Vital Signs Heart Rate 32 /min 08/24/2024 Gzzyhxwjmaw38.8 degrees Gbueqobios68/12/7269Loxckwxe11 %06/03/2024lood pressure axlukgkub69 mm Hg01/28/20250183Btdyxv00 in01/28/2025lood pressure vyodprmi692 mm Hg 01/28/20253862Hnpgbr403.6 lbs1MI44.53 kg/m201/28/2025 Encounters Encounter Location Date Provider Diagnosis [facility] (PODIATRY) [address] [place] [address] [place] [address] 06/03/2024 Gal Washington Unspecified mononeuropathy of left lower limb G57.92 ; Sciatica, left side M54.32 ; Lumbago with sciatica, left side M54.42 ; Left foot pain M79.672 and Other chronic pain G89.29 [address] [place] [address] 08/24/2024 Kike Hoy Lumbar disc herniation M51.26 [facility] [address] [place] [address] 09/11/2024 Kike Hoy Lumbar disc herniation M51.26 and Hypertension I10 [address] [place] [address] 10/29/2024 Kike Hoy Morbid (severe) obesity due to excess calories E66.01 ; Lumbar disc herniation M51.26 ; Hypertension I10 and Diabetes mellitus E11.9 [address] [place] [address] 01/28/2025 Kike Hoy Lumbar herniated dis c M51.26 ; Hypertension I10 ; Diabetes mellitus E11.9 and GERD without esophagitis K21.9 [facility] [address] [facility] [place] [address] 05/22/2024 Kike Hoy Pain in shoulder M25.519 [facility] [address] [facility] [place] [address] 05/20/2024 Kike Hoy Chronic diastolic (congestive) heart failure I50.32 and Diabetes mellitus E11.9 [facility] [address] [facility] [place] [address] 05/21/2024 Kike Hoy [facility] [facility] [place] [address] 05/25/2024Doug HoyCalf pain, left M79.662[facility] [facility] [place] [address]/12/2024Doug [facility] [facility] [place] [address]/Doug [facility] [facility] [place] [address]/06/2024 [facility] [facility] [place] [address]/Doug [facility] [facility] [place] [address]/Doug [facility] [facility] [place] [address]/Doug [facility] [facility] [place] [address]/Doug [facility] [facility] [place] [address]/ [facility] [facility] [place] [address]/Doug HoyDiabetes mellitus E11.9[facility] [address] [place] [address]/Doug [facility] [place] [address]/ Kike [facility] [place] [address]/Doug HoyElevated platelet count D47.3[facility] [place] [address]/05/2024Doug HoyDiabetes mellitus E11.9 Assessments Encounter Date Diagnosis (ICD Code) Assessment Notes Treatment Notes Treatment Clinical Notes Section Notes 05/22/2024 Pain in shoulder (ICD-10 - M25.5 19) 06/03/2024Unspecified mononeuropathy of left lower limb (ICD-10 - G57.92)Patient seen and evaluated. Patient education provided. I was unable to reproduce the patient's pain on examination but his subjective symptoms are consistent with neuropathic pain which is likely secondary to his lumbar spine issues for which he has had multiple surgeries for. I recommended formalphysical therapy and prescription was provided. Referral to pain management was provided. Patient's back surgeon has since apparently and information for Dr. Saint Marlow was also provided. Patient will follow-up with me as kxubcy9406/03/2024 Sciatica, left side (ICD-10 - M54.32)08/24/2024Lumbar disc herniation (ICD-10 - M51.26)Cleared for OR09/11/2024Lumbar disc herniation (ICD-10 - M51.26)drains ueqbayp2609/11/2024Hypertension (ICD-10 - I10)checkion more at home10/29/2024 Morbid (severe) obesity due to excess calories (ICD-10 - E66.01)diosucssed eet - adninc qrxymocr56/10/2025Lumbar disc herniation (ICD-10 - M51.26)pain decnet ljoyjvf9001/28/2025Lumbar herniated disc (ICD-10 - M51.26)01/28/2025Hypertension (ICD-10 - I10)5Chronic diastolic (congestive) heart failure (ICD-10 - I50.32)5Calf pain, left (ICD-10 - M79.662)02/03/2025Diabetes mellitus (ICD-10 - E11.9)02/19/2025Elevated platelet count (ICD-10 - D47.3)03/23/2025 Diabetes mellitus (ICD-10 - E11.9)05/20/2024Diabetes mellitus (ICD-10 - E11.9) 01/28/2025Diabetes mellitus (ICD-10 - E11.9)10/29/2024Hypertension (ICD-10 - I10)stable here06/03/2024Lumbago with sciatica, left side (ICD-10 - M54.42) 06/03/2024Left foot pain (ICD-10 - M79.672)10/29/2024Diabetes mellitus (ICD-10 - E11.9)not checking -01/28/2025GERD without esophagitis (ICD-10 - K21.9) 06/03/2024Other chronic pain (ICD-10 - G89.29)05/20/2024OtherRecommended to rest and use a heating pad on the area. Take NSAIDs for pain as vdgjwr5609/11/2024Other Discussed increasing physical exercise and continuing/implementing a healthier diet. Plan Of Treatment Pending Test Test Name Order Date CMP (COMPLETE METABOLIC PANEL) 3 CMP (COMPLETE METABOLIC PANEL) 4 HEMOGLOBIN A1C (GLYCO) 07/26/2023 HEMOGLOBIN A1C (GLYCO) 12/12/2022 HEMOGLOBIN A1C (GLYCO) 01/28/2025 LIPID PANEL (CHOL/TRIG/HDL/LDL) 01/29/20 25 LIPID PANEL (CHOL/TRIG/HDL/LDL) 12/13/19 23 LIPID PANEL (CHOL/TRIG/HDL/LDL) 07/26/19 24 CBC WITH DIFF (EXP 02/2025) 07/26/2023 CBC WITH DIFF (EXP 02/2025) 12/12/2022 PSA, PROSTATE-SPECIFIC ANTIGEN 3 PSA, PROSTATE-SPECIFIC ANTIGEN 4 URIC ACID 01/28/2025 XR Foot LT (3 views) * 06/03/2024 US Lower Extremity LT 05/25/2024 Arthrogram 12/19/2020 CBC W/AUTO DIFF 02/19/2025 STOOL OCCULT BLOOD 07/26/2023 STOOL OCCULT BLOOD 12/12/2022 THYROID PANEL (T4/TSH/FREE T3) 3 THYROID PANEL (T4/TSH/FREE T3) 5 THYROID PANEL (T4/TSH/FREE T3) 4 PSA, SCREENING 01/28/2025 CMP (COMP MET MORALES) w/eGFR CKD-EPI 2024 CBC WITH DIFF 01/28/2025 Next Appt Details Provider Name:Kike Gutiérrez Bensonmary, 11:15:00 AM, [address] [place], [address], Insurance Providers Payer Name Payer Address Payer Phone Subscriber Number Group Number Insured Name Patient Relationship to Insured Coverage Start Date Coverage End Date [employer] MEDICARE [address] [address] [place], [place] [id number] Cecil Mcrae Self - patient is the insured 3 Medications Administered Medication Instructions Date of Administration Dosage Notes Bupivacaine mLDEPO-Xccwgt91 mLDepo-Medrol, 80 mg/mL mL Tomtxrqv94 bZMchdvcvt77/16/202360 tPRvqodtiq23/14/202460 mLGel-Syn mLGel-Syn mLGel-Syn10 mLGel-Syn mL Gel-Syn mLGel-Syn mLGel-Syn07 mLGel-Syn07 2 mLGel-Syn mLGelsyn-307 mLGelsyn-308/ mLKenalog-40 mgKenalog-4012/08/8165332 mgKenalog-401/13/60666 mLKenalog, 80 mg/mL (40mg/mL x 2 units) mLKenalog, 80 mg/mL (40mg/mL x 2 units) mLKenalog, 80 mg/mL (40mg/mL x 2 units) mLKenalog, 80 mg/mL (40mg/mL x 2 units) mLKetorolac Gkhhefbusyjx87/07/202360 mg Ketorolac Czvkhmkxvwvr97/08/202360 mgKetorolac Effmuksttpgp84/29/202560 mg Ketorolac Zvmrnmfhkfrt80/31/202560 mgOrphenadrine Aoogdhy49 mg Orphenadrine Ymvxqqt16 mgSodium Rvxavalp07 mLSodium Chloride 0.9%, 10 mL12/19/2020.5 mLSodium Chloride 0.9%, 10 mL mLSodium Chloride 0.9%, 10 mL mLSodium Chloride 0.9%, 10 mL mL Triamcinolone 40 mg/ml20 mgTriamcinolone 40 mg/ml20 mg Medical (General) History Medical History History ICD Code depression headache/migrainehistory of asthma as a childpneumoniaabnormal heart rhythm - 2001 PVC's r/t medication interactionsheartburn/gastritisdiabetes mellitus (pre-diabetic)Arthritishistory of blood transfusion at birthHis past medical history is not particularly contributory in this situation.Factor V Leiden Surgical History Surgery Date(Month/Year) spleenectomy [address] Shawn Mccloud [address] Perera 2001 Spinal Fusion Lumbar/ sacral- Dr Pickering 09/01/24 Heart Cath 02/10 Hospitalization History Reason Date(Month/Year) PE 2021
--- OUTSIDE RECORDS SUMMARY | 2025-03-25 13:21 | XMS_ITS | Clinical Summary ---
Author Organization [facility] Address [id number] [place] [address] Care Team Providers Care Market Asset Protection Manager Name Role Phone Dakotah Nair MD Primary Care Provider [phone] Allergies Active AllergyReactionsCriticalityNoted DateCommentsCodeineAnaphylaxisHigh 08/17/2021 Medications MedicationSigDispense [...] Active Problems ProblemNoted DateDiagnosed DateHistory of pulmonary pjlacpva48/14/2022Family history of pulmonary bfehglcj30/14/2022Hereditary arcemzrwvnnfn08/14/2022hest pain on zksldgdik06/28/2022bnormal EKG008/17/2021Elevated troponin I measurement 08/17/2021Essential ompmvuuxnfmu18/28/2022 Resolved Problems ProblemNoted DateDiagnosed DateResolved DatePulmonary ovdtnase08/28/2022 11/02/2021 Immunizations ImmunizationAdministration DatesNext DueInfluenza, Injectable, Mdck, Preservative Free, Quad03/15/2021,01/27/2020Influenza, Eeevvmmrffy44/09/2017 Social History Tobacco UseTypesPacks/DayYears UsedDateSmoking Tobacco: FormerSmokeless Tobacco: NeverAlcohol UseStandard Drinks/WeekCommentsNever0 (1 standard drink = 0.6 oz pure alcohol)PHQ-2AnswerDate RecordedTotal Bbvgu15411/02/2021hildcareAnswerDate UswstrkkQhryafuahGbxqejx17/13/2019EmploymentAnswerDate RecordedEmploymentUnknown 10/02/2018Purpose - LifeAnswerDate RecordedPurpose and direction in lifeUnknown 06/02/2020ex and Gender InformationValueDate RecordedSex Assigned at BirthNot on fileLegal SmeLcal8811/19/2016 12:48 PM EDTGender IdentityNot on fileSexual OrientationNot on fileOccupationIndustryJob Start DateJob End DateNot on fileNot on fileNot on fileNot on file Last Filed Vital Signs Vital SignReadingTime TakenCommentsBlood Iatbwjxs146/7607 2:35 PM EDT Pocwf192711/02/2021 2:35 PM BSYUqzkxarwiss22.1 ??C (98.8 ??F)08/22/2021 8:00 AM EDTRespiratory Ftrn331208/22/2021 12:00 PM EDTOxygen Fejwkpddzg94%08/22/2021 12:00 PM EDTInhaled Oxygen Concentration--Sbcaqe544.2 kg (313 lb 7.9 oz)11/02/2021 2:35 PM LSEGsbtgb693.9 cm (5' 9.65 )11/02/2021 2:35 PM EDTBody Mass Index45.43 11/02/2021 2:35 PM EDT Plan of Treatment Health MaintenanceDue DateLast DoneCommentsDepression Ydvwpttjg38/25/1972Tobacco Qyakgvarj69/25/1972Adult BMI Nqutohlac57/25/1978DTaP,Tdap and Td Vaccines (1 - Tdap)11/13/1978Zoster (Shingles) Vaccine (1 of 2)11/13/2009Fall Risk Screening 11/13/2024Influenza Jpmdlkd94/01/683969/, 01/27/2020, 01/28/2017RSV ( or age 60+ yrs) (1 - 1-dose 75+ series)11/13/2034 Medical Devices Not on file Insurance Advance Directives * Full Code (Latest Code Status on File) Date ActivatedDate InactivatedComments08/17/2021 6:14 PM08/22/2021 4:01 PM Care Teams Team MemberRelationshipSpecialtyStart DateEnd Date Dakotah Nair MD PCP - [facility] Systemly Medicine11/02/21
--- OUTSIDE RECORDS SUMMARY | 2025-03-25 13:21 | XMS_ITS | Clinical Summary ---
Author Organization [facility] Address [address] [place] [address] Care Team Providers Care 21 Dealer Name Role Phone Unavailable Primary Care Provider Unavailabl e Social History Tobacco UseTypesPacks/DayYears UsedDateSmoking Tobacco: Never AssessedSex and Gender InformationValueDate RecordedSex Assigned at BirthNot on fileLegal Sex Male07/04/2022 8:28 PM EDTGender IdentityNot on fileSexual OrientationNot on file Plan of Treatment Not on file
--- OUTSIDE RECORDS SUMMARY | 2025-03-25 13:21 | XMS_ITS | Clinical Summary ---
Author Organization [facility] Address [address] [place] [address] Care Team Providers Care Parts Sales Advisor Name Role Phone Dakotah Nair MD Primary Care Provider [phone] Allergies Active AllergyReactionsCriticalityNoted DateCommentsCodeineAnaphylaxisHigh 08/17/2021 Medications MedicationSigDispense [...] by mouth in the morning. 90 tablet /523901/6Active metoprolol tartrate (Lopressor) 25 mg tablet Indications:Coronary artery disease involving [place] coronary artery of [place] heart without angina pectoris,PVC (premature ventricular contraction)Take 1 tablet (25 mg) by mouth two times daily. 180 tablet 5008/04/2025ctive Active Problems ProblemNoted DateDiagnosed DateArthrodesis ovrczo8808/11/2024Degeneration of intervertebral disc of lumbar region with discogenic back pain and lower extremity pain08/11/2024Spondylolisthesis, lumbar eyjvxs1708/11/2024PVC (premature ventricular contraction)05/04/2022 Assessment & Plan (05/04/2022 12:55 PM EST): - Frequent ventricular bigeminy during cardiac rehab -Has been having symptoms of lightheadedness, dizziness and had a syncopal episode recently -30 day event monitor and follow up with Dr. Marsh with results Syncope and ikoropyr49/13/2023 Assessment & Plan (05/04/2022 12:56 PM EST): -recent episode but did not feel palpitations prior to syncope -PCP decreased lisinopril to 20mg daily vs 40mg -follow up in 3 months with event monitor with Dr. Marsh -report to ED if syncopal again Primary osteoarthritis of right gweprrmd55/11/2023History of pulmonary embolism 02/26/2022Factor 5 Leiden mutation, /07/2022hronic diastolic congestive heart ghhmohm7202/26/2022oronary artery disease involving [place] coronary artery of [place] heart without angina kifassph24/07/2022rimary ekwrvehyhztc67/07/2022 Assessment & Plan (05/04/2022 12:57 PM EST): -stable today -will not increase lisinopril back to 40mg daily at this time due to recent syncope until we have more conclusive results with event monitor Kvkuakzaqstsiv82/02/2022ulmonary bcxudzsv33/02/2022Family history of pulmonary dobdxxnh47/14/2022Hereditary uxhczfjihcmsm53/14/2022bnormal EKG008/17/2021hest pain on cpzzaptyo07/28/2022Elevated troponin I jgnqwhghner31/28/2022 Encounters DateTypeDepartmentCare DzjhYdcdowbucle92/30/2025Telephone [facility] [place] [address] [place] [address] Kareen Blum MA from Last 3 Months Immunizations ImmunizationAdministration DatesNext DueInfluenza, Rpiigmrymdi07/09/2017 Family History Medical HistoryRelationNameCommentsDeep vein thrombosisBrotherHeart failure [...] Recorded Sex Assigned at BirthNot on fileLegal CcyKnxm1211/14/2021 3:16 PM EDTGender IdentityNot on fileSexual OrientationNot on file Last Filed Vital Signs Vital SignReadingTime TakenCommentsBlood Fwbjdpyj760/7204 2:18 PM EDT Bessd374308/12/2024 2:18 PM EDTTemperature--Respiratory Vfjs6147 1:28 PM EDTOxygen Rezvasgdkl89%08/12/2024 2:18 PM EDTInhaled Oxygen Concentration-- Tcospl323 kg (297 lb)08/12/2024 2:18 PM SMWZjemba197.3 cm (5' 9 )08/12/2024 2:18 PM EDTBody Mass Index43.8608/12/2024 2:18 PM EDT Plan of Treatment Health MaintenanceDue DateLast DoneCommentsCT Heazdbczvywk20/25/1960Colonoscopy 1959Colorectal Cancer Naeqnweds04/25/1960FIT-DNA1959FIT1959 FOBT1959Medicare Annual Wellness (AWV)1959Medicare Initial Physical (IPPE)1959 2922Wjfxejojgqrqx17/25/1960HIB Vaccines (1 of 1 - Risk 1-dose series)02/13/1961Meningococcal Vaccine (1 - Risk 2-dose series)11/13/1961 Meningococcal B Vaccine (1 of 4 - Increased Risk)11/13/1969Depression Screening 1971Pneumococcal Vaccine: 50+ Years (1 of 2 - PCV)11/13/1978Adult Tetanus 11/13/1981Zoster Vaccines (1 of 2)11/13/2009Fall Risk Fkpajmvyn66/25/2025COVID- 19 Vaccine (1 - season)2024Influenza Vaccine (#1)2024 01/28/2017HPV VaccinesAged OutNo longer eligible based on patient's age to complete this topicIPV VaccinesAged OutNo longer eligible based on patient's age to complete this topicRotavirus VaccinesAged OutNo longer eligible based on patient's age to complete this topic Medical Devices ImplantedTypeAreaManufacturerDevice IdentifierShelf Expiration DateModel / Serial / LotStentFlor 2.75 X 20 - [id number] - [id number] Implanted:Qty: 1 on 01/16/2022 by Geovanny Melton [facility] Eluting StentBoston [id number]/16/2023 [id number] / [id number] / [id number] Insurance Advance Directives * Full Code (Latest Code Status on File) Date ActivatedDate InactivatedComments01/16/2022 11:59 AM01/16/2022 7:03 PM Care Teams Team MemberRelationshipSpecialtyStart DateEnd Date Dakotah Nair MD [address] [facility] [address] [address] PCP - General01/16/22
--- OUTSIDE RECORDS SUMMARY | 2025-03-25 13:21 | XMS_ITS | Clinical Summary ---
Author Organization [facility] Address [address], [address] [place] [address] Care Team Providers Care Rn Night Name Role Phone Dakotah Nair MD Primary Care Provider [phone] Allergies Active AllergyReactionsCriticalityNoted DateCommentsCodeineAnaphylaxisHigh 08/24/2024 Medications MedicationSigDispense [...] Safety Domain Source: IP Abuse ScreeningAnswerDate RecordedPhysical sektfRdkuzp86/13/2025Verbal jxhicAezajd72/13/2025Emotional crojgUlovyt59/13/2025Financial kagflEwczsr20/13/2025Sexual ptgzdPmhfds07/13/2025 Sex and Gender InformationValueDate RecordedSex Assigned at BirthNot on file Legal InsAjtn3706/01/2012 6:30 PM ESTGender IdentityNot on fileSexual Orientation Not on file Last Filed Vital Signs Vital SignReadingTime TakenCommentsBlood Drqgbdsf703/75009/06/2024 12:30 PM EDT Fzdou194709/06/2024 12:30 PM JDBNypkhtqgiij91.5 ??C (97.7 ??F)09/06/2024 12:30 PM EDTRespiratory Medr622609/06/2024 12:30 PM EDTOxygen Fmhppmbwka75%09/06/2024 12:30 PM EDTInhaled Oxygen Concentration--Xsztto610.8 kg (321 lb 6.9 oz)09/01/2024 6:30 PM ZVFDqykmx504.5 cm (5' 9.5 )09/01/2024 11:00 AM EDTBody Mass Index46.79 09/01/2024 11:00 AM EDT Plan of Treatment Health MaintenanceDue DateLast DoneCommentsHib vaccine (1 of 1 - Risk 1-dose series)02/13/1961Meningococcal (ACWY) vaccine (1 - Risk 2-dose series)11/13/1961 Meningococcal B vaccine (1 of 4 - Increased Risk)11/13/1969Depression Screen 1971HIV rekscc9211/13/1974Hepatitis C asdivp1711/13/1977DTaP/Tdap/Td vaccine (1 - Tdap)11/13/1978Pneumococcal 50+ years Vaccine (1 of 2 - PCV)11/13/1978 Jrlqxv5311/14/19999561Gpunmjdvthj55/25/2005Colorectal Cancer Bswzxu1911/13/2004FIT/FOBT: Average risk11/13/2004Fecal-DNA (Cologuard): Average risk11/13/2004 Sigmoidoscopy/CT ephxwjesgmxu61/25/2005Shingles vaccine (1 of 2)11/13/2009 Respiratory Syncytial Virus (RSV) or age 60 yrs+ (1 - Risk 60-74 years 1-dose series)2019Annual Wellness Visit (Medicare)5AAA screen 11/13/2024Flu vaccine (#1)511/, 01/27/2020, 01/28/2017COVID-19 Vaccine ( - season)2024A1C test (Diabetic or Prediabetic) Diabetes pbtregCjhevpffgfkj04/15/2025Hepatitis A vaccineAged OutNo longer eligible based on patient's age to complete this topicHepatitis B vaccineAged OutNo longer eligible based on patient's age to complete this topic Polio vaccineAged OutNo longer eligible based on patient's age to complete this topic Medical Devices ImplantedTypeAreaManufacturerDevice IdentifierShelf Expiration DateModel / Serial / LotScrew/Plate/Nail/RodScrew/Plate/Nail/RodN/A: BackStent:Coronary Stent:CoronaryN/A: HeartGraft Bone 4-10mm 30ml Canc Cube - [id number] Implanted:Qty: 1 on 09/01/2024 [facility] Spine LumbarMEDTRONIC SPINALGRAFT TECH-WD09/08/2028 [id number] / / Set Screw 5.5-6.0 - [id number] Implanted:Qty: 8 on 09/01/2024 by [facility]: Spine LumbarSURGAL[employer] [id number] / / Screw Poly Solid 7.5x45 - [id number] Implanted:Qty: 2 on 09/01/2024 by [facility]: Spine LumbarSURGAL[employer] [id number] / / Screw Poly Solid 7.5x50 - [id number] Implanted:Qty: 6 on 09/01/2024 by [facility]: Spine LumbarSURGALIGN [employer]INE [employer] [id number] / / Dickson Ti Prebent 5.5x100 - [id number] Implanted:Qty: 2 on 09/01/2024 by [facility]: Spine LumbarSUR[employer] [id number] / / Connector Spnl M Streamline Tl Davon X Link - [id number] Implanted:Qty: 1 on 09/01/2024 by [facility]: Spine LumbarSUR[employer] SP[employer]CHN[employer]IES [id number] / / Allograft Bne Bridge 50x25 Mm 24 Cc Bioadapt - [id number] Implanted:Qty: 1 on 09/01/2024 by [facility]: Spine LumbarSURGALIGN SP[employer]CHN[employer] INC01/31/2027 [id number] / [id number] / [id number] Procedures Procedure NamePriorityDate/TimeAssociated DiagnosisCommentsHEMOGLOBIN J5CWgqjjsx 09/03/2024 6:20 AM EDT from Last 3 Months or Most Recently Relevant to Health Maintenance Results * (ABNORMAL) Hemoglobin A1c (09/03/2024 6:20 AM EDT)ComponentValueRef RangeTest MethodAnalysis TimePerformed AtPathologist SignatureHemoglobin A1C6.2(H)4.0 - 6.0 %09/03/2024 7:23 AM [facility] Estimated Avg Odxibvj08078 - 126 mg/dL09/03/2024 7:23 AM [facility] LABComment:Performed at [facility] [address] [place], [place] [address]Specimen (Source)Anatomical Location / Laterality Collection Method / VolumeCollection TimeReceived TimeBloodBLOOD SPECIMEN / Sjnfehy5009/03/2024 6:20 AM EDT09/03/2024 6:52 AM EDT Narrative Authorizing ProviderResult TypeResult StatusOluremi A Nate MDCHEMISTRY ORDERABLES Final ResultPerforming OrganizationAddressCity/State/ZIP CodePhone Number [facility] [address] [place] [id number], [facility] [phone] [facility] [address] [place] [address], [facility] [phone] from Last 3 Months or Most Recently Relevant to Health Maintenance Insurance Advance Directives * Full Code (Latest Code Status on File) Date ActivatedDate InactivatedComments09/01/2024 10:54 AM09/06/2024 5:48 PM Care Teams Team MemberRelationshipSpecialtyStart DateEnd Date Dakotah Nair MD [address] [place] [address] PCP - GeneralFamily Medicine08/27/24
--- OUTSIDE RECORDS SUMMARY | 2025-03-25 13:23 | XMS_ITS | Patient Health Record ---
Author Organization [facility] Address [address] [place] [address] Care Team Providers Care Semiconductor Processing Technician Name Role Phone BensonmaryDakotah Primary Care Provider UnavailVerónica Elizabeth Unavailable [phone] Fabiano Lackey Unavailable [phone] Enmanuel Geiegr Unavailable [phone] Anjali Irizarry Unavailable Allergies Allergen (clinical drug ingredient) Drug/Non Drug Allergy documented on EMR Reaction Allergy Type Onset Date Status codeine codeine Unknown Drug Allergy Active Results Component Value Reference Range Notes XR LUMBAR SPINE 1 VW Reviewed date:09/09/2024 02:17:54 PM Interpretation: Performing Lab: Notes/Report: MOBILE LATERAL LUMBAR SPINE: [facility] [address] [place] [address], Original Ordering Provider: Stephie HOLLINGSWORTH Provider Role: Ordering XR LUMBAR SPINE 1 VW Reviewed date:09/09/2024 02:17:54 PM Interpretation: Performing Lab: Notes/Report: MOBILE LATERAL LUMBAR SPINE: [facility] [address] [address], Original Ordering Provider: Stephie HOLLINGWSORTH Provider Role: Ordering Surgery Scheduling (Not yet reviewed by provider) Interpretation:Pre-Op orders: CBC,BMP,PT/PTT, TYPE AND SCREEN, HGA1C,EKG,Chest X-ray,MRSA NASAL SWAB Performing Lab: Notes/Report: Pre-Op orders: CBC,BMP,PT/PTT, TYPE AND SCREEN, HGA1C,EKG,Chest X-ray,MRSA NASAL SWAB Primary Insurance Company: [facility] AAR P MEDICARE Surgeon/Assist:ST SLAUGHTER/FABIANO OR ALEXISSurgery Location:SRMCSurgery Date & Time:09/01/24 @ 11AMHosp arrival time day of:9:00AMSurgery End Time:2:00PM Procedure:L2-S1 DECOMPRESSION AND FUSIONSpecial Equipment:SSEP, CELL SAVER, PRONE, JB TABLE, SURGALIGNDiagnosis:M48.062 STENOSISAdmission Type: INPATIENTAnesthesia Type/CPNB:GENERALPost-op Appointment Date:10/09/24 @ 9:50AM [facility] Physician:FERNANDO 08/24/24 @ 10:30AMClearance Appt Date/TMUUJON FAX FORMHistory & Physical Appointment Date/:08/28/24 @ 11:30 CONSTANTINO Reason For Referral Reason NO AUTH REQ......... ..........................NOT SCHEDULED......................................[facility] MRI LUMBAR TO BE DONE AT [facility] Diagnosis 1 Aftercare following surgery of the musculoskeletal system (Z47.89) Referral Organization [facility] Referring Provider First Name Verónica Referring Provider Last Name St Slaughter Referring Provider Speciality Orthopedic Surgery Referred Organization [facility] Out[facility] Referred Address [address] [place] [phone], Procedure 1 MRI Lumbar Spine w/o Dye (81379) General Notes Suzy Valle 2024 11:31:34 AM >, Belem Ralph 06/12/2024 11:48:43 AM > [facility] ACTIVE AND EFFECTIVE 04/22/24 PER [facility] PROVIDER PORTAL. NO AUTHORIZATION REQUIRED. FAXED TO Howard HAMILTON Sara 06/17/2024 08:08:01 AM > faxed Referral Priority Routine Reason bone stim Diagnosis 1 Lumbosacral stenosis with neurogenic claudication (M48.07) Referral Organization [facility] Referring Provider First Name Verónica Referring Provider Last Name St Slaughter Referring Provider Speciality Orthopedic Surgery Referred Organization [facility] Referred Address [address] [place],[address],[place] General Notes Renetta Smith 08/26/2024 09:48:54 AM > all clinical sent to [facility] for bone stim Referral Priority Routine Reason APPROVED OUTPATIENT...................................09/01/24............................ 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) Diagnos is 3 Spondylolisthesis, lumbar region (M43.16 ) Diagnos is 4 Multilevel neural foraminal stenosis (M4 8.00) Referra l [facility] Referri ng Provide r First Name Verónica Referri ashley Provide r Last Name MiltonEle ramirez Provide r Special ity Orthopedic Surgery Referre d [facility] Outpatient Referre d Address [address] [place] [address],[place], [place],[id number],[place] Procedu re 1 Arthrodesis, posterior lumbar, 1 lumbar level (93881) Procedu re 2 Arthrodesis single, each addn'l level, p osteriolateral technique (30178) Procedu re 3 Laminectomy, facetectomy and foraminotom y single lumbar (85657) Procedu re 4 Laminectomy, facetectomy and foraminotom y additional vertebral segment (08902) Procedu re 5 Posterior segmental instrumentation, 3 t o 6 segments (54977) Procedu re 6 Autograft for spine surgery only; local obtained from same incision () General Notes Suzy Valle 07/29/2024 09:20:52 AM >, Belem Ralph 07/29/2024 10:59:27 AM > [facility] ACTIVE AND EFFECTIVE 04/22/24 PER [facility] PROVIDER PORTAL. AUTHORIZATION REQUEST SUBMITTED OUTPATIENT WITH CLINICALS VIA [facility] PROVIDER PORTAL, PENDING AUTHORIZATION # [id number], Ramo Belem 08/05/2024 08:50:09 AM > PENDING STILL PER [facility] PROVIDER PORTAL., Suzy Valle 08/17/2024 02:37:14 PM >CAN YOU PLEASE CHECK ON THIS I HAVE HAD SOME CANCELLATION AND WANT TO SEE ABOUT MOVING PATIENT UP IN SCHEDULE, Belem Ralph 08/18/2024 09:00:13 AM > THIS HAS BEEN APPROVED OUTPATIENT AND VALID 09/01/24-11/30/24. UNABLE TO UPDATE START DATE ON AUTHORIZATION, I WOULD HAVE TO SUBMIT A WHOLE NEW CASE., Suzy Valle 08/19/2024 12:11:46 PM >CHANGED TO OUTPATIENT, Belem Ralph 08/19/2024 01:40:23 PM > THANK YOU, FAXED TO [facility]. Referra l Priorit y Routine Reason referral to [facility] ; lumbar pain eval and treat Diagnosis 1 Spondylolisthesis, l umbar region (M43.16) Referral Organization [facility] Referring Provider First Name Verónica Referring Provider Last Name St Slaughter Referring Provider Speciality Orthopedic Surgery Referred Organization [facility] Referred Address [address] ,[place], [place],[address],[place] General Notes Jamia Lawrence 05/2024 08:34:33 AM > Referral Priority Routine Reason WRONG CHART Diagnosis 1 Aftercare following surgery of the musculoskeletal system (Z47.89) Referral Organization [facility] Referring Provider First Name Enmanuel Referring Provider Last Name Fely Referring Provider Speciality Physician Associate Product Manager Referred Organization [facility] Referred Address [address] ,[place], [place],[address],[place] General Notes Suzy Valle 2024 02:12:33 PM > Referral Priority Routine Medications Medication SIG (Take, Route, Frequency, Duration) Notes Start Date End Date Status Flexeril 10 mg 1 tab(s) orally 3 times a day pr n muscle spasms 5Active Problems Problem Type SNOMED Code ICD Code Onset Dates Problem Status W/U Status Risk Notes Problem History of arthrodesis (319669032) Arthro desis status (Z98.1) ActiveconfirmedProblemAcquired spondylolisthesis (700427645)Spondylolisthesis, lumbar region (M43.16)ActiveconfirmedProblemSpinal stenosis of lumbar region (32847059)Lumbosacral stenosis with neurogenic claudication (M48.07)Active confirmedProblemPostoperative care (regime/therapy) (877174888)Encounter for postoperative care (Z48.89)ActiveconfirmedProblemDegeneration of intervertebral disc of lumbar region with discogenic back pain and lower extremity pain (M51.362)ActiveconfirmedProblemDegeneration of intervertebral disc of lumbosacral region with discogenic back pain and lower extremity pain (M51.372) Activeconfirmed Encounters Encounter Location Date Provider Diagnosis [facility] [address] [place] [address] 06/12/2024 Anjali xxWhit[place] Spondylolisthesis, lumbar region M43.16 ; Degeneration of intervertebral disc of lumbar region with discogenic back pain and lower extremity pain M51.362 and Arthrodesis status Z98.1 [facility] Office [address] [place] [phone] 07/03/2024 Anjali xx[place] Spondylolisthesis, lumbar region M43.16 ; Degeneration of intervertebral disc of lumbosacral region with discogenic back pain and lower extremity pain M51.372 ; Lumbosacral stenosis with neurogenic claudication M48.07 and Arthrodesis status Z98.1 [facility] Office [address] [place] [phone] 08/28/2024 Enmanuel Diglio Arthrodesis status Z98.1 ; Spondylolisthesis, lumbar region M43.16 ; Lumbosacral stenosis with neurogenic claudication M48.07 and Degeneration of intervertebral disc of lumbosacral region with discogenic back pain and lower extremity pain M51.372 [facility] Outpatient [address] [place] [id number] 09/01/2024 Verónica Milton Lumbosacral stenosis with neurogenic claudication M48.07 ; Degeneration of intervertebral disc of lumbosacral region with discogenic back pain and lower extremity pain M51.372 and Spondylolisthesis, lumbar region M43.16 [facility] [address] [place] [address] 10/16/2024 Fabiano Lackey Aftercare following surgery of the musculoskeletal system Z47.89 [facility] [address] [place] [address] 11/27/2024 Enmanuel Diglio Encounter for postoperative care Z48.89 [facility] [address] [place] [address] 02/25/2025 Enmanuel Diglio Aftercare following surgery of the musculoskeletal system Z47.89 [facility] [address] [place] [address] 09/10/2024 Enmanuel Diglio Aftercare following surgery of the musculoskeletal system Z47.[address] [place] [address] 09/15/2024 Enmanuel Diglio Aftercare following surgery of the musculoskeletal system Z47.89 [facility] [address] [place] [address] 09/24/2024 Enmanuel Diglio Aftercare following surgery of the musculoskeletal system Z47.89 [facility] [address] [place] [address] 10/01/2024 Enmanuel Diglio Aftercare following surgery of the musculoskeletal system Z47.89 [facility] [address] [place] [address] 10/08/2024 Enmanuel Diglio Aftercare following surgery of the musculoskeletal system Z47.89 [facility] [address] [place] [address] 10/14/2024 Enmanuel Diglio Aftercare following surgery of the musculoskeletal system Z47.89 [facility] [address] [place] [address] 10/22/2024 Enmanuel Diglio Aftercare following surgery of the musculoskeletal system Z47.89 [facility] [address] [place] [address] 11/04/2024 Enmanuel Diglio Spondylolisthesis, lumbar region M43.16 [facility] [address] [place] [address] 11/11/2024 Enmanuel Diglio Aftercare following surgery of the musculoskeletal system Z47.89 [facility] [address] [place] [address] 11/18/2024 Enmanuel Diglio Aftercare following surgery of the musculoskeletal system Z47.89 [facility] [address] [place] [address] 12/10/2024 Enmanuel Diglio Aftercare following surgery of the musculoskeletal system Z47.89 [facility] [address] [place] [address] 12/17/2024 Selvon Milton Spondylolisthesis, lumbar region M43.16 ; Arthrodesis status Z98.1 and Aftercare following surgery of the musculoskeletal system Z47.89 [facility] Office [address] [place] [phone] 10/01/2024 Selvon Milton Assessments Encounter Date Diagnosis (ICD Code) Assessment Notes Treatment Notes Treatment Clinical Notes Section Notes 06/12/2024 Spondylolisthesis, lumbar region (ICD-10 - M43.16) 1. Prior L5-S1 microdiscectomy 2. Prior L5-S1 fusion/LT cage 3. Prior L3-4 hemilaminectomy 4. Dynamic L2 on 3 spondylolisthesis 5. L2-3 DDD 06/12/2024Degeneration of intervertebral disc of lumbar region with discogenic back pain and lower extremity pain (ICD-10 - M51.362) 1. Prior L5-S1 microdiscectomy 2. Prior L5-S1 fusion/LT cage 3. Prior L3-4 hemilaminectomy 4. Dynamic L2 on 3 spondylolisthesis 5. L2-3 DDD 07/03/2024Spondylolisthesis, lumbar region (ICD-10 - M43.16) 1. Prior L5-S1 microdiscectomy 2. Prior L5-S1 fusion/LT cage 3. Prior L3-4 hemilaminectomy 4. Dynamic L2 on 3 spondylolisthesis/DDD 5. L2-S1 stenosis/neurogenic claudication/NFS/DDD 07/03/2024Degeneration of intervertebral disc of lumbosacral region with discogenic back pain and lower extremity pain (ICD-10 - M51.372) 1. Prior L5-S1 microdiscectomy 2. Prior L5-S1 fusion/LT cage 3. Prior L3-4 hemilaminectomy 4. Dynamic L2 on 3 spondylolisthesis/DDD 5. L2-S1 stenosis/neurogenic claudication/NFS/DDD 08/28/2024rthrodesis status (ICD-10 - Z98.1)08/28/2024Spondylolisthesis, lumbar region (ICD-10 - M43.16)09/10/2024ftercare following surgery of the musculoskeletal system (ICD-10 - Z47.89)09/15/2024ftercare following surgery of the musculoskeletal system (ICD-10 - Z47.89)09/24/2024ftercare following surgery of the musculoskeletal system (ICD-10 - Z47.89)10/01/2024ftercare following surgery of the musculoskeletal system (ICD-10 - Z47.89)10/08/2024 Aftercare following surgery of the musculoskeletal system (ICD-10 - Z47.89) 10/14/2024ftercare following surgery of the musculoskeletal system (ICD-10 - Z47.89)10/16/2024ftercare following surgery of the musculoskeletal system (ICD- 10 - Z47.89)1. 6 weeks status post L2-S1 decompression L2-L5 [id number]/22/2024 Aftercare following surgery of the musculoskeletal system (ICD-10 - Z47.89) 11/04/2024Spondylolisthesis, lumbar region (ICD-10 - M43.16)11/11/2024ftercare following surgery of the musculoskeletal system (ICD-10 - Z47.89)11/18/2024 Aftercare following surgery of the musculoskeletal system (ICD-10 - Z47.89) 11/27/2024Encounter for postoperative care (ICD-10 - Z48.89)1. 3-month status post L2-S1 decompression L2-5 pieswe6912/10/2024ftercare following surgery of the musculoskeletal system (ICD-10 - Z47.89)09/01/2024Lumbosacral stenosis with neurogenic claudication (ICD-10 - M48.07)12/17/2024rthrodesis status (ICD-10 - Z98.1)12/17/2024Spondylolisthesis, lumbar region (ICD-10 - M43.16)02/25/2025 Aftercare following surgery of the musculoskeletal system (ICD-10 - Z47.89)1. 6- month status post L2-S1 decompression and L2-5 doatil4109/01/2024Degeneration of intervertebral disc of lumbosacral region with discogenic back pain and lower extremity pain (ICD-10 - M51.372)06/12/2024rthrodesis status (ICD-10 - Z98.1) 1. Prior L5-S1 microdiscectomy 2. Prior L5-S1 fusion/LT cage 3. Prior L3-4 hemilaminectomy 4. Dynamic L2 on 3 spondylolisthesis 5. L2-3 DDD 12/17/2024ftercare following surgery of the musculoskeletal system (ICD-10 - Z47.89)08/28/2024Lumbosacral stenosis with neurogenic claudication (ICD-10 - M48.07)07/03/2024Lumbosacral stenosis with neurogenic claudication (ICD-10 - M48.07) 1. Prior L5-S1 microdiscectomy 2. Prior L5-S1 fusion/LT cage 3. Prior L3-4 hemilaminectomy 4. Dynamic L2 on 3 spondylolisthesis/DDD 5. L2-S1 stenosis/neurogenic claudication/NFS/DDD 07/03/2024rthrodesis status (ICD-10 - Z98.1) 1. Prior L5-S1 microdiscectomy 2. Prior L5-S1 fusion/LT cage 3. Prior L3-4 hemilaminectomy 4. Dynamic L2 on 3 spondylolisthesis/DDD 5. L2-S1 stenosis/neurogenic claudication/NFS/DDD 08/28/2024Degeneration of intervertebral disc of lumbosacral region with discogenic back pain and lower extremity pain (ICD-10 - M51.372)09/01/2024 Spondylolisthesis, lumbar region (ICD-10 - M43.16)06/12/2024Other Plan established by Dr. Cespedes. Patient evaluated by myself and Dr. Cespedes today. Given the patient's increasing left lower extremity pain in the setting of 3 previous lumbar surgeries I have ordered an MRI to further evaluate for any neural compression. We will see patient back in the officeafter MRI is complete to review and offer further recommendations. The patient is very much in agree ment with the treatment and/or diagnostic plan set forth and all questions were answered to the patient's satisfaction. Thanks once again. If we can be of further service to your patients with disorders of the spine, cervical, thoracic, or lumbar, please do not hesitate to contact Dr. Cespedes. Best regards, 1. Prior L5-S1 microdiscectomy 2. Prior L5-S1 fusion/LT cage 3. Prior L3-4 hemilaminectomy 4. Dynamic L2 on 3 spondylolisthesis 5. L2-3 DDD 07/03/2024Other Plan established by Dr. Cespedes. At this time, Dr. Cespedes discussed MRI results with the patient and is recommending an L2-S1 decompression/fusion. It was discussed with patient that fusion is necessary due to the fact that total facetecetomy's would need to be performed In order to free up the foraminal stenosis. This would lead to instability requiring a fusion. Surgical risks and benefitswere discussed. Risks include, but are not limited to paralysis, infection, dural tear, nerve root injury, nonunion, persistent pain/symptoms, etc. Patient would like to proceed with surgical intervention. I have given him an order to start Physicial Therapy now. Patient will need medically clearedand we will see him back in the office at a date prior to surgery. The patient is very much in agreement with the treatment and/or diagnostic plan set forth and all questions were answered to the patient's satisfaction. Thanks once again. If we can be of further service to your patients with disorders of the spine, cervical, thoracic, or lumbar, please do not hesitate to contact Dr. Cespedes. Best regards, 1. Prior L5-S1 microdiscectomy 2. Prior L5-S1 fusion/LT cage 3. Prior L3-4 hemilaminectomy 4. Dynamic L2 on 3 spondylolisthesis/DDD 5. L2-S1 stenosis/neurogenic claudication/NFS/DDD 10/16/2024Other Plan established by Dr. Cespedes. At this time, set patient up with physical therapy lumbar spine.Patient was also given prescription for Flexeril. Will see patient back in the office in 6 weeks for reevaluation. The patient is very much in agreement with the treatment and/or diagnostic plan set forth and all questions were answered to the patient's satisfaction. Thanks once again. If we can be of further service to your patients with disorders of the spine, cervical, thoracic, or lumbar, please do not hesitate to contact Dr. Cespedes. Best regards, 1. 6 weeks status post L2-S1 decompression L2-L5 [id number]/27/2024Other Plan established by Dr. Cespedes. At this time, recommend patient continue with physical therapy for the lumbar spine. He is given refills of tramadol and Flexeril. We will see him back in our office in 3 months for a 6-month lumbar recheck. The patient is very much in agreement with the treatmentand/or diagnostic plan set forth and all questions were answered to the patient's satisfaction. Thanks once again. If we can be of further service to your patients with disorders of the spine, cervical, thoracic, or lumbar, please do not hesitate to contact Dr. Cespedes. Best regards, 1. 3-month status post L2-S1 decompression L2-5 wrtwwd4102/25/2025Other Plan established by Dr. Cespedes. Patient slowly is trending in the right direction postoperatively. He is still working through physical therapy. We will see him back in 6 months for a 1 year lumbar recheck. The patient is very much in agreement with the treatment and/or diagnostic plan set forthand all questions were answered to the patient's satisfaction. Thanks once again. If we can be of further service to your patients with disorders of the spine, cervical, thoracic, or lumbar, please do not hesitate to contact Dr. Cespedes. Best regards, 1. 6-month status post L2-S1 decompression and L2-5 fusion Plan Of Treatment Pending Test Test Name Order Date Lumbar spine, 4v flex ext - 45611 2024 Lumbar spine 2v ap and lat - 58177 10/16 Lumbar spine 2v ap and lat - 59168 11/27 Walker w/ Wheels OTS 08/28/2024 Surgery Scheduling 07/29/2024 DME - Lumbar Support, Surgical OTS 08/28 SFS - Lumbar Spine PT Order, Isometrics & Strenghening w/Modalities as needed, 2-3 times per week for 6 weeks 10/16/2024 SFS - Lumbar Spine PT Order, Isometrics & Strenghening w/Modalities as needed, 2-3 times per week for 6 weeks 07/03/2024 BONE STIMULATOR 08/28/2024 Lumbar spine, 4v flex ext - 06085 2024 MRI : Lumbosacral Spine W/O Contrast - 7 2148 06/12/2024 Future Test Test Name Order Date Chest 2 views - 04025 07/29/2024 CBC 07/29/2024 HGB A1C 07/29/2024 PT/PTT 07/29/2024 BMP 07/29/2024 MRSA (Bilateral Nares) PCR 07/29/2024 EKG 07/29/2024 Next Appt Details Provider Name:Verónica Hernandez air, 08/26/2025 01:00:00 PM, [address] [place] [address], [phone], Insurance Providers Payer Name Payer Address Payer Phone Subscriber Number Group Number Insured Name Patient Relationship to Insured Coverage Start Date Coverage End Date MEDICARE U[employer] A[employer] [address] [address] [place], [place] [phone] [id number] Jayden HAMMOND - patient is the [id number] 2024 Medical (General) History Medical History History ICD Code High Blood Pressure Abnormal Heart RhythmGastric RefluxBlood Clots in Legs/LungsSleep apneaCPAP Machine: UsesSurgical History Surgery Date(Month/Year) Back fusion 12/2001 Laminectomy 2017 L2-S1 laminectomy, PSF 08/2024 Discectomy 1995
[2025-03-25 13:54] LABS: Hematocrit 51.2 % (42.0-54.0); Hemoglobin 18.4 g/dL (14.0-18.0); Mean Corpuscular HGB Conc 35.9 g/dL (29.9-35.2); Mean Corpuscular Hemoglobin 31.9 pg (25.9-34.0); Mean Corpuscular Volume 88.9 fL (80.0-94.0); Platelet Count 463 10^3/uL (150-450); Red Blood Count 5.76 10^6/uL (4.70-6.10); White Blood Count 13.5 10^3/uL (4.0-11.0)
[2025-03-25 14:53] LABS: Basophils Abs Manual 0.13 10^3/uL (0.00-0.10); Basophils Percent Manual 1.0 % (0.2-2.0); Eosinophils Absolute Manual 0.13 10^3/uL (0.00-0.70); Eosinophils Percent Manual 1.0 % (0.9-7.0); Monocytes Absolute Manual 0.94 10^3/uL (0.30-0.80); Monocytes Percent Manual 7.0 % (1.7-12.0); Segmented Neut Absolute Manual 5.40 10^3/uL (1.4-6.5); Segmented Neutrophils % Manual 40.0 (43.0-75.0)
[2025-03-25 14:54] LABS: Atypical Lymphocytes % Manual 8.0 %; Atypical Lymphocytes Abs Man 1.08; Lymphocytes Absolute Manual 5.80 10^3/uL (1.20-3.80); Lymphocytes Percent Manual 43.0 % (20.5-60.0)
== END 2025-03-25 13:17 | disposition home or self-care (01) ==
LOC: LAB 13:17
PROVIDERS: PCP Family Medicine; Visit Provider Family Medicine
DX: D47.3 Essential (hemorrhagic) thrombocythemia (principal)
CPT/HCPCS: 36415; 85007; 85027

== ENCOUNTER 2025-04-08 14:49 | Outpatient (OUT) | payer MEDICARE, SELFPAY ==
--- OUTSIDE RECORDS SUMMARY | 2024-06-11 05:45 | XMS_ITS ---
Author Organization [facility] in [place] Address [address] [place] [address] Care Team Providers Care Bleach Boiler Puller Name Role Phone Joanie Kike Primary Care Provider REASON FOR VISIT 6mon Encounters Encounter Location Date Provider Diagnosis [facility] [address] [place] [phone] 06/11/2024 Kike Nair Plan Of Treatment Next Appt Details Provider Name:Kike Nair, 11:15:00 AM, [address] [place], [address], Progress Notes * Raúl MCRAE CDOB: 0 (64 yo M)Acc No.[id number]:06/11/2024 UNLOCKED PROGRESS NOTE Progress Note Patient: Al Raúl CALVILLO :?Dakotah Garcia Joanie ([facility]), MDDOB:1960???Age: 63 Y???Sex:MaleDate:06/11/2024Phone:[phone]:[address] [place] [phone] Subjective: * Chief Complaints: * 1 . 6mon. * Medical History: Objective: * Vitals: Assessment: Plan: * Treatment: * * Electronic signature of Kike Nair MD, [id number] on 04/08/2025 at 02:52 PM EST Sign off status: PendingVisit Status:?CANCPHONE (Cancelled Phone) * Provider: Maurice Nair ([facility])MD Date: 0 06/11/2024 Generated for Printing/Faxing/eTransmitting on:?04/08/2025 02:52 PM EST
--- OUTSIDE RECORDS SUMMARY | 2025-03-25 12:30 | XMS_ITS ---
Author Organization [facility] [place] Address [address] [place] [address] Care Team Providers Care Claim Specialist Name Role Phone Kike Nair Primary Care Provider REASON FOR VISIT labs Encounters Encounter Location Date Provider Diagnosis [facility] [address] [place] [address] 03/25/2025 Kiek Nair Hypertension I10 and Elevated platelet count D47.3 Assessments Encounter Date Diagnosis (ICD Code) Assessment Notes Treatment Notes Treatment Clinical Notes Section Notes 03/25/2025 Hypertension (ICD-10 - I10) 03/25/2025Elevated platelet count (ICD-10 - D47.3) Plan Of Treatment Pending Test Test Name Order Date CBC AUTO DIFF 03/25/2025 PROF 14(COMP METB) 03/25/2025 Next Appt Details Provider Name:Kike Nair, 11:15:00 AM, [address] [place], [address], Progress Notes * Raúl HAMMOND CDOB: 0 (64 yo M)Acc No.[id number]:03/25/2025 Patient:?Raúl HAMMOND :1960???Age:64 Y???Sex:MalePhone:[phone] Address:[address] [place] [address], [phone] Subjective: * Chief Complaints: * L abs * Medical History: * Surgical History: * Hospitalization/Major Diagno stic Procedure: * Medications: Objective: * Vitals: * Physical Examination: ??? Assessment: * Assessment: 1.?Hypertension - I10 (Primary)???2.?Elevated platelet count - D47.3? ? Plan: * Treatment: ?LAB: CBC AUTO DIFF ?LAB: PROF 14(COMP METB)2.?Elevated platelet count?LAB: CBC AUTO DIFF ?LAB: PROF 14(COMP METB) * Procedure Codes: * true * Date:?Generated for Printing/Faxing/eTransmitting on:?04/08/2025 02:52 PM EST
--- OUTSIDE RECORDS SUMMARY | 2025-04-08 14:52 | XMS_ITS | Patient Health Record ---
Author Organization [facility] in [place] Address [address] [place] [address] Care Team Providers Care Chief Procurement Officer Name Role Phone Kike Nair Primary Care Provider Gal Washington [phone] Allergies Allergen (clinical drug ingredient) Drug/Non Drug Allergy documented on EMR Reaction Allergy Type Onset Date Status codeine Codeine Sulfate anaphylaxis Drug Allergy Active Results Component Value Reference Range Notes US extremity nonvascular LT Reviewed date:05/31/2024 11:52:16 AM Interpretation: Performing Lab: Notes/Report: Source Facility: [place] [address] Ultrasound Report Signed Patient: CECIL MCRAE MR#: [id number] : 1960 Acct:[id number] Age/Sex: 63 / M ADM Date: 05/29/24 Loc: US Attending Dr: Linden Nair M.D. Ordering Physician: Linden Nair M.D. Date of Service: 05/29/24 Procedure(s): US extremity nonvascular LT Accession Number(s): [id number] cc: Linden Nair M.D. [place] [address] Patient Name: CECIL MCRAE MRN: [id number] date: 1960 Sex: M Assigned Patient Location: US Current Patient Location: US Accession/Order Number: [id number] Exam Date: 05/29/2024 13:59 Report Date: 05/29/2024 [...] Dictated By: Ale Junior M.D. Signed By: 05/29/247 DD/ 33 TD/TT: Composition Weatherboard Applier: XR lumbar spine min 4V Reviewed date:06/14/2024 11:33:11 AM Interpretation: Performing Lab: Notes/Report: Source Facility: [place] [address] XRay Report Signed Patient: CECIL MCRAE MR#: [id number] : 1960 Acct:[id number] Age/Sex: 63 / M ADM Date: 06/12/24 Loc: EC Attending Dr: Yariel Cespedes M.D. Ordering Physician: Yariel Cespedes M.D. Date of Service: 06/12/24 Procedure(s): XR lumbar spine min 4V Accession Number(s): [id number] cc: Linden Nair M.D.; Yariel Cespedes M.D. The [place] [id number] Patient Name: CECIL MCRAE MRN: [id number] date: 1960 Sex: M Assigned Patient Location: Current Patient Location: Accession/Order Number: [id number] Exam Date: 06/12/2024 12:41 Report Date: 06/12/2024 [...] Dayana Godwin M.D.06/12/2024 12:47 PM Dictation Location: [place] [address] Electronically authenticated by: [id number] Y Date: 06/12/2024 12:47 Dictated By: Dayana Godwin M.D. Signed By: 06/12/24 1250 DD/ 1247 TD/TT: Composition Weatherboard Applier: MR lumbar spine wo con Reviewed date:06/23/2024 07:49:34 PM Interpretation: Performing Lab: Notes/Report: Source Facility: [place] [address] Magnetic Resonance Report Signed Patient: CECIL MCRAE MR#: [id number] : 1960 Acct:[id number] Age/Sex: 63 / M ADM Date: 06/23/24 Loc: MRI Attending Dr: Yariel Cespedes M.D. Ordering Physician: Yariel Cespedes M.D. Date of Service: 06/23/24 Procedure(s): MR lumbar spine wo con Accession Number(s): [id number] cc: Linden Nair M.D.; Yariel Cespedes M.D. [place] [address] Patient Name: CECIL MCRAE MRN: [id number] date: 1960 Sex: M Assigned Patient Location: MRI Current Patient Location: MRI Accession/Order Number: [id number] Exam Date: 06/23/2024 16:04 Report Date: 06/23/2024 [...] Rivas Jr., D.O.06/23/2024 4:10 PM Dictation Location: [place] [address] Electronically authenticated by: [id number] Y Date: 06/23/2024 16:10 Dictated By: Mohan Rivas M.D. Signed By: 06/23/24 1613 DD/ 1610 TD/TT: Composition Weatherboard Applier: ECG 12 lead Reviewed date:08/12/2024 07:51:55 PM Interpretation: Performing Lab: Notes/Report: Source Facility: [place] [address] [place] [address] Electrocardiograph Report Signed Patient: CECIL MCRAE MR#: [id number] : 1960 Acct:[id number] Age/Sex: 63 / M ADM Date: 08/12/24 Loc: CARD Attending Dr: Yariel Cespedes M.D. Ordering Physician: Yariel Cespedes M.D. 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 Measurements Intervals [place] Rate: 71 P: 51 NE: 174 QRS: 2 QRSD: 113 T: 52 [...] By: SHONNA WOODALL Signed By: 08/12/24175408/12/241754 DD/ 1312 TD/TT: Composition Weatherboard Applier: XR chest 2V Reviewed date:08/12/2024 07:51:55 PM Interpretation: Performing Lab: Notes/Report: Source Facility: [place] [address] [place] [address] XRay Report Signed Patient: CECIL MCRAE MR#: [id number] : 1960 Acct:[id number] Age/Sex: 63 / M ADM Date: 08/12/24 Loc: CARD Attending Dr: Yariel Cespedes M.D. Ordering Physician: Yariel Cespedes M.D. Date of Service: 08/12/24 Procedure(s): XR chest 2V Accession Number(s): [id number] cc: Linden Nair M.D.; Yariel Cespedes M.D. The [place] [address] Patient Name: CECIL MCRAE MRN: [id number] date: 1960 Sex: M Assigned Patient Location: CARD Current Patient Location: CARD Accession/Order Number: [id number] Exam Date: 08/12/2024 13:58 Report Date: 08/12/2024 [...] Wenceslao Oleary M.D.08/12/2024 1:58 PM Dictation Location: [place] [address] Electronically authenticated by: [id number] Y Date: 08/12/2024 13:58 Dictated By: Wenceslao Oleary D.O. Signed By: 08/12/24 1400 DD/ 1358 TD/TT: Composition Weatherboard Applier: GLYCOHEMOGLOBIN A1C Reviewed date:08/19/2024 05:18:53 PM Interpretation: Performing Lab: Notes/Report: [facility] , Glycohemoglobin A1C 6.0 4.5-6.2 % ACTION SUGGESTED > 7.0 ADA RECOMMENDED LIMIT 4.0 - 6.0 ADA THERAPEUTIC TARGET < 7.0 Estimated Average Glucose 126 Performing Lab:see note - [facility] LBPROF CHEM 8 (BAS METB) Reviewed date:08/19/2024 05:18:53 PM Interpretation: Performing Lab: Notes/Report: [facility] ,Addxus876574-193 mmol/LPotassium3.93.5-5.1 mmol/NZlpdiwkv95536-400 mmol/LCarbon Rcgarev14.321.0-32.0 mmol/LAnion Gap16.1Mxzfcto42824-182 mg/dLBlood Urea Rwtzufje08.07.0-18.0 mg/dLCreatinine1.080.70-1.30 mg/dLEstimated GFR ( Aga>60>=60 mL/min/1.73m 2Estimated GFR (Non- Imani>60>=60 mL/min/1.73m 2BUN Creatinine Ratio24.6Azrlozy9.08.5-10.1 mg/dLPerforming Lab:see noteML - [facility] LBPTT Reviewed date:08/19/2024 05:18:53 PM Interpretation: Performing Lab: Notes/Report: [facility] ,Partial Thromboplastin Time29.722.3-36.2 secPerforming Lab:see note - [facility] LBProthrombin Time INR Reviewed date:08/19/2024 05:18:53 PM Interpretation: Performing Lab: Notes/Report: [facility] ,Prothrombin Time11.09.0-11.6 secINR1.04 DESIRED INR: 2.0-3.0 CONDITIONS NOT LISTED BELOW 2.5-3.5 RECURRENT THROMBOSIS 2.5-3.5 FOR PROSTHETIC HEART VALVE REPLACEMENT Performing Lab:see note - [facility] LBMRSA Screening Culture Reviewed date:08/23/2024 12:38:08 PM Interpretation: Performing Lab: Notes/Report: [facility] ,MRSA Screening CultureSee Below For ReportMRSA Screening CultureMRSA Screening CultureNegativeMRSA Screening CultureMRSA Screening CulturePerformed at: CB - [facility] DublinMRSA Screening CultureMRSA Screening [address] [place], [place] [id number] Screening CultureMRSA Screening CultureLab Director: Bridger Chiang PhD, Phone: [phone] Screening CulturePerforming Lab:see note LC - [facility] LB SEE REPORT - Pattern Molder Id 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 found for OBX-specific film reproducer legend FREE T3 Reviewed date:02/19/2025 01:09:17 PM Interpretation: Performing Lab: Notes/Report: [facility] ,Free T32.742.18-3.98 pg/mLPerforming Lab:see noteML - [facility] LB GLYCOHEMOGLOBIN A1C Reviewed date:02/19/2025 01:09:17 PM Interpretation: Performing Lab: Notes/Report: [facility] ,Glycohemoglobin A1C6.34.5-6.2 % ADA RECOMMENDED LIMIT 4.0 - 6.0 ACTION SUGGESTED > 7.0 ADA THERAPEUTIC TARGET < 7.0 Estimated Average Hmbnexb883Hjhcvztpwn Lab:see noteML - [facility] LB LIPID PROFILE Reviewed date:02/19/2025 01:09:17 PM Interpretation: Performing Lab: Notes/Report: [facility] ,Qnatdrahokyub015<=150 mg/lVCuixvsqqxsl533<=200 mg/dLHDL Frbuxosbvmp0372-57 mg/dL > or =60 mg/dl - LOW CARDIOVASCULAR RISK <40 mg/dl - HIGH CARDIOVASCULAR RISK LDL Cholesterol Zdrhiawrcc73.0 130-159 mg/dl BORDERLINE HIGH <100 mg/dl OPTIMAL 100-129 mg/dl NEAR OR ABOVE OPTIMAL 160-189 mg/dl HIGH >190 mg/dl VERY HIGH VLDL MHALHGNWGRJ35.0Chol HDL Ratio5.1 3.3 - 4.4 LOW RISK 4.4 - 7.1 AVERAGE RISK 7.1 - 11.0 MODERATE RISK >11.0 HIGH RISK Performing Lab:see noteML - [facility] LBPROF 14(COMP METB) Reviewed date:02/19/2025 01:09:17 PM Interpretation: Performing Lab: Notes/Report: [facility] ,Yfigkn463619-009 mmol/LPotassium3.93.5-5.1 mmol/GOuyfcutz67217-350 mmol/LCarbon Rmqtehw01.421.0-32.0 mmol/LAnion Gap14.3Gmojtdq29332-666 mg/dLBlood Urea Pkyvmkur11.07.0-18.0 mg/dLCreatinine0.970.70-1.30 mg/dLEstimated GFR ( Aga>60>=60 mL/min/1.73m 2Estimated GFR (Non- Imani>60>=60 mL/min/1.73m 2BUN Creatinine Ratio20.8Rgesijq1.48.5-10.1 mg/dLBilirubin Total0.50.2-1.0 mg/dL Aspartate Amino Stckullxzfr1201-60 U/LAlanine Cqbaktsdnekczvmz2226-08 U/L Alkaline Lsiiffsxkzq31370-877 U/LTotal Protein7.86.4-8.2 g/dLAlbumin Level3.8 3.4-5.0 g/dLGlobulin4.0Albumin Globulin Ratio0.9Performing Lab:see noteML - [facility] LBPSA SCREENING Reviewed date:02/19/2025 01:09:17 PM Interpretation: Performing Lab: Notes/Report: [facility] ,Prostate Specific Antigen Scrn0.83<=4.00 ng/mLPerforming Lab:see noteML - [facility] LBT4 Reviewed date:02/19/2025 01:09:17 PM Interpretation: Performing Lab: Notes/Report: [facility] ,T4 Thyroxine9.704.50-12.10 ug/dLPerforming Lab:see noteML - [facility] LBTSH Reviewed date:02/19/2025 01:09:17 PM Interpretation: Performing Lab: Notes/Report: [facility] ,Thyroid Stimulating Hormone0.9820.358-3.740 uIU/mLPerforming Lab:see noteML - [facility] LBURIC ACID SERUM Reviewed date:02/19/2025 01:09:17 PM Interpretation: Performing Lab: Notes/Report: [facility] ,Uric Acid4.83.5-7.2 mg/dLPerforming Lab:see noteML - [facility] LB Manual Differential Reviewed date:02/19/2025 01:09:17 PM Interpretation: Performing Lab: Notes/Report: [facility] ,Segmented Neutrophils % Gxkxjg67.043.0-75.0Lymphocytes Percent Ghlegx41.020.5- 60.0 %Monocytes Percent Manual9.01.7-12.0 %Eosinophils Percent Manual2.00.9-7.0 %Basophils Percent Manual0.00.2-2.0 %Atypical Lymphocytes % Fqxund12.0Segmented Neut Absolute Manual5.401.4-6.5 10 3/uLLymphocytes Absolute Manual2.391.20-3.80 10 3/uLMonocytes Absolute Manual0.930.30-0.80 10 3/uLEosinophils Absolute Manual 0.200.00-0.70 10 3/uLBasophils Abs Manual0.000.00-0.10 10 3/uLAtypical Lymphocytes Abs Man1.45Performing Lab:see noteML - [facility] LBCBC AUTO DIFF Reviewed date:03/25/2025 05:31:41 PM Interpretation: Performing Lab: Notes/Report: [facility] ,White Blood Count13.54.0-11.0 10 3/uLRed Blood Count5.764.70-6.10 10 6/uL Wgqnnofgpc35.414.0-18.0 g/eHOenltmwyaa32.242.0-54.0 %Mean Corpuscular Mxuvxj85.9 80.0-94.0 fLMean Corpuscular Tlbaamwvhq10.925.9-34.0 pgMean Corpuscular HGB Conc 35.929.9-35.2 g/dLRed Cell Distribution Width13.211.0-15.0 %Platelet Drivt896 150-450 10 3/uLMean Platelet Volume9.19.5-13.5 fLPerforming Lab:see noteML - [facility] LBCBC AUTO DIFF Reviewed date:02/19/2025 01:09:17 PM Interpretation: Performing Lab: Notes/Report: [facility] ,White Blood Count10.44.0-11.0 10 3/uLRed Blood Count5.534.70-6.10 10 6/uL Qnhwtfrhyb91.514.0-18.0 g/bMPfrduqvpwh66.542.0-54.0 %Mean Corpuscular Wsemyr08.5 80.0-94.0 fLMean Corpuscular Afdwehmylv61.625.9-34.0 pgMean Corpuscular HGB Conc 35.429.9-35.2 g/dLRed Cell Distribution Width13.811.0-15.0 %Platelet Ylsca482 150-450 10 3/uLMean Platelet Volume9.09.5-13.5 fLPerforming Lab:see noteML - [facility] LBCBC AUTO DIFF Reviewed date:08/19/2024 05:18:53 PM Interpretation: Performing Lab: Notes/Report: [facility] ,White Blood Count11.14.0-11.0 10 3/uLRed Blood Count4.954.70-6.10 10 6/uL Jozrtyudho52.614.0-18.0 g/qGEntwghwvdw49.342.0-54.0 %Mean Corpuscular Xeacxn92.5 80.0-94.0 fLMean Corpuscular Owbdxnoglk58.525.9-34.0 pgMean Corpuscular HGB Conc 36.629.9-35.2 g/dLRed Cell Distribution Width13.011.0-15.0 %Platelet Ujzih814 150-450 10 3/uLMean Platelet Volume9.89.5-13.5 fLNeutrophils Percent Auto52.7 43.0-75.0 %Lymphocytes Percent Auto37.220.5-60.0 %Monocytes Percent Auto7.41.7- 12.0 %Eosinophils Percent Auto1.40.9-7.0 %Basophils Percent Auto0.60.2-2.0 % Immature Granulocytes Pct Auto0.70.0-0.5 %Neutrophils Absolute Auto5.81.4-6.5 10 3/uLLymphocytes Absolute Auto4.11.2-3.8 10 3/uLMonocytes Absolute Auto0.80.3-0.8 10 3/uLEosinophils Absolute Auto0.20.0-0.7 10 3/uLBasophils Absolute Auto0.10.0- 0.1 10 3/uLImmature Granulocytes Abs Auto0.080.00-0.03 10 3/uLPerforming Lab:see noteML - [facility] LBXR foot LT min 3V Reviewed date:06/14/2024 11:33:11 AM Interpretation: Performing Lab: Notes/Report: Source Facility: [place] [address] XRay Report Signed Patient: CECIL MCRAE MR#: [id number] : 1960 Acct:[id number] Age/Sex: 63 / M ADM Date: 06/03/24 Loc: RAD Attending Dr: Gal Washington D.P.M. Ordering Physician: Gal Washington D.P.M. Date of Service: 06/03/24 Procedure(s): XR foot LT min 3V Accession Number(s): [id number] cc: Gal Washington D.P.M.; Linden Nair M.D. [place] [address] Patient Name: CECIL MCRAE MRN: [id number] date: 1960 Sex: M Assigned Patient Location: [facility] Current Patient Location: Accession/Order Number: [id number] Exam Date: 06/03/2024 12:41 Report Date: 06/04/2024 [...] M.D. Signed By: 06/04/2459 DD/ 5 TD/TT: Composition Weatherboard Applier: Reason For Referral Reason Referral to Dr. Madonna hollingsworth pain management Diagnosis 1 Unspecified mononeur opathy of left lower limb (G57.92) Referral Organization [facility] ([facility]) Referring Provider First Name Gal [facility] Referring Provider Speciality Podiatry Referred Provider Specialty Pain Medicin e Referral Priority Routine Reason Referral to PT Diagnosis 1 Unspecified mononeur opathy of left lower limb (G57.92) Referral Organization [facility] ([facility]) Referring Provider First Name Gal Referring Provider [facility] Referring Provider Speciality Podiatry Referred Provider Specialty [...] Dx:E11.9 daily to monitor blood glucose level 5ActiveTest Strips -Dx: E11.9 Dx: Diabetes Type II Once daily; Duration: 90 days5ActiveZinc 50 MG1 tablet Orally Once a day12/12/2023 [...] 1 lancet E11.9 once daily; Duration: 90 days5ActiveLevothyroxine Sodium 200 MCGTAKE 1 TABLET BY MOUTH [...] alcohol in the p ast year? No Zvoxtx1SrfsmqzlkvippqEvreghxnIjatsgw use other than smoking: Question Answer Notes Are you an other tobacco user? No AUDIT-C (Standard) Question Answer Notes Did you have a drink containing alcohol in the p ast year? No Icygiq5AcjazgyagmbwssWwfgjeisAsrrhkk Notes: He is on disability Hobbies : [...] Status Risk Notes Problem Morbid obesity (disorder) (55374 6002) Morbid (severe) obesity due to excess calories (E66.01) ActiveconfirmedProblemSleep apnea (56783374)Sleep apnea, unspecified (G47.30) ActiveconfirmedProblemMononeuropathy of lower limb (696900848)Unspecified mononeuropathy of left lower limb (G57.92)ActiveconfirmedProblemChronic pain (73903478)Other chronic pain (G89.29)ActiveconfirmedProblemPulmonary Embolism (50523886)Other pulmonary embolism without acute cor pulmonale (I26.99)Active confirmedProblemChronic diastolic heart failure (398477691)Chronic diastolic (congestive) heart failure (I50.32)ActiveconfirmedProblemOsteoarthritis of knee (890641434)Bilateral primary osteoarthritis of knee (M17.0)Activeconfirmed ProblemPrimary osteoarthritis (484204165)Unilateral primary osteoarthritis, right knee (M17.11)ActiveconfirmedProblemPain of right knee region (finding) (617512941140903)Pain in right knee (M25.561)ActiveconfirmedProblemLeft side sciatica (576159202267578)Sciatica, left side (M54.32)ActiveconfirmedProblem Sciatica (95400853)Lumbago with sciatica, left side (M54.42)Activeconfirmed ProblemHistory of arthrodesis (593752562)Arthrodesis status (Z98.1)Active confirmedProblemHypertension (42300112)Hypertension (I10)ActiveconfirmedProblem Pulmonary embolism (90478217)Pulmonary embolism (I26.99)ActiveconfirmedProblem Osteoarthritis of knee (016223696)Primary osteoarthritis of right knee (M17.11) ActiveconfirmedProblemOsteoarthritis of knee (646019517)Primary osteoarthritis of left knee (M17.12)ActiveconfirmedProblemGastroesophageal reflux disease (942807672)GERD without esophagitis (K21.9)ActiveconfirmedProblemDisplacement of lumbar intervertebral disc without myelopathy (08601492)Lumbar herniated disc (M51.26)ActiveconfirmedProblemProlapsed lumbar intervertebral disc (607733665) Lumbar disc herniation (M51.26)ActiveconfirmedProblemLumbar spinal stenosis (66448400)Lumbar spinal stenosis (M48.06)ActiveconfirmedProblemLocalized, primary osteoarthritis of the shoulder region (485304678)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)ActiveconfirmedProblemCervical radiculitis (20991020) Cervical radiculitis (M54.12)ActiveconfirmedProblemPain in left foot (951931818520125)Left foot pain (M79.672)ActiveconfirmedProblemShoulder pain (47455729)Pain in shoulder (M25.519)ActiveconfirmedProblemSprain of right knee, unspecified ligament, initial encounter (S83.91XA)ActiveconfirmedProblem Instability of right patellofemoral joint (finding) (0209616735457575)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)ActiveconfirmedProblemThrombocytosis (disorder) (5340866)Elevated platelet count (D47.3)ActiveconfirmedProblemPain of right knee region (finding) (907776830557342)Right knee pain, unspecified chronicity (M25.561)ActiveconfirmedProblemAcute tear of meniscus of right knee (disorder) (54648150156197782)Tear of meniscus of right knee as current injury, unspecified meniscus, unspecified tear type, initial encounter (S83.206A)Active confirmedProblemSpinal stenosis of lumbar region (03328505)Spinal stenosis of lumbar region, unspecified whether neurogenic claudication present (M48.061) ActiveconfirmedProblemDiabetes mellitus (33222452)Diabetes mellitus (E11.9) Activeconfirmed Vital Signs Heart Rate 32 /min 08/24/2024 Ykkixyprbjd94.8 degrees Izxxodrckh74/12/3114Ppppgdpd45 %06/03/2024lood pressure jwpeottku05 mm Hg01/28/20257485Gzyirq45 in01/28/2025lood pressure kovivjdh324 mm Hg 01/28/20250661Upzexd904.6 lbs1MI44.53 kg/m201/28/2025 Encounters Encounter Location Date Provider Diagnosis [facility] (PODIAT[facility]) [address] [place] [address] [place] [address] 06/03/2024 Gal Washington Unspecified mononeuropathy of left lower limb G57.92 ; Sciatica, left side M54.32 ; Lumbago with sciatica, left side M54.42 ; Left foot pain M79.672 and Other chronic pain G89.29 [facility] [address] [place] [address] 08/24/2024 Kike Hoy Lumbar disc herniation M51.26 [facility] [address] [place] [address] 09/11/2024 Kike Hoy Lumbar disc herniation M51.26 and Hypertension I10 [facility] [address] [place] [address] 10/29/2024 Kike Hoy Morbid (severe) obesity due to excess calories E66.01 ; Lumbar disc herniation M51.26 ; Hypertension I10 and Diabetes mellitus E11.9 [facility] [address] [facility] [place] [address] 01/28/2025 Kike Hoy Lumbar herniated dis c M51.26 ; Hypertension I10 ; Diabetes mellitus E11.9 and GERD without esophagitis K21.9 [facility] [address] [facility] [place] [address] 05/22/2024 Kike Hoy Pain in shoulder M25.519 [facility] [address] [facility] [place] [address] 05/20/2024 Kike Hoy Chronic diastolic (congestive) heart failure I50.32 and Diabetes mellitus E11.9 [facility] [address] [facility] [place] [address] 05/21/2024 Kike Hoy [facility] [facility] [place] [address] 05/25/2024Doug HoyCalf pain, left M79.662[facility] [facility] [place] [address]/12/2024[facility] [place] [address]/Doug [facility]oyBV[facility] [place] [address]/06/2024 [facility] [facility] [place] [address]/Doug [facility] [facility] [place] [address]/Doug [facility] [place] [facility] [place] [address]/Doug [facility] [facility] [place] [address]/Doug [facility] [facility] [place] [address]/ [facility] [facility] [place] [address]/Doug HoyDiabetes mellitus E11.9BLongs [facility] [facility] [place] [address]/Doug [facility] [facility] [place] [address]/ [facility] [facility] [place] [address]/Doug HoyElevated platelet count D47.3BVLongs [facility] Hospital[address] [place] [place] [address]/05/2024Doug HoyDiabetes mellitus E11.9BLongs [facility] [facility] [place] [address]/07/2024Doug HoyHypertension I10 and Elevated platelet count D47.3 Assessments [...] provided. Patient will follow-up with me as ciawdy6506/03/2024 Sciatica, left side (ICD-10 - M54.32)08/24/2024Lumbar disc herniation (ICD-10 - M51.26)Cleared for OR09/11/2024Lumbar disc herniation (ICD-10 - M51.26)drains cuozkof4209/11/2024Hypertension (ICD-10 - I10)checkion more at home10/29/2024 Morbid (severe) obesity due to excess calories (ICD-10 - E66.01)diosucssed eet - adninc jkfpeyuu08/10/2025Lumbar disc herniation (ICD-10 - M51.26)pain decnet rayzfdy3501/28/2025Lumbar herniated disc (ICD-10 - M51.26)01/28/2025Hypertension (ICD-10 - I10)5Chronic diastolic (congestive) heart failure (ICD-10 - I50.32)5Calf pain, left (ICD-10 - M79.662)02/03/2025Diabetes mellitus (ICD-10 - E11.9)02/19/2025Elevated platelet count (ICD-10 - D47.3)03/23/2025 Diabetes mellitus (ICD-10 - E11.9)03/25/2025Hypertension (ICD-10 - I10) 03/25/2025Elevated platelet count (ICD-10 - D47.3)05/20/2024Diabetes mellitus (ICD-10 - E11.9)01/28/2025Diabetes mellitus (ICD-10 - E11.9)10/29/2024 Hypertension (ICD-10 - I10)stable here06/03/2024Lumbago with sciatica, left side (ICD-10 - M54.42)06/03/2024Left foot pain (ICD-10 - M79.672)10/29/2024Diabetes mellitus (ICD-10 - E11.9)not checking -01/28/2025GERD without esophagitis (ICD- 10 - K21.9)06/03/2024Other chronic pain (ICD-10 - G89.29)05/20/2024Other Recommended to rest and use a heating pad on the area. Take NSAIDs for pain as ruxcym1209/11/2024OtherDiscussed increasing physical exercise and continuing/implementing a healthier [...] OCCULT BLOOD 07/26/2023 STOOL OCCULT BLOOD 12/12/2022 CBC AUTO DIFF 03/25/2025 PROF 14(COMP METB) 03/25/2025 THYROID PANEL (T4/TSH/FREE T3) 4 THYROID PANEL (T4/TSH/FREE T3) 3 THYROID PANEL (T4/TSH/FREE T3) 5 PSA, SCREENING 01/28/2025 CMP (COMP MET MORALES) w/eGFR CKD-EPI 2024 CBC WITH DIFF 01/28/2025 Next Appt Details Provider Name:Kike Nair, 11:15:00 AM, [address] [place], [address], Insurance Providers Payer Name Payer Address Payer Phone Subscriber Number Group Number Insured Name Patient Relationship to Insured Coverage Start Date Coverage End Date [employer] MED[employer]ARE [address] [address] [place], [place] [id number] Cecil Mcrae Self - patient is the insured 3 Medications Administered Medication Instructions Date of Administration Dosage Notes Bupivacaine mLDEPO-Givagx86 mLDepo-Medrol, 80 mg/mL mL Dhcmanwa29 gEBuutbggv96/16/202360 pNWikryxtb60/14/202460 mLGel-Syn mLGel-Syn mLGel-Syn10 mLGel-Syn mL Gel-Syn mLGel-Syn mLGel-Syn07 mLGel-Syn07 2 mLGel-Syn mLGelsyn-307 mLGelsyn-308 mLKenalog-40 mgKenalog-401 mgKenalog-401 mLKenalog, 80 mg/mL (40mg/mL x 2 units) mLKenalog, 80 mg/mL (40mg/mL x 2 units) mLKenalog, 80 mg/mL (40mg/mL x 2 units) mLKenalog, 80 mg/mL (40mg/mL x 2 units) mLKetorolac Cygjaqhkhnnp96/07/202360 mg Ketorolac Yfvmjxhcvqap79/08/202360 mgKetorolac Qjonprvvuajj42/29/202560 mg Ketorolac Hwxcjxezxsgl73/31/202560 mgOrphenadrine Rybhuwp70 mg Orphenadrine Dzuzgum53 mgSodium Tsamjode82 mLSodium Chloride 0.9%, 10 mL12/19/2020.5 mLSodium Chloride 0.9%, 10 mL mLSodium Chloride 0.9%, 10 mL mLSodium Chloride 0.9%, 10 mL mL Triamcinolone 40 mg/ml20 mgTriamcinolone 40 mg/ml mg Medical (General) History Medical History History [...]
--- OUTSIDE RECORDS SUMMARY | 2025-04-08 14:52 | XMS_ITS | Clinical Summary ---
Author Organization [facility] Address [address] [place] [address] Care Team Providers Care Fretted Instruments Inspector Name Role Phone Dakotah Nair MD Primary Care Provider [phone] Allergies Active AllergyReactionsCriticalityNoted DateCommentsCodeineAnaphylaxisHigh 08/17/2021 Medications MedicationSigDispense [...] by mouth in the morning. 90 tablet /[id number]/6Active metoprolol tartrate (Lopressor) 25 mg tablet Indications:Coronary artery disease involving [place] coronary artery of [place] heart without angina pectoris,PVC (premature ventricular contraction)Take 1 tablet (25 mg) by mouth two times daily. 180 tablet 5008/04/2025ctive Active Problems ProblemNoted DateDiagnosed DateArthrodesis uopyyg5608/11/2024Degeneration of intervertebral disc of lumbar region with discogenic back pain and lower extremity pain08/11/2024Spondylolisthesis, lumbar aketih7508/11/2024PVC (premature ventricular contraction)05/04/2022 Assessment & Plan (05/04/2022 12:55 PM EST): - Frequent ventricular bigeminy during cardiac rehab -Has been having symptoms of lightheadedness, dizziness and had a syncopal episode recently -30 day event monitor and follow up with Dr. Marsh with results Syncope and /13/2023 Assessment & Plan (05/04/2022 12:56 PM EST): -recent episode but did not feel palpitations prior to syncope -PCP decreased lisinopril to 20mg daily vs 40mg -follow up in 3 months with event monitor with Dr. Marsh -report to ED if syncopal again Primary osteoarthritis of right prdqwqeq85/11/2023History of pulmonary embolism 02/26/2022Factor 5 Leiden mutation, risfqwgwnxzs66/07/2022hronic diastolic congestive heart fblxrdc6902/26/2022oronary artery disease involving [place] coronary artery of [place] heart without angina /07/2022rimary uzlhizvienzj56/07/2022 Assessment & Plan (05/04/2022 12:57 PM EST): -stable today -will not increase lisinopril back to 40mg daily at this time due to recent syncope until we have more conclusive results with event monitor Xgnvzxbjmhanks12/02/2022ulmonary zepbpkzo60/02/2022Family history of pulmonary hohbrlph89/14/2022Hereditary cwwnrshwoocxh59/14/2022bnormal EKG008/17/2021hest pain on mglujydzu87/28/2022Elevated troponin I /28/2022 Encounters DateTypeDepartmentCare VucxAltzhkfxare51/30/2025Telephone [facility] [place] [address] [place] [address] Kareen Blum MA from Last 3 Months Immunizations ImmunizationAdministration DatesNext DueInfluenza, Yjvmekxehjj40/09/2017 Family History Medical HistoryRelationNameCommentsDeep vein thrombosisBrotherHeart failure [...] Recorded Sex Assigned at BirthNot on fileLegal OqnFyix9311/14/2021 3:16 PM EDTGender IdentityNot on fileSexual OrientationNot on file Last Filed Vital Signs Vital SignReadingTime TakenCommentsBlood Hgfyftjj616/7204 2:18 PM EDT Xxzbv858008/12/2024 2:18 PM EDTTemperature--Respiratory Laha1304 1:28 PM EDTOxygen Oxubmegaqm45%08/12/2024 2:18 PM EDTInhaled Oxygen Concentration-- Hbxhou532 kg (297 lb)08/12/2024 2:18 PM RBWBiabbg031.3 cm (5' 9 )08/12/2024 2:18 PM EDTBody Mass Index43.8608/12/2024 2:18 PM EDT Plan of Treatment Health MaintenanceDue DateLast DoneCommentsCT Nysjvddlkdmz22/25/1960Colonoscopy 1959Colorectal Cancer Pipgenwsj38/25/1960FIT-DNA1959FIT1959 FOBT1959Medicare Annual Wellness (AWV)1959Medicare Initial Physical (IPPE)1959 0064Sygxxfnvulxxm20/25/1960HIB Vaccines (1 of 1 - Risk 1-dose series)02/13/1961Meningococcal Vaccine (1 - Risk 2-dose series)11/13/1961 Meningococcal B Vaccine (1 of 4 - Increased Risk)11/13/1969Depression Screening 1971Pneumococcal Vaccine: 50+ Years (1 of 2 - PCV)11/13/1978Adult Tetanus 11/13/1981Zoster Vaccines (1 of 2)11/13/2009Fall Risk Tzvpjqmmp16/25/2025COVID- 19 Vaccine (1 - season)2024Influenza Vaccine (#1)2024 01/28/2017HPV VaccinesAged OutNo longer eligible based on patient's age to complete this topicIPV VaccinesAged OutNo longer eligible based on patient's age to complete this topicRotavirus VaccinesAged OutNo longer eligible based on patient's age to complete this topic Medical Devices ImplantedTypeAreaManufacturerDevice IdentifierShelf Expiration DateModel / Serial / LotStentFlor 2.75 X 20 - [id number] - [id number] Implanted:Qty: 1 on 01/16/2022 by [facility]anny Melton [facility] El[facility]entBoston [id number]/16/2023 [id number] / [id number] / [id number] Insurance Advance Directives * Full Code (Latest Code Status on File) Date ActivatedDate InactivatedComments01/16/2022 11:59 AM01/16/2022 7:03 PM Care Teams Team MemberRelationshipSpecialtyStart DateEnd Date Dakotah Nair MD [address] [facility] [address] [address] PCP - General01/16/22
--- OUTSIDE RECORDS SUMMARY | 2025-04-08 14:52 | XMS_ITS | Clinical Summary ---
Author Organization [facility] Address [address], [address] [place] [address] Care Team Providers Care Emergency Care Attendant Name Role Phone Dakotah Nair MD Primary Care Provider [phone] Allergies Active AllergyReactionsCriticalityNoted DateCommentsCodeineAnaphylaxisHigh 08/24/2024 Medications MedicationSigDispense [...] Safety Domain Source: IP Abuse ScreeningAnswerDate RecordedPhysical hjyeeNdooyu27/13/2025Verbal cjoeaGzyldz13/13/2025Emotional otgesPdmurk34/13/2025Financial wrdboSetanw61/13/2025Sexual tafciFqwxnc84/13/2025 Sex and Gender InformationValueDate RecordedSex Assigned at BirthNot on file Legal PzsNmci0406/01/2012 6:30 PM ESTGender IdentityNot on fileSexual Orientation Not on file Last Filed Vital Signs Vital SignReadingTime TakenCommentsBlood Lfycqivi886/75009/06/2024 12:30 PM EDT Myulx748009/06/2024 12:30 PM MRVDxljjithdps45.5 ??C (97.7 ??F)09/06/2024 12:30 PM EDTRespiratory Egzd291809/06/2024 12:30 PM EDTOxygen Dhguajrvfz02%09/06/2024 12:30 PM EDTInhaled Oxygen Concentration--Tnhcrg116.8 kg (321 lb 6.9 oz)09/01/2024 6:30 PM TDUDriqrr147.5 cm (5' 9.5 )09/01/2024 11:00 AM EDTBody Mass Index46.79 09/01/2024 11:00 AM EDT Plan of Treatment Health MaintenanceDue DateLast DoneCommentsHib vaccine (1 of 1 - Risk 1-dose series)02/13/1961Meningococcal (ACWY) vaccine (1 - Risk 2-dose series)11/13/1961 Meningococcal B vaccine (1 of 4 - Increased Risk)11/13/1969Depression Screen 1971HIV qfqfym5711/13/1974Hepatitis C kyfxzz0611/13/1977DTaP/Tdap/Td vaccine (1 - Tdap)11/13/1978Pneumococcal 50+ years Vaccine (1 of 2 - PCV)11/13/1978 Bhwbrk5811/14/19991967Jdfmsmwstwk26/25/2005Colorectal Cancer Vfjqci7211/13/2004FIT/FOBT: Average risk11/13/2004Fecal-DNA (Cologuard): Average risk11/13/2004 Sigmoidoscopy/CT wagkevhaifez38/25/2005Shingles vaccine (1 of 2)11/13/2009 Respiratory Syncytial Virus (RSV) or age 60 yrs+ (1 - Risk 60-74 years 1-dose series)2019Annual Wellness Visit (Medicare)5AAA screen 11/13/2024Flu vaccine (#1)511/, 01/27/2020, 01/28/2017COVID-19 Vaccine ( - season)2024A1C test (Diabetic or Prediabetic) Diabetes jccmqwDvenkmxltroy19/15/2025Hepatitis A vaccineAged OutNo longer eligible based on patient's age to complete this topicHepatitis B vaccineAged OutNo longer eligible based on patient's age to complete this topic Polio vaccineAged OutNo longer eligible based on patient's age to complete this topic Medical Devices ImplantedTypeAreaManufacturerDevice IdentifierShelf Expiration DateModel / Serial / LotScrew/Plate/Nail/RodScrew/Plate/Nail/RodN/A: BackStent:Coronary Stent:CoronaryN/A: HeartGraft Bone 4-10mm 30ml Canc Cube - [id number] Implanted:Qty: 1 on 09/01/2024 [facility] Spine LumbarMEDTRONIC SPINALGRAFT TECH-WD09/08/2028 [id number] / / Set Screw 5.5-6.0 - [id number] Implanted:Qty: 8 on 09/01/2024 by [facility]: Spine LumbarSURGALIGN SPINE [employer]CHN[employer] INC [id number] / / Screw Poly Solid 7.5x45 - [id number] Implanted:Qty: 2 on 09/01/2024 by [facility]: Spine LumbarSURGALIGN SPINE TECHNOLOG[employer] INC [id number] / / Screw Poly Solid 7.5x50 - [id number] Implanted:Qty: 6 on 09/01/2024 by [facility]: Spine LumbarSURGALIGN SPINE TECHNOLOGIES INC [id number] / / Dickson Ti Prebent 5.5x100 - [id number] Implanted:Qty: 2 on 09/01/2024 by [facility]: Spine LumbarSURGALIGN [employer]INE [employer]CHN[employer] INC [id number] / / Connector Spnl M Streamline Tl Davon X Link - [id number] Implanted:Qty: 1 on 09/01/2024 by [facility]: Spine LumbarSURGALIGN SPINE TECHNOLOGIES [id number] / / Allograft Bne Bridge 50x25 Mm 24 Cc Bioadapt - [id number] Implanted:Qty: 1 on 09/01/2024 by [facility]: Spine LumbarSURGALIGN SPINE TECHNOLOGIES INC01/31/2027 [id number] / [id number] / [id number] Procedures Procedure NamePriorityDate/TimeAssociated DiagnosisCommentsHEMOGLOBIN F7NPqhzxmw 09/03/2024 6:20 AM EDT from Last 3 Months or Most Recently Relevant to Health Maintenance Results * (ABNORMAL) Hemoglobin A1c (09/03/2024 6:20 AM EDT)ComponentValueRef RangeTest MethodAnalysis TimePerformed AtPathologist SignatureHemoglobin A1C6.2(H)4.0 - 6.0 %09/03/2024 7:23 AM [facility] Estimated Avg Qzrkiiq32546 - 126 mg/dL09/03/2024 7:23 AM [facility] LABComment:Performed at [facility] [address] [place], [place] [address]Specimen (Source)Anatomical Location / Laterality Collection Method / VolumeCollection TimeReceived TimeBloodBLOOD SPECIMEN / Fnnyhgz3809/03/2024 6:20 AM EDT09/03/2024 6:52 AM EDT Narrative Authorizing ProviderResult TypeResult StatusOluremi A Nate MDCHEMISTRY ORDERABLES Final ResultPerforming OrganizationAddressCity/State/ZIP CodePhone Number [facility] [address] [place] [phone], [facility] [phone] [facility] [address] [place] [address], [facility] [phone] from Last 3 Months or Most Recently Relevant to Health Maintenance Insurance Advance Directives * Full Code (Latest Code Status on File) Date ActivatedDate InactivatedComments09/01/2024 10:54 AM09/06/2024 5:48 PM Care Teams Team MemberRelationshipSpecialtyStart DateEnd Date Dakotah Nair MD [address] [place] [address] PCP - GeneralFamily Medicine08/27/24
--- OUTSIDE RECORDS SUMMARY | 2025-04-08 14:52 | XMS_ITS | Clinical Summary ---
Author Organization [facility] Address [address] [place] [address] Care Team Providers Care Manager Strategy Name Role Phone Unavailable Primary Care Provider Unavailabl e Social History Tobacco UseTypesPacks/DayYears UsedDateSmoking Tobacco: Never AssessedSex and Gender InformationValueDate RecordedSex Assigned at BirthNot on fileLegal Sex Male07/04/2022 8:28 PM EDTGender IdentityNot on fileSexual OrientationNot on file Plan of Treatment Not on file
--- OUTSIDE RECORDS SUMMARY | 2025-04-08 14:53 | XMS_ITS | Patient Health Record ---
Author Organization [facility] Address [address] [place] [address] Care Team Providers Care Crystal Report Developer Name Role Phone Dakotah Nair Primary Care Provider Unavaileris vera St Slaughter Verónica Unavailable [phone] Fabiano Lackey Unavailable [phone] Enmanuel Geiger Unavailable [phone] Anjali Irizarry Unavailable [phone] Allergies Allergen (clinical drug ingredient) Drug/Non Drug Allergy documented on EMR Reaction Allergy Type Onset Date Status codeine codeine Unknown Drug Allergy Active Results Component Value Reference Range Notes Surgery Scheduling (Not yet reviewed by provider) Interpretation:Pre-Op orders: CBC,BMP,PT/PTT, TYPE AND SCREEN, HGA1C,EKG,Chest X-ray,MRSA NASAL SWAB Performing Lab: Notes/Report: Pre-Op orders: CBC,BMP,PT/PTT, TYPE AND SCREEN, HGA1C,EKG,Chest X-ray,MRSA NASAL SWAB Primary Insurance Company: [employer] [facility] Surgeon/Assist:ST SLAUGHTER/FABIANO OR ALEXISSurgery Location:[facility]urgery Date & Time:09/01/24 @ 11AMHosp arrival time day of:9:00AMSurgery End Time:2:00PM Procedure:L2-S1 DECOMPRESSION AND FUSIONSpecial Equipment:SSEP, CELL SAVER, PRONE, JB TABLE, SURGALIGNDiagnosis:M48.062 STENOSISAdmission Type: INPATIENTAnesthesia Type/CPNB:GENERALPost-op Appointment Date:10/09/24 @ 9:50AM [facility] Physician:FERNANDO 08/24/24 @ 10:30AMClejeanece Appt Date/TMUUKARBEL FAX FORMHistory & Physical Appointment Date/:08/28/24 @ 11:30 FINDLAYXR LUMBAR SPINE 1 VW Reviewed date:09/09/2024 02:17:54 PM Interpretation: Performing Lab: Notes/Report: MOBILE LATERAL LUMBAR SPINE: [facility] [address], [place] [address], Original Ordering Provider: Stephie HOLLINGSWORTH Provider Role: OrderingXR LUMBAR SPINE 1 VW Reviewed date:09/09/2024 02:17:54 PM Interpretation: Performing Lab: Notes/Report: MOBILE LATERAL LUMBAR SPINE: [facility] [address], [place] [address], Original Ordering Provider: Stephie HOLLINGSWORTH Provider Role: Ordering Reason For Referral Reason NO AUTH REQ......... ..........................NOT SCHEDULED......................................[facility] MRI LUMBAR TO BE DONE AT [facility] Diagnosis 1 Aftercare following surgery of the musculoskeletal system (Z47.89) Referral Organization [facility] Referring Provider First Name Verónica Referring Provider Last Name St Slaughter Referring Provider Speciality Orthopedic Surgery Referred Organization [facility] Referred Address [address] [place], [place],[address], Procedure 1 MRI Lumbar Spine w/o Dye (39524) General Notes Suzy Valle 2024 11:31:34 AM >, [place] Ralph 06/12/2024 11:48:43 AM > [facility] ACTIVE AND EFFECTIVE 04/22/24 PER [facility] PROVIDER PORTAL. NO AUTHORIZATION REQUIRED. FAXED TO Howard HAMILTON Sara 06/17/2024 08:08:01 AM > faxed Referral Priority Routine Reason bone stim Diagnosis 1 Lumbosacral stenosis with neurogenic claudication (M48.07) Referral Organization [facility] Referring Provider First Name Verónica Referring Provider Last Name St Slaughter Referring Provider Speciality Orthopedic Surgery Referred Organization [facility] Referred Address [address] [place], [place],[address],[place] General Notes Renetta Smith 08/26/2024 09:48:54 AM > all clinical sent to [facility] for bone stim Referral Priority Routine Reason APPROVED OUTPATIENT...................................09/01/24............................ ..........[facility] L2-S1 DECOMPRESSION AND FUSION 74737, 78275 x3, 88138, 50938 x4, 58734, Diagnos is 1 Lumbar stenosis with neurogenic [...] r Special ity Orthopedic Surgery Referre d [facility] Outpatient Referre d Address [address] [place] [address],[place], [place],[id number],[place] Procedu re 1 Arthrodesis, posterior lumbar, 1 lumbar level (62190) Procedu re 2 Arthrodesis single, each addn'l level, p osteriolateral technique (02238) Procedu re 3 Laminectomy, facetectomy and foraminotom y single lumbar (58774) Procedu re 4 Laminectomy, facetectomy and foraminotom y additional vertebral segment (67167) Procedu re 5 Posterior segmental instrumentation, 3 t o 6 segments (83355) Procedu re 6 Autograft for spine surgery only; local obtained from same incision () General Notes Suzy Valle 07/29/2024 09:20:52 AM >, Belem Ralph 07/29/2024 10:59:27 AM > [facility] ACTIVE AND EFFECTIVE 04/22/24 PER [facility] PROVIDER PORTAL. AUTHORIZATION REQUEST SUBMITTED OUTPATIENT WITH CLINICALS VIA [facility] PROVIDER PORTAL, PENDING AUTHORIZATION # [id number], Ramo Belem 08/05/2024 08:50:09 AM > PENDING STILL PER [facility] PROVIDER PORTAL., Suzy Valle 08/17/2024 02:37:14 PM [...] 01:40:23 PM > THANK YOU, FAXED TO [facility]. Referra l Priorit y Routine Reason referral to [facility] ; lumbar pain eval and treat Diagnosis 1 Spondylolisthesis, l umbar region (M43.16) Referral Organization [facility] Referring Provider First Name Verónica Referring Provider Last Name St Slaughter Referring Provider Speciality Orthopedic Surgery Referred Organization [facility] Referred Address [address] ,[place], [place],[address],[place] General Notes Jamia Lawrence 05/2024 08:34:33 AM > Referral Priority Routine Reason WRONG CHART Diagnosis 1 Aftercare following surgery of the musculoskeletal system (Z47.89) Referral Organization [facility] Referring Provider First Name Enmanuel Referring Provider Last Name Fely Referring Provider Speciality Physician Joint Finisher Referred Organization [facility] Referred Address [address] ,[place], [place],[address],[place] General Notes Suzy Valle 2024 02:12:33 PM > Referral Priority Routine Medications Medication SIG (Take, Route, Frequency, Duration) Notes Start Date End Date Status Flexeril 10 mg 1 tab(s) orally 3 times a day pr n muscle spasms 5Active Problems Problem Type SNOMED Code ICD Code Onset Dates Problem Status W/U Status Risk Notes Problem Degeneration of intervertebral disc of lumbosacral region with discogenic back pain and lower extremity pain (M51.372)ActiveconfirmedProblemDegeneration of intervertebral disc of lumbar region with discogenic back pain and lower extremity pain (M51.362)ActiveconfirmedProblemPostoperative care (regime/therapy) (126980077)Encounter for postoperative care (Z48.89)Active confirmedProblemSpinal stenosis of lumbar region (59051314)Lumbosacral stenosis with neurogenic claudication (M48.07)ActiveconfirmedProblemAcquired spondylolisthesis (816609491)Spondylolisthesis, lumbar region (M43.16)Active confirmedProblemHistory of arthrodesis (390427392)Arthrodesis status (Z98.1) Activeconfirmed Encounters Encounter Location Date Provider Diagnosis [facility] [address] [place] [address] 06/12/2024 Anjali xxWhiteland Spondylolisthesis, lumbar region M43.16 ; Degeneration of intervertebral disc of lumbar region with discogenic back pain and lower extremity pain M51.362 and Arthrodesis status Z98.1 [facility] Office [address] [place] [address] 07/03/2024 Anjali xxWhiteland Spondylolisthesis, lumbar region M43.16 ; Degeneration of intervertebral disc of lumbosacral region with discogenic back pain and lower extremity pain M51.372 ; Lumbosacral stenosis with neurogenic claudication M48.07 and Arthrodesis status Z98.1 [facility] Office [address] [place] [address] 08/28/2024 Enmanule Suarezo Arthrodesis status Z98.1 ; Spondylolisthesis, lumbar region M43.16 ; Lumbosacral stenosis with neurogenic claudication M48.07 and Degeneration of intervertebral disc of lumbosacral region with discogenic back pain and lower extremity pain M51.372 [facility] Outpatient [address] [place] [id number] 09/01/2024 Verónica Hernandez Clair Lumbosacral stenosis with neurogenic claudication M48.07 ; Degeneration of intervertebral disc of lumbosacral region with discogenic back pain and lower extremity pain M51.372 and Spondylolisthesis, lumbar region M43.16 [facility] [address] [place] [address] 10/16/2024 Fabiano Lackey Aftercare following surgery of the musculoskeletal system Z47.89 [facility] [address] [place] [address] 11/27/2024 Enmanuel Diglio Encounter for postoperative care Z48.89 [facility] [address] [place] [address] 02/25/2025 Enmanuel Diglio Aftercare following surgery of the musculoskeletal system Z47.89 [facility] [address] [place] [address] 09/10/2024 Enmanuel Diglio Aftercare following surgery of the musculoskeletal system Z47.[address] [place] [address] 09/15/2024 Enmanuel Diglio Aftercare following surgery of the musculoskeletal system Z47.89 [facility] [address] [place] [address] 09/24/2024 Enmanuel Diglio Aftercare following surgery of the musculoskeletal system Z47.89 [facility] [address] [place], [place] [phone] 10/01/2024 Enmanuel Diglio Aftercare following surgery of the musculoskeletal system Z47.89 [facility] [address] [place] [address] 10/08/2024 Enmanuel Diglio Aftercare following surgery of the musculoskeletal system Z47.89 [facility] [address] [place] [address] 10/14/2024 Enmanuel Diglio Aftercare following surgery of the musculoskeletal system Z47.89 [facility] [address] [place] [address] 10/22/2024 Enmanuel Diglio Aftercare following surgery of the musculoskeletal system Z47.89 [facility] [address] [place] [address] 11/04/2024 Enmanuel Diglio Spondylolisthesis, lumbar region M43.16 [facility] [address] [place] [address] 11/11/2024 Enmanuel Diglio Aftercare following surgery of the musculoskeletal system Z47.89 [facility] [address] [place] [address] 11/18/2024 Enmanuel Diglio Aftercare following surgery of the musculoskeletal system Z47.89 [facility] [place] [address] [place] [address] 12/10/2024 Enmanuel Diglio Aftercare following surgery of the musculoskeletal system Z47.89 [place] [address] [place] [address] 12/17/2024 Selvon Milton Spondylolisthesis, lumbar region M43.16 ; Arthrodesis status Z98.1 and Aftercare following surgery of the musculoskeletal system Z47.89 [facility] [address] [place] [address] 10/01/2024 Selvon Milton Assessments Encounter Date Diagnosis [...] 6 weeks status post L2-S1 decompression L2-L5 irxalm6510/22/2024 Aftercare following surgery of the musculoskeletal system (ICD-10 - Z47.89) 11/04/2024Spondylolisthesis, lumbar region (ICD-10 - M43.16)11/11/2024ftercare following surgery of the musculoskeletal system (ICD-10 - Z47.89)11/18/2024 Aftercare following surgery of the musculoskeletal system (ICD-10 - Z47.89) 11/27/2024Encounter for postoperative care (ICD-10 - Z48.89)1. 3-month status post L2-S1 decompression L2-5 qtqriv8212/10/2024ftercare following surgery of the musculoskeletal system (ICD-10 - Z47.89)09/01/2024Lumbosacral stenosis with neurogenic claudication (ICD-10 - M48.07)12/17/2024rthrodesis status (ICD-10 - Z98.1)12/17/2024Spondylolisthesis, lumbar region (ICD-10 - M43.16)02/25/2025 Aftercare following surgery of the musculoskeletal system (ICD-10 - Z47.89)1. 6- month status post L2-S1 decompression and L2-5 mizomk6209/01/2024Degeneration of intervertebral disc of lumbosacral region with [...] 6 weeks status post L2-S1 decompression L2-L5 ezqknb0411/27/2024Other Plan established by Dr. Cespedes. At this [...] 1. 3-month status post L2-S1 decompression L2-5 henzmf3002/25/2025Other Plan established by Dr. Cespedes. Patient slowly [...] Date Lumbar spine, 4v flex ext - 13620 2024 Lumbar spine 2v ap and lat - 42638 10/16 Lumbar spine 2v ap and lat - 50337 11/27 Walker w/ Wheels OTS 08/28/2024 Surgery [...] 08/28/2024 Lumbar spine, 4v flex ext - 62423 2024 MRI : Lumbosacral Spine W/O Contrast - 7 214706/12/2024 Future Test Test Name Order Date Chest 2 views - 55006 07/29/2024 CBC 07/29/2024 HGB A1C 07/29/2024 PT/PTT 07/29/2024 BMP 07/29/2024 MRSA (Bilateral Nares) PCR 07/29/2024 EKG 07/29/2024 Next Appt Details Provider Name:Verónica Hernandez Cl air, 08/26/2025 01:00:00 PM, [address] [place] [address], [phone], Insurance Providers Payer Name Payer Address Payer Phone Subscriber Number Group Number Insured Name Patient Relationship to Insured Coverage Start Date Coverage End Date MEDICARE U[employer] AARP [address] [address] [place], [place] [phone] [id number] Jayden HAMMOND - patient is the [id number] 2024 Medical (General) History Medical History History ICD Code High Blood Pressure Abnormal Heart RhythmGastric RefluxBlood Clots in Legs/LungsSleep apneaCPAP Machine: UsesSurgical History Surgery Date(Month/Year) Discectomy 1994 L2-S1 laminectomy, PSF 08/2024 Laminectomy 2017 Back fusion 12/2001
--- OUTSIDE RECORDS SUMMARY | 2025-04-08 14:53 | XMS_ITS | Clinical Summary ---
Author Organization [facility] Address [id number] [address] [place] [address] Care Team Providers Care Child Welfare Assistant Name Role Phone Dakotah Nair MD Primary Care Provider [phone] [phone] Active AllergyReactionsCriticalityNoted DateCommentsCodeineAnaphylaxisHigh 08/17/2021 Medications MedicationSigDispense [...] Active Problems ProblemNoted DateDiagnosed DateHistory of pulmonary maqafmbs54/14/2022Family history of pulmonary /14/2022Hereditary elsryrgailbhk68/14/2022hest pain on fwrkasfkt45/28/2022bnormal EKG008/17/2021Elevated troponin I measurement 08/17/2021Essential waktvcelwhhc88/28/2022 Resolved Problems ProblemNoted DateDiagnosed DateResolved DatePulmonary tjgaurya42/28/2022 11/02/2021 Immunizations ImmunizationAdministration DatesNext DueInfluenza, Injectable, Mdck, Preservative Free, Quad03/15/2021,01/27/2020Influenza, Ybanaimpjqv74/09/2017 Social History Tobacco UseTypesPacks/DayYears UsedDateSmoking Tobacco: FormerSmokeless Tobacco: NeverAlcohol UseStandard Drinks/WeekCommentsNever0 (1 standard drink = 0.6 oz pure alcohol)PHQ-2AnswerDate RecordedTotal Tccmh39611/02/2021hildcareAnswerDate FisntbyzPnuyvtxmbAvhnjuz95/13/2019EmploymentAnswerDate RecordedEmploymentUnknown 10/02/2018Purpose - LifeAnswerDate RecordedPurpose and direction in lifeUnknown 06/02/2020ex and Gender InformationValueDate RecordedSex Assigned at BirthNot on fileLegal HgdDbqk8011/19/2016 12:48 PM EDTGender IdentityNot on fileSexual OrientationNot on fileOccupationIndustryJob Start DateJob End DateNot on fileNot on fileNot on fileNot on file Last Filed Vital Signs Vital SignReadingTime TakenCommentsBlood Chqzfxph464/7607 2:35 PM EDT Rtkcs315411/02/2021 2:35 PM IEGHwshwbhdjmk26.1 ??C (98.8 ??F)08/22/2021 8:00 AM EDTRespiratory Fybk420908/22/2021 12:00 PM EDTOxygen Lnepmcszim31%08/22/2021 12:00 PM EDTInhaled Oxygen Concentration--Ickhbu256.2 kg (313 lb 7.9 oz)11/02/2021 2:35 PM TSZIlftuh216.9 cm (5' 9.65 )11/02/2021 2:35 PM EDTBody Mass Index45.43 11/02/2021 2:35 PM EDT Plan of Treatment Health MaintenanceDue DateLast DoneCommentsDepression Srbidewqj02/25/1972Tobacco Amksilyiv06/25/1972Adult BMI Idgaabrfx88/25/1978DTaP,Tdap and Td Vaccines (1 - Tdap)11/13/1978Zoster (Shingles) Vaccine (1 of 2)11/13/2009Fall Risk Screening 11/13/2024Influenza Ylxpytb59/01/969425/, 01/27/2020, 01/28/2017RSV ( or age 60+ yrs) (1 - 1-dose 75+ series)11/13/2034 Medical Devices Not on file Insurance Advance Directives * Full Code (Latest Code Status on File) Date ActivatedDate InactivatedComments08/17/2021 6:14 PM08/22/2021 4:01 PM Care Teams Team MemberRelationshipSpecialtyStart DateEnd Date Dakotah Nair MD PCP [facility]/02/21
[2025-04-08 15:08] LABS: Hematocrit 47.4 % (42.0-54.0); Hemoglobin 17.2 g/dL (14.0-18.0); Immature Granulocytes Abs Auto 0.03 10^3/uL (0.00-0.03); Immature Granulocytes Pct Auto 0.3 % (0.0-0.5); Lymphocytes Absolute Auto 4.1 10^3/uL (1.2-3.8); Mean Corpuscular HGB Conc 36.3 g/dL (29.9-35.2); Mean Corpuscular Hemoglobin 32.2 pg (25.9-34.0); Mean Corpuscular Volume 88.8 fL (80.0-94.0); Platelet Count 486 10^3/uL (150-450); Red Blood Count 5.34 10^6/uL (4.70-6.10); White Blood Count 10.3 10^3/uL (4.0-11.0)
[2025-04-08 15:16] LABS: Alanine Aminotransferase 39 U/L (16-63); Albumin Globulin Ratio 0.9; Albumin Level 3.7 g/dL (3.4-5.0); Alkaline Phosphatase 99 U/L (46-116); Anion Gap 13.9; Aspartate Amino Transferase 28 U/L (15-37); Blood Urea Nitrogen 16.0 mg/dL (7.0-18.0); Calcium 9.0 mg/dL (8.5-10.1); Carbon Dioxide 27.8 mmol/L (21.0-32.0); Chloride 105 mmol/L (98-107); Estimated GFR (African America >60 (>=60 mL/min/1.73m^2); Estimated GFR (Non-African Ame 59 (>=60 mL/min/1.73m^2); Globulin 3.9 g/dL; Glucose 159 mg/dL (74-106); Potassium 3.7 mmol/L (3.5-5.1); Sodium 143 mmol/L (136-145); Total Protein 7.6 g/dL (6.4-8.2)
== END 2025-04-08 14:50 | disposition home or self-care (01) ==
LOC: LAB 14:49
PROVIDERS: PCP Family Medicine; Visit Provider Family Medicine
DX: D47.3 Essential (hemorrhagic) thrombocythemia (principal); I10 Essential (primary) hypertension
CPT/HCPCS: 36415; 80053; 85025